=== PATIENT | female | born 1965 | race American Indian/Alaskan Native ===

== ENCOUNTER 2017-05-04 13:50 | Emergency (ER) | payer MEDICARE, MEDICAID ==
[2017-05-04] MEDS ORDERED: Acetaminophen/HYDROcodone 325-5 MG Tab PO ONE (14:42)
--- NOTE | 2017-05-04 15:55 | EDM.PDOC ---
ED HPI GENERAL MEDICAL PROBLEM - General Chief Complaint: Upper Extremity Injury/Pain Stated Complaint: LEFT SHOULDER Time Seen by Provider: 05/04/17 13:50 Source of Information: Reports: Patient, EMS - History of Present Illness INITIAL COMMENTS - FREE TEXT/NARRATIVE: 51 years old w f with multiple medical issues, came the ed by EMS after she fell over her walker. Pt complained of left shoulder and left sided neck pain. No LOC. No dizziness, no Lightheadedness no other acute medical issues at this time. Onset: Today Onset Date: 05/04/17 Onset Time: 10:00 Duration: Hour(s): Location: Reports: Neck, Back (left shoulder), Upper Extremity, Left Quality: Reports: Dull Severity: Mild Improves with: Reports: Rest Worsens with: Reports: Movement Context: Reports: Trauma Associated Symptoms: Reports: No Other Symptoms left shoulder and neck Pain Score (Numeric/FACES): 10 - Related Data Allergies Allergy/AdvReac Type Severity Reaction Status Date / Time aspirin Allergy Other Verified 05/04/17 14:05 mold Allergy Airway Uncoded 05/04/17 14:05 Tightness Home Meds: Home Meds Albuterol [Proventil Neb Soln] 2.5 mg NEB QID PRN 05/03/13 [History] Montelukast [Singulair] 10 mg PO DAILY 05/03/13 [History] Nitroglycerin [Nitrostat] 0.4 mg SL ASDIRECTED PRN 05/03/13 [History] Lisinopril [Zestril] 10 mg PO DAILY 11/06/13 [History] Simvastatin [Zocor] 10 mg PO BEDTIME 11/06/13 [History] Theophylline [Theophylline Anhydrous] 300 mg PO BID 11/06/13 [History] Albuterol [Proair HFA] 2 puff INH Q4H PRN 01/08/15 [History] Budesonide/Formoterol [Symbicort 160-4.5 MCG] 2 puff INH BID 05/15/15 [History] Furosemide [Lasix] 40 mg PO DAILY #90 tablet 05/16/15 [Rx] Potassium Chloride [Klor-Con 10] 10 meq PO BEDTIME 11/19/15 [History] Ondansetron [Zofran ODT] 4 mg PO Q6H PRN #7 tab.dis 06/20/16 [Rx] Acetaminophen/HYDROcodone [[place] 325-5 MG] 1 tab PO Q4H PRN #6 tab 05/04/17 [Rx] Hydrocodone/Acetaminophen [Vicodin 5-300 mg Tablet] 1 each PO Q4HR PRN #6 tablet 05/04/17 [Rx] metFORMIN [Glucophage] 500 mg PO BID 05/04/17 [History] Past Medical History HEENT 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: Cataract, Impaired Vision Cardiovascular 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: High Cholesterol, Hypertension, Other (See Below) Other Cardiovascular History: patient states has PRn nitro at home for occasional chest pains Respiratory 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: Asthma, COPD Genitourinary 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: Other (See Below) Other Genitourinary History: stress incontinence at times 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: Musculoskeletal 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: Other (See Below) Other Musculoskeletal History: BACK INJURY Neurological 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: Concussion Endocrine/Metabolic 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: Diabetes, Type II Oncologic (Cancer) 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: Ovarian Dermatologic 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: Other (See Below) Other Dermatologic History: open infected wound under right abd fold on oral antibiotics - Infectious Disease History Infectious Disease 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: Chicken Pox - Past Surgical History HEENT Surgical 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: Cataract Surgery Female Surgical 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: Hysterectomy, Salpingo-Oophorectomy Social & Family History - Family History Family Medical History: Noncontributory HEENT: Reports: Cataract Cardiac: Reports: CAD, [place] Respiratory: Reports: Asthma, Sleep Apnea : Reports: Diabetic Nephropathy OBGYN: Reports: Musculoskeletal: Reports: Arthritis Endocrine/Metabolic: Reports: Diabetes, Type I, Diabetes, type II, IDDM, Obesity /MBI 30+ Oncologic: Reports: Bone, Breast, Other (See Below) Other Oncologic Family History: heart - Tobacco Use Smoking Status *Q: Former Smoker Years of Tobacco use: 39 Packs/Tins Daily: 2 Used Tobacco, but Quit: Yes Month Tobacco Last Used: 24 Second Hand Smoke Exposure: No - Caffeine Use Caffeine Use: Reports: Coffee Other Caffeine Use: daily - Alcohol Use Days Per Week of Alcohol Use: 0 - Recreational Drug Use Recreational Drug Use: No - Living Situation & Occupation Living situation: Reports: Review of Systems - Review of Systems Review Of Systems: See Below Constitutional: Reports: No Symptoms Eyes: Reports: No Symptoms Ears: Reports: No Symptoms Nose: Reports: No Symptoms Mouth/Throat: Reports: No Symptoms Respiratory: Reports: No Symptoms Cardiovascular: Reports: No Symptoms GI/Abdominal: Reports: No Symptoms Genitourinary: Reports: No Symptoms Musculoskeletal: Reports: Neck Pain, Shoulder Pain Skin: Reports: No Symptoms Neurological: Reports: No Symptoms Psychiatric: Reports: No Symptoms ED EXAM, GENERAL - Physical Exam Exam: See Below Exam Limited By: No Limitations General Appearance: Alert, WD/WN, Mild Distress, Obese Eye Exam: Bilateral Eye: Normal Inspection Ears: Normal External Exam Ear Exam: Bilateral Ear: Auricle Normal Nose: Normal Inspection, Normal Mucosa Throat/Mouth: Normal Inspection, Normal Lips Head: Atraumatic, Normocephalic Neck: Tender Lateral Respiratory/Chest: No Respiratory Distress, Lungs Clear Cardiovascular: Normal Peripheral Pulses, Regular Rate, Rhythm GI/Abdominal: Normal Bowel Sounds, Soft (Female) Exam: Deferred Rectal (Female) Exam: Deferred Back Exam: Normal Inspection Extremities: Normal Inspection Neurological: Alert, Oriented, CN II-XII Intact, Normal Cognition, Abnormal Gait (walks with a walker) Psychiatric: Normal Affect, Normal Mood Skin Exam: Warm, Dry, Intact, Normal Color, No Rash Course - Vital Signs Text/Narrative:: 51 years old w f with multiple medical issues, came the ed by EMS after she fell over her walker. Pt complained of left shoulder and left sided neck pain. No LOC. No dizziness, no Lightheadedness no other acute medical issues at this time. BP 146/8- pulse 104 RR 17 PE: Morbid obese 51 y.o.w.f NAD witk tenderness left lat neck and left post shoulder. Imaging: C spine and L shoulder: NAD, official report is pending. Impression: Neck and shoulder sprain after mechanical fall. Tx: Motrin.Vicodin, soft collar to neck Reexam: improved Plan: D/C with instructions Last Recorded V/S: Last Vital Signs Temp 37.0 C 05/04/17 13:50 Pulse 91 05/04/17 16:01 Resp 16 05/04/17 16:01 BP 120/77 05/04/17 16:01 Pulse Ox 99 05/04/17 16:01 - Orders/Labs/Meds Orders: Active Orders 24 hr Category Date Time Status Cervical Spine 2V or 3V [CR] Stat Exams 05/04/17 14:20 Taken Shoulder Comp Lt [CR] Stat Exams 05/04/17 14:24 Taken Labs: Laboratory Tests 05/04/17 Range/Units 15:33 Urine Color Yellow (YELLOW) Urine Appearance Clear (CLEAR) Urine pH 5.0 (5.0-6.5) Ur Specific [place] 1.010 (1.010-1.025) Urine Protein Negative (NEGATIVE) mg/dL Urine Glucose (UA) 50 H (NEGATIVE) mg/dL Urine Ketones Negative (NEGATIVE) mg/dL Urine Occult Blood Negative (NEGATIVE) Urine Nitrite Negative (NEGATIVE) Urine Bilirubin Negative (NEGATIVE) Urine Urobilinogen Normal (NEGATIVE) mg/dL Ur Leukocyte Esterase Negative (NEGATIVE) Urine RBC 0-5 (0) Urine WBC 0-5 (0) Ur Squamous Epith Cells Moderate H (NS,R,O) Urine Bacteria Few H (NS) Meds: Medications Discontinued Medications Generic Name Dose Route Start Last Admin Trade Name Freq PRN Reason Stop Dose Admin Hydrocodone Bitart/Acetaminophen 1 tab 05/04/17 14:42 05/04/17 14:49 [place] 325-5 Mg PO 05/04/17 14:43 1 tab ONETIME ONE Administration Departure - Departure Time of Disposition: 15:50 Disposition: Home, Self-Care 01 Condition: Good Clinical Impression: Sprain of shoulder, left Qualifiers: Encounter type: initial encounter Shoulder sprain type: unspecified sprain Qualified Code(s): S43.402A - Unspecified sprain of left shoulder joint, initial encounter Neck sprain Qualifiers: Encounter type: initial encounter Qualified Code(s): S13.9XXA - Sprain of joints and ligaments of unspecified parts of neck, initial encounter - Discharge Information Prescriptions: Hydrocodone/Acetaminophen [Vicodin 5-300 mg Tablet] 1 each PO Q4HR PRN #6 tablet PRN Reason: severe pain only Acetaminophen/HYDROcodone [[place] 325-5 MG] 1 tab PO Q4H PRN #6 tab PRN Reason: severe pain only Referrals: Jacinto Jones MD [Primary Care Provider] - Forms: ED Department Discharge Additional Instructions: Please use the soft collar to neck for comfort, ice motrin for med pain, vicodin for sever pain, please f/u, please come back if your symptoms get worse acutely - My Orders Last 24 Hours: My Active Orders 05/04/17 14:20 Cervical Spine 2V or 3V [CR] Stat 05/04/17 14:24 Shoulder Comp Lt [CR] Stat - Assessment/Plan Last 24 Hours: My Active Orders 05/04/17 14:20 Cervical Spine 2V or 3V [CR] Stat 05/04/17 14:24 Shoulder Comp Lt [CR] Stat
[2017-05-04 16:06] VITALS: BP 120/77
--- NOTE | 2017-05-05 10:44 | CR ---
INDICATION: Left shoulder and neck pain, fell last night. LEFT SHOULDER: Three views of the left shoulder revealed very minimal degenerative changes at the AC and glenohumeral joints with the glenohumeral joint space well-maintained. A fracture, dislocation, or other acute bone or joint abnormality was not identified. There is slight sclerosis at the undersurface of the acromion, raising question of a mild degree of impingement - rotator cuff injury and/or degeneration. This should be correlated clinically. IMPRESSION: 1. No acute fracture or dislocation. 2. Minimal osteoarthritis. 3. Possible mild impingement. MTDD
--- NOTE | 2017-05-05 11:00 | CR ---
INDICATION: Left shoulder and neck pain, fell last night. CERVICAL SPINE: Six images of the cervical spine were obtained in frontal, odontoid, and lateral views. There may be slight decrease in disk space at C3-4, as well as at C5-6. The remainder of the disk spaces inferiorly were not ideally visualized, apparently due to patient body habitus. There may be some narrowing, however, at the C7- T1 and T1-2 levels. There also is noted a dextroconvex scoliosis of the cervical spine of mild degree. The odontoid was not well seen but appeared grossly intact. Prevertebral space and bone density appeared to be normal. Mild degenerative changes are noted at the atlantoodontoid joint. A definite acute fracture or dislocation was not identified. IMPRESSION: 1. No definite acute fracture or dislocation. 2. Mild scoliosis. 3. Possible disk disease at multiple levels, as noted above. MTDD
== END 2017-05-04 16:01 | disposition home or self-care (01) ==
LOC: FB.ED 13:50
DX: S13.9XXA Sprain of joints and ligaments of unspecified parts of neck, initial encounter (principal); S43.402A Unspecified sprain of left shoulder joint, initial encounter; Z88.8 Allergy status to other drugs, medicaments and biological substances; Z79.899 Other long term (current) drug therapy; E78.00 Pure hypercholesterolemia, unspecified; I10 Essential (primary) hypertension; Z87.891 Personal history of nicotine dependence; W19.XXXA Unspecified fall, initial encounter
CPT/HCPCS: 72040; 73030; 81001; 99284; A9270

== ENCOUNTER 2017-07-31 09:59 | Inpatient (IN) | payer MEDICARE, MEDICAID ==
[2017-07-31] MEDS ORDERED: Lactated Ringers 1,000 ML IV ONE (10:04)
[2017-07-31] MEDS ORDERED: Acetaminophen 500 MG Tab PO ONE (10:11)
--- NOTE | 2017-07-31 10:11 | EDM.PDOC ---
ED HPI GENERAL MEDICAL PROBLEM - General Chief Complaint: Respiratory Problem Stated Complaint: SOB Time Seen by Provider: 07/31/17 10:00 Source of Information: Reports: Patient, EMS, Old Records History Limitations: Reports: No Limitations - History of Present Illness INITIAL COMMENTS - FREE TEXT/NARRATIVE: 52 yo female who lives alone presents via EMS with wheezing and SOB. Had a Duoneb before leaving home with little benefit. EMS gave Solumedrol 125 mg IV en route. Has been having more SOB over the past few days. Quit smoking a couple yrs ago. Uses oxygen at 2 liters/min/NC at home. Had a friend over last night that was smoking in her home. Does have some mild chest pain. Is diabetic with BS running around 120. Has had increased redness in her L calf area of recent onset. Onset: Gradual Onset Date: 07/28/17 Duration: Day(s):, Getting Worse Location: Reports: Chest, Lower Extremity, Left Quality: Reports: Dull Severity: Mild Improves with: Reports: None Worsens with: Reports: Other (? 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: Breathing Treatments, Other Medication(s) (Solumedrol) Anterior chest & mid back Pain Score (Numeric/FACES): 7 - Related Data Allergies Allergy/AdvReac Type Severity Reaction Status Date / Time aspirin Allergy Other Verified 05/04/17 14:05 mold Allergy Airway Uncoded 05/04/17 14:05 Tightness Home Meds: Home Meds Montelukast [Singulair] 10 mg PO DAILY 05/03/13 [History] Lisinopril [Zestril] 10 mg PO DAILY 11/06/13 [History] Simvastatin [Zocor] 10 mg PO BEDTIME 11/06/13 [History] Theophylline [Theophylline Anhydrous] 300 mg PO BID 11/06/13 [History] Albuterol [Proair HFA] 2 puff INH Q4H PRN 01/08/15 [History] Budesonide/Formoterol [Symbicort 160-4.5 MCG] 2 puff INH BID 05/15/15 [History] Furosemide [Lasix] 40 mg PO DAILY #90 tablet 05/16/15 [Rx] Potassium Chloride [Klor-Con 10] 10 meq PO BEDTIME 11/19/15 [History] metFORMIN [Glucophage] 500 mg PO BID 05/04/17 [History] Albuterol/Ipratropium [DuoNeb 3.0-0.5 MG/3 ML] 3 ml INH Q4H PRN 07/31/17 [ History] Celecoxib [CeleBREX] 200 mg PO DAILY 07/31/17 [History] DULoxetine [Cymbalta] 60 mg PO BEDTIME 07/31/17 [History] Gabapentin [Neurontin] 600 mg PO TID 07/31/17 [History] HYDROcodone/Ibuprofen [Vicoprofen] 1 tab PO Q4H PRN 07/31/17 [History] Insulin Aspart [NovoLOG] 35 unit TIDMEALS 07/31/17 [History] Insulin Glargine,Hum.Rec.Anlog [[place]jeo Solostar] 120 unit SQ BEDTIME 07/31/17 [ History] Ipratropium [Atrovent HFA Inh] 1 puff INH BEDTIME 07/31/17 [History] Lactulose 10 gm PO DAILY PRN 07/31/17 [History] Nystatin/Triamcinolone Crm [Mycolog Crm] 1 applic TOP BID PRN 07/31/17 [History] Tolterodine Tartrate [Detrol LA] 4 mg PO BID 07/31/17 [History] Past Medical History HEENT 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: Cataract, Impaired Vision Cardiovascular 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: High Cholesterol, Hypertension, Other (See Below) Other Cardiovascular History: patient states has PRn nitro at home for occasional chest pains Respiratory 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: Asthma, COPD Genitourinary 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: Other (See Below) Other Genitourinary History: stress incontinence at times 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: Musculoskeletal 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: Other (See Below) Other Musculoskeletal History: BACK INJURY Neurological 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: Concussion Endocrine/Metabolic 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: Diabetes, Type II Oncologic (Cancer) 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: Ovarian Dermatologic 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: Other (See Below) Other Dermatologic History: open infected wound under right abd fold on oral antibiotics - Infectious Disease History Infectious Disease 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: Chicken Pox - Past Surgical History HEENT Surgical 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: Cataract Surgery Female Surgical 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: Hysterectomy, Salpingo-Oophorectomy Social & Family History - Family History Family Medical History: Noncontributory HEENT: Reports: Cataract Cardiac: Reports: CAD, [place] Respiratory: Reports: Asthma, Sleep Apnea : Reports: Diabetic Nephropathy OBGYN: Reports: Musculoskeletal: Reports: Arthritis Endocrine/Metabolic: Reports: Diabetes, Type I, Diabetes, type II, IDDM, Obesity /MBI 30+ Oncologic: Reports: Bone, Breast, Other (See Below) Other Oncologic Family History: heart - Tobacco Use Smoking Status *Q: Former Smoker Years of Tobacco use: 39 Packs/Tins Daily: 2 Used Tobacco, but Quit: Yes Month Tobacco Last Used: 24 Second Hand Smoke Exposure: No - Caffeine Use Caffeine Use: Reports: Coffee Other Caffeine Use: daily - Alcohol Use Days Per Week of Alcohol Use: 0 - Recreational Drug Use Recreational Drug Use: No - Living Situation & Occupation Living situation: Reports: ED ROS GENERAL - Review of Systems Review Of Systems: See Below Constitutional: Reports: Fever (Patient not aware), Weakness HEENT: Reports: No Symptoms Respiratory: Reports: Shortness of Breath, Wheezing, Cough. Denies: Sputum, Hemoptysis Cardiovascular: Reports: Chest Pain Endocrine: Reports: No Symptoms GI/Abdominal: Reports: No Symptoms : Reports: No Symptoms Musculoskeletal: Reports: No Symptoms Skin: Reports: No Symptoms Neurological: Reports: No Symptoms Psychiatric: Reports: No Symptoms Hematologic/Lymphatic: Reports: No Symptoms ED EXAM, GENERAL - Physical Exam Exam: See Below Exam Limited By: No Limitations General Appearance: Alert, Mild Distress, Obese Eye Exam: Bilateral Eye: Normal Inspection Ears: Normal External Exam, Normal Canal, Hearing Grossly Normal, Normal TMs Ear Exam: Bilateral Ear: Auricle Normal, Canal Normal, TM normal Nose: Normal Inspection, Normal Mucosa, No Blood Throat/Mouth: Normal Inspection, Normal Lips, Normal Oropharynx, Normal Voice, No Airway Compromise, Other (Dry oral mucosa, edentulous). No: Normal Teeth Head: Atraumatic, Normocephalic Neck: Normal Inspection, Supple, Non-Tender Respiratory/Chest: No Respiratory Distress, Lungs Clear, Normal Breath Sounds, No Accessory Muscle Use Cardiovascular: Regular Rate, Rhythm GI/Abdominal: Normal Bowel Sounds, Soft, Non-Tender, No Distention, Other (obese ) Back Exam: Normal Inspection. No: CVA Tenderness (R), CVA Tenderness (L) Extremities: Normal Range of Motion, Pedal Edema, Increased Warmth (L LE ), Redness (L LE, calf and medial thigh) Neurological: Alert, Oriented, CN II-XII Intact, Normal Cognition, No Motor/ Sensory Deficits Psychiatric: Normal Affect, Normal Mood Skin Exam: Warm, Dry, Intact, No Rash, Erythema (L leg) Lymphatic: No Adenopathy EKG INTERPRETATION EKG Interpretation Comments: Rate increase only. Course - Vital Signs Text/Narrative:: LR 1000 ml IV, acetaminophen 1000 mg po, clindamycin 900 mg IV Last Recorded V/S: Last Vital Signs Temp 38.5 C H 07/31/17 09:59 Pulse 118 H 07/31/17 09:59 Resp 26 H 07/31/17 09:59 BP 138/59 L 07/31/17 09:59 Pulse Ox 95 07/31/17 10:56 - Orders/Labs/Meds Orders: Active Orders 24 hr Category Date Time Status Cardiac Monitoring [RC] .As Directed Care 07/31/17 10:04 Active Oxygen Therapy Adult [Oxygen Therapy] [RC] ASDIRECTED Care 07/31/17 10:04 Active CULTURE BLOOD [BC] Urgent Lab 07/31/17 10:15 Received CULTURE BLOOD [BC] Urgent Lab 07/31/17 10:20 Received UA W/MICROSCOPIC [URIN] Stat Lab 07/31/17 10:05 Uncollected Clindamycin Phosphate [Cleocin] 900 mg Med 07/31/17 10:55 Active Sodium Chloride 0.9% [Normal Saline] 100 ml IV ONETIME Blood Culture x2 Reflex Set [OM.PC] Urgent Oth 07/31/17 10:11 Ordered EKG 12 Lead [EK] Routine Ther 07/31/17 10:05 Ordered Medication Orders Clindamycin Phosphate 900 mg/ (Sodium Chloride) 106 mls @ 100 mls/hr IV ONETIME ONE Stop: 07/31/17 11:58 Labs: Laboratory Tests 07/31/17 07/31/17 07/31/17 Range/Units 10:15 10:15 10:15 WBC 9.0 (4.5-12.0) X10-3/uL RBC 4.98 (3.23-5.20) x10(6)uL Hgb 13.0 (11.5-15.5) g/dL Hct 40.3 (30.0-51.3) % MCV 80.8 (80-96) fL MCH 26.0 L (27.7-33.6) pg MCHC 32.2 (32.2-35.4) g/dL RDW 16.0 H (11.5-15.5) % Plt Count 136 (125-369) X10(3)uL Sodium 134 L (135-145) mmol/L Potassium 4.7 (3.5-5.3) mmol/L Chloride 100 (100-110) mmol/L Carbon Dioxide 24 (21-32) mmol/L BUN 8 (7-18) mg/dL Creatinine 0.5 L (0.55-1.02) mg/dL Est Cr Clr Drug Dosing 120.41 mL/min Estimated GFR (MDRD) > 60 (>60) BUN/Creatinine Ratio 16.0 (9-20) Glucose 421 H* (80-116) mg/dL Lactic Acid (0.4-2.2) mmol/L Calcium 9.1 (8.6-10.2) mg/dL Troponin I < 0.017 L (<0.017-0.056) ng/mL C-Reactive Protein (0.5-0.9) mg/dL 07/31/17 07/31/17 Range/Units 10:15 10:15 WBC (4.5-12.0) X10-3/uL RBC (3.23-5.20) x10(6)uL Hgb (11.5-15.5) g/dL Hct (30.0-51.3) % MCV (80-96) fL MCH (27.7-33.6) pg MCHC (32.2-35.4) g/dL RDW (11.5-15.5) % Plt Count (125-369) X10(3)uL Sodium (135-145) mmol/L Potassium (3.5-5.3) mmol/L Chloride (100-110) mmol/L Carbon Dioxide (21-32) mmol/L BUN (7-18) mg/dL Creatinine (0.55-1.02) mg/dL Est Cr Clr Drug Dosing mL/min Estimated GFR (MDRD) (>60) BUN/Creatinine Ratio (9-20) Glucose (80-116) mg/dL Lactic Acid 1.0 (0.4-2.2) mmol/L Calcium (8.6-10.2) mg/dL Troponin I (<0.017-0.056) ng/mL C-Reactive Protein 11.5 H* (0.5-0.9) mg/dL Meds: Medications Generic Name Dose Route Start Last Admin Trade Name Freq PRN Reason Stop Dose Admin Clindamycin Phosphate 900 mg/ 106 mls @ 100 mls/hr 07/31/17 10:55 Sodium Chloride IV 07/31/17 11:58 ONETIME ONE Discontinued Medications Generic Name Dose Route Start Last Admin Trade Name Freq PRN Reason Stop Dose Admin Acetaminophen 1,000 mg 07/31/17 10:11 07/31/17 10:50 Tylenol Extra Strength PO 07/31/17 10:12 1,000 mg ONETIME ONE Administration Lactated Ringer's 1,000 mls @ 1,000 mls/hr 07/31/17 10:04 07/31/17 10:50 Ringers, Lactated IV 07/31/17 11:03 1,000 mls/hr BOLUS ONE Administration - Radiology Interpretation Free Text/Narrative:: CXR-negative Departure - Departure Time of Disposition: 11:40 Disposition: Admitted As Inpatient 64 Condition: Fair Clinical Impression: COPD exacerbation Cellulitis Qualifiers: Site of cellulitis: extremity Site of cellulitis of extremity: lower extremity Laterality: left Qualified Code(s): L03.116 - Cellulitis of left lower limb Hyperglycemia due to type 2 diabetes mellitus Qualifiers: Diabetes mellitus long term care phlebotomist insulin use: with long term care phlebotomist use Qualified Code(s): E11.65 - Type 2 diabetes mellitus with hyperglycemia; Z79.4 - extermination inspector (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 ) use of insulin; Z79.4 - extermination inspector (current) use of insulin; Z79.4 - extermination inspector (current) use of insulin; Z79.4 - extermination inspector (current) use of insulin - Discharge Information Referrals: Jacinto Jones MD [Primary Care Provider] - Forms: ED Department Discharge - My Orders Last 24 Hours: My Active Orders 07/31/17 10:04 Cardiac Monitoring [RC] .As Directed Oxygen Therapy Adult [Oxygen Therapy] [RC] ASDIRECTED 07/31/17 10:05 UA W/MICROSCOPIC [URIN] Stat EKG 12 Lead [EK] Routine 07/31/17 10:11 Blood Culture x2 Reflex Set [OM.PC] Urgent 07/31/17 10:15 CULTURE BLOOD [BC] Urgent 07/31/17 10:20 CULTURE BLOOD [BC] Urgent 07/31/17 10:55 Clindamycin Phosphate [Cleocin] 900 mg Sodium Chloride 0.9% [Normal Saline] 100 ml IV ONETIME - Assessment/Plan Last 24 Hours: My Active Orders 07/31/17 10:04 Cardiac Monitoring [RC] .As Directed Oxygen Therapy Adult [Oxygen Therapy] [RC] ASDIRECTED 07/31/17 10:05 UA W/MICROSCOPIC [URIN] Stat EKG 12 Lead [EK] Routine 07/31/17 10:11 Blood Culture x2 Reflex Set [OM.PC] Urgent 07/31/17 10:15 CULTURE BLOOD [BC] Urgent 07/31/17 10:20 CULTURE BLOOD [BC] Urgent 07/31/17 10:55 Clindamycin Phosphate [Cleocin] 900 mg Sodium Chloride 0.9% [Normal Saline] 100 ml IV ONETIME
[2017-07-31] MEDS ORDERED: Clindamycin Phosphate 900 MG in Sodium Chloride 0.9% 100 ML IV ONE (10:55)
--- NOTE | 2017-07-31 11:06 | CR ---
INDICATION: Short of breath. CHEST: AP upright view of the chest 07/31/2017 was compared with 11/28/2015 and 10/23/2015. Overlying EKG leads are noted. The aorta is tortuous with calcification in the arch. The heart likely is normal in size. A definite active infiltrate or effusion was not identified. IMPRESSION: Fairly stable appearance of the chest. No acute process. No definite evidence of CHF identified. MTDD
[2017-07-31] MEDS ORDERED: Acetaminophen 325 MG Tab PO PRN (12:06)
[2017-07-31] MEDS ORDERED: Docusate Sodium 100 MG Cap PO PRN (12:06)
[2017-07-31] MEDS ORDERED: Clindamycin Phosphate 600 MG in Dextrose 5% in Water 50 ML IV SCH ×4 (12:30)
[2017-07-31] MEDS ORDERED: cefTRIAXone 2 GM in Sodium Chloride 0.9% 100 ML IV SCH (12:30)
[2017-07-31] MEDS ORDERED: Lactulose Soln 10 GM/15 ML 15 ML UD Cup PO PRN (12:30)
--- NOTE | 2017-07-31 12:54 | PCM.HP ---
H&P History of Present Illness - General Date of Service: 07/31/17 Admit Problem/Dx: Admission Diagnosis/Problem Admission Diagnosis/Problem COPD with acute lower respiratory infection Source of Information: Patient, EMS, Family, Old Records, Provider - History of Present Illness Initial Comments - Free Text/Narative: Chief complaint: Shortness of breath History of present illness: 52-year-old female with a long-standing history of COPD, oxygen dependent on 2 L. Recent history of steroid use. Over the last 3 days she's had increasing shortness of breath at home. She had an upper respiratory infection treated with Bactrim in April 2017 and again May. On 07/03/2017 was treated with a prednisone burst for COPD exacerbation. She felt well until Monday when she started to develop a slight cough (07/28). She started to go increasingly short of breath yesterday and spiked a fever of 101 at home. She was trying her DuoNeb's but they didn't seem to help. This morning she was unable to breathe after a DuoNeb and so called the ambulance. Sats were 93% on her baseline 2 L but respiratory rate was 26. Patient had diffuse expiratory wheezing and a fever of 101.3 and was given a dose of IV Solu-Medrol en route. Her breathing feels a little better right now but she still feels quite a bit more short of breath than her baseline. Previously had a fall at her home on 07/22/2017. She has poor feeling in her feet from her diabetes and felt she tripped because of this. She had pain in the left foot and some duskiness over the toes and also had an episode of loss of consciousness she thinks for at least a few seconds. She declined emergency room visit and instead went into the clinic. Was seen and evaluated by her primary care provider. Blood sugar at that time was 500. X-ray negative for fracture of the back. Was given a prescription for Vicoprofen and a referral to vascular surgery for peripheral vascular disease. Continues to have ongoing chronic back pain but otherwise felt back to baseline. Patient has diabetes mellitus type 2, on insulin, A1c in April was 10.5%. She mentions her blood sugars have been in the 100 range at home but today when she presented her blood sugar was 410 which she was unaware of and in the clinic she also said her blood sugars were in the 100 range at home but at that time blood sugar was 515. Past medical history: #1 hypertension #2 COPD, oxygen dependent at 2 L, frequent prednisone use per chart review. Most recent course of prednisone 07/03/17. #3 obstructive sleep apnea. #4 obesity with a BMI of 40 #5 diabetes mellitus type 2 with peripheral neuropathy. Last A1c 05/02 10.5%. On long-acting and short-acting insulin, also metformin by mouth. #6 major depressive disorder #7 overactive bladder with urinary incontinence and incomplete bladder emptying. #8 chronic back pain. #9 patient reports acute myocardial infarction in 1999, but this is not recorded on her chart. She did have an echocardiogram done 05/29/15 which showed ejection fraction 60%. Mild diastolic dysfunction. Cardiac perfusion scan done on 10/03/13 showed normal results with no evidence of previous CT. #10 peripheral vascular disease with moderate left lower extremity arterial occlusive disease by vascular ultrasound on 12/06/16. Normal right lower extremity ankle-brachial index at rest at that time. Social history: Patient lives at [facility] by herself. She is . She has a daughter and her family which includes a grandson who is here with her today, living nearby. She quit smoking in 2014. No alcohol use. No illegal drug use. She has 4 children. Family history: The patient's mother and father are estranged from the patient. Father in the past. She thinks her mother is still alive. She has 2 brothers and 3 sisters. Diabetes, hypertension run in the family. She is estranged from all but one of her brothers. She has 4 children are one of whom has asthma. Anterior chest & mid back Pain Score (Numeric/FACES): 7 - Related Data Allergies/Adverse Reactions: Allergies Allergy/AdvReac Type Severity Reaction Status Date / Time aspirin Allergy Other Verified 05/04/17 14:05 mold Allergy Airway Uncoded 05/04/17 14:05 Tightness Home Medications: Home Meds Montelukast [Singulair] 10 mg PO DAILY 05/03/13 [History] Lisinopril [Zestril] 10 mg PO DAILY 11/06/13 [History] Simvastatin [Zocor] 10 mg PO BEDTIME 11/06/13 [History] Theophylline [Theophylline Anhydrous] 300 mg PO BID 11/06/13 [History] Albuterol [Proair HFA] 2 puff INH Q4H PRN 01/08/15 [History] Budesonide/Formoterol [Symbicort 160-4.5 MCG] 2 puff INH BID 05/15/15 [History] Potassium Chloride [Klor-Con 10] 10 meq PO BEDTIME 11/19/15 [History] metFORMIN [Glucophage] 500 mg PO BID 05/04/17 [History] Albuterol/Ipratropium [DuoNeb 3.0-0.5 MG/3 ML] 3 ml INH Q4H PRN 07/31/17 [ History] Celecoxib [CeleBREX] 200 mg PO DAILY 07/31/17 [History] DULoxetine [Cymbalta] 60 mg PO BEDTIME 07/31/17 [History] Furosemide [Lasix] 40 mg PO Q48H 07/31/17 [History] Gabapentin [Neurontin] 600 mg PO TID 07/31/17 [History] HYDROcodone/Ibuprofen [Vicoprofen] 1 tab PO Q4H PRN 07/31/17 [History] Insulin Aspart [NovoLOG] 35 unit TIDMEALS 07/31/17 [History] Insulin Glargine,Hum.Rec.Anlog [Toujeo Solostar] 120 unit SQ BEDTIME 07/31/17 [ History] Ipratropium [Atrovent HFA Inh] 1 puff INH BEDTIME 07/31/17 [History] Lactulose 10 gm PO DAILY PRN 07/31/17 [History] Nystatin/Triamcinolone Crm [Mycolog Crm] 1 applic TOP BID PRN 07/31/17 [History] Tolterodine Tartrate [Detrol LA] 4 mg PO BID 07/31/17 [History] Past Medical History HEENT 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: Cataract, Impaired Vision Cardiovascular 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: High Cholesterol, Hypertension, Other (See Below) Other Cardiovascular History: patient states has PRn nitro at home for occasional chest pains Respiratory 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: Asthma, COPD Other Respiratory History: has CPAP Gastrointestinal 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: GERD Genitourinary 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: Other (See Below) Other Genitourinary History: stress incontinence at times 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: Other OB/BYN History: , Musculoskeletal 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: Other (See Below) Other Musculoskeletal History: BACK INJURY Neurological 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: Concussion Psychiatric 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: Depression Endocrine/Metabolic 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: Diabetes, Type II Oncologic (Cancer) 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: Ovarian Dermatologic 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: Other (See Below) Other Dermatologic History: open infected wound under right abd fold on oral antibiotics - Infectious Disease History Infectious Disease 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: Chicken Pox - Past Surgical History HEENT Surgical 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: Cataract Surgery Female Surgical 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: Hysterectomy, Salpingo-Oophorectomy Social & Family History - Family History Family Medical History: Noncontributory HEENT: Reports: Cataract Cardiac: Reports: CAD, CT Respiratory: Reports: Asthma, Sleep Apnea : Reports: Diabetic Nephropathy OBGYN: Reports: Musculoskeletal: Reports: Arthritis Endocrine/Metabolic: Reports: Diabetes, Type I, Diabetes, type II, IDDM, Obesity /MBI 30+ Oncologic: Reports: Bone, Breast, Other (See Below) Other Oncologic Family History: heart - Tobacco Use Smoking Status *Q: Former Smoker Years of Tobacco use: 39 Packs/Tins Daily: 2 Used Tobacco, but Quit: Yes Month Tobacco Last Used: 24 Second Hand Smoke Exposure: No - Caffeine Use Caffeine Use: Reports: Coffee Other Caffeine Use: daily - Alcohol Use Days Per Week of Alcohol Use: 0 - Recreational Drug Use Recreational Drug Use: No - Living Situation & Occupation Living situation: Reports: H&P Review of Systems - Review of Systems: Review Of Systems: See Below General: Reports: Fever, Chills, Malaise, Weakness, Fatigue, Night Sweats, Diaphoresis, Decreased Appetite HEENT: Reports: Rhinitis, Post Nasal Drip, Sore Throat Pulmonary: Reports: Shortness of Breath, Wheezing, Cough, Other (No chest pain.) Cardiovascular: Reports: Dyspnea on Exertion Gastrointestinal: Reports: No Symptoms Genitourinary: Reports: No Symptoms (Has chronic difficulty voiding and incontinence.) Musculoskeletal: Reports: Muscle Pain Skin: Reports: Other (Lower extremities show chronic erythema bilaterally. Patient hasn't noticed that the erythema has worsened but on the left foot she' s got some duskiness and bruising at the base of the toes which is exquisitely tender and more swollen than usual.) Psychiatric: Reports: No Symptoms Neurological: Reports: No Symptoms Hematologic/Lymphatic: Reports: No Symptoms Immunologic: Reports: No Symptoms Exam - Exam Exam: See Below - Vital Signs Vital Signs: Last Vital Signs Temp 38.5 C H 07/31/17 09:59 Pulse 118 H 07/31/17 09:59 Resp 26 H 07/31/17 09:59 BP 138/59 L 07/31/17 09:59 Pulse Ox 95 07/31/17 10:56 Weight: 110.677 kg - Exam General: Alert, Oriented, Cooperative, Mild Distress (Seems uncomfortable. Minimal cough in the exam room.) HEENT: PERRLA, Conjunctiva Clear, Mucosa Moist & [place], Posterior Pharynx Clear Neck: Supple, Trachea Midline Lungs: Decreased Breath Sounds, Wheezing Cardiovascular: Regular Rate, Regular Rhythm GI/Abdominal Exam: Normal Bowel Sounds, Soft, Non-Tender, No Distention (Female) Exam: Deferred Rectal (Female) Exam: Deferred Back Exam: Normal Inspection, Full Range of Motion Extremities: Other (Bilateral +1 edema. Both ankles/shins show mild erythema and are tender to palpation. Patient has more swelling over the foot and third fourth and fifth digits on the left foot as well as duskiness or bruising at the base of the toes. No open sores or ulcerations.) - Patient Data Result Diagrams: 07/31/17 10:15 07/31/17 10:15 Imaging Impressions Last 24 hrs: Chest x-ray shows no acute infiltrate. EKG INTERPRETATION EKG Date: 07/31/17 (EKG shows sinus tachycardia, no ST elevation or depression, no T-wave inversion. Rate of 115.) *Q Meaningful Use (ADM) - VTE *Q VTE Criteria *Q: - Stroke *Q Stroke Criteria *Q: - AMI *Q AMI Criteria *Q: - Problem List (1) SIRS (systemic inflammatory response syndrome) SNOMED Code(s): 904428572 ICD Code: R65.10 - SIRS OF NON-INFECTIOUS ORIGIN W/O ACUTE ORGAN DYSFUNCTION Status: Acute Current Visit: Yes Problem Details: Not entirely clear to me why this patient is febrile. Certainly acute exacerbation of COPD as high in the differential given her symptoms, but it doesn't really explain the fever. The possibility of a left foot cellulitis after her recent trauma is concerning , particularly given her poor perfusion and sensation in the left foot. She has a significantly elevated CRP as well. For the time being I'm going to treat her with continued clindamycin as was started in the emergency department for possible foot cellulitis, and I'm going to add Rocephin as well. I will also get an x-ray of that left foot. (2) Acute exacerbation of chronic obstructive pulmonary disease (COPD) SNOMED Code(s): 996274866 ICD Code: J44.1 - CHRONIC OBSTRUCTIVE PULMONARY DISEASE W (ACUTE) EXACERBATION Status: Acute Current Visit: No Problem Details: Patient clearly is wheezing and has increasing oxygen needs and shortness of breath. A strong reactive airways component. I'm going to put her back on oral prednisone , continue 4 times a day nebs, and oxygen above her baseline as needed. Also will check an influenza swab. (3) Obstructive sleep apnea syndrome SNOMED Code(s): 45999849 ICD Code: G47.33 - OBSTRUCTIVE SLEEP APNEA (ADULT) (PEDIATRIC) Status: Acute Current Visit: No Problem Details: Home CPAP, patient to bring in home O2. (4) Left foot pain SNOMED Code(s): 30664578 ICD Code: M79.672 - PAIN IN LEFT FOOT Status: Acute Current Visit: Yes Problem Details: See above. We need to rule out infection. X-ray, monitoring for skin breakdown. Antibiotics as above. (5) DVT prophylaxis SNOMED Code(s): 905798161 ICD Code: [id number] - Status: Acute Current Visit: Yes Problem Details: Lovenox, SCDs. Problem List Initiated/Reviewed/Updated: Yes Orders Last 24hrs: Active Orders 24 hr Category Date Time Status Patient Status [ADT] Routine ADT 07/31/17 12:06 Active Blood Glucose Check, Bedside [RC] QIDACANDBED Care 07/31/17 12:06 Active Intake and Output [RC] QSHIFT Care 07/31/17 12:09 Active RT Aerosol Therapy [RC] ASDIRECTED Care 07/31/17 12:12 Active Up With Assistance [RC] ASDIRECTED Care 07/31/17 12:06 Active VTE/DVT Education [RC] Per Unit Routine Care 07/31/17 12:06 Active Vital Signs [RC] Q4H Care 07/31/17 12:06 Active Consistent Carbohydrate Diet [DIET] Diet 07/31/17 Breakfast Active Foot Comp Min 3V Lt [CR] Routine Exams 07/31/17 12:21 Ordered CBC WITH AUTO DIFF [HEME] AM Lab 08/01/17 05:11 Ordered COMPREHENSIVE METABOLIC PN,CMP [CHEM] AM Lab 08/01/17 05:11 Ordered CULTURE SPUTUM + SMEAR [RM] Stat Lab 07/31/17 12:06 Uncollected INFLUENZA A+B AG SCREEN [RM] Stat Lab 07/31/17 12:20 Received Acetaminophen [Tylenol] Med 07/31/17 12:06 Active 650 mg PO Q4H PRN Albuterol/Ipratropium [DuoNeb 3.0-0.5 MG/3 ML] Med 07/31/17 16:00 Active 3 ml NEB QIDRT Budesonide/Formoterol [Symbicort 160-4.5 MCG] Med 07/31/17 21:00 Ordered 2 puff INH BID Clindamycin in 0.9 % Sod Chlor [Cleocin in NS] Med 07/31/17 14:00 Active 600 mg in 50 ml IV Q8H DULoxetine [Cymbalta] Med 07/31/17 21:00 Ordered 60 mg PO BEDTIME Docusate Sodium [Colace] Med 07/31/17 12:06 Active 100 mg PO BID PRN Enoxaparin [Lovenox] Med 07/31/17 12:15 Active 40 mg SUBCUT Q24H Furosemide [Lasix] Med 07/31/17 12:30 Ordered 40 mg PO Q48H Gabapentin [Neurontin] Med 07/31/17 14:00 Ordered 600 mg PO TID Insulin Aspart [NovoLOG] Med 07/31/17 13:00 Ordered 30 unit SUBCUT TIDMEALS Insulin Glargine,Hum.Rec.Anlog [Toujeo Solostar] Med 07/31/17 21:00 Ordered 120 unit SQ BEDTIME Lactulose [Chronulac] Med 07/31/17 12:30 Ordered 10 gm PO DAILY PRN Lisinopril [Prinivil] Med 08/01/17 09:00 Ordered 10 mg PO DAILY Montelukast [Singulair] Med 08/01/17 09:00 Ordered 10 mg PO DAILY Nystatin/Triamcinolone Crm [Mycolog Crm] Med 07/31/17 12:30 Ordered 1 applic TOP BID PRN Potassium Chloride [Klor-Con 10] Med 07/31/17 21:00 Ordered 10 meq PO BEDTIME Saccharomyces Boulardii [Florastor] Med 07/31/17 21:00 Active 250 mg PO BID Simvastatin [Zocor] Med 07/31/17 21:00 Ordered 10 mg PO BEDTIME Sodium Chloride 0.9% [Saline Flush] Med 07/31/17 12:06 Active 10 ml FLUSH ASDIRECTED PRN Theophylline [Theophylline Anhydrous] Med 07/31/17 21:00 Ordered 300 mg PO BID Tolterodine [Detrol LA 24 Hr] Med 07/31/17 21:00 Ordered 4 mg PO BID cefTRIAXone [Rocephin] Med 07/31/17 13:00 Active 2 gm IVPUSH Q24H metFORMIN [Glucophage] Med 07/31/17 21:00 Ordered 500 mg PO BID predniSONE Med 07/31/17 13:00 Active 40 mg PO WITHBREAKFAST Antiembolic Hose [OM.PC] Per Unit Routine Oth 07/31/17 12:10 Ordered Peripheral IV Insertion Adult [OM.PC] Routine Oth 07/31/17 12:06 Ordered Sequential Compression Device [OM.PC] Per Unit Routine Oth 07/31/17 12:10 Ordered Resuscitation Status Routine Resus Stat 07/31/17 12:06 Ordered Medication Orders Acetaminophen (Tylenol) 650 mg PO Q4H PRN PRN Reason: Pain (Mild 1-3)/fever Albuterol/Ipratropium (Duoneb 3.0-0.5 Mg/3 Ml) 3 ml NEB QIDRT ABILIO Ceftriaxone Sodium (Rocephin) 2 gm IVPUSH Q24H ABILIO Docusate Sodium (Colace) 100 mg PO BID PRN PRN Reason: Constipation Duloxetine HCl (Cymbalta) 60 mg PO BEDTIME ABILIO Enoxaparin Sodium (Lovenox) 40 mg SUBCUT Q24H ABILIO Furosemide (Lasix) 40 mg PO Q48H ABILIO Gabapentin (Neurontin) 600 mg PO TID ABILIO Clindamycin in 0.9 % Sod Chlor (Cleocin In Ns) 600 mg in 50 mls @ 100 mls/hr IV Q8H ABILIO Insulin Aspart (Novolog) 30 unit SUBCUT TIDMEALS ABILIO Lactulose (Chronulac) 10 gm PO DAILY PRN PRN Reason: Constipation Lisinopril (Prinivil) 10 mg PO DAILY ABILIO Metformin HCl (Glucophage) 500 mg PO BID ABILIO Montelukast Sodium (Singulair) 10 mg PO DAILY ABILIO Non-Formulary Medication (Budesonide/Formoterol [Symbicort 160-4.5 Mcg]) 2 puff INH BID ABILIO Non-Formulary Medication (Insulin Glargine,Hum.Rec.Anlog [Toujeo Solostar]) 120 unit SQ BEDTIME ABILIO Non-Formulary Medication (Nystatin/Triamcinolone Crm [Mycolog Crm]) 1 applic TOP BID PRN PRN Reason: Rash Non-Formulary Medication (Theophylline [Theophylline Anhydrous]) 300 mg PO BID ABILIO Potassium Chloride (Klor-Con 10) 10 meq PO BEDTIME ABILIO Prednisone (Prednisone) 40 mg PO WITHBREAKFAST ABILIO Saccharomyces Boulardii (Florastor) 250 mg PO BID ABILIO Simvastatin (Zocor) 10 mg PO BEDTIME ABILIO Sodium Chloride (Saline Flush) 10 ml FLUSH ASDIRECTED PRN PRN Reason: Keep Vein Open Tolterodine Tartrate (Detrol La 24 Hr) 4 mg PO BID ABILIO Assessment/Plan Comment:: CODE STATUS: Patient is a full code. However she does note that if she were to have severe respiratory distress to the point where she would need to be intubated, she would only be related to tolerate short-term intubation such as 3 days or so. She has been intubated in the past and does not want to have ongoing intubation or be maintained on a ventilator. Even if removing the tube resulted in her , she would not want long-term intubation.
[2017-07-31] MEDS: Albuterol 0.083% 2.5 MG/3 ML Neb Soln NEB PRN (13:49)
[2017-07-31] MEDS: Enoxaparin 40 MG/0.4 ML Syringe SUBCUT SCH (14:16)
[2017-07-31] MEDS: predniSONE 20 MG Tab PO SCH (14:17)
[2017-07-31] MEDS: Sodium Chloride 0.9% 10 ML Syringe FLUSH PRN ×3 (14:18→20:43)
[2017-07-31] MEDS: cefTRIAXone 2 GM Vial IVPUSH SCH (14:19)
[2017-07-31] MEDS: Gabapentin 600 MG Tab PO SCH ×2 (14:20→20:23)
[2017-07-31] MEDS: Insulin Aspart 100 Units/ML 3 ML Pen SUBCUT SCH ×3 (14:25→18:50)
[2017-07-31] MEDS: oxyCODONE 5 MG Tab PO PRN ×2 (14:29→23:34)
[2017-07-31] MEDS: Clindamycin in 0.9 % Sod Chlor 600 MG/50 ML BAG IV SCH ×2 (14:30→20:59)
[2017-07-31] MEDS: Albuterol/Ipratropium 3.0-0.5 MG/3 ML Neb Soln NEB SCH ×2 (15:05→20:18)
[2017-07-31] MEDS: Albuterol/Ipratropium 3.0-0.5 MG/3 ML Neb Soln NEB PRN ×2 (17:58→23:35)
[2017-07-31] MEDS: metFORMIN 500 MG Tab PO SCH (17:58)
[2017-07-31] MEDS: DULoxetine 60 MG Cap PO SCH (20:20)
[2017-07-31] MEDS: Tolterodine 4 MG Cap.ER PO SCH (20:22)
[2017-07-31] MEDS: Saccharomyces Boulardii (Probiotic) 250 MG Cap PO SCH (20:22)
[2017-07-31] MEDS: Potassium Chloride 10 MEQ Tab.ER PO SCH (20:23)
[2017-07-31] MEDS: Simvastatin 10 MG Tab PO SCH (20:24)
[2017-07-31] MEDS: SYMBICORT 160/4.5MCG INH SCH (20:35)
[2017-07-31] MEDS ORDERED: INSULIN GLARGINE HUM REC ANLOG 120 UNIT SQ SCH (21:00)
[2017-07-31] MEDS ORDERED: [UNRECOGNIZED DRUG - OTHER] SQ SCH (21:00)
[2017-07-31] MEDS ORDERED: Insulin Aspart 100 Units/ML 3 ML Pen SUBCUT ONE (22:01)
[2017-08-01] MEDS: Albuterol/Ipratropium 3.0-0.5 MG/3 ML Neb Soln NEB PRN (03:49)
[2017-08-01] MEDS: Clindamycin in 0.9 % Sod Chlor 600 MG/50 ML BAG IV SCH ×3 (05:02→21:47)
[2017-08-01] MEDS: Sodium Chloride 0.9% 10 ML Syringe FLUSH PRN ×4 (05:41→22:18)
[2017-08-01] MEDS: Albuterol/Ipratropium 3.0-0.5 MG/3 ML Neb Soln NEB SCH ×4 (06:40→20:30)
--- NOTE | 2017-08-01 07:42 | CR ---
INDICATION: Foot infection, question necrosis/osteomyelitis, pain top of distal left lateral foot. LEFT FOOT: Four views of the left foot were obtained and revealed some soft tissue swelling distally overlying the level of the distal metatarsals dorsally. No old films were available for comparison on this 07/31/2017 study. No finding to strongly suggest osteomyelitis was identified. No definite bony erosion or necrosis was seen. No fracture or dislocation was identified. IMPRESSION: Essentially normal left foot. If occult process such as osteomyelitis is suspected clinically, 3-phase nuclear bone imaging may be helpful. MTDD
[2017-08-01] MEDS: Insulin Aspart 100 Units/ML 3 ML Pen SUBCUT SCH ×6 (07:50→17:55)
[2017-08-01] MEDS: metFORMIN 500 MG Tab PO SCH ×2 (07:50→17:57)
[2017-08-01] MEDS: Saccharomyces Boulardii (Probiotic) 250 MG Cap PO SCH ×2 (08:16→21:16)
[2017-08-01] MEDS: Lisinopril 10 MG Tab PO SCH (08:17)
[2017-08-01] MEDS: predniSONE 20 MG Tab PO SCH (08:17)
[2017-08-01] MEDS: Gabapentin 600 MG Tab PO SCH ×3 (08:17→21:17)
[2017-08-01] MEDS: Montelukast 10 MG Tab PO SCH (08:17)
[2017-08-01] MEDS: SYMBICORT 160/4.5MCG INH SCH (08:18)
[2017-08-01] MEDS: Tolterodine 4 MG Cap.ER PO SCH ×2 (08:27→21:16)
[2017-08-01] MEDS ORDERED: predniSONE 20 MG Tab PO ONE (09:20)
[2017-08-01] MEDS: Albuterol 0.083% 2.5 MG/3 ML Neb Soln NEB PRN ×2 (09:21→13:24)
--- NOTE | 2017-08-01 09:24 | PCM.PN ---
- General Info Date of Service: 08/01/17 Subjective Update: Patient is a 52-year-old female currently in hospital day #2 for severe COPD/ asthma exacerbation. She feels better overall but her wheezing is very significant this morning and she is quite short of breath with speaking. Even while sleeping she was having fairly significant prolonged expiratory phase. She 's having no chest pain. No nausea, vomiting, diarrhea. Note: Just after noon, the patient had a severe episode of coughing accompanied by chest pain and SOB. EKG repeated at that time showed a sinus tachycardia, rate 112, no change from admission. Patient continued in spite of increased prednisone to be quite dyspneic and although wheezing improved with nebulizer therapy, she was requiring nebs more frequently. I decided based on the risk of decompensation to transfer her to the ICU where she could be monitored more closely. Functional Status: Reports: Pain Controlled - Patient Data Vitals - Most Recent: Last Vital Signs Temp 36.3 C 08/01/17 04:10 Pulse 86 08/01/17 04:10 Resp 20 08/01/17 04:10 BP 118/75 08/01/17 08:17 Pulse Ox 97 08/01/17 04:10 Weight - Most Recent: 110.677 kg I&O - Last 24 Hours: Intake & Output 07/31/17 08/01/17 08/01/17 22:59 06:59 14:59 Intake Total 297 450 Output Total 2150 0 Balance -1853 450 Lab Results Last 24 Hours: Laboratory Results - last 24 hr 07/31/17 07/31/17 07/31/17 Range/Units 13:50 17:41 20:56 WBC (4.5-12.0) X10-3/uL RBC (3.23-5.20) x10(6)uL Hgb (11.5-15.5) g/dL Hct (30.0-51.3) % MCV (80-96) fL MCH (27.7-33.6) pg MCHC (32.2-35.4) g/dL RDW (11.5-15.5) % Plt Count (125-369) X10(3)uL MPV (7.4-10.4) fL Add Manual Diff Neutrophils % (Manual) (46-82) % Band Neutrophils % (0-6) % Lymphocytes % (Manual) (13-37) % Monocytes % (Manual) (4-12) % Anisocytosis Sodium (135-145) mmol/L Potassium (3.5-5.3) mmol/L Chloride (100-110) mmol/L Carbon Dioxide (21-32) mmol/L BUN (7-18) mg/dL Creatinine (0.55-1.02) mg/dL Est Cr Clr Drug Dosing mL/min Estimated GFR (MDRD) (>60) BUN/Creatinine Ratio (9-20) Glucose (80-116) mg/dL POC Glucose 341 H 422 H* D (80-116) mg/dL Calcium (8.6-10.2) mg/dL Total Bilirubin (0.1-1.3) mg/dL AST (5-25) IU/L ALT (12-36) U/L Alkaline Phosphatase (56-112) IU/L Total Protein (6.0-8.0) g/dL Albumin (3.5-5.2) g/dL Globulin g/dL Albumin/Globulin Ratio Urine Color Yellow (YELLOW) Urine Appearance Clear (CLEAR) Urine pH 5.0 (5.0-6.5) Ur Specific [place] 1.010 (1.010-1.025) Urine Protein Negative (NEGATIVE) mg/dL Urine Glucose (UA) >1000 H (NEGATIVE) mg/dL Urine Ketones 15 H (NEGATIVE) mg/dL Urine Occult Blood Negative (NEGATIVE) Urine Nitrite Negative (NEGATIVE) Urine Bilirubin Negative (NEGATIVE) Urine Urobilinogen Normal (NEGATIVE) mg/dL Ur Leukocyte Esterase Negative (NEGATIVE) Urine RBC 0-5 (0) Urine WBC 0-5 (0) Ur Squamous Epith Cells Few H (NS,R,O) Urine Bacteria Occasional H (NS) 07/31/17 08/01/17 08/01/17 Range/Units 21:10 06:15 06:35 WBC 5.0 (4.5-12.0) X10-3/uL RBC 4.88 (3.23-5.20) x10(6)uL Hgb 12.6 (11.5-15.5) g/dL Hct 39.8 (30.0-51.3) % MCV 81.5 (80-96) fL MCH 25.8 L (27.7-33.6) pg MCHC 31.6 L (32.2-35.4) g/dL RDW 16.1 H (11.5-15.5) % Plt Count 137 (125-369) X10(3)uL MPV 9.7 (7.4-10.4) fL Add Manual Diff Yes Neutrophils % (Manual) 74 (46-82) % Band Neutrophils % 1 (0-6) % Lymphocytes % (Manual) 15 (13-37) % Monocytes % (Manual) 10 (4-12) % Anisocytosis Few Sodium (135-145) mmol/L Potassium (3.5-5.3) mmol/L Chloride (100-110) mmol/L Carbon Dioxide (21-32) mmol/L BUN (7-18) mg/dL Creatinine (0.55-1.02) mg/dL Est Cr Clr Drug Dosing mL/min Estimated GFR (MDRD) (>60) BUN/Creatinine Ratio (9-20) Glucose 522 H* D (80-116) mg/dL POC Glucose 317 H D (80-116) mg/dL Calcium (8.6-10.2) mg/dL Total Bilirubin (0.1-1.3) mg/dL AST (5-25) IU/L ALT (12-36) U/L Alkaline Phosphatase (56-112) IU/L Total Protein (6.0-8.0) g/dL Albumin (3.5-5.2) g/dL Globulin g/dL Albumin/Globulin Ratio Urine Color (YELLOW) Urine Appearance (CLEAR) Urine pH (5.0-6.5) Ur Specific [place] (1.010-1.025) Urine Protein (NEGATIVE) mg/dL Urine Glucose (UA) (NEGATIVE) mg/dL Urine Ketones (NEGATIVE) mg/dL Urine Occult Blood (NEGATIVE) Urine Nitrite (NEGATIVE) Urine Bilirubin (NEGATIVE) Urine Urobilinogen (NEGATIVE) mg/dL Ur Leukocyte Esterase (NEGATIVE) Urine RBC (0) Urine WBC (0) Ur Squamous Epith Cells (NS,R,O) Urine Bacteria (NS) 08/01/17 Range/Units 06:35 WBC (4.5-12.0) X10-3/uL RBC (3.23-5.20) x10(6)uL Hgb (11.5-15.5) g/dL Hct (30.0-51.3) % MCV (80-96) fL MCH (27.7-33.6) pg MCHC (32.2-35.4) g/dL RDW (11.5-15.5) % Plt Count (125-369) X10(3)uL MPV (7.4-10.4) fL Add Manual Diff Neutrophils % (Manual) (46-82) % Band Neutrophils % (0-6) % Lymphocytes % (Manual) (13-37) % Monocytes % (Manual) (4-12) % Anisocytosis Sodium 135 (135-145) mmol/L Potassium 5.0 (3.5-5.3) mmol/L Chloride 100 (100-110) mmol/L Carbon Dioxide 27 (21-32) mmol/L BUN 16 (7-18) mg/dL Creatinine 0.6 (0.55-1.02) mg/dL Est Cr Clr Drug Dosing 98.40 mL/min Estimated GFR (MDRD) > 60 (>60) BUN/Creatinine Ratio 26.7 H (9-20) Glucose 412 H* D (80-116) mg/dL POC Glucose (80-116) mg/dL Calcium 9.4 (8.6-10.2) mg/dL Total Bilirubin 0.4 (0.1-1.3) mg/dL AST 25 (5-25) IU/L ALT 40 H (12-36) U/L Alkaline Phosphatase 145 H (56-112) IU/L Total Protein 6.4 (6.0-8.0) g/dL Albumin 2.5 L (3.5-5.2) g/dL Globulin 3.9 g/dL Albumin/Globulin Ratio 0.6 Urine Color (YELLOW) Urine Appearance (CLEAR) Urine pH (5.0-6.5) Ur Specific [place] (1.010-1.025) Urine Protein (NEGATIVE) mg/dL Urine Glucose (UA) (NEGATIVE) mg/dL Urine Ketones (NEGATIVE) mg/dL Urine Occult Blood (NEGATIVE) Urine Nitrite (NEGATIVE) Urine Bilirubin (NEGATIVE) Urine Urobilinogen (NEGATIVE) mg/dL Ur Leukocyte Esterase (NEGATIVE) Urine RBC (0) Urine WBC (0) Ur Squamous Epith Cells (NS,R,O) Urine Bacteria (NS) Eamon Results Last 24 Hours: Microbiology 07/31/17 15:45 Gram Stain - Final Sputum - Expectorated 07/31/17 12:20 Influenza Type A Antigen Screen - Final Nasal, Left NEGATIVE INFLUENZA A VIRUS AG Influenza Type B Antigen Screen - Final NEGATIVE INFLUENZA B VIRUS AG Med Orders - Current: Current Medications Acetaminophen (Tylenol) 650 mg PO Q4H PRN PRN Reason: Pain (Mild 1-3)/fever Last Admin: 07/31/17 20:33 Dose: 650 mg Albuterol (Proventil Neb Soln) 2.5 mg NEB Q2H PRN PRN Reason: Wheezing Last Admin: 07/31/17 13:49 Dose: 2.5 mg Albuterol/Ipratropium (Duoneb 3.0-0.5 Mg/3 Ml) 3 ml NEB QIDRT [facility] [place] Last Admin: 08/01/17 06:40 Dose: 3 ml Albuterol/Ipratropium (Duoneb 3.0-0.5 Mg/3 Ml) 3 ml NEB Q4H PRN PRN Reason: Wheezing Last Admin: 08/01/17 03:49 Dose: 3 ml Ceftriaxone Sodium (Rocephin) 2 gm IVPUSH Q24H [facility] [place] Last Admin: 07/31/17 14:19 Dose: 2 gm Docusate Sodium (Colace) 100 mg PO BID PRN PRN Reason: Constipation Duloxetine HCl (Cymbalta) 60 mg PO BEDTIME [facility] [place] Last Admin: 07/31/17 20:20 Dose: 60 mg Enoxaparin Sodium (Lovenox) 40 mg SUBCUT Q24H [facility] [place] Last Admin: 07/31/17 14:16 Dose: 40 mg Furosemide (Lasix) 40 mg PO Q48H [facility] [place] Gabapentin (Neurontin) 600 mg PO TID [facility] [place] Last Admin: 08/01/17 08:17 Dose: 600 mg Clindamycin in 0.9 % Sod Chlor (Cleocin In Ns) 600 mg in 50 mls @ 100 mls/hr IV Q8H [facility] [place] Last Admin: 08/01/17 05:02 Dose: 100 mls/hr Insulin Aspart (Novolog) 0 unit SUBCUT TIDMEALS ABILIO PRN Reason: Protocol Last Admin: 08/01/17 07:50 Dose: 8 units Insulin Aspart (Novolog) 40 unit SUBCUT TIDMEALS [facility] [place] Last Admin: 08/01/17 07:51 Dose: 40 units Lactulose (Chronulac) 10 gm PO DAILY PRN PRN Reason: Constipation Lisinopril (Prinivil) 10 mg PO DAILY [facility] [place] Last Admin: 08/01/17 08:17 Dose: 10 mg Metformin HCl (Glucophage) 500 mg PO BIDMEALS [facility] [place] Last Admin: 08/01/17 07:50 Dose: 500 mg Montelukast Sodium (Singulair) 10 mg PO DAILY [facility] [place] Last Admin: 08/01/17 08:17 Dose: 10 mg Symbicort 160/4.5mcg 2 each INH BID [facility] [place] Last Admin: 08/01/17 08:18 Dose: Not Given Non-Formulary Medication (Insulin Glargine,Hum.Rec.Anlog [Touzehra Solsaira]) 120 unit SQ BEDTIME [facility] [place] Non-Formulary Medication (Theophylline [Theophylline Anhydrous]) 300 mg PO BID [facility] [place] Nystatin/Triamcinolone Acetonide (Mycolog Crm) 1 gm TOP BID PRN PRN Reason: Rash Oxycodone HCl (Oxycodone) 5 mg PO Q4H PRN PRN Reason: Pain Last Admin: 07/31/17 23:34 Dose: 5 mg Potassium Chloride (Klor-Con 10) 10 meq PO BEDTIME [facility] [place] Last Admin: 07/31/17 20:23 Dose: 10 meq Prednisone (Prednisone) 40 mg PO WITHBREAKFAST [facility] [place] Last Admin: 08/01/17 08:17 Dose: 40 mg Saccharomyces Boulardii (Florastor) 250 mg PO BID [facility] [place] Last Admin: 08/01/17 08:16 Dose: 250 mg Simvastatin (Zocor) 10 mg PO BEDTIME [facility] [place] Last Admin: 07/31/17 20:24 Dose: 10 mg Sodium Chloride (Saline Flush) 10 ml FLUSH ASDIRECTED PRN PRN Reason: Keep Vein Open Last Admin: 08/01/17 08:27 Dose: 10 ml Tolterodine Tartrate (Detrol La 24 Hr) 4 mg PO BID [facility] [place] Last Admin: 08/01/17 08:27 Dose: 4 mg Discontinued Medications Acetaminophen (Tylenol Extra Strength) 1,000 mg PO ONETIME ONE Stop: 07/31/17 10:12 Last Admin: 07/31/17 10:50 Dose: 1,000 mg Lactated Ringer's (Ringers, Lactated) 1,000 mls @ 1,000 mls/hr IV BOLUS ONE Stop: 07/31/17 11:03 Last Admin: 07/31/17 10:50 Dose: 1,000 mls/hr Clindamycin Phosphate 900 mg/ (Sodium Chloride) 106 mls @ 100 mls/hr IV ONETIME ONE Stop: 07/31/17 11:58 Last Admin: 07/31/17 12:29 Dose: Not Given Clindamycin Phosphate 600 mg/ (Dextrose/Water) 54 mls @ 150 mls/hr IV Q6HR [facility] [place] Insulin Aspart (Novolog) 30 unit SUBCUT TIDMEALS ABILIO Last Admin: 07/31/17 18:49 Dose: 30 units Insulin Aspart (Novolog) 0 unit SUBCUT ONETIME ONE Stop: 07/31/17 22:02 Last Admin: 07/31/17 22:30 Dose: 20 unit - Exam General: Alert, Oriented, Cooperative, Mild Distress (respiratory) HEENT: Pupils Equal, Pupils Reactive Neck: Supple Lungs: Decreased Breath Sounds (diffuse expiratory wheezing, tight, diminished breath sounds. Only able to speak 2-3 words without having to stop and catch her breath.), Wheezing Cardiovascular: Regular Rate, Regular Rhythm, No Murmurs Back Exam: Normal Inspection Extremities: Normal Inspection, No Pedal Edema (radah hose on.) Skin: Warm, Dry EKG INTERPRETATION EKG Date: 08/01/17 (ST 112, no ST changes. ) - Problem List & Annotations (1) SIRS (systemic inflammatory response syndrome) SNOMED Code(s): 234253784 Code(s): R65.10 - SIRS OF NON-INFECTIOUS ORIGIN W/O ACUTE ORGAN DYSFUNCTION Status: Acute Current Visit: Yes Annotation/Comment:: Definitely today appears to be COPD exacerbation. Patient's foot xray was negative. Continue current antibiotic therapy and breathing treatments. Increase prednisone to 60 mg daily. We may need to change to IV steroids if wheezing doesn't improve. (2) Acute exacerbation of chronic obstructive pulmonary disease (COPD) SNOMED Code(s): 137738116 Code(s): J44.1 - CHRONIC OBSTRUCTIVE PULMONARY DISEASE W (ACUTE) EXACERBATION Status: Acute Current Visit: No Annotation/Comment:: Increase prednisone to 60 mg daily, continue IV antibiotics and Q2H albuterol nebulizer in addition to QID duonebs. Patient missed theophylline dose as well which was given this am. (3) Obstructive sleep apnea syndrome SNOMED Code(s): 68236869 Code(s): G47.33 - OBSTRUCTIVE SLEEP APNEA (ADULT) (PEDIATRIC) Status: Acute Current Visit: No Annotation/Comment:: Home CPAP, patient to bring in home machine. (4) Left foot pain SNOMED Code(s): 22106734 Code(s): M79.672 - PAIN IN LEFT FOOT Status: Acute Current Visit: Yes Annotation/Comment:: See above. (5) DVT prophylaxis SNOMED Code(s): 015818453 Code(s): LXS5771 - Status: Acute Current Visit: Yes Annotation/Comment :: Lovenox, SCDs. (6) CAD (coronary artery disease) SNOMED Code(s): 14289059 Code(s): I25.10 - ATHSCL HEART DISEASE OF [place] CORONARY ARTERY W/O ANG PCTRS Status: Acute Current Visit: Yes Annotation/Comment:: Patient had an episode of what appears to be 9 beats of ventricular tachycardia on monitor from last night. However, there is no notation and there was no report on this. In looking at the surrounding regions, there was quite a bit of artifact surrounding this time, but without documentation of patient's symptoms during this time and patient not recalling anything, we will continue close monitoring. - Problem List Review Problem List Initiated/Reviewed/Updated: Yes - My Orders Last 24 Hours: My Active Orders 07/31/17 12:06 Patient Status [ADT] Routine Blood Glucose Check, Bedside [RC] QIDACANDBED Up With Assistance [RC] ASDIRECTED Vital Signs [RC] 00,04,08,12,16,20 Acetaminophen [Tylenol] 650 mg PO Q4H PRN Docusate Sodium [Colace] 100 mg PO BID PRN Sodium Chloride 0.9% [Saline Flush] 10 ml FLUSH ASDIRECTED PRN Peripheral IV Insertion Adult [OM.PC] Routine Resuscitation Status Routine 07/31/17 12:09 Intake and Output [RC] 06,14,22 07/31/17 12:10 Antiembolic Hose [OM.PC] Per Unit Routine Sequential Compression Device [OM.PC] Per Unit Routine 07/31/17 12:12 RT Aerosol Therapy [RC] ASDIRECTED 07/31/17 12:15 Enoxaparin [Lovenox] 40 mg SUBCUT Q24H 07/31/17 12:30 Lactulose [Chronulac] 10 gm PO DAILY PRN Nystatin/Triamcinolone Crm [Mycolog Crm] 1 gm TOP BID PRN 07/31/17 13:00 cefTRIAXone [Rocephin] 2 gm IVPUSH Q24H predniSONE 40 mg PO WITHBREAKFAST 07/31/17 13:29 oxyCODONE 5 mg PO Q4H PRN 07/31/17 13:34 RT Aerosol Therapy [RC] ASDIRECTED Albuterol/Ipratropium [DuoNeb 3.0-0.5 MG/3 ML] 3 ml NEB Q4H PRN 07/31/17 13:35 Albuterol [Proventil Neb Soln] 2.5 mg NEB Q2H PRN 07/31/17 13:36 RT Aerosol Therapy [RC] ASDIRECTED 07/31/17 13:39 IS (RT) [RT Incentive Spirometry] [RC] ASDIRECTED 07/31/17 14:00 Clindamycin in 0.9 % Sod Chlor [Cleocin in NS] 600 mg in 50 ml IV Q8H Gabapentin [Neurontin] 600 mg PO TID 07/31/17 15:45 CULTURE SPUTUM + SMEAR [RM] Stat 07/31/17 16:00 Albuterol/Ipratropium [DuoNeb 3.0-0.5 MG/3 ML] 3 ml NEB QIDRT 07/31/17 18:00 Insulin Aspart [NovoLOG] See Protocol SUBCUT TIDMEALS metFORMIN [Glucophage] 500 mg PO BIDMEALS 07/31/17 21:00 DULoxetine [Cymbalta] 60 mg PO BEDTIME Insulin Glargine,Hum.Rec.Anlog [Toujeo Solostar] 120 unit SQ BEDTIME Non-Formulary Medication [NF Drug] 2 each INH BID Potassium Chloride [Klor-Con 10] 10 meq PO BEDTIME Saccharomyces Boulardii [Florastor] 250 mg PO BID Simvastatin [Zocor] 10 mg PO BEDTIME Theophylline [Theophylline Anhydrous] 300 mg PO BID Tolterodine [Detrol LA 24 Hr] 4 mg PO BID 08/01/17 08:00 Insulin Aspart [NovoLOG] 40 unit SUBCUT TIDMEALS 08/01/17 09:00 Lisinopril [Prinivil] 10 mg PO DAILY Montelukast [Singulair] 10 mg PO DAILY 08/01/17 09:20 predniSONE 20 mg PO ONETIME ONE 08/02/17 05:11 CBC WITH AUTO DIFF [HEME] AM COMPREHENSIVE METABOLIC PN,CMP [CHEM] AM CRP [C-REACTIVE PROTEIN] [CHEM] AM 08/02/17 09:00 Furosemide [Lasix] 40 mg PO Q48H 08/02/17 09:20 predniSONE 60 mg PO WITHBREAKFAST - Plan Plan:: CODE STATUS: Patient is a full code. However she does note that if she were to have severe respiratory distress to the point where she would need to be intubated, she would only be related to tolerate short-term intubation such as 3 days or so. She has been intubated in the past and does not want to have ongoing intubation or be maintained on a ventilator. Even if removing the tube resulted in her , she would not want long-term intubation.
[2017-08-01] MEDS: Insulin Detemir 100 Units/ML 3 ML Pen SUBCUT SCH ×2 (10:47→21:11)
[2017-08-01] MEDS: Theophylline 100 MG Cap.ER PO SCH (10:47)
[2017-08-01] MEDS: Enoxaparin 40 MG/0.4 ML Syringe SUBCUT SCH (11:51)
[2017-08-01] MEDS: Formoterol/Mometasone 200-5 MCG 8.8 GM Inhaler IH SCH ×2 (13:08→21:18)
[2017-08-01] MEDS: cefTRIAXone 2 GM Vial IVPUSH SCH (14:06)
[2017-08-01] MEDS: DULoxetine 60 MG Cap PO SCH (21:16)
[2017-08-01] MEDS: Potassium Chloride 10 MEQ Tab.ER PO SCH (21:17)
[2017-08-01] MEDS: Simvastatin 10 MG Tab PO SCH (21:18)
[2017-08-02] MEDS: Albuterol/Ipratropium 3.0-0.5 MG/3 ML Neb Soln NEB PRN (00:58)
[2017-08-02] MEDS: Albuterol 0.083% 2.5 MG/3 ML Neb Soln NEB PRN ×3 (03:13→07:15)
[2017-08-02] MEDS: Clindamycin in 0.9 % Sod Chlor 600 MG/50 ML BAG IV SCH (05:04)
[2017-08-02] MEDS: Sodium Chloride 0.9% 10 ML Syringe FLUSH PRN (05:38)
[2017-08-02] MEDS: Albuterol/Ipratropium 3.0-0.5 MG/3 ML Neb Soln NEB SCH (06:20)
[2017-08-02] MEDS ORDERED: methylPREDNISolone Sodium Succinate 125 MG/2 ML SDV ONE (07:09)
[2017-08-02] MEDS ORDERED: Magnesium Sulfate/Water 2 GM in Premix Bag 1 BAG IV ONE (07:12)
[2017-08-02] MEDS ORDERED: methylPREDNISolone Sodium Succinate 125 MG/2 ML SDV IVPUSH ONE (07:13)
[2017-08-02] MEDS ORDERED: Albuterol 0.083% 2.5 MG/3 ML Neb Soln NEB ONE ×3 (07:15→10:25)
[2017-08-02] MEDS ORDERED: Magnesium Sulfate/Water 50 ML ONE (07:22)
[2017-08-02] MEDS ORDERED: Propofol 200 MG/20 ML SDV IV ONE (07:30)
[2017-08-02] MEDS ORDERED: Succinylcholine 200 MG/10 ML MDV IV ONE (07:30)
[2017-08-02] MEDS ORDERED: Rocuronium 100 MG/10 ML MDV IV ONE (07:30)
[2017-08-02] MEDS ORDERED: Midazolam 1 MG/ML 2 ML SDV IVPUSH ONE ×3 (08:00→09:30)
[2017-08-02] MEDS ORDERED: predniSONE 20 MG Tab PO SCH (08:00)
[2017-08-02] MEDS ORDERED: Midazolam 1 MG/ML 2 ML SDV ONE ×2 (08:00→08:55)
[2017-08-02] MEDS ORDERED: Vancomycin 750 MG, Vancomycin 1,000 MG in Sodium Chloride 0.9% 500 ML IV ONE (08:00)
[2017-08-02] MEDS ORDERED: Furosemide 40 MG/4 ML VIAL IVPUSH ONE (08:02)
--- NOTE | 2017-08-02 08:16 | PCM.DCSUM1 ---
Discharge Summary - Hospital Course Free Text/Narrative:: Date of admission: 07/31/2017 Date of transfer: 08/02/2017 Admission diagnosis: COPD/asthma exacerbation with possible underlying bacterial infection. Discharge diagnosis: Decompensated COPD/asthma exacerbation with gram-positive cocci in sputum. Acute respiratory failure with intubation. Consults: None Procedures: RSI intubation. History of present illness: The patient is a 52-year-old female with a history of COPD oxygen dependent at home on 2 L who states she quit smoking in 2014. However after intubation, her daughter verified that she's actually been smoking daily and just denied on admission. 3 days prior to admission the patient had increasing shortness of breath, fevers, chills, sweats, nonproductive cough. She was increasing her DuoNeb's at home and had just completed a Medrol Dosepak a week prior. She came in due to severe shortness of breath. On presentation she was 93% on 2 L which is her baseline. She was febrile. She was mildly tachypneic. She was admitted for further treatment of COPD/asthma acute exacerbation. Hospital course: Patient was initially treated with oral prednisone, DuoNeb's every 4 hours scheduled and albuterol nebs when necessary, Clindamycin and Rocephin IV. Influenza was negative. Chest x-ray did not show any acute infiltrate. She initially showed some improvement but then started to show significant wheezing. Prednisone was increased and nebulizer treatments were increased. Repeat x-ray still showed no change. Due to her increasing tachypnea and respiratory distress, she was transferred to the ICU for closer monitoring. Blood gases were done and showed a pH is 7.35, mild CO2 retention, and a PO2 of 66. With increasing nebulizer treatments and increased steroid the patient seemed to improve. Oxygenation improved and sats maintained in the high 90s. Respiratory rate decreased into the 20 range to 24 and she was much more comfortable. Overnight the patient continued to experience quite a bit of shortness of breath and on the morning of transfer when I arrived the patient was in significant oscillatory distress. Vital oxygen saturations were in the high 90s heart rate was in the 120s and respiratory rate was in the 30s to 40s. The patient was very uncomfortable. I was concerned that we were dealing with imminent respiratory failure. ABGs were repeated and the patient was now more hypercapnic with a pH of 7.33. The decision was made to proceed with controlled intubation with RSI. Anesthesia was called and at 722 with began rapid sequence intubation. A half cc of rocuronium was given at 0736. Propofol 15 mL at 0737, 5 mL of succinylcholine at 0738. The patient was intubated at 0739 with an 8 mm tube 22 cm at the lip using the Glidescope. Propofol drip was started at 0747 for sedation at 75 mcg/kg/m. Patient is 118 kg. Another loading dose of propofol was also given 5 mL at 746. Placement x-ray done at 751. Patient was given a milligram of Versed at 758 and 40 mg IV Lasix at 0801. Vancomycin was started at 805 and the patient had a Strong catheter placed. I contacted [facility] and the patient was accepted by Dr. Rajan at 8:20 AM in transfer. Initially we had planned to transfer by ground but to the ambulance crew felt the patient would be better managed by [facility] so they were contacted to transfer the patient by air. Patient continued to be tachycardic and somewhat agitated so propofol drip was increased and 50 g IV fentanyl was given. Decision was made to change her to Versed drip for sedation prior to transfer. On exam prior to intubation, the patient was anxious, diaphoretic and extremely tachypneic. She continued to say "I can't breathe". She was sitting up in a chair and tripoding. Lungs showed diffuse expiratory wheezes with minimal breath sounds. No crackles. No rhonchi. Heart sounds were regular and tachycardic with rates in the 120s. No murmurs. Abdomen soft, nondistended, obese. Extremities showed trace pedal edema. Following intubation, the patient was resting comfortably. Lungs showed much better air movement with persistent crackles. Chest x-ray showed good tube placement. Abdomen obese, nondistended, bowel sounds present. About 1300 mL of clear urine in the catheter bag. - Discharge Data Discharge Date: 08/02/17 Discharge Disposition: DC/Tfer to Acute Hospital 02 Preliminary Cause of *Q: Respiratory Failure Condition: Serious - Discharge Diagnosis/Problem(s) (1) Acute hypercapnic respiratory failure SNOMED Code(s): 115042700 ICD Code: J96.02 - ACUTE RESPIRATORY FAILURE WITH HYPERCAPNIA Status: Acute Current Visit: Yes Problem Details: Likely multifactorial secondary to possible gram-positive MRSA pneumonia, exacerbation of COPD, acute bronchospasm. Patient now intubated. Sedated with Versed drip. Transfer to [facility] for intensive care management. Discussed with the patient's daughter the prognosis is poor given the patient's baseline need for 2 liters of oxygen and her history of previous intubation. The patient expressed on admission her desire to avoid intubation for more than 3 days and the daughter is aware of that and confirmed that on discussion today. I also passed along to the accepting physician. (2) Acute exacerbation of chronic obstructive pulmonary disease (COPD) SNOMED Code(s): 063572513 ICD Code: J44.1 - CHRONIC OBSTRUCTIVE PULMONARY DISEASE W (ACUTE) EXACERBATION Status: Acute Current Visit: No Problem Details: IV Solu- Medrol 125 mg given this morning. Currently on Rocephin, clindamycin, and vancomycin IV. (3) Obstructive sleep apnea syndrome SNOMED Code(s): 35714436 ICD Code: G47.33 - OBSTRUCTIVE SLEEP APNEA (ADULT) (PEDIATRIC) Status: Acute Current Visit: No Problem Details: Home CPAP, tolerated the night prior to transfer. (4) Left foot pain SNOMED Code(s): 54035309 ICD Code: M79.672 - PAIN IN LEFT FOOT Status: Acute Current Visit: Yes Problem Details: No current evidence of infection. (5) DVT prophylaxis SNOMED Code(s): 532579805 ICD Code: [id number] - Status: Acute Current Visit: Yes Problem Details: Lovenox, SCDs. (6) CAD (coronary artery disease) SNOMED Code(s): 88290163 ICD Code: I25.10 - ATHSCL HEART DISEASE OF [place] CORONARY ARTERY W/O ANG PCTRS Status: Acute Current Visit: Yes Problem Details: Question of episode of ventricular tachycardia 9 beats on admission evening with heart monitoring but staff verified this was artifact after the night nurse could be contacted. No other arrhythmias noted during her hospital stay other than sinus tachycardia. - Discharge Plan Home Medications: Home Meds Montelukast [Singulair] 10 mg PO DAILY 05/03/13 [History] Lisinopril [Zestril] 10 mg PO DAILY 11/06/13 [History] Simvastatin [Zocor] 10 mg PO BEDTIME 11/06/13 [History] Theophylline [Theophylline Anhydrous] 300 mg PO BID 11/06/13 [History] Albuterol [Proair HFA] 2 puff INH Q4H PRN 01/08/15 [History] Budesonide/Formoterol [Symbicort 160-4.5 MCG] 2 puff INH BID 05/15/15 [History] Potassium Chloride [Klor-Con 10] 10 meq PO BEDTIME 11/19/15 [History] metFORMIN [Glucophage] 500 mg PO BID 05/04/17 [History] Albuterol/Ipratropium [DuoNeb 3.0-0.5 MG/3 ML] 3 ml INH Q4H PRN 07/31/17 [ History] Celecoxib [CeleBREX] 200 mg PO DAILY 07/31/17 [History] DULoxetine [Cymbalta] 60 mg PO BEDTIME 07/31/17 [History] Furosemide [Lasix] 40 mg PO Q48H 07/31/17 [History] Gabapentin [Neurontin] 600 mg PO TID 07/31/17 [History] HYDROcodone/Ibuprofen [Vicoprofen] 1 tab PO Q4H PRN 07/31/17 [History] Insulin Aspart [NovoLOG] 35 unit TIDMEALS 07/31/17 [History] Insulin Glargine,Hum.Rec.Anlog [Toujeo Solostar] 120 unit SQ BEDTIME 07/31/17 [ History] Ipratropium [Atrovent HFA Inh] 1 puff INH BEDTIME 07/31/17 [History] Lactulose 10 gm PO DAILY PRN 07/31/17 [History] Nystatin/Triamcinolone Crm [Mycolog Crm] 1 applic TOP BID PRN 07/31/17 [History] Tolterodine Tartrate [Detrol LA] 4 mg PO BID 07/31/17 [History] Referrals: Jacinto Jones MD [Primary Care Provider] - - Discharge Summary/Plan Comment DC Time >30 min.: Yes (> 120 min spent on transfer, critical care management.) - Patient Data Vitals - Most Recent: Last Vital Signs Temp 37.1 C 08/02/17 05:00 Pulse 122 H 08/02/17 07:00 Resp 32 H 08/02/17 07:00 BP 151/76 H 08/02/17 06:20 Pulse Ox 96 08/02/17 07:00 Weight - Most Recent: 117.979 kg I&O - Last 24 hours: Intake & Output 08/01/17 08/02/17 08/02/17 22:59 06:59 14:59 Intake Total 823 95 Output Total 650 1100 Balance 173 -1005 Lab Results - Last 24 hrs: Laboratory Results - last 24 hr 08/01/17 08/01/17 08/01/17 Range/Units 11:30 16:10 17:12 WBC (4.5-12.0) X10-3/uL Corrected WBC (4.5-12.0) X10(3) RBC (3.23-5.20) x10(6)uL Hgb (11.5-15.5) g/dL Hct (30.0-51.3) % MCV (80-96) fL MCH (27.7-33.6) pg MCHC (32.2-35.4) g/dL RDW (11.5-15.5) % Plt Count (125-369) X10(3)uL MPV (7.4-10.4) fL Add Manual Diff Neutrophils % (Manual) (46-82) % Band Neutrophils % (0-6) % Lymphocytes % (Manual) (13-37) % Monocytes % (Manual) (4-12) % Nucleated RBCs (0-0) /100WBC Anisocytosis ABG pH 7.35 (7.35-7.45) ABG pCO2 48 H (35-45) mmHg ABG pO2 66 L (83-108) mmHg ABG HCO3 26 (22-26) mmol/L ABG O2 Saturation 91 L (96-97) % ABG Base Excess 0 (-2-2) Ben Test Passed O2 Delivery Device Nasal cannula Sodium (135-145) mmol/L Potassium (3.5-5.3) mmol/L Chloride (100-110) mmol/L Carbon Dioxide (21-32) mmol/L BUN (7-18) mg/dL Creatinine (0.55-1.02) mg/dL Est Cr Clr Drug Dosing mL/min Estimated GFR (MDRD) (>60) BUN/Creatinine Ratio (9-20) Glucose (80-116) mg/dL POC Glucose 286 H 305 H (80-116) mg/dL Calcium (8.6-10.2) mg/dL Total Bilirubin (0.1-1.3) mg/dL AST (5-25) IU/L ALT (12-36) U/L Alkaline Phosphatase (56-112) IU/L C-Reactive Protein (0.5-0.9) mg/dL Total Protein (6.0-8.0) g/dL Albumin (3.5-5.2) g/dL Globulin g/dL Albumin/Globulin Ratio 08/01/17 08/02/17 08/02/17 Range/Units 21:08 06:08 06:08 WBC 6.6 (4.5-12.0) X10-3/uL Corrected WBC 6.5 (4.5-12.0) X10(3) RBC 5.32 H (3.23-5.20) x10(6)uL Hgb 13.6 (11.5-15.5) g/dL Hct 43.5 (30.0-51.3) % MCV 81.7 (80-96) fL MCH 25.6 L (27.7-33.6) pg MCHC 31.3 L (32.2-35.4) g/dL RDW 16.1 H (11.5-15.5) % Plt Count 154 (125-369) X10(3)uL MPV 8.9 (7.4-10.4) fL Add Manual Diff Yes Neutrophils % (Manual) 75 (46-82) % Band Neutrophils % 2 (0-6) % Lymphocytes % (Manual) 13 (13-37) % Monocytes % (Manual) 10 (4-12) % Nucleated RBCs 2 H (0-0) /100WBC Anisocytosis Few ABG pH (7.35-7.45) ABG pCO2 (35-45) mmHg ABG pO2 (83-108) mmHg ABG HCO3 (22-26) mmol/L ABG O2 Saturation (96-97) % ABG Base Excess (-2-2) Ben Test O2 Delivery Device Sodium 140 (135-145) mmol/L Potassium 4.5 (3.5-5.3) mmol/L Chloride 102 (100-110) mmol/L Carbon Dioxide 30 (21-32) mmol/L BUN 11 (7-18) mg/dL Creatinine 0.5 L (0.55-1.02) mg/dL Est Cr Clr Drug Dosing 126.02 mL/min Estimated GFR (MDRD) > 60 (>60) BUN/Creatinine Ratio 22.0 H (9-20) Glucose 169 H D (80-116) mg/dL POC Glucose 281 H (80-116) mg/dL Calcium 9.5 (8.6-10.2) mg/dL Total Bilirubin 0.3 (0.1-1.3) mg/dL AST 66 H D (5-25) IU/L ALT 60 H D (12-36) U/L Alkaline Phosphatase 147 H (56-112) IU/L C-Reactive Protein (0.5-0.9) mg/dL Total Protein 6.7 (6.0-8.0) g/dL Albumin 2.7 L (3.5-5.2) g/dL Globulin 4.0 g/dL Albumin/Globulin Ratio 0.7 08/02/17 08/02/17 08/02/17 Range/Units 06:08 06:30 07:20 WBC (4.5-12.0) X10-3/uL Corrected WBC (4.5-12.0) X10(3) RBC (3.23-5.20) x10(6)uL Hgb (11.5-15.5) g/dL Hct (30.0-51.3) % MCV (80-96) fL MCH (27.7-33.6) pg MCHC (32.2-35.4) g/dL RDW (11.5-15.5) % Plt Count (125-369) X10(3)uL MPV (7.4-10.4) fL Add Manual Diff Neutrophils % (Manual) (46-82) % Band Neutrophils % (0-6) % Lymphocytes % (Manual) (13-37) % Monocytes % (Manual) (4-12) % Nucleated RBCs (0-0) /100WBC Anisocytosis ABG pH 7.33 L (7.35-7.45) ABG pCO2 54 H (35-45) mmHg ABG pO2 112 H (83-108) mmHg ABG HCO3 28 H (22-26) mmol/L ABG O2 Saturation 98 H (96-97) % ABG Base Excess 1.2 (-2-2) Ben Test passed O2 Delivery Device Nasal cannula Sodium (135-145) mmol/L Potassium (3.5-5.3) mmol/L Chloride (100-110) mmol/L Carbon Dioxide (21-32) mmol/L BUN (7-18) mg/dL Creatinine (0.55-1.02) mg/dL Est Cr Clr Drug Dosing mL/min Estimated GFR (MDRD) (>60) BUN/Creatinine Ratio (9-20) Glucose (80-116) mg/dL POC Glucose 156 H D (80-116) mg/dL Calcium (8.6-10.2) mg/dL Total Bilirubin (0.1-1.3) mg/dL AST (5-25) IU/L ALT (12-36) U/L Alkaline Phosphatase (56-112) IU/L C-Reactive Protein 6.0 H* (0.5-0.9) mg/dL Total Protein (6.0-8.0) g/dL Albumin (3.5-5.2) g/dL Globulin g/dL Albumin/Globulin Ratio DEANDRE Results - Last 24 hrs: Microbiology 07/31/17 15:45 Gram Stain - Final Sputum - Expectorated Sputum Culture - Preliminary Gram Positive Cocci Med Orders - Current: Current Medications Acetaminophen (Tylenol) 650 mg PO Q4H PRN PRN Reason: Pain (Mild 1-3)/fever Last Admin: 07/31/17 20:33 Dose: 650 mg Albuterol (Proventil Neb Soln) 2.5 mg NEB Q2H PRN PRN Reason: Wheezing Last Admin: 08/02/17 03:13 Dose: 2.5 mg Albuterol/Ipratropium (Duoneb 3.0-0.5 Mg/3 Ml) 3 ml NEB QIDRT [facility] Last Admin: 08/02/17 06:20 Dose: 3 ml Albuterol/Ipratropium (Duoneb 3.0-0.5 Mg/3 Ml) 3 ml NEB Q4H PRN PRN Reason: Wheezing Last Admin: 08/02/17 00:58 Dose: 3 ml Ceftriaxone Sodium (Rocephin) 2 gm IVPUSH Q24H [facility] Last Admin: 08/01/17 14:06 Dose: 2 gm Docusate Sodium (Colace) 100 mg PO BID PRN PRN Reason: Constipation Duloxetine HCl (Cymbalta) 60 mg PO BEDTIME [facility] Last Admin: 08/01/17 21:16 Dose: 60 mg Enoxaparin Sodium (Lovenox) 40 mg SUBCUT Q24H [facility] Last Admin: 08/01/17 11:51 Dose: 40 mg Furosemide (Lasix) 40 mg PO Q48H [facility] Gabapentin (Neurontin) 600 mg PO TID [facility] Last Admin: 08/01/17 21:17 Dose: 600 mg Clindamycin in 0.9 % Sod Chlor (Cleocin In Ns) 600 mg in 50 mls @ 100 mls/hr IV Q8H [facility] Last Admin: 08/02/17 05:04 Dose: 100 mls/hr Vancomycin HCl 750 mg/Vancomycin HCl 1,000 mg/Sodium Chloride 500 mls @ 250 mls /hr IV ONETIME ONE Stop: 08/02/17 09:59 Insulin Aspart (Novolog) 0 unit SUBCUT TIDMEALS [facility] PRN Reason: Protocol Last Admin: 08/01/17 17:55 Dose: 8 units Insulin Aspart (Novolog) 40 unit SUBCUT TIDMEALS [facility] Last Admin: 08/01/17 17:52 Dose: 40 units Insulin Detemir (Levemir) 60 unit SUBCUT BID [facility] Last Admin: 08/01/17 21:11 Dose: 60 units Lactulose (Chronulac) 10 gm PO DAILY PRN PRN Reason: Constipation Lisinopril (Prinivil) 10 mg PO DAILY [facility] Last Admin: 08/01/17 08:17 Dose: 10 mg Metformin HCl (Glucophage) 500 mg PO BIDMEALS [facility] Last Admin: 08/01/17 17:57 Dose: 500 mg Mometasone Furoate/Formoterol Fumar (Dulera 200-5 Mcg) 0 puff IH BID [facility] Last Admin: 08/01/17 21:18 Dose: 2 puff Montelukast Sodium (Singulair) 10 mg PO DAILY [facility] Last Admin: 08/01/17 08:17 Dose: 10 mg Nystatin/Triamcinolone Acetonide (Mycolog Crm) 1 gm TOP BID PRN PRN Reason: Rash Oxycodone HCl (Oxycodone) 5 mg PO Q4H PRN PRN Reason: Pain Last Admin: 07/31/17 23:34 Dose: 5 mg Potassium Chloride (Klor-Con 10) 10 meq PO BEDTIME [facility] Last Admin: 08/01/17 21:17 Dose: 10 meq Prednisone (Prednisone) 60 mg PO WITHBREAKFAST [facility] Saccharomyces Boulardii (Florastor) 250 mg PO BID [facility] Last Admin: 08/01/17 21:16 Dose: 250 mg Simvastatin (Zocor) 10 mg PO BEDTIME [facility] Last Admin: 08/01/17 21:18 Dose: 10 mg Sodium Chloride (Saline Flush) 10 ml FLUSH ASDIRECTED PRN PRN Reason: Keep Vein Open Last Admin: 08/02/17 05:38 Dose: 10 ml Theophylline (Estevan-24) 600 mg PO DAILY [facility] Last Admin: 08/01/17 10:47 Dose: 600 mg Tolterodine Tartrate (Detrol La 24 Hr) 4 mg PO BID [facility] Last Admin: 08/01/17 21:16 Dose: 4 mg Discontinued Medications Acetaminophen (Tylenol Extra Strength) 1,000 mg PO ONETIME ONE Stop: 07/31/17 10:12 Last Admin: 07/31/17 10:50 Dose: 1,000 mg Furosemide (Lasix) 40 mg IVPUSH NOW ONE Stop: 08/02/17 08:03 Lactated Ringer's (Ringers, Lactated) 1,000 mls @ 1,000 mls/hr IV BOLUS ONE Stop: 07/31/17 11:03 Last Admin: 07/31/17 10:50 Dose: 1,000 mls/hr Clindamycin Phosphate 900 mg/ (Sodium Chloride) 106 mls @ 100 mls/hr IV ONETIME ONE Stop: 07/31/17 11:58 Last Admin: 07/31/17 12:29 Dose: Not Given Clindamycin Phosphate 600 mg/ (Dextrose/Water) 54 mls @ 150 mls/hr IV Q6HR [facility] Magnesium Sulfate 2 gm/ Premix 50 mls @ 150 mls/hr IV ONETIME ONE Stop: 08/02/17 07:31 Magnesium Sulfate (Magnesium Sulfate 2 Gm In Water 50 Ml) Confirm Administered Dose 50 mls @ as directed .ROUTE .STK-MED ONE Stop: 08/02/17 07:23 Insulin Aspart (Novolog) 30 unit SUBCUT TIDMEALS [facility] Last Admin: 07/31/17 18:49 Dose: 30 units Insulin Aspart (Novolog) 0 unit SUBCUT ONETIME ONE Stop: 07/31/17 22:02 Last Admin: 07/31/17 22:30 Dose: 20 unit Methylprednisolone Sodium Succinate (Solu-Medrol) Confirm Administered Dose 125 mg .ROUTE .STK-MED ONE Stop: 08/02/17 07:10 Last Admin: 08/02/17 07:14 Dose: Not Given Methylprednisolone Sodium Succinate (Solu-Medrol) 125 mg IVPUSH STAT ONE Stop: 08/02/17 07:14 Last Admin: 08/02/17 07:15 Dose: 125 mg Midazolam HCl (Versed 1 Mg/Ml) Confirm Administered Dose 2 mg .ROUTE .STK-MED ONE Stop: 08/02/17 08:01 Symbicort 160/4.5mcg 2 each INH BID [facility] Last Admin: 08/01/17 08:18 Dose: Not Given Non-Formulary Medication (Insulin Glargine,Hum.Rec.Anlog [Inocencio Peck]) 120 unit SQ BEDTIME [facility] Last Admin: 08/02/17 00:42 Dose: Not Given Prednisone (Prednisone) 40 mg PO WITHBREAKFAST [facility] Last Admin: 08/01/17 08:17 Dose: 40 mg Prednisone (Prednisone) 20 mg PO ONETIME ONE Stop: 08/01/17 09:21 Last Admin: 08/01/17 10:05 Dose: 20 mg *Q Meaningful Use (DIS) - VTE *Q VTE Criteria *Q: - Stroke *Q Stroke Criteria *Q: - AMI *Q AMI Criteria *Q:
[2017-08-02] MEDS ORDERED: fentaNYL 100 MCG/2 ML SDV IVPUSH ONE (08:32)
[2017-08-02] MEDS ORDERED: fentaNYL 100 MCG/2 ML SDV ONE (08:32)
[2017-08-02] MEDS: Insulin Aspart 100 Units/ML 3 ML Pen SUBCUT SCH ×2 (08:51)
[2017-08-02] MEDS: metFORMIN 500 MG Tab PO SCH (08:51)
[2017-08-02] MEDS ORDERED: Furosemide 40 MG Tab PO SCH (09:00)
[2017-08-02] MEDS: Gabapentin 600 MG Tab PO SCH (09:01)
[2017-08-02] MEDS: Formoterol/Mometasone 200-5 MCG 8.8 GM Inhaler IH SCH (09:01)
[2017-08-02] MEDS: Insulin Detemir 100 Units/ML 3 ML Pen SUBCUT SCH (09:01)
[2017-08-02] MEDS: Tolterodine 4 MG Cap.ER PO SCH (09:01)
[2017-08-02] MEDS: Saccharomyces Boulardii (Probiotic) 250 MG Cap PO SCH (09:01)
[2017-08-02] MEDS: Montelukast 10 MG Tab PO SCH (09:02)
[2017-08-02] MEDS: Theophylline 100 MG Cap.ER PO SCH (09:02)
[2017-08-02] MEDS: Lisinopril 10 MG Tab PO SCH (09:02)
[2017-08-02] MEDS ORDERED: LORazepam 2 MG/ML SDV IVPUSH ONE (09:21)
[2017-08-02] MEDS ORDERED: LORazepam 2 MG/ML SDV ONE (09:22)
[2017-08-02] MEDS ORDERED: SODIUM CHLORIDE 0.9% IV SCH (09:35)
[2017-08-02] MEDS ORDERED: MIDAZOLAM IV SCH (09:35)
[2017-08-02 10:41] VITALS: BP 176/116
--- NOTE | 2017-08-02 11:46 | CR ---
INDICATION: Shortness of breath. CHEST: An AP upright view of the chest was obtained 08/02/2017 at 0721 hours and compared with 08/01/2017 and 07/31/2017 examinations, revealing the heart to appear enlarged, as previously, with tortuous aorta calcified in the arch area, as previously. Somewhat flattened diaphragm leaf and hyperaeration suggest the possibility of COPD. Upper lung field pulmonary vasculature appears slightly prominent, as on the previous examination, raising question of a mild or early CHF. This should be correlated clinically. No consolidating pneumonia or effusion was identified. Overlying EKG leads are noted. IMPRESSION: 1. No definite acute process but difficult to exclude a mild or early CHF. 2. Probable COPD, possibly exacerbated - correlate clinically. 3. ASHD with mid cardiomegaly or heart at the upper limits of normal in size. MTDD
--- NOTE | 2017-08-02 11:51 | CR ---
INDICATION: Tube placement. CHEST: A supine view of the chest was obtained for tube placement and revealed endotracheal tube to be in adequate position in the area of the trachea with its tip at a level a few millimeters above the arch of the aorta. No other change is noted in the appearance of the chest with findings remaining compatible with COPD. The upper lung pulmonary vasculature prominence may be on the basis of COPD or possibly mild or early CHF. Fluid overload could also be present. MTDD
--- NOTE | 2017-08-02 11:55 | CR ---
INDICATION: Shortness of breath. CHEST: An AP upright view of the chest was obtained 08/01/2017 at 1637 hours and compared with 07/31/2017. The heart appears to be at the upper limits of normal in size. The aorta is tortuous with minimal calcification in the arch. Overlying EKG leads are noted. Pulmonary vasculature appears somewhat congested. The possibility of mild or early CHF is difficult to exclude. No gross consolidating pneumonia or effusion was identified. IMPRESSION: Cannot exclude a mild degree of pulmonary vascular congestion, possibly on the basis of CHF - correlate clinically, as heart is only at the upper limits of normal in size and appearance. Full inspiration PA and lateral views of the chest may be helpful for further evaluation when clinically possible. MTDD
== END 2017-08-02 10:08 | DRG 208 ==
LOC: FB.ED 09:59 → FB.MS 12:05 → FB.ICU 08-01 15:45
PROVIDERS: ADMIT Family Medicine; ATTEND Family Medicine
PROC: 0BH17EZ Insertion of Endotracheal Airway into Trachea, Via Natural or Artificial Opening (ICD-10-PCS; principal; 2017-08-02)
PROC: 5A1935Z Respiratory Ventilation, Less than 24 Consecutive Hours (ICD-10-PCS; 2017-08-02)
DX: J44.1 Chronic obstructive pulmonary disease with (acute) exacerbation (principal); L03.116 Cellulitis of left lower limb; E11.65 Type 2 diabetes mellitus with hyperglycemia; J96.02 Acute respiratory failure with hypercapnia; R65.10 Systemic inflammatory response syndrome (SIRS) of non-infectious origin without acute organ dysfunction; Z68.41 Body mass index [BMI] 40.0-44.9, adult; G47.33 Obstructive sleep apnea (adult) (pediatric); M79.672 Pain in left foot; I25.10 Atherosclerotic heart disease of native coronary artery without angina pectoris; Z87.891 Personal history of nicotine dependence; I10 Essential (primary) hypertension; F17.210 Nicotine dependence, cigarettes, uncomplicated; R45.1 Restlessness and agitation; E78.00 Pure hypercholesterolemia, unspecified; N39.3 Stress incontinence (female) (male); E11.9 Type 2 diabetes mellitus without complications; Z79.4 Long term (current) use of insulin; Z79.84 Long term (current) use of oral hypoglycemic drugs; Z85.43 Personal history of malignant neoplasm of ovary; H54.7 Unspecified visual loss; Z88.8 Allergy status to other drugs, medicaments and biological substances; Z91.048 Other nonmedicinal substance allergy status; Z99.81 Dependence on supplemental oxygen; Z79.899 Other long term (current) drug therapy; E66.9 Obesity, unspecified; G89.29 Other chronic pain; M54.9 Dorsalgia, unspecified; N32.81 Overactive bladder; F32.9 Major depressive disorder, single episode, unspecified; I73.9 Peripheral vascular disease, unspecified
CPT/HCPCS: 36415; 71045; 80048; 83605; 84484; 85027; 86140; 87040 ×2; 93005; 96360; 99285; A9270; J7120; 36600; 73630-LT; 80053; 81001; 82803; 82947; 82962; 85025; 87070; 87077; 87205; 87804; 93010; 94002; 94150; 94640; 96372; 99284; J0330; J0696; J1650; J1940; J2060; J2250; J2704; J2930; J3010; J3370; J3475; J3490; J7040; J7050; J7620

== ENCOUNTER 2017-08-23 09:13 | Inpatient (IN) | payer MEDICARE, MEDICAID ==
[2017-08-23] MEDS ORDERED: Albuterol/Ipratropium 3.0-0.5 MG/3 ML Neb Soln INH PRN (13:27)
[2017-08-23] MEDS ORDERED: Lactulose Soln 10 GM/15 ML 15 ML UD Cup PO PRN (13:27)
[2017-08-23] MEDS ORDERED: Albuterol 8 GM Inhaler INH PRN (13:27)
[2017-08-23] MEDS ORDERED: Nitroglycerin 0.4 MG Tab.SL SL PRN (13:27)
[2017-08-23] MEDS: Gabapentin 600 MG Tab PO SCH ×2 (14:53→21:05)
[2017-08-23] MEDS: Insulin Aspart 100 Units/ML 3 ML Pen SUBCUT SCH ×2 (14:54→18:38)
[2017-08-23] MEDS: metFORMIN 500 MG Tab PO SCH (18:37)
--- NOTE | 2017-08-23 20:04 | PCM.HP ---
H&P History of Present Illness - General Date of Service: 08/23/17 Admit Problem/Dx: Admission Diagnosis/Problem Admission Diagnosis/Problem Respiratory arrest Source of Information: Patient, Family, Old Records History Limitations: Reports: No Limitations - History of Present Illness Initial Comments - Free Text/Narative: Gaby is 52 years old. She was at [facility] more than 3 weeks with acute respiratory failure due to advanced COPD. She spent at least 2 weeks in the ICU, with a trach. She was admitted here 2 days ago for rehabilitation because of weakness and physical debility. She has brittle diabetes mellitus type 2, obesity, depression, chronic back pain, and severe,)2 dependent COPD. While at [facility] him a she had a trach, and developed dysphagia afterwards. She's been working speech therapy and speech and swallowing. She feels very weak and unable to ambulate independently. Previously she was on a wheelchair mostly still able to leave at home independently and ambulate for short distances Back Pain Score (Numeric/FACES): 9 Lower Back Pain Score (Numeric/FACES): 6 - Related Data Allergies/Adverse Reactions: Allergies Allergy/AdvReac Type Severity Reaction Status Date / Time aspirin Allergy Other Verified 08/23/17 11:48 mold Allergy Airway Uncoded 08/23/17 11:48 Tightness Home Medications: Home Meds Montelukast [Singulair] 10 mg PO DAILY 05/03/13 [History] Lisinopril [Zestril] 10 mg PO DAILY 11/06/13 [History] Simvastatin [Zocor] 10 mg PO BEDTIME 11/06/13 [History] Albuterol [Proair HFA] 2 puff INH Q4H PRN 01/08/15 [History] Budesonide/Formoterol [Symbicort 160-4.5 MCG] 2 puff INH BID 05/15/15 [History] Potassium Chloride [Klor-Con 10] 10 meq PO BEDTIME 11/19/15 [History] metFORMIN [Glucophage] 500 mg PO BID 05/04/17 [History] Albuterol/Ipratropium [DuoNeb 3.0-0.5 MG/3 ML] 3 ml INH QID PRN 07/31/17 [ History] Celecoxib [CeleBREX] 200 mg PO WITHBREAKFAST 07/31/17 [History] DULoxetine [Cymbalta] 60 mg PO DAILY 07/31/17 [History] Furosemide [Lasix] 40 mg PO DAILY 07/31/17 [History] Gabapentin [Neurontin] 600 mg PO TID 07/31/17 [History] Insulin Aspart [NovoLOG] 30 unit SUBCUT TIDMEALS 07/31/17 [History] Insulin Glargine,Hum.Rec.Anlog [Toujeo Solostar] 110 unit SQ BEDTIME 07/31/17 [ History] Lactulose 10 gm PO DAILY PRN 07/31/17 [History] Tolterodine Tartrate [Detrol LA] 8 mg PO DAILY 07/31/17 [History] Acetaminophen 650 mg PO Q4H PRN 08/23/17 [History] Nitroglycerin 0.4 mg SL Q5M PRN 08/23/17 [History] Theophylline Anhydrous 300 mg PO BID 08/23/17 [History] Umeclidinium [place] [Incruse Ellipta] 62.5 mcg IH DAILY 08/23/17 [History] tiZANidine [Zanaflex] 2 mg PO BEDTIME 08/23/17 [History] Past Medical History HEENT 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: Cataract, Impaired Vision Cardiovascular 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: Angina, High Cholesterol, Hypertension, SOB on Exertion, Other (See Below) Other Cardiovascular History: patient states has PRn nitro at home for occasional chest pains Respiratory 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: Asthma, COPD, Intubation, Previous, Pneumonia, Recurrent, Sleep Apnea, SOB Other Respiratory History: has CPAP Gastrointestinal 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: Cholelithiasis, GERD Genitourinary 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: Urinary Incontinence, Other (See Below) Other Genitourinary History: stress incontinence at times ASL INTERPRETER 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: Other OB/BYN History: , Musculoskeletal 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: Back Pain, Chronic, Osteoarthritis, Osteoporosis, Other (See Below) Other Musculoskeletal History: BACK INJURY Neurological 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: Concussion, Neuropathy, Diabetic, Speech Problems Psychiatric 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: Depression Endocrine/Metabolic 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: Diabetes, Type II, Hypothyroidism Oncologic (Cancer) 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: Ovarian Dermatologic 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: Other (See Below) Other Dermatologic History: open infected wound under right abd fold on oral antibiotics - Infectious Disease History Infectious Disease 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: Chicken Pox - Past Surgical History HEENT Surgical 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: Cataract Surgery, Oral Surgery GI Surgical 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: Cholecystectomy, Colonoscopy Female Surgical 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: Hysterectomy, Salpingo-Oophorectomy Social & Family History - Family History Family Medical History: Noncontributory HEENT: Reports: Cataract Cardiac: Reports: CAD, MT Respiratory: Reports: Asthma, Sleep Apnea : Reports: Diabetic Nephropathy OBGYN: Reports: Musculoskeletal: Reports: Arthritis Endocrine/Metabolic: Reports: Diabetes, Type I, Diabetes, type II, IDDM, Obesity /MBI 30+ Dermatologic: Reports: None Oncologic: Reports: Bone, Breast, Other (See Below) Other Oncologic Family History: heart - Tobacco Use Smoking Status *Q: Former Smoker Years of Tobacco use: 39 Packs/Tins Daily: 2 Used Tobacco, but Quit: Yes Month Tobacco Last Used: MAY Second Hand Smoke Exposure: No - Caffeine Use Caffeine Use: Reports: Coffee, Soda Other Caffeine Use: daily - Alcohol Use Days Per Week of Alcohol Use: 0 - Recreational Drug Use Recreational Drug Use: No - Living Situation & Occupation Living situation: Reports: H&P Review of Systems - Review of Systems: Review Of Systems: ROS reveals no pertinent complaints other than HPI. Exam - Exam Exam: See Below - Vital Signs Vital Signs: Last Vital Signs Temp 98.9 F 08/23/17 10:42 Pulse 107 H 08/23/17 10:42 Resp 20 08/23/17 10:42 BP 95/68 08/23/17 10:42 Pulse Ox 94 L 08/23/17 15:10 Weight: 101.242 kg - Exam Quality Assessment: Supplemental Oxygen General: Alert, Oriented HEENT: PERRLA Neck: Supple Lungs: Clear to Auscultation Cardiovascular: Regular Rate GI/Abdominal Exam: Normal Bowel Sounds Back Exam: Normal Inspection Extremities: Normal Inspection Neurological: Cranial Nerves Intact, Reflexes Equal Bilateral Neuro Extensive - Mental Status: Alert, Oriented x3, Normal Mood/Affect, Normal Cognition Neuro Extensive - Motor, Sensory, Reflexes: CN II-XII Intact, Normal Gait, Normal Reflexes Psychiatric: Alert, Normal Affect, Normal Mood - Patient Data Lab Results Last 24 hrs: Laboratory Results - last 24 hr 08/23/17 08/23/17 Range/Units 13:05 18:37 POC Glucose 367 H D 224 H D (80-116) mg/dL *Q Meaningful Use (ADM) - VTE *Q VTE Criteria *Q: - Stroke *Q Stroke Criteria *Q: - AMI *Q AMI Criteria *Q: - Problem List (1) Physical deconditioning SNOMED Code(s): 13341109907225 ICD Code: R53.81 - OTHER MALAISE Status: Acute Current Visit: Yes (2) Obesities, morbid SNOMED Code(s): 512097339 ICD Code: E66.01 - MORBID (SEVERE) OBESITY DUE TO EXCESS CALORIES Status: Acute Current Visit: Yes (3) Diabetes type 2, uncontrolled SNOMED Code(s): 72746780 ICD Code: E11.65 - TYPE 2 DIABETES MELLITUS WITH HYPERGLYCEMIA Status: Chronic Current Visit: Yes Qualifiers: Diabetes mellitus parts counterman insulin use: with parts counterman use (4) COPD (chronic obstructive pulmonary disease) SNOMED Code(s): 65415382 ICD Code: J44.9 - CHRONIC OBSTRUCTIVE PULMONARY DISEASE, UNSPECIFIED Status : Acute Current Visit: Yes Qualifiers: COPD type: COPD with acute lower respiratory infection Qualified Code(s): J44.0 - Chronic obstructive pulmonary disease with acute lower respiratory infection (5) Dysphagia SNOMED Code(s): 58336499 ICD Code: R13.10 - DYSPHAGIA, UNSPECIFIED Status: Acute Current Visit: Yes Qualifiers: Dysphagia type: unspecified Qualified Code(s): R13.10 - Dysphagia, unspecified (6) Depression SNOMED Code(s): 75434757 ICD Code: F32.9 - MAJOR DEPRESSIVE DISORDER, SINGLE EPISODE, UNSPECIFIED Status: Acute Current Visit: Yes Qualifiers: Depression Type: major depressive disorder Active/Remission status: currently active (7) HTN (hypertension) SNOMED Code(s): 88697693 ICD Code: I10 - ESSENTIAL (PRIMARY) HYPERTENSION Status: Acute Current Visit: Yes Qualifiers: Hypertension type: essential hypertension Qualified Code(s): I10 - Essential (primary) hypertension (8) Lumbago SNOMED Code(s): 317320370 ICD Code: M54.5 - LOW BACK PAIN Status: Acute Current Visit: Yes Qualifiers: Chronicity: chronic Back pain laterality: midline Problem List Initiated/Reviewed/Updated: Yes Orders Last 24hrs: Active Orders 24 hr Category Date Time Status Patient Status [ADT] Routine ADT 08/23/17 10:15 Active Dietary Supplements [RC] BIDAC Care 08/23/17 14:30 Active Height and Weight [RC] .qfri Care 08/23/17 14:32 Active Consult to Speech Language Pathology [PLACEMENT MANAGER Evaluation Cons 08/23/17 19:26 Active and Treatment] [CONS] Routine OT Evaluation and Treatment [CONS] Routine Cons 08/23/17 11:15 Active PT Evaluation and Treatment [CONS] Routine Cons 08/23/17 11:15 Active Consistent Carbohydrate Diet [DIET] Diet 08/23/17 Dinner Active National Dysphagia Diet [DIET] Diet 08/23/17 Dinner Active Regular Diet [DIET] Diet 08/23/17 Dinner Active Acetaminophen [Tylenol] Med 08/23/17 13:27 Active 650 mg PO Q4H PRN Albuterol [Ventolin HFA] Med 08/23/17 13:27 Active 0 gm INH Q4H PRN Albuterol/Ipratropium [DuoNeb 3.0-0.5 MG/3 ML] Med 08/23/17 13:27 Active 3 ml INH QID PRN Celecoxib [CeleBREX] Med 08/24/17 08:00 Active 200 mg PO WITHBREAKFAST DULoxetine [Cymbalta] Med 08/24/17 09:00 Active 60 mg PO DAILY Furosemide [Lasix] Med 08/24/17 09:00 Active 40 mg PO DAILY Gabapentin [Neurontin] Med 08/23/17 14:00 Active 600 mg PO TID Insulin Aspart [NovoLOG] Med 08/23/17 14:00 Active 5 unit SUBCUT TIDMEALS Insulin Detemir [Levemir] Med 08/23/17 21:00 Active 110 unit SUBCUT BEDTIME Lactulose [Chronulac] Med 08/23/17 13:27 Active 10 gm PO DAILY PRN Lisinopril [Prinivil] Med 08/24/17 09:00 Active 10 mg PO DAILY Mometasone/Formoterol [Dulera 200-5 MCG] Med 08/23/17 21:00 Active 2 puff IH BID Montelukast [Singulair] Med 08/24/17 09:00 Active 10 mg PO DAILY Nitroglycerin [Nitrostat] Med 08/23/17 13:27 Active 0.4 mg SL Q5M PRN Potassium Chloride [Klor-Con 10] Med 08/23/17 21:00 Active 10 meq PO BEDTIME Simvastatin [Zocor] Med 08/23/17 21:00 Active 10 mg PO BEDTIME Theophylline [Estevan-24] Med 08/24/17 06:00 Active 600 mg PO DAILY@0600 Tiotropium [Spiriva HandiHaler] Med 08/24/17 09:00 Active 0 mcg INH DAILY Tolterodine [Detrol LA 24 Hr] Med 08/24/17 09:00 Active 8 mg PO DAILY metFORMIN [Glucophage] Med 08/23/17 18:00 Active 500 mg PO BIDMEALS predniSONE Med 08/24/17 09:00 Once 10 mg PO DAILY ONE predniSONE Med 08/25/17 09:00 Active 5 mg PO DAILY tiZANidine [Zanaflex] Med 08/23/17 21:00 Active 2 mg PO BEDTIME Oral Nutrition Supplement [COMM] 1400,1900 Ot 08/23/17 19:00 Ordered Oral Nutrition Supplement [COMM] 1400,1900 Ot 08/24/17 14:00 Ordered Oral Nutrition Supplement [COMM] 1400,1900 Ot 08/24/17 19:00 Ordered Oral Nutrition Supplement [COMM] 1400,1900 Ot 08/25/17 14:00 Ordered Oral Nutrition Supplement [COMM] 1400,1900 Oth 08/25/17 19:00 Ordered Oral Nutrition Supplement [COMM] 1400,1900 Ot 08/26/17 14:00 Ordered Oral Nutrition Supplement [COMM] 1400,1900 Oth 08/26/17 19:00 Ordered Oral Nutrition Supplement [COMM] 1400,1900 Oth 08/27/17 14:00 Ordered Oral Nutrition Supplement [COMM] 1400,1900 Ot 08/27/17 19:00 Ordered Oral Nutrition Supplement [COMM] 1400,1900 Ot 08/28/17 14:00 Ordered Oral Nutrition Supplement [COMM] 1400,1900 Oth 08/28/17 19:00 Ordered Oral Nutrition Supplement [COMM] 1400,1900 Ot 08/29/17 14:00 Ordered Oral Nutrition Supplement [COMM] 1400,1900 Ot 08/29/17 19:00 Ordered Medication Orders Acetaminophen (Tylenol) 650 mg PO Q4H PRN PRN Reason: Pain (mild 1-3) Albuterol (Ventolin Hfa) 0 gm INH Q4H PRN PRN Reason: Shortness of Breath Albuterol/Ipratropium (Duoneb 3.0-0.5 Mg/3 Ml) 3 ml INH QID PRN PRN Reason: BRONCHOSPASM Celecoxib (Celebrex) 200 mg PO WITHBREAKFAST [facility] Duloxetine HCl (Cymbalta) 60 mg PO DAILY [facility] Furosemide (Lasix) 40 mg PO DAILY [facility] Gabapentin (Neurontin) 600 mg PO TID [facility] Last Admin: 08/23/17 14:53 Dose: 600 mg Insulin Aspart (Novolog) 5 unit SUBCUT TIDMEALS [facility] Last Admin: 08/23/17 18:38 Dose: 5 units Admin: 08/23/17 14:54 Dose: 5 units Insulin Detemir (Levemir) 110 unit SUBCUT BEDTIME [facility] Lactulose (Chronulac) 10 gm PO DAILY PRN PRN Reason: Constipation Lisinopril (Prinivil) 10 mg PO DAILY [facility] Metformin HCl (Glucophage) 500 mg PO BIDMEALS [facility] Last Admin: 08/23/17 18:37 Dose: 500 mg Mometasone Furoate/Formoterol Fumar (Dulera 200-5 Mcg) 2 puff IH BID [facility] Montelukast Sodium (Singulair) 10 mg PO DAILY [facility] Nitroglycerin (Nitrostat) 0.4 mg SL Q5M PRN PRN Reason: Chest Pain Potassium Chloride (Klor-Con 10) 10 meq PO BEDTIME [facility] Prednisone (Prednisone) 10 mg PO DAILY ONE Stop: 08/24/17 09:01 Prednisone (Prednisone) 5 mg PO DAILY [facility] Stop: 08/26/17 09:01 Simvastatin (Zocor) 10 mg PO BEDTIME [facility] Theophylline (Estevan-24) 600 mg PO DAILY@0600 [facility] Tiotropium [place] (Spiriva Handihaler) 0 mcg INH DAILY [facility] Tizanidine HCl (Zanaflex) 2 mg PO BEDTIME [facility] Tolterodine Tartrate (Detrol La 24 Hr) 8 mg PO DAILY [facility] Assessment/Plan Comment:: We will continue regular medications for COPD, and type 2 diabetes. Physical and occupational therapy consulted for aggressive rehabilitation with the goal of getting her to her baseline(wheel chair),and sending to home independently.
[2017-08-23] MEDS: Formoterol/Mometasone 200-5 MCG 8.8 GM Inhaler IH SCH (21:03)
[2017-08-23] MEDS: Simvastatin 10 MG Tab PO SCH (21:05)
[2017-08-23] MEDS: tiZANidine 4 MG Tab PO SCH (21:05)
[2017-08-23] MEDS: Potassium Chloride 10 MEQ Tab.ER PO SCH (21:06)
[2017-08-23] MEDS: Insulin Detemir 100 Units/ML 3 ML Pen SUBCUT SCH (21:17)
[2017-08-24] MEDS: Acetaminophen 325 MG Tab PO PRN ×2 (00:25→20:13)
[2017-08-24] MEDS: Theophylline 100 MG Cap.ER PO SCH (06:58)
[2017-08-24] MEDS: metFORMIN 500 MG Tab PO SCH ×2 (08:34→18:37)
[2017-08-24] MEDS: Celecoxib 200 MG Cap PO SCH (08:34)
[2017-08-24] MEDS: Tolterodine 4 MG Cap.ER PO SCH (08:36)
[2017-08-24] MEDS: DULoxetine 60 MG Cap PO SCH (08:36)
[2017-08-24] MEDS: Formoterol/Mometasone 200-5 MCG 8.8 GM Inhaler IH SCH ×2 (08:36→20:10)
[2017-08-24] MEDS: Furosemide 40 MG Tab PO SCH (08:37)
[2017-08-24] MEDS: Lisinopril 10 MG Tab PO SCH (08:37)
[2017-08-24] MEDS: Gabapentin 600 MG Tab PO SCH ×3 (08:37→20:13)
[2017-08-24] MEDS: Montelukast 10 MG Tab PO SCH (08:38)
[2017-08-24] MEDS: Tiotropium Inhaler 18 MCG Inhalation Powder Cap Kit of 5 INH SCH (08:38)
[2017-08-24] MEDS: Insulin Aspart 100 Units/ML 3 ML Pen SUBCUT SCH ×3 (08:40→18:39)
[2017-08-24] MEDS ORDERED: predniSONE 10 MG Tab PO ONE (09:00)
[2017-08-24] MEDS: Potassium Chloride 10 MEQ Tab.ER PO SCH (20:12)
[2017-08-24] MEDS: tiZANidine 4 MG Tab PO SCH (20:13)
[2017-08-24] MEDS: Simvastatin 10 MG Tab PO SCH (20:13)
[2017-08-24] MEDS: Insulin Detemir 100 Units/ML 3 ML Pen SUBCUT SCH (21:36)
[2017-08-25] MEDS: Theophylline 100 MG Cap.ER PO SCH (06:24)
[2017-08-25] MEDS: Celecoxib 200 MG Cap PO SCH (11:31)
[2017-08-25] MEDS: metFORMIN 500 MG Tab PO SCH ×2 (11:31→18:50)
[2017-08-25] MEDS: Furosemide 40 MG Tab PO SCH (11:34)
[2017-08-25] MEDS: Tolterodine 4 MG Cap.ER PO SCH (11:34)
[2017-08-25] MEDS: DULoxetine 60 MG Cap PO SCH (11:34)
[2017-08-25] MEDS: Formoterol/Mometasone 200-5 MCG 8.8 GM Inhaler IH SCH ×2 (11:34→21:06)
[2017-08-25] MEDS: Lisinopril 10 MG Tab PO SCH (11:35)
[2017-08-25] MEDS: predniSONE 5 MG Tab PO SCH (11:35)
[2017-08-25] MEDS: Gabapentin 600 MG Tab PO SCH ×3 (11:35→21:09)
[2017-08-25] MEDS: Tiotropium Inhaler 18 MCG Inhalation Powder Cap Kit of 5 INH SCH (11:36)
[2017-08-25] MEDS: Montelukast 10 MG Tab PO SCH (11:36)
[2017-08-25] MEDS: Insulin Aspart 100 Units/ML 3 ML Pen SUBCUT SCH ×3 (11:42→18:51)
[2017-08-25] MEDS: Aluminum Hydroxide/Magnesium Hydroxide Susp 30 ML Cup PO PRN (18:46)
[2017-08-25] MEDS: Potassium Chloride 10 MEQ Tab.ER PO SCH (21:08)
[2017-08-25] MEDS: tiZANidine 4 MG Tab PO SCH (21:09)
[2017-08-25] MEDS: Simvastatin 10 MG Tab PO SCH (21:10)
[2017-08-25] MEDS: Insulin Detemir 100 Units/ML 3 ML Pen SUBCUT SCH (21:54)
[2017-08-26] MEDS: Acetaminophen 325 MG Tab PO PRN (04:47)
[2017-08-26] MEDS: Theophylline 100 MG Cap.ER PO SCH (06:23)
[2017-08-26] MEDS: Insulin Aspart 100 Units/ML 3 ML Pen SUBCUT SCH ×3 (07:59→17:37)
[2017-08-26] MEDS: Furosemide 40 MG Tab PO SCH (08:00)
[2017-08-26] MEDS: DULoxetine 60 MG Cap PO SCH (08:00)
[2017-08-26] MEDS: Celecoxib 200 MG Cap PO SCH (08:00)
[2017-08-26] MEDS: Montelukast 10 MG Tab PO SCH (08:00)
[2017-08-26] MEDS: metFORMIN 500 MG Tab PO SCH ×2 (08:00→17:38)
[2017-08-26] MEDS: Tolterodine 4 MG Cap.ER PO SCH (08:01)
[2017-08-26] MEDS: Lisinopril 10 MG Tab PO SCH (08:01)
[2017-08-26] MEDS: Gabapentin 600 MG Tab PO SCH ×3 (08:02→20:30)
[2017-08-26] MEDS: Formoterol/Mometasone 200-5 MCG 8.8 GM Inhaler IH SCH ×2 (08:02→20:24)
[2017-08-26] MEDS: predniSONE 5 MG Tab PO SCH (08:02)
[2017-08-26] MEDS: Tiotropium Inhaler 18 MCG Inhalation Powder Cap Kit of 5 INH SCH (08:02)
--- NOTE | 2017-08-26 18:23 | PCM.SN ---
- Free Text/Narrative Note: Subjective-patient was sitting in her wheelchair and lean forward and fell out of the wheelchair and hit her head and her right shoulder. She is having pain over the right clavicle and having little bit of bleeding but now that stop. Objective-nares are open. She has some mild pain on palpation of her nose. There is a little bleeding inside the nose but does not very active. She has pain over her right clavicle on palpation. No pain over her right shoulder. Range of motion of the shoulder. Assessment-nose contusion, right clavicle contusion, fall Plan-x-ray right clavicle and nares.
[2017-08-26] MEDS: traMADol 50 MG Tab PO PRN (20:20)
[2017-08-26] MEDS: Potassium Chloride 10 MEQ Tab.ER PO SCH (20:25)
[2017-08-26] MEDS: Insulin Detemir 100 Units/ML 3 ML Pen SUBCUT SCH (20:26)
[2017-08-26] MEDS: Simvastatin 10 MG Tab PO SCH (20:30)
[2017-08-26] MEDS: tiZANidine 4 MG Tab PO SCH (20:30)
[2017-08-27] MEDS: Acetaminophen 325 MG Tab PO PRN ×2 (00:43→06:13)
[2017-08-27] MEDS: traMADol 50 MG Tab PO PRN (02:32)
[2017-08-27] MEDS: Theophylline 100 MG Cap.ER PO SCH (06:12)
[2017-08-27] MEDS: Celecoxib 200 MG Cap PO SCH (08:31)
[2017-08-27] MEDS: Insulin Aspart 100 Units/ML 3 ML Pen SUBCUT SCH ×3 (08:32→17:29)
[2017-08-27] MEDS: metFORMIN 500 MG Tab PO SCH ×2 (08:32→17:29)
[2017-08-27] MEDS: DULoxetine 60 MG Cap PO SCH (08:33)
[2017-08-27] MEDS: Tolterodine 4 MG Cap.ER PO SCH (08:34)
[2017-08-27] MEDS: Formoterol/Mometasone 200-5 MCG 8.8 GM Inhaler IH SCH ×2 (08:35→20:29)
[2017-08-27] MEDS: Furosemide 40 MG Tab PO SCH (08:36)
[2017-08-27] MEDS: Lisinopril 10 MG Tab PO SCH (08:36)
[2017-08-27] MEDS: Gabapentin 600 MG Tab PO SCH ×3 (08:36→20:31)
[2017-08-27] MEDS: Montelukast 10 MG Tab PO SCH (08:37)
[2017-08-27] MEDS: Tiotropium Inhaler 18 MCG Inhalation Powder Cap Kit of 5 INH SCH (08:37)
[2017-08-27] MEDS: Insulin Detemir 100 Units/ML 3 ML Pen SUBCUT SCH (20:30)
[2017-08-27] MEDS: Potassium Chloride 10 MEQ Tab.ER PO SCH (20:31)
[2017-08-27] MEDS: tiZANidine 4 MG Tab PO SCH (20:31)
[2017-08-27] MEDS: Simvastatin 10 MG Tab PO SCH (20:32)
[2017-08-28] MEDS: Theophylline 100 MG Cap.ER PO SCH (06:27)
[2017-08-28] MEDS: Celecoxib 200 MG Cap PO SCH (08:52)
[2017-08-28] MEDS: Tolterodine 4 MG Cap.ER PO SCH (08:53)
[2017-08-28] MEDS: metFORMIN 500 MG Tab PO SCH ×2 (08:53→18:17)
[2017-08-28] MEDS: DULoxetine 60 MG Cap PO SCH (08:53)
[2017-08-28] MEDS: Gabapentin 600 MG Tab PO SCH ×3 (08:54→20:15)
[2017-08-28] MEDS: Formoterol/Mometasone 200-5 MCG 8.8 GM Inhaler IH SCH ×2 (08:54→20:15)
[2017-08-28] MEDS: Furosemide 40 MG Tab PO SCH (08:54)
[2017-08-28] MEDS: Lisinopril 10 MG Tab PO SCH (08:54)
[2017-08-28] MEDS: Tiotropium Inhaler 18 MCG Inhalation Powder Cap Kit of 5 INH SCH (08:55)
[2017-08-28] MEDS: Montelukast 10 MG Tab PO SCH (08:55)
[2017-08-28] MEDS: Insulin Aspart 100 Units/ML 3 ML Pen SUBCUT SCH ×3 (08:58→18:17)
--- NOTE | 2017-08-28 09:02 | PCM.PN ---
- General Info Date of Service: 08/28/17 Admission Dx/Problem (Free Text): Patient states her nose and right clavicle does not hurt anymore. She denies shortness of breath, wheezing or cough. Still says she is very weak - Patient Data Vitals - Most Recent: Last Vital Signs Temp 99.2 F 08/27/17 08:00 Pulse 107 H 08/27/17 08:00 Resp 18 08/27/17 08:00 BP 113/76 08/28/17 08:54 Pulse Ox 98 08/27/17 08:00 Weight - Most Recent: 223 lb 3.2 oz Lab Results Last 24 Hours: Laboratory Results - last 24 hr 08/27/17 08/27/17 08/27/17 Range/Units 10:34 17:05 20:28 POC Glucose 141 H 145 H 222 H (80-116) mg/dL 08/28/17 Range/Units 06:26 POC Glucose 137 H D (80-116) mg/dL Med Orders - Current: Current Medications Acetaminophen (Tylenol) 650 mg PO Q4H PRN PRN Reason: Pain (mild 1-3) Last Admin: 08/27/17 06:13 Dose: 650 mg Al Hydroxide/Mg Hydroxide (Mag-Al Susp) 30 ml PO Q2H PRN PRN Reason: Heartburn Last Admin: 08/25/17 18:46 Dose: 30 ml Albuterol (Ventolin Hfa) 0 gm INH Q4H PRN PRN Reason: Shortness of Breath Albuterol/Ipratropium (Duoneb 3.0-0.5 Mg/3 Ml) 3 ml INH QID PRN PRN Reason: BRONCHOSPASM Celecoxib (Celebrex) 200 mg PO WITHBREAKFAST [facility] Last Admin: 08/28/17 08:52 Dose: 200 mg Duloxetine HCl (Cymbalta) 60 mg PO DAILY [facility] Last Admin: 08/28/17 08:53 Dose: 60 mg Furosemide (Lasix) 40 mg PO DAILY [facility] Last Admin: 08/28/17 08:54 Dose: 40 mg Gabapentin (Neurontin) 600 mg PO TID [facility] Last Admin: 08/28/17 08:54 Dose: 600 mg Insulin Aspart (Novolog) 5 unit SUBCUT TIDMEALS [facility] Last Admin: 08/28/17 08:58 Dose: 5 units Insulin Detemir (Levemir) 110 unit SUBCUT BEDTIME [facility] Last Admin: 08/27/17 20:30 Dose: 110 units Lactulose (Chronulac) 10 gm PO DAILY PRN PRN Reason: Constipation Lisinopril (Prinivil) 10 mg PO DAILY [facility] Last Admin: 08/28/17 08:54 Dose: 10 mg Metformin HCl (Glucophage) 500 mg PO BIDMEALS [facility] Last Admin: 08/28/17 08:53 Dose: 500 mg Mometasone Furoate/Formoterol Fumar (Dulera 200-5 Mcg) 2 puff IH BID [facility] Last Admin: 08/28/17 08:54 Dose: 2 puff Montelukast Sodium (Singulair) 10 mg PO DAILY [facility] Last Admin: 08/28/17 08:55 Dose: 10 mg Nitroglycerin (Nitrostat) 0.4 mg SL Q5M PRN PRN Reason: Chest Pain Potassium Chloride (Klor-Con 10) 10 meq PO BEDTIME [facility] Last Admin: 08/27/17 20:31 Dose: 10 meq Simvastatin (Zocor) 10 mg PO BEDTIME [facility] Last Admin: 08/27/17 20:32 Dose: 10 mg Theophylline (Estevan-24) 600 mg PO DAILY@0600 [facility] Last Admin: 08/28/17 06:27 Dose: 600 mg Tiotropium [place] (Spiriva Handihaler) 0 mcg INH DAILY [facility] Last Admin: 08/28/17 08:55 Dose: 18 mcg Tizanidine HCl (Zanaflex) 2 mg PO BEDTIME [facility] Last Admin: 08/27/17 20:31 Dose: 2 mg Tolterodine Tartrate (Detrol La 24 Hr) 8 mg PO DAILY [facility] Last Admin: 08/28/17 08:53 Dose: 8 mg Tramadol HCl (Ultram) 50 mg PO Q6H PRN PRN Reason: Pain Last Admin: 08/27/17 02:32 Dose: 50 mg Discontinued Medications Prednisone (Prednisone) 10 mg PO DAILY ONE Stop: 08/24/17 09:01 Last Admin: 08/24/17 08:37 Dose: 10 mg Prednisone (Prednisone) 5 mg PO DAILY [facility] Stop: 08/26/17 09:01 Last Admin: 08/26/17 08:02 Dose: 5 mg - Exam General: Alert, Moderate Distress Lungs: Clear to Auscultation, Normal Respiratory Effort, Crackles Cardiovascular: Regular Rhythm, No Murmurs - Problem List & Annotations (1) COPD (chronic obstructive pulmonary disease) SNOMED Code(s): 13260424 Code(s): J44.9 - CHRONIC OBSTRUCTIVE PULMONARY DISEASE, UNSPECIFIED Status : Acute Current Visit: Yes Qualifiers: COPD type: COPD with acute lower respiratory infection Qualified Code(s): J44.0 - Chronic obstructive pulmonary disease with acute lower respiratory infection - Problem List Review Problem List Initiated/Reviewed/Updated: Yes - Plan Plan:: Told the patient I looked at her x-rays of the nose and right clavicle I do not see a fracture. The radiologist sees something that I didn't, I will bring the news to her. She's not concerned because she has no pain anymore. Continue current care.
[2017-08-28] MEDS: traMADol 50 MG Tab PO PRN (09:08)
[2017-08-28] MEDS: Acetaminophen 325 MG Tab PO PRN (12:19)
--- NOTE | 2017-08-28 13:14 | CR ---
INDICATION: Clavicle contusion. RIGHT CLAVICLE: A clavicle examination with four images revealed no definite fracture site. The AC joint appears to be intact. Incidentally, glenohumeral joint also appears to be intact. Adjacent ribs appear to be intact. IMPRESSION: No fractures identified - no dislocation seen. MTDD
--- NOTE | 2017-08-28 13:14 | CR ---
INDICATION: Nares contusion. NASAL BONES: Four images of the nasal bones were obtained. A definite fracture site was not identified of an acute nature. The anterior nasal spine was also intact. There is slight deformity at the left nasal bones, as noted on the Lazo view of the nasal bones. This may be on the basis of a previous fracture or could be developmental. The paranasal sinuses appear to be well aerated. IMPRESSION: No definite nasal bone fracture of an acute nature. MTDD
[2017-08-28] MEDS: Potassium Chloride 10 MEQ Tab.ER PO SCH (20:15)
[2017-08-28] MEDS: tiZANidine 4 MG Tab PO SCH (20:16)
[2017-08-28] MEDS: Simvastatin 10 MG Tab PO SCH (20:18)
[2017-08-28] MEDS: Insulin Detemir 100 Units/ML 3 ML Pen SUBCUT SCH (20:22)
[2017-08-29] MEDS: Theophylline 100 MG Cap.ER PO SCH (05:29)
[2017-08-29] MEDS: traMADol 50 MG Tab PO PRN (05:32)
[2017-08-29] MEDS: Celecoxib 200 MG Cap PO SCH (08:53)
[2017-08-29] MEDS: metFORMIN 500 MG Tab PO SCH ×2 (08:53→18:48)
[2017-08-29] MEDS: Formoterol/Mometasone 200-5 MCG 8.8 GM Inhaler IH SCH ×2 (08:55→21:16)
[2017-08-29] MEDS: Insulin Aspart 100 Units/ML 3 ML Pen SUBCUT SCH ×3 (08:55→18:48)
[2017-08-29] MEDS: Gabapentin 600 MG Tab PO SCH ×3 (08:55→21:23)
[2017-08-29] MEDS: DULoxetine 60 MG Cap PO SCH (08:55)
[2017-08-29] MEDS: Tolterodine 4 MG Cap.ER PO SCH (08:55)
[2017-08-29] MEDS: Furosemide 40 MG Tab PO SCH (08:56)
[2017-08-29] MEDS: Lisinopril 10 MG Tab PO SCH (08:56)
[2017-08-29] MEDS: Montelukast 10 MG Tab PO SCH (08:57)
[2017-08-29] MEDS: Tiotropium Inhaler 18 MCG Inhalation Powder Cap Kit of 5 INH SCH (08:58)
[2017-08-29] MEDS: Potassium Chloride 10 MEQ Tab.ER PO SCH (21:18)
[2017-08-29] MEDS: Insulin Detemir 100 Units/ML 3 ML Pen SUBCUT SCH (21:22)
[2017-08-29] MEDS: Simvastatin 10 MG Tab PO SCH (21:24)
[2017-08-29] MEDS: tiZANidine 4 MG Tab PO SCH (21:24)
[2017-08-30] MEDS: Aluminum Hydroxide/Magnesium Hydroxide Susp 30 ML Cup PO PRN (02:03)
[2017-08-30] MEDS: traMADol 50 MG Tab PO PRN (03:49)
[2017-08-30] MEDS: Theophylline 100 MG Cap.ER PO SCH (06:07)
[2017-08-30] MEDS: Celecoxib 200 MG Cap PO SCH (07:51)
[2017-08-30] MEDS: Insulin Aspart 100 Units/ML 3 ML Pen SUBCUT SCH ×3 (07:52→18:34)
[2017-08-30] MEDS: metFORMIN 500 MG Tab PO SCH ×2 (07:52→18:34)
[2017-08-30] MEDS: Tolterodine 4 MG Cap.ER PO SCH (08:02)
[2017-08-30] MEDS: DULoxetine 60 MG Cap PO SCH (08:02)
[2017-08-30] MEDS: Gabapentin 600 MG Tab PO SCH ×3 (08:04→20:47)
[2017-08-30] MEDS: Montelukast 10 MG Tab PO SCH (08:05)
[2017-08-30] MEDS: Formoterol/Mometasone 200-5 MCG 8.8 GM Inhaler IH SCH ×2 (08:05→20:45)
[2017-08-30] MEDS: Tiotropium Inhaler 18 MCG Inhalation Powder Cap Kit of 5 INH SCH (08:06)
[2017-08-30] MEDS: Lisinopril 10 MG Tab PO SCH (08:07)
[2017-08-30] MEDS: Furosemide 40 MG Tab PO SCH (08:07)
[2017-08-30] MEDS: Acetaminophen 325 MG Tab PO PRN (08:14)
[2017-08-30] MEDS: Potassium Chloride 10 MEQ Tab.ER PO SCH (20:46)
[2017-08-30] MEDS: Insulin Detemir 100 Units/ML 3 ML Pen SUBCUT SCH (20:46)
[2017-08-30] MEDS: tiZANidine 4 MG Tab PO SCH (20:48)
[2017-08-30] MEDS: Simvastatin 10 MG Tab PO SCH (20:48)
[2017-08-31] MEDS: Theophylline 100 MG Cap.ER PO SCH (05:59)
[2017-08-31] MEDS: metFORMIN 500 MG Tab PO SCH ×2 (08:09→17:33)
[2017-08-31] MEDS: Celecoxib 200 MG Cap PO SCH (08:09)
[2017-08-31] MEDS: Formoterol/Mometasone 200-5 MCG 8.8 GM Inhaler IH SCH ×2 (08:11→20:08)
[2017-08-31] MEDS: DULoxetine 60 MG Cap PO SCH (08:11)
[2017-08-31] MEDS: Gabapentin 600 MG Tab PO SCH ×3 (08:12→20:11)
[2017-08-31] MEDS: Furosemide 40 MG Tab PO SCH (08:12)
[2017-08-31] MEDS: Lisinopril 10 MG Tab PO SCH (08:12)
[2017-08-31] MEDS: Montelukast 10 MG Tab PO SCH (08:15)
[2017-08-31] MEDS: Tolterodine 4 MG Cap.ER PO SCH (08:16)
[2017-08-31] MEDS: Insulin Aspart 100 Units/ML 3 ML Pen SUBCUT SCH ×3 (08:17→17:33)
[2017-08-31] MEDS: Tiotropium Inhaler 18 MCG Inhalation Powder Cap Kit of 5 INH SCH (08:22)
[2017-08-31] MEDS: Acetaminophen 325 MG Tab PO PRN (17:13)
[2017-08-31] MEDS: tiZANidine 4 MG Tab PO SCH (20:11)
[2017-08-31] MEDS: Potassium Chloride 10 MEQ Tab.ER PO SCH (20:11)
[2017-08-31] MEDS: Simvastatin 10 MG Tab PO SCH (20:11)
[2017-08-31] MEDS: Insulin Detemir 100 Units/ML 3 ML Pen SUBCUT SCH (20:12)
[2017-08-31] MEDS: Balsam Peru/Castor Oil/Trypsin Spray 56.7 GM Canister TOP PRN (22:45)
[2017-09-01] MEDS: Theophylline 100 MG Cap.ER PO SCH (05:57)
[2017-09-01] MEDS: traMADol 50 MG Tab PO PRN ×3 (06:45→22:16)
[2017-09-01] MEDS: Balsam Peru/Castor Oil/Trypsin Spray 56.7 GM Canister TOP PRN ×2 (08:45→20:10)
[2017-09-01] MEDS: metFORMIN 500 MG Tab PO SCH ×2 (09:10→17:41)
[2017-09-01] MEDS: Tolterodine 4 MG Cap.ER PO SCH (09:10)
[2017-09-01] MEDS: Formoterol/Mometasone 200-5 MCG 8.8 GM Inhaler IH SCH ×2 (09:10→21:06)
[2017-09-01] MEDS: DULoxetine 60 MG Cap PO SCH (09:10)
[2017-09-01] MEDS: Celecoxib 200 MG Cap PO SCH (09:10)
[2017-09-01] MEDS: Montelukast 10 MG Tab PO SCH (09:11)
[2017-09-01] MEDS: Furosemide 40 MG Tab PO SCH (09:11)
[2017-09-01] MEDS: Insulin Aspart 100 Units/ML 3 ML Pen SUBCUT SCH ×3 (09:11→17:41)
[2017-09-01] MEDS: Gabapentin 600 MG Tab PO SCH ×3 (09:11→21:07)
[2017-09-01] MEDS: Tiotropium Inhaler 18 MCG Inhalation Powder Cap Kit of 5 INH SCH (09:16)
[2017-09-01] MEDS: Lisinopril 10 MG Tab PO SCH (09:16)
[2017-09-01] MEDS: tiZANidine 4 MG Tab PO SCH (21:07)
[2017-09-01] MEDS: Potassium Chloride 10 MEQ Tab.ER PO SCH (21:07)
[2017-09-01] MEDS: Simvastatin 10 MG Tab PO SCH (21:08)
[2017-09-01] MEDS: Insulin Detemir 100 Units/ML 3 ML Pen SUBCUT SCH (21:10)
[2017-09-02] MEDS: Theophylline 100 MG Cap.ER PO SCH (06:15)
[2017-09-02] MEDS: metFORMIN 500 MG Tab PO SCH ×2 (09:23→18:29)
[2017-09-02] MEDS: Celecoxib 200 MG Cap PO SCH (09:23)
[2017-09-02] MEDS: Insulin Aspart 100 Units/ML 3 ML Pen SUBCUT SCH ×3 (09:24→18:30)
[2017-09-02] MEDS: DULoxetine 60 MG Cap PO SCH (09:25)
[2017-09-02] MEDS: Tolterodine 4 MG Cap.ER PO SCH (09:25)
[2017-09-02] MEDS: Formoterol/Mometasone 200-5 MCG 8.8 GM Inhaler IH SCH ×2 (09:26→20:32)
[2017-09-02] MEDS: Gabapentin 600 MG Tab PO SCH ×3 (09:26→20:32)
[2017-09-02] MEDS: Furosemide 40 MG Tab PO SCH (09:26)
[2017-09-02] MEDS: Lisinopril 10 MG Tab PO SCH (09:26)
[2017-09-02] MEDS: Tiotropium Inhaler 18 MCG Inhalation Powder Cap Kit of 5 INH SCH (09:27)
[2017-09-02] MEDS: Montelukast 10 MG Tab PO SCH (09:30)
[2017-09-02] MEDS: traMADol 50 MG Tab PO PRN (18:39)
[2017-09-02] MEDS: Simvastatin 10 MG Tab PO SCH (20:32)
[2017-09-02] MEDS: tiZANidine 4 MG Tab PO SCH (20:32)
[2017-09-02] MEDS: Potassium Chloride 10 MEQ Tab.ER PO SCH (20:32)
[2017-09-02] MEDS: Insulin Detemir 100 Units/ML 3 ML Pen SUBCUT SCH (20:33)
[2017-09-03] MEDS: traMADol 50 MG Tab PO PRN ×2 (00:34→12:31)
[2017-09-03] MEDS: Theophylline 100 MG Cap.ER PO SCH (05:55)
[2017-09-03] MEDS: Balsam Peru/Castor Oil/Trypsin Spray 56.7 GM Canister TOP PRN (07:50)
[2017-09-03] MEDS: Celecoxib 200 MG Cap PO SCH (09:34)
[2017-09-03] MEDS: Formoterol/Mometasone 200-5 MCG 8.8 GM Inhaler IH SCH (09:35)
[2017-09-03] MEDS: DULoxetine 60 MG Cap PO SCH (09:35)
[2017-09-03] MEDS: metFORMIN 500 MG Tab PO SCH (09:35)
[2017-09-03] MEDS: Tolterodine 4 MG Cap.ER PO SCH (09:35)
[2017-09-03] MEDS: Furosemide 40 MG Tab PO SCH (09:36)
[2017-09-03] MEDS: Lisinopril 10 MG Tab PO SCH (09:36)
[2017-09-03] MEDS: Gabapentin 600 MG Tab PO SCH ×2 (09:36→14:07)
[2017-09-03] MEDS: Montelukast 10 MG Tab PO SCH (09:37)
[2017-09-03] MEDS: Tiotropium Inhaler 18 MCG Inhalation Powder Cap Kit of 5 INH SCH (09:37)
[2017-09-03] MEDS: Insulin Aspart 100 Units/ML 3 ML Pen SUBCUT SCH ×2 (09:39→12:22)
[2017-09-03] MEDS ORDERED: Insulin Detemir 100 Units/ML 3 ML Pen SUBCUT ONE (10:01)
--- NOTE | 2017-09-03 10:03 | PCM.PN ---
- General Info Date of Service: 09/03/17 Subjective Update: Gaby Storm is a 52-year-old female who has been here for hospital as a swing bed patient secondary to debility and malaise after having been at [facility] in [place] for roughly 3 weeks due to respiratory failure resulting from respiratory infection on a background of chronic severe COPD, ultimately leading to intubation. She was a difficult ventilator management with multiple attempts to wean off the ventilator however once extubated had to be reintubated due to inability to support airway and altered mental status. She ended up with a tracheostomy which has since been repaired. She's been doing well since her admission working with physical therapy and occupational therapy she is standby assist with use of lift and wheelchair. She also has insulin-dependent diabetes mellitus which is been somewhat difficult to control requiring insulin adjustments and dietary modifications in house. I was called to the patient's bedside by nursing as she suddenly began to have severe sharp stabbing right anterior chest wall pain worse with deep inspiration or movement. She did not describe this as pressure. No particular shortness of breath however was painful to take a deep breath. This was new for her and described as not ever having before. She denied having any neck jaw or back pain but did have pain on movement of the right breast anterior shoulder. Denies any radiation down the arm. She did not feel any epigastric pain, no coughing or hemoptysis, was not having any globus feeling in the throat or choking with swallowing. No abdominal pain, pelvic pain, leg thigh or calf pain. Denies any peripheral numbness or tingling or change in sensation. She's not had any falls or trauma other than a fall several days ago which did result in right anterior clavicle shoulder pain with x-rays negative for fractures or dislocation. Does have a coronary artery disease with a history of AR in the past. She was also mildly tachycardic 110-115 bpm. Blood pressures were physiologic. She is afebrile nondiaphoretic and her O2 sats remained 9394% on room air with a respiratory rate roughly 18-20. Anterior Chest Pain Score (Numeric/FACES): 8 - Related Data Allergies/Adverse Reactions: Allergies Allergy/AdvReac Type Severity Reaction Status Date / Time aspirin Allergy Other Verified 08/23/17 11:48 mold Allergy Airway Uncoded 08/23/17 11:48 Tightness Home Medications: Home Meds Montelukast [Singulair] 10 mg PO DAILY 05/03/13 [History] Lisinopril [Zestril] 10 mg PO DAILY 11/06/13 [History] Simvastatin [Zocor] 10 mg PO BEDTIME 11/06/13 [History] Albuterol [Proair HFA] 2 puff INH Q4H PRN 01/08/15 [History] Potassium Chloride [Klor-Con 10] 10 meq PO BEDTIME 11/19/15 [History] metFORMIN [Glucophage] 500 mg PO BID 05/04/17 [History] Albuterol/Ipratropium [DuoNeb 3.0-0.5 MG/3 ML] 3 ml INH QID PRN 07/31/17 [ History] Celecoxib [CeleBREX] 200 mg PO WITHBREAKFAST 07/31/17 [History] DULoxetine [Cymbalta] 60 mg PO DAILY 07/31/17 [History] Furosemide [Lasix] 40 mg PO DAILY 07/31/17 [History] Gabapentin [Neurontin] 600 mg PO TID 07/31/17 [History] Insulin Aspart [NovoLOG] 5 unit SUBCUT TIDMEALS 07/31/17 [History] Insulin Glargine,Hum.Rec.Anlog [Touzehra Solostar] 110 unit SQ BEDTIME 07/31/17 [ History] Lactulose 10 gm PO DAILY PRN 07/31/17 [History] Tolterodine Tartrate [Detrol LA] 8 mg PO DAILY 07/31/17 [History] Acetaminophen 650 mg PO Q4H PRN 08/23/17 [History] Nitroglycerin 0.4 mg SL Q5M PRN 08/23/17 [History] Theophylline Anhydrous 600 mg PO DAILY 08/23/17 [History] Umeclidinium Enders [Incruse Ellipta] 62.5 mcg IH DAILY 08/23/17 [History] tiZANidine [Zanaflex] 2 mg PO BEDTIME 08/23/17 [History] Balsam [place] Oil/Trypsin [Granulex Beaumont] 1 spray TOP BID 09/03/17 [ History] Enoxaparin [Lovenox] 100 mg SQ BID 09/03/17 [History] Lactulose [Chronulac] 10 gm PO DAILY 09/03/17 [History] Tiotropium [Spiriva] 18 mcg INH BID 09/03/17 [History] traMADol HCl [Ultram] 50 mg PO Q6H PRN 09/03/17 [History] Past Medical History HEENT 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: Cataract, Impaired Vision Cardiovascular 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: Angina, High Cholesterol, Hypertension, SOB on Exertion, Other (See Below) Other Cardiovascular History: patient states has PRn nitro at home for occasional chest pains Respiratory 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: Asthma, COPD, Intubation, Previous, Pneumonia, Recurrent, Sleep Apnea, SOB Other Respiratory History: has CPAP Gastrointestinal 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: Cholelithiasis, GERD Genitourinary 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: Urinary Incontinence, Other (See Below) Other Genitourinary History: stress incontinence at times [employer]MER 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: Other OB/BYN History: , Musculoskeletal 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: Back Pain, Chronic, Osteoarthritis, Osteoporosis, Other (See Below) Other Musculoskeletal History: BACK INJURY Neurological 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: Concussion, Neuropathy, Diabetic, Speech Problems Psychiatric 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: Depression Endocrine/Metabolic 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: Diabetes, Type II, Hypothyroidism Oncologic (Cancer) 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: Ovarian Dermatologic 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: Other (See Below) Other Dermatologic History: open infected wound under right abd fold on oral antibiotics - Infectious Disease History Infectious Disease 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: Chicken Pox - Past Surgical History HEENT Surgical 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: Cataract Surgery, Oral Surgery GI Surgical 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: Cholecystectomy, Colonoscopy Female Surgical 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: Hysterectomy, Salpingo-Oophorectomy Oncologic Surgical 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: None Social & Family History - Family History Family Medical History: Noncontributory HEENT: Reports: Cataract Cardiac: Reports: CAD, AR Respiratory: Reports: Asthma, Sleep Apnea : Reports: Diabetic Nephropathy OBGYN: Reports: Musculoskeletal: Reports: Arthritis Endocrine/Metabolic: Reports: Diabetes, Type I, Diabetes, type II, IDDM, Obesity /MBI 30+ Dermatologic: Reports: None Oncologic: Reports: Bone, Breast, Other (See Below) Other Oncologic Family History: heart - Tobacco Use Smoking Status *Q: Former Smoker Years of Tobacco use: 39 Packs/Tins Daily: 2 Used Tobacco, but Quit: Yes Month Tobacco Last Used: MAY Second Hand Smoke Exposure: No - Caffeine Use Caffeine Use: Reports: Coffee, Soda Other Caffeine Use: daily - Alcohol Use Days Per Week of Alcohol Use: 0 - Recreational Drug Use Recreational Drug Use: No - Living Situation & Occupation Living situation: Reports: - Review of Systems Systems Review Comment:: ROS reveals no pertinent complaints other than HPI. - Patient Data Vitals - Most Recent: Vital Signs Temp 98.6 F 09/03/17 12:20 Pulse 114 H 09/03/17 12:20 Resp 24 H 09/03/17 12:20 BP 114/72 09/03/17 12:20 Pulse Ox 94 L 09/03/17 12:20 Weight - Most Recent: 104.78 kg Lab Results Last 24 Hours: Laboratory Results - last 24 hr 09/03/17 09/03/17 09/03/17 Range/Units 11:32 13:10 13:10 WBC 7.2 (4.5-12.0) X10-3/uL RBC 4.31 (3.23-5.20) x10(6)uL Hgb 11.4 L (11.5-15.5) g/dL Hct 35.1 (30.0-51.3) % MCV 81.4 (80-96) fL MCH 26.5 L (27.7-33.6) pg MCHC 32.5 (32.2-35.4) g/dL RDW 17.1 H (11.5-15.5) % Plt Count 205 (125-369) X10(3)uL D-Dimer, Quantitative 2920 H (100-400) ng/mL Sodium (135-145) mmol/L Potassium (3.5-5.3) mmol/L Chloride (100-110) mmol/L Carbon Dioxide (21-32) mmol/L BUN (7-18) mg/dL Creatinine (0.55-1.02) mg/dL Est Cr Clr Drug Dosing mL/min Estimated GFR (MDRD) (>60) BUN/Creatinine Ratio (9-20) Glucose (80-116) mg/dL POC Glucose 126 H (80-116) mg/dL Calcium (8.6-10.2) mg/dL Total Bilirubin (0.1-1.3) mg/dL AST (5-25) IU/L ALT (12-36) U/L Alkaline Phosphatase (56-112) IU/L Troponin I (<0.017-0.056) ng/mL Total Protein (6.0-8.0) g/dL Albumin (3.5-5.2) g/dL Globulin g/dL Albumin/Globulin Ratio 09/03/17 09/03/17 Range/Units 13:10 13:10 WBC (4.5-12.0) X10-3/uL RBC (3.23-5.20) x10(6)uL Hgb (11.5-15.5) g/dL Hct (30.0-51.3) % MCV (80-96) fL MCH (27.7-33.6) pg MCHC (32.2-35.4) g/dL RDW (11.5-15.5) % Plt Count (125-369) X10(3)uL D-Dimer, Quantitative (100-400) ng/mL Sodium 141 (135-145) mmol/L Potassium 4.0 (3.5-5.3) mmol/L Chloride 103 (100-110) mmol/L Carbon Dioxide 29 (21-32) mmol/L BUN 15 (7-18) mg/dL Creatinine 0.5 L (0.55-1.02) mg/dL Est Cr Clr Drug Dosing 120.41 mL/min Estimated GFR (MDRD) > 60 (>60) BUN/Creatinine Ratio 30.0 H (9-20) Glucose 175 H (80-116) mg/dL POC Glucose (80-116) mg/dL Calcium 9.6 (8.6-10.2) mg/dL Total Bilirubin 0.3 (0.1-1.3) mg/dL AST 22 D (5-25) IU/L ALT 41 H D (12-36) U/L Alkaline Phosphatase 170 H (56-112) IU/L Troponin I < 0.017 L (<0.017-0.056) ng/mL Total Protein 6.4 (6.0-8.0) g/dL Albumin 2.4 L (3.5-5.2) g/dL Globulin 4.0 g/dL Albumin/Globulin Ratio 0.6 Eamon Results Last 24 Hours: Microbiology 09/02/17 11:20 Gram Stain - Final Abscess - Pubis Routine Culture - Preliminary No Growth Med Orders - Current: Current Medications Acetaminophen (Tylenol) 650 mg PO Q4H PRN PRN Reason: Pain (mild 1-3) Last Admin: 08/31/17 17:13 Dose: 650 mg Al Hydroxide/Mg Hydroxide (Mag-Al Susp) 30 ml PO Q2H PRN PRN Reason: Heartburn Last Admin: 08/30/17 02:03 Dose: 30 ml Albuterol (Ventolin Hfa) 0 gm INH Q4H PRN PRN Reason: Shortness of Breath Albuterol/Ipratropium (Duoneb 3.0-0.5 Mg/3 Ml) 3 ml INH QID PRN PRN Reason: BRONCHOSPASM Celecoxib (Celebrex) 200 mg PO WITHBREAKFAST [facility] Last Admin: 09/03/17 09:34 Dose: 200 mg Duloxetine HCl (Cymbalta) 60 mg PO DAILY [facility] Last Admin: 09/03/17 09:35 Dose: 60 mg Furosemide (Lasix) 40 mg PO DAILY [facility] Last Admin: 09/03/17 09:36 Dose: 40 mg Gabapentin (Neurontin) 600 mg PO TID [facility] Last Admin: 09/03/17 09:36 Dose: 600 mg Insulin Aspart (Novolog) 5 unit SUBCUT TIDMEALS [facility] Last Admin: 09/03/17 09:39 Dose: 5 units Insulin Detemir (Levemir) 57 unit SUBCUT BID [facility] Insulin Detemir (Levemir) 2 unit SUBCUT ONETIME ONE Stop: 09/03/17 10:02 Lactulose (Chronulac) 10 gm PO DAILY PRN PRN Reason: Constipation Lisinopril (Prinivil) 10 mg PO DAILY [facility] Last Admin: 09/03/17 09:36 Dose: 10 mg Metformin HCl (Glucophage) 500 mg PO BIDMEALS [facility] Last Admin: 09/03/17 09:35 Dose: 500 mg Mometasone Furoate/Formoterol Fumar (Dulera 200-5 Mcg) 2 puff IH BID [facility] Last Admin: 09/03/17 09:35 Dose: 2 puff Montelukast Sodium (Singulair) 10 mg PO DAILY [facility] Last Admin: 09/03/17 09:37 Dose: 10 mg Nitroglycerin (Nitrostat) 0.4 mg SL Q5M PRN PRN Reason: Chest Pain Potassium Chloride (Klor-Con 10) 10 meq PO BEDTIME [facility] Last Admin: 09/02/17 20:32 Dose: 10 meq Simvastatin (Zocor) 10 mg PO BEDTIME [facility] Last Admin: 09/02/17 20:32 Dose: 10 mg Theophylline (Estevan-24) 600 mg PO DAILY@0600 [facility] Last Admin: 09/03/17 05:55 Dose: 600 mg Tiotropium Enders (Spiriva Handihaler) 0 mcg INH DAILY [facility] Last Admin: 09/03/17 09:37 Dose: 18 mcg Tizanidine HCl (Zanaflex) 2 mg PO BEDTIME [facility] Last Admin: 09/02/17 20:32 Dose: 2 mg Tolterodine Tartrate (Detrol La 24 Hr) 8 mg PO DAILY [facility] Last Admin: 09/03/17 09:35 Dose: 8 mg Tramadol HCl (Ultram) 50 mg PO Q6H PRN PRN Reason: Pain Last Admin: 09/03/17 00:34 Dose: 50 mg Trypsin (Granulex Beaumont) 0 gm TOP BID PRN PRN Reason: Wound Care Last Admin: 09/01/17 20:10 Dose: 1 spray Discontinued Medications Insulin Detemir (Levemir) 110 unit SUBCUT BEDTIME [facility] Last Admin: 09/02/17 20:33 Dose: 110 units Prednisone (Prednisone) 10 mg PO DAILY ONE Stop: 08/24/17 09:01 Last Admin: 08/24/17 08:37 Dose: 10 mg Prednisone (Prednisone) 5 mg PO DAILY [facility] Stop: 08/26/17 09:01 Last Admin: 08/26/17 08:02 Dose: 5 mg - Exam Physical Findings Comments:: General: Alert, Oriented, Cooperative, Mild Distress Neck: Supple, Trachea Midline, Other (Tracheostomy scar healed). No: JVD Lungs: Normal Respiratory Effort, Decreased Breath Sounds (Throughout but no focal diminished aeration.), Other (Anterior chest wall shows tenderness to palpation over the ribs just under the right memory for fold reproducible with movement of the right breast. No axillary adenopathy. No breast mass nipple discharge bruising or other skin abnormalities. Left anterior chest nontender to palpation breast negative.). No: Rales, Rub, Wheezing Cardiovascular: Regular Rhythm, Normal S1, Normal S2, Tachycardia (110 to 115). No: Rubs, Gallop/S3 GI/Abdominal Exam: Normal Bowel Sounds, Soft, Non-Tender (Female) Exam: Other (She does have a right suprapubic small healing superficial cellulitis secondary to recent abscess with spontaneous drainage. Culture negative.) Rectal (Female) Exam: Deferred Back Exam: Normal Inspection Extremities: Non-Tender, Normal Capillary Refill, Other (Bilateral peripheral edema 1+ up to the knee with no asymmetry.). No: Renzo's Sign, Increased Warmth , Pallor, Redness Skin: Wound (Suprapubic healing nicely. Antibiotic ointment and 4 x 4 placed for any drainage.) Neurological: Normal Speech (Flexor and of the speech which is her baseline. She is normally wears dentures however she does not have ascending at the time of interview.. She did suffer dysphagia secondary to prolonged intubation is working with speech and dietary). No: Focal Deficit Neuro Extensive - Mental Status: Alert, Oriented x3, Normal Mood/Affect, Normal Cognition, Memory Intact, Other (A baseline minimal cognitive deficit with regards to gathering interpreting medical information for which she likes to have her daughter spoken to regarding medical decisions and advise. However patient herself is independent in medical decision making.) Psychiatric: Normal Affect, Anxious (Slightly anxious which is expected given her recent diagnosis and past hospitalization difficulties.) EKG INTERPRETATION EKG Interpretation Comments: Stat EKG showed slight ST diffuse elevations but no particular focal abnormality. There are no blocks. Normal sinus rhythm. Sinus tach. No ST depressions or Q waves. - Problem List & Annotations (1) Chest pain SNOMED Code(s): 59020036 Code(s): R07.9 - CHEST PAIN, UNSPECIFIED Status: Acute (2) Elevated d-dimer SNOMED Code(s): 115578940 Code(s): R79.89 - OTHER SPECIFIED ABNORMAL FINDINGS OF BLOOD CHEMISTRY Status: Acute (3) Pulmonary embolism during current hospitalization SNOMED Code(s): 61169989 Code(s): I26.99 - OTHER PULMONARY EMBOLISM WITHOUT ACUTE COR PULMONALE Status: Suspected Priority: High (4) Palliative care status SNOMED Code(s): 269305403 Code(s): Z51.5 - ENCOUNTER FOR PALLIATIVE CARE Status: Acute (5) CAD (coronary artery disease) SNOMED Code(s): 54152936 Code(s): I25.10 - ATHSCL HEART DISEASE OF [place] CORONARY ARTERY W/O ANG PCTRS Status: Chronic - Problem List Review Problem List Initiated/Reviewed/Updated: Yes - My Orders Last 24 Hours: My Active Orders 09/03/17 12:35 EKG 12 Lead [EK] Routine 09/03/17 12:42 EKG 12 Lead [EK] Routine 09/03/17 13:42 Ang Chest [CT] Routine All Medication Orders Generic Name Dose Route Start Trade Name Freq PRN Reason Stop Acetaminophen 650 mg 08/23/17 13:27 Tylenol PO Q4H PRN Pain (mild 1-3) Al Hydroxide/Mg Hydroxide 30 ml 08/25/17 17:59 Mag-Al Susp PO Q2H PRN Heartburn Albuterol 0 gm 08/23/17 13:27 Ventolin Hfa INH Q4H PRN Shortness of Breath Albuterol/Ipratropium 3 ml 08/23/17 13:27 Duoneb 3.0-0.5 Mg/3 Ml INH QID PRN BRONCHOSPASM Celecoxib 200 mg 08/24/17 08:00 Celebrex PO WITHBREAKFAST [facility] Duloxetine HCl 60 mg 08/24/17 09:00 Cymbalta PO DAILY [facility] Enoxaparin Sodium 100 mg 09/03/17 14:00 Lovenox SUBCUT Q12H [facility] Furosemide 40 mg 08/24/17 09:00 Lasix PO DAILY [facility] Gabapentin 600 mg 08/23/17 14:00 Neurontin PO TID [facility] Insulin Aspart 5 unit 08/23/17 14:00 Novolog SUBCUT TIDMEALS [facility] Insulin Detemir 110 unit 08/23/17 21:00 Levemir SUBCUT BEDTIME [facility] Insulin Detemir 57 unit 09/03/17 21:00 Levemir SUBCUT BID [facility] Insulin Detemir 2 unit 09/03/17 10:01 Levemir SUBCUT 09/03/17 10:02 ONETIME ONE Iopamidol 100 ml 09/03/17 14:18 Isovue-370 (76%) IV 09/03/17 14:19 . DIRECTED ONE Lactulose 10 gm 08/23/17 13:27 Chronulac PO DAILY PRN Constipation Lisinopril 10 mg 08/24/17 09:00 Prinivil PO DAILY [facility] Metformin HCl 500 mg 08/23/17 18:00 Glucophage PO BIDMEALS [facility] Mometasone Furoate/Formoterol Fumar 2 puff 08/23/17 21:00 Dulera 200-5 Mcg IH BID [facility] Montelukast Sodium 10 mg 08/24/17 09:00 Singulair PO DAILY [facility] Morphine Sulfate 5 mg 09/03/17 13:45 Morphine IVPUSH 09/03/17 13:46 ONETIME ONE Nitroglycerin 0.4 mg 08/23/17 13:27 Nitrostat SL Q5M PRN Chest Pain Potassium Chloride 10 meq 08/23/17 21:00 Klor-Con 10 PO BEDTIME [facility] Prednisone 10 mg 08/24/17 09:00 Prednisone PO 08/24/17 09:01 DAILY ONE Prednisone 5 mg 08/25/17 09:00 Prednisone PO 08/26/17 09:01 DAILY [facility] Simvastatin 10 mg 08/23/17 21:00 Zocor PO BEDTIME [facility] Sodium Chloride 10 ml 09/03/17 14:08 Saline Flush FLUSH ASDIRECTED PRN flush med Theophylline 600 mg 08/24/17 06:00 Estevan-24 PO DAILY@0600 [facility] Tiotropium Enders 0 mcg 08/24/17 09:00 Spiriva Handihaler INH DAILY [facility] Tizanidine HCl 2 mg 08/23/17 21:00 Zanaflex PO BEDTIME [facility] Tolterodine Tartrate 8 mg 08/24/17 09:00 Detrol La 24 Hr PO DAILY [facility] Tramadol HCl 50 mg 08/26/17 18:24 Ultram PO Q6H PRN Pain Trypsin 0 gm 08/31/17 22:16 Granulex [place] TOP BID PRN Wound Care - Assessment Assessment:: see above. - Plan Plan:: Assessment/Plan Comment:: STAT CT angiogram in light of s/s, elevated d-dimer and high risk for PE. Lovenox therapeutic injection at 105 mg subcutaneous given prior to CT scan. Morphine 5 mg IV one time now for pain and every 2 hours for chest pain. Nasal cannula 2 L/m.
[2017-09-03 12:34] VITALS: BP 114/72
[2017-09-03] MEDS ORDERED: Morphine 10 MG/ML Syringe IVPUSH ONE (13:45)
[2017-09-03] MEDS ORDERED: Enoxaparin 100 MG/1 ML Syringe SUBCUT SCH (14:00)
[2017-09-03] MEDS ORDERED: Sodium Chloride 0.9% 10 ML Syringe FLUSH PRN (14:08)
[2017-09-03] MEDS ORDERED: Iopamidol 755 Mg/ML 100 ML Bottle IV ONE (14:18)
[2017-09-03] MEDS ORDERED: Insulin Detemir 100 Units/ML 3 ML Pen SUBCUT SCH (21:00)
--- NOTE | 2017-09-04 07:28 | PCM.SN ---
- Free Text/Narrative Note: Discharge Summary Patient Name: JESUS STORM Date of : 61 Attending Provider: Sharon Guy Date: 09/03/17 18:46 Brief Hx: - General Date of admission: 08/23/2017 Date of discharge 09/03/2017 Date of Service: 09/03/17 Admission Diagnosis/Problem Admission Diagnosis/Problem SwingBed for Deconditioning/s/p respiratory failure and prolonged intubation - History of Present Illness Initial Comments - Free Text/Narative: Jesus Storm is a 52-year-old female who has been here for hospital as a swing bed patient secondary to debility and malaise after having been at [facility] in [place] for roughly 3 weeks due to respiratory failure resulting from respiratory infection on a background of chronic severe COPD, ultimately leading to intubation. She was a difficult ventilator management with multiple attempts to wean off the ventilator however once extubated had to be reintubated due to inability to support airway and altered mental status. She ended up with a tracheostomy which has since been repaired. She's been doing well since her admission working with physical therapy and occupational therapy she is standby assist with use of lift and wheelchair. She also has insulin-dependent diabetes mellitus which is been somewhat difficult to control requiring insulin adjustments and dietary modifications in house. I was called to the patient's bedside by nursing as she suddenly began to have severe sharp stabbing right anterior chest wall pain worse with deep inspiration or movement. She did not describe this as pressure. No particular shortness of breath however was painful to take a deep breath. This was new for her and described as not ever having before. She denied having any neck jaw or back pain but did have pain on movement of the right breast anterior shoulder. Denies any radiation down the arm. She did not feel any epigastric pain, no coughing or hemoptysis, was not having any globus feeling in the throat or choking with swallowing. No abdominal pain, pelvic pain, leg thigh or calf pain. Denies any peripheral numbness or tingling or change in sensation. She's not had any falls or trauma other than a fall several days ago which did result in right anterior clavicle shoulder pain with x-rays negative for fractures or dislocation. Does have a coronary artery disease with a history of NM in the past. She was also mildly tachycardic 110-115 bpm. Blood pressures were physiologic. She is afebrile nondiaphoretic and her O2 sats remained 9394% on room air with a respiratory rate roughly 18-20. Stat EKG showed slight ST diffuse elevations but no particular focal abnormality. There are no blocks. Normal sinus rhythm. Sinus tach. No ST depressions or Q waves. Labs: CBC: 7.2/11.4/35.1/205,000 PT/INR: 9.6/0.95 D-dimer: 2920 ng/mL (<400 ng/mL) Troponin I: <0.17 CMP: 141/4.0/103/29/15/0.5/175 (GFR >60); calcium: 9.6; LFTs: 22/41/170/0.3 (AST /ALT/alkaline phosphatase/total bilirubin) Anterior Chest Pain Score (Numeric/FACES): 8 - Related Data Allergies/Adverse Reactions: Allergies Allergy/AdvReac Type Severity Reaction Status Date / Time aspirin Allergy Other Verified 08/23/17 11:48 mold Allergy Airway Uncoded 08/23/17 11:48 Tightness Home Medications: Home Meds Montelukast [Singulair] 10 mg PO DAILY 05/03/13 [History] Lisinopril [Zestril] 10 mg PO DAILY 11/06/13 [History] Simvastatin [Zocor] 10 mg PO BEDTIME 11/06/13 [History] Albuterol [Proair HFA] 2 puff INH Q4H PRN 01/08/15 [History] Potassium Chloride [Klor-Con 10] 10 meq PO BEDTIME 11/19/15 [History] metFORMIN [Glucophage] 500 mg PO BID 05/04/17 [History] Albuterol/Ipratropium [DuoNeb 3.0-0.5 MG/3 ML] 3 ml INH QID PRN 07/31/17 [ History] Celecoxib [CeleBREX] 200 mg PO WITHBREAKFAST 07/31/17 [History] DULoxetine [Cymbalta] 60 mg PO DAILY 07/31/17 [History] Furosemide [Lasix] 40 mg PO DAILY 07/31/17 [History] Gabapentin [Neurontin] 600 mg PO TID 07/31/17 [History] Insulin Aspart [NovoLOG] 5 unit SUBCUT TIDMEALS 07/31/17 [History] Insulin Glargine,Hum.Rec.Anlog [Toujeo Solostar] 110 unit SQ BEDTIME 07/31/17 [ History] Lactulose 10 gm PO DAILY PRN 07/31/17 [History] Tolterodine Tartrate [Detrol LA] 8 mg PO DAILY 07/31/17 [History] Acetaminophen 650 mg PO Q4H PRN 08/23/17 [History] Nitroglycerin 0.4 mg SL Q5M PRN 08/23/17 [History] Theophylline Anhydrous 600 mg PO DAILY 08/23/17 [History] Umeclidinium [place] [Incruse Ellipta] 62.5 mcg IH DAILY 08/23/17 [History] tiZANidine [Zanaflex] 2 mg PO BEDTIME 08/23/17 [History] Balsam [place] Oil/Trypsin [Granulex [place]] 1 spray TOP BID 09/03/17 [ History] Enoxaparin [Lovenox] 105 mg SQ BID 09/03/17 [History] Lactulose [Chronulac] 10 gm PO DAILY 09/03/17 [History] Tiotropium [Spiriva] 18 mcg INH BID 09/03/17 [History] traMADol HCl [Ultram] 50 mg PO Q6H PRN 09/03/17 [History] Past Medical History HEENT 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: Cataract, Impaired Vision Cardiovascular 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: Angina, High Cholesterol, Hypertension, SOB on Exertion, Other (See Below) Other Cardiovascular History: patient states has PRn nitro at home for occasional chest pains Respiratory 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: Asthma, COPD, Intubation, Previous, Pneumonia, Recurrent, Sleep Apnea, SOB Other Respiratory History: has CPAP Gastrointestinal 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: Cholelithiasis, GERD Genitourinary 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: Urinary Incontinence, Other (See Below) Other Genitourinary History: stress incontinence at times [employer] 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: Other OB/BYN History: , Musculoskeletal 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: Back Pain, Chronic, Osteoarthritis, Osteoporosis, Other (See Below) Other Musculoskeletal History: BACK INJURY Neurological 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: Concussion, Neuropathy, Diabetic, Speech Problems Psychiatric 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: Depression Endocrine/Metabolic 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: Diabetes, Type II, Hypothyroidism Oncologic (Cancer) 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: Ovarian Dermatologic 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: Other (See Below) Other Dermatologic History: open infected wound under right abd fold on oral antibiotics - Infectious Disease History Infectious Disease 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: Chicken Pox - Past Surgical History HEENT Surgical 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: Cataract Surgery, Oral Surgery GI Surgical 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: Cholecystectomy, Colonoscopy Female Surgical 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: Hysterectomy, Salpingo-Oophorectomy Oncologic Surgical 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: None Social & Family History - Family History Family Medical History: Noncontributory HEENT: Reports: Cataract Cardiac: Reports: CAD, NM Respiratory: Reports: Asthma, Sleep Apnea : Reports: Diabetic Nephropathy OBGYN: Reports: Musculoskeletal: Reports: Arthritis Endocrine/Metabolic: Reports: Diabetes, Type I, Diabetes, type II, IDDM, Obesity /MBI 30+ Dermatologic: Reports: None Oncologic: Reports: Bone, Breast, Other (See Below) Other Oncologic Family History: heart - Tobacco Use Smoking Status *Q: Former Smoker Years of Tobacco use: 39 Packs/Tins Daily: 2 Used Tobacco, but Quit: Yes Month Tobacco Last Used: MAY Second Hand Smoke Exposure: No - Caffeine Use Caffeine Use: Reports: Coffee, Soda Other Caffeine Use: daily - Alcohol Use Days Per Week of Alcohol Use: 0 - Recreational Drug Use Recreational Drug Use: No - Living Situation & Occupation Living situation: Reports: H&P Review of Systems - Review of Systems: Review Of Systems: ROS reveals no pertinent complaints other than HPI. Exam - Exam Exam: See Below - Vital Signs Vital Signs: Last Vital Signs Temp Pulse 118 H 09/03/17 16:43 Resp 20 09/03/17 16:43 BP 110/71 09/03/17 16:43 Pulse Ox 96 09/03/17 16:56 Weight: 104.78 kg - Exam General: Alert, Oriented, Cooperative, Mild Distress Neck: Supple, Trachea Midline, Other (Tracheostomy scar healed). No: JVD Lungs: Normal Respiratory Effort, Decreased Breath Sounds (Throughout but no focal diminished aeration.), Other (Anterior chest wall shows tenderness to palpation over the ribs just under the right memory for fold reproducible with movement of the right breast. No axillary adenopathy. No breast mass nipple discharge bruising or other skin abnormalities. Left anterior chest nontender to palpation breast negative.). No: Rales, Rub, Wheezing Cardiovascular: Regular Rhythm, Normal S1, Normal S2, Tachycardia (110 to 115). No: Rubs, Gallop/S3 GI/Abdominal Exam: Normal Bowel Sounds, Soft, Non-Tender (Female) Exam: Other (She does have a right suprapubic small healing superficial cellulitis secondary to recent abscess with spontaneous drainage. Culture negative.) Rectal (Female) Exam: Deferred Back Exam: Normal Inspection Extremities: Non-Tender, Normal Capillary Refill, Other (Bilateral peripheral edema 1+ up to the knee with no asymmetry.). No: Renzo's Sign, Increased Warmth , Pallor, Redness Skin: Wound (Suprapubic healing nicely. Antibiotic ointment and 4 x 4 placed for any drainage.) Neurological: Normal Speech (Flexor and of the speech which is her baseline. She is normally wears dentures however she does not have ascending at the time of interview.. She did suffer dysphagia secondary to prolonged intubation is working with speech and dietary). No: Focal Deficit Neuro Extensive - Mental Status: Alert, Oriented x3, Normal Mood/Affect, Normal Cognition, Memory Intact, Other (A baseline minimal cognitive deficit with regards to gathering interpreting medical information for which she likes to have her daughter spoken to regarding medical decisions and advise. However patient herself is independent in medical decision making.) Psychiatric: Normal Affect, Anxious (Slightly anxious which is expected given her recent diagnosis and past hospitalization difficulties.) - Patient Data Lab Results Last 24 hrs: Laboratory Tests 09/03/17 09/03/17 09/03/17 Range/Units 17:35 17:35 17:45 PT 9.6 (8.7-11.1) INR 0.95 (0.89-1.13) APTT 30.6 (24.4-33.2) SECONDS ABG pH 7.44 (7.35-7.45) ABG pCO2 40 (35-45) mmHg ABG pO2 58 L (83-108) mmHg ABG HCO3 27 H (22-26) mmol/L ABG O2 Saturation 91 L (96-97) % ABG Base Excess 2.7 H (-2-2) Ben Test Passed O2 Delivery Device Nasal cannula POC Glucose (80-116) mg/dL C-Reactive Protein 5.9 H* (0.5-0.9) mg/dL 02/18/18 Range/Units 20:25 PT (8.7-11.1) INR (0.89-1.13) APTT (24.4-33.2) SECONDS ABG pH (7.35-7.45) ABG pCO2 (35-45) mmHg ABG pO2 (83-108) mmHg ABG HCO3 (22-26) mmol/L ABG O2 Saturation (96-97) % ABG Base Excess (-2-2) Ben Test O2 Delivery Device POC Glucose 213 H D (80-116) mg/dL C-Reactive Protein (0.5-0.9) mg/dL Imaging Impressions Last 24 hrs: Stat CT angiogram of the chest at 3:20 PM on 09/03/2017 demonstrated per radiology report: 1. Large lobar and segmental pulmonary emboli located centrally in the right pulmonary artery. Small segmental pulmonary emboli in the left lower lobe. No CT evidence of right heart strain. 2. Small airspace opacity in the lateral aspect of the right middle lobe may represent a pulmonary infarct. 3. 5 mm pulmonary nodule in the right middle lobe. Recommend follow-up chest CT scan in one year for documentation of stability. Read by: Dr. Marcus Craig at 09/03/2017 at 3:39 PM. EKG INTERPRETATION EKG Date: 09/03/17 (stat) Time: 12:35 Rhythm: NSR Rate (Beats/Min): 114 [place]: Normal P-Wave: Present QRS: Normal ST-T: Other (minimal diffuse anterior without focal segmental chg) QT: Normal Comparison: NA - No Prior EKG EKG Interpretation Comments: borderline abnormality, non diagnostic for acute ischemia event. - Problem List (1) Pulmonary embolism during current hospitalization SNOMED Code(s): 45619110 ICD Code: I26.99 - OTHER PULMONARY EMBOLISM WITHOUT ACUTE COR PULMONALE Status: Acute Current Visit: No (2) Chest pain SNOMED Code(s): 28538001 ICD Code: R07.9 - CHEST PAIN, UNSPECIFIED Status: Acute Current Visit: No (3) Palliative care status SNOMED Code(s): 300574279 ICD Code: Z51.5 - ENCOUNTER FOR PALLIATIVE CARE Status: Acute Current Visit: No (4) CAD (coronary artery disease) SNOMED Code(s): 81275140 ICD Code: I25.10 - ATHSCL HEART DISEASE OF [place] CORONARY ARTERY W/O ANG PCTRS Status: Chronic Current Visit: No (5) COPD, Moderate chronic obstructive pulmonary disease SNOMED Code(s): 001847795 ICD Code: J44.9 - CHRONIC OBSTRUCTIVE PULMONARY DISEASE, UNSPECIFIED Status : Chronic Current Visit: No Onset Date: 01/27/14 (6) Diabetes type 2, uncontrolled SNOMED Code(s): 41953953 ICD Code: E11.65 - TYPE 2 DIABETES MELLITUS WITH HYPERGLYCEMIA Status: Chronic Current Visit: No (7) Obstructive sleep apnea syndrome SNOMED Code(s): 59445433 ICD Code: G47.33 - OBSTRUCTIVE SLEEP APNEA (ADULT) (PEDIATRIC) Status: Chronic Current Visit: No Problem Details: Home CPAP Problem List Initiated/Reviewed/Updated: Yes Orders Last 24hrs: Active Orders 24 hr Category Date Time Status Patient Status [ADT] Routine ADT 09/03/17 16:54 Active Antiembolic Devices [RC] .Routine Care 09/03/17 16:55 Active Aspiration Precautions [RC] ASDIRECTED Care 09/03/17 17:22 Active EKG Documentation Completion [RC] ASDIRECTED Care 09/04/17 05:11 Active Height and Weight [RC] DAILY Care 09/04/17 08:00 Active Intake and Output [RC] Q4H Care 09/03/17 16:54 Active Notify Provider Vital Signs [RC] ASDIRECTED Care 09/03/17 17:10 Active Oxygen Therapy [RC] CONTINUOUS Care 09/03/17 16:54 Active Pulse Oximetry [RC] CONTINUOUS Care 09/03/17 16:56 Active Pulse Oximetry [RC] PRN Care 09/03/17 16:54 Active RT BiPAP/CPAP [RC] ASDIRECTED Care 09/03/17 17:22 Active Up With Assistance [RC] ASDIRECTED Care 09/03/17 16:54 Active VTE/DVT Education [RC] Click to Edit Care 09/03/17 16:54 Active VTE/DVT Education [RC] Click to Edit Care 09/03/17 16:55 Active Vital Signs [RC] Q2H Care 09/03/17 16:54 Active Consult to Pharmacy [CONS] Routine Cons 09/03/17 16:54 Active Nothing per Oral Now Diet [DIET] Diet 09/03/17 Breakfast Active Echo Comp wo Cont [US] Routine Exams 09/05/17 06:00 Ordered VL Duplex Lwr Ext Veins Comp [US] Routine Exams 09/04/17 08:00 Ordered CBC WITH AUTO DIFF [HEME] AM Lab 09/04/17 05:11 Ordered INR,PT,PROTHROMBIN TIME [COAG] DAILY Lab 09/04/17 17:00 Ordered INR,PT,PROTHROMBIN TIME [COAG] DAILY Lab 09/05/17 17:00 Ordered INR,PT,PROTHROMBIN TIME [COAG] DAILY Lab 09/06/17 17:00 Ordered INR,PT,PROTHROMBIN TIME [COAG] DAILY Lab 09/07/17 17:00 Ordered INR,PT,PROTHROMBIN TIME [COAG] DAILY Lab 09/08/17 17:00 Ordered INR,PT,PROTHROMBIN TIME [COAG] DAILY Lab 09/09/17 17:00 Ordered INR,PT,PROTHROMBIN TIME [COAG] DAILY Lab 09/10/17 17:00 Ordered INR,PT,PROTHROMBIN TIME [COAG] DAILY Lab 09/11/17 17:00 Ordered INR,PT,PROTHROMBIN TIME [COAG] DAILY Lab 09/12/17 17:00 Ordered Acetaminophen [Tylenol] Med 09/03/17 17:13 Active 650 mg PO Q4H PRN Albuterol [Ventolin HFA] Med 09/03/17 17:13 Active 0 gm INH Q4H PRN Albuterol/Ipratropium [DuoNeb 3.0-0.5 MG/3 ML] Med 09/03/17 17:13 Active 3 ml INH QID PRN DULoxetine [Cymbalta] Med 09/04/17 09:00 Active 60 mg PO DAILY Enoxaparin [Lovenox] Med 09/04/17 02:00 Active 100 mg SUBCUT Q12H Furosemide [Lasix] Med 09/04/17 09:00 Active 40 mg PO DAILY Gabapentin [Neurontin] Med 09/03/17 21:00 Active 600 mg PO TID Insulin Aspart [NovoLOG] Med 09/04/17 08:00 Active 5 unit SUBCUT TIDMEALS Insulin Detemir [Levemir] Med 09/03/17 21:00 Active 57 unit SUBCUT BID Lisinopril [Prinivil] Med 09/04/17 09:00 Active 10 mg PO DAILY Metoprolol Tartrate [Lopressor] Med 09/03/17 19:00 Active 25 mg PO Q6H Mometasone/Formoterol [Dulera 200-5 MCG] Med 09/03/17 21:00 Active 2 puff IH BIDRT Montelukast [Singulair] Med 09/04/17 09:00 Active 10 mg PO DAILY Morphine Med 09/03/17 17:22 Active 5 mg IVPUSH Q2H PRN Nitroglycerin [Nitrostat] Med 09/03/17 17:13 Active 0.4 mg SL Q5M PRN Pantoprazole [ProTONIX IV] Med 09/04/17 09:00 Active 40 mg IVPUSH DAILY Potassium Chloride [Klor-Con 10] Med 09/03/17 21:00 Active 10 meq PO BEDTIME Simvastatin [Zocor] Med 09/03/17 21:00 Active 10 mg PO BEDTIME Theophylline [Estevan-24] Med 09/03/17 21:00 Active 300 mg PO BID Tolterodine [Detrol LA 24 Hr] Med 09/04/17 09:00 Active 8 mg PO DAILY Umeclidinium [place] [Incruse Ellipta] Med 09/04/17 09:00 Pending 62.5 mcg IH DAILY Warfarin [Coumadin] Med 09/04/17 16:00 Active 5 mg PO DAILY@1600 DVT/VTE Prophylaxis Reflex [OM.PC] Per Unit Routine Oth 09/03/17 16:54 Ordered Resuscitation Status Routine Resus Stat 09/03/17 16:54 Ordered EKG 12 Lead [EK] AM Ther 09/04/17 05:11 Ordered Medication Orders Acetaminophen (Tylenol) 650 mg PO Q4H PRN PRN Reason: fever/pain Last Admin: 09/03/17 18:11 Dose: 650 mg Albuterol (Ventolin Hfa) 0 gm INH Q4H PRN PRN Reason: Shortness of Breath Albuterol/Ipratropium (Duoneb 3.0-0.5 Mg/3 Ml) 3 ml INH QID PRN PRN Reason: BRONCHOSPASM Last Admin: 09/03/17 17:53 Dose: 3 ml Duloxetine HCl (Cymbalta) 60 mg PO DAILY ABILIO Enoxaparin Sodium (Lovenox) 100 mg SUBCUT Q12H ABILIO Furosemide (Lasix) 40 mg PO DAILY ABILIO Gabapentin (Neurontin) 600 mg PO TID ABILIO Insulin Aspart (Novolog) 5 unit SUBCUT TIDMEALS REPLACED BY [facility] Insulin Detemir (Levemir) 57 unit SUBCUT BID REPLACED BY [facility] Lisinopril (Prinivil) 10 mg PO DAILY REPLACED BY [facility] Metoprolol Tartrate (Lopressor) 25 mg PO Q6H REPLACED BY [facility] Mometasone Furoate/Formoterol Fumar (Dulera 200-5 Mcg) 2 puff IH BIDRT REPLACED BY [facility] Montelukast Sodium (Singulair) 10 mg PO DAILY REPLACED BY [facility] Morphine Sulfate (Morphine) 5 mg IVPUSH Q2H PRN PRN Reason: chest pain >5/10 Last Admin: 09/03/17 17:53 Dose: 5 mg Nitroglycerin (Nitrostat) 0.4 mg SL Q5M PRN PRN Reason: Chest Pain Non-Formulary Medication (Umeclidinium [place] [Incruse Ellipta]) 62.5 mcg IH DAILY REPLACED BY [facility] Pantoprazole Sodium (Protonix Iv) 40 mg IVPUSH DAILY REPLACED BY [facility] Potassium Chloride (Klor-Con 10) 10 meq PO BEDTIME REPLACED BY [facility] Simvastatin (Zocor) 10 mg PO BEDTIME REPLACED BY [facility] Theophylline ([place]-24) 300 mg PO BID REPLACED BY [facility] Tolterodine Tartrate (Detrol La 24 Hr) 8 mg PO DAILY REPLACED BY [facility] Warfarin Sodium (Coumadin) 5 mg PO DAILY@1600 REPLACED BY [facility] Assessment/Plan Comment:: Patient will be transferred to ICU. Lovenox therapeutic injection for PE at 105 mg subcutaneous twice a day with first dose given prior to CT scan. Warfarin 5 mg by mouth with subsequent dosing per pharmacy. We will bridge her for 3-5 days. Morphine 5 mg IV every 2 hours for chest pain. Nasal cannula 2 L/m. She will be a CPAP at night. Continuous O2 and cardiac monitoring. ABGs. Also started short acting metoprolol to reduce strain on the heart with parameters provided regarding when to notify M.D. for change in status or other concerns. Will repeat labs in the morning, EKG, echocardiogram on Monday or sooner if needed, a.m. chest x-ray, follow INR, monitor for any signs or symptoms of bleeding. A low threshold for transfer due to her prior cardiopulmonary history with recent intubation and tracheostomy with dysphagia. She'll be nothing by mouth overnight, aspiration precautions. A thorough discussion regarding CODE STATUS was adequate the bedside along with her daughter and family members. I also discussed transfer to higher level of care as she is at an increased risk for respiratory failure/arrest or cardiac failure/arrest. She and her daughter adamant that they do not wish to be transferred and that they would like to stay here. She understands that should her condition decompensate I will recommend transfer which she will be agreeable to this. ER physician has been notified of the patient's admission to ICU from swing bed along with recent lab values and CT results, patient's prior history, patient's current CODE STATUS, as well as patient's willingness to be intubated and transferred should she decompensate. Total time 60 minutes: Greater than 50% spent in [id number] with the patient and her family discussing labs, CT findings, current assessment, plan of care, risk assessment, CODE STATUS, physical exam and prognosis.
== END 2017-09-03 16:14 | DRG 948 ==
LOC: FB.MS 10:10
PROVIDERS: ADMIT Family Medicine; ATTEND Family Medicine
DX: R53.1 Weakness (principal); J44.9 Chronic obstructive pulmonary disease, unspecified; Y92.239 Unspecified place in hospital as the place of occurrence of the external cause; W05.0XXA Fall from non-moving wheelchair, initial encounter; S40.011A Contusion of right shoulder, initial encounter; S00.33XA Contusion of nose, initial encounter; I10 Essential (primary) hypertension; E11.40 Type 2 diabetes mellitus with diabetic neuropathy, unspecified; Z79.4 Long term (current) use of insulin; R13.10 Dysphagia, unspecified; G47.33 Obstructive sleep apnea (adult) (pediatric); M54.9 Dorsalgia, unspecified; G89.29 Other chronic pain; Z99.81 Dependence on supplemental oxygen; E78.00 Pure hypercholesterolemia, unspecified; E66.01 Morbid (severe) obesity due to excess calories; Z68.36 Body mass index [BMI] 36.0-36.9, adult; I25.119 Atherosclerotic heart disease of native coronary artery with unspecified angina pectoris; Z87.891 Personal history of nicotine dependence; I25.2 Old myocardial infarction; R07.9 Chest pain, unspecified; R79.89 Other specified abnormal findings of blood chemistry; Z86.711 Personal history of pulmonary embolism; Z85.43 Personal history of malignant neoplasm of ovary; M19.90 Unspecified osteoarthritis, unspecified site; Z99.89 Dependence on other enabling machines and devices; Z87.01 Personal history of pneumonia (recurrent); H54.7 Unspecified visual loss; Z88.6 Allergy status to analgesic agent; Z91.048 Other nonmedicinal substance allergy status
CPT/HCPCS: 36415; 70160; 71275; 73000-RT; 80053; 82962; 84484; 85027; 85379; 87070; 87205; 92526-GN; 92610-GN; 93005; 94150; 97110-GO; 97110-GP; 97116-GP; 97161-GP; 97166-GO; 97530-GO; 97530-GO-KX; 97530-GP; 97535-GO; 97542-GO; A9270-GY; J1650; J2270; J7050; Q9967

== ENCOUNTER 2017-09-03 16:15 | Inpatient (IN) | payer MEDICARE, MEDICAID ==
[2017-09-03] MEDS ORDERED: Lactulose Soln 10 GM/15 ML 15 ML UD Cup PO PRN (17:13)
[2017-09-03] MEDS ORDERED: Nitroglycerin 0.4 MG Tab.SL SL PRN (17:13)
[2017-09-03] MEDS ORDERED: Acetaminophen 325 MG Tab PO PRN (17:13)
[2017-09-03] MEDS ORDERED: Albuterol 8 GM Inhaler INH PRN (17:13)
[2017-09-03] MEDS ORDERED: Albuterol/Ipratropium 3.0-0.5 MG/3 ML Neb Soln INH PRN (17:13)
[2017-09-03] MEDS: Morphine 10 MG/ML Syringe IVPUSH PRN ×3 (17:53→23:47)
[2017-09-03] MEDS ORDERED: Warfarin 5 MG Tab PO ONE (18:30)
--- NOTE | 2017-09-03 18:48 | PCM.HP ---
H&P History of Present Illness - General Date of Service: 09/03/17 Admit Problem/Dx: Admission Diagnosis/Problem Admission Diagnosis/Problem Pulmonary embolism - History of Present Illness Initial Comments - Free Text/Narative: Gaby Storm is a 52-year-old female who has been here for hospital as a swing bed patient secondary to debility and malaise after having been at [facility] in [place] for roughly 3 weeks due to respiratory failure resulting from respiratory infection on a background of chronic severe COPD, ultimately leading to intubation. She was a difficult ventilator management with multiple attempts to wean off the ventilator however once extubated had to be reintubated due to inability to support airway and altered mental status. She ended up with a tracheostomy which has since been repaired. She's been doing well since her admission working with physical therapy and occupational therapy she is standby assist with use of lift and wheelchair. She also has insulin-dependent diabetes mellitus which is been somewhat difficult to control requiring insulin adjustments and dietary modifications in house. I was called to the patient's bedside by nursing as she suddenly began to have severe sharp stabbing right anterior chest wall pain worse with deep inspiration or movement. She did not describe this as pressure. No particular shortness of breath however was painful to take a deep breath. This was new for her and described as not ever having before. She denied having any neck jaw or back pain but did have pain on movement of the right breast anterior shoulder. Denies any radiation down the arm. She did not feel any epigastric pain, no coughing or hemoptysis, was not having any globus feeling in the throat or choking with swallowing. No abdominal pain, pelvic pain, leg thigh or calf pain. Denies any peripheral numbness or tingling or change in sensation. She's not had any falls or trauma other than a fall several days ago which did result in right anterior clavicle shoulder pain with x-rays negative for fractures or dislocation. Does have a coronary artery disease with a history of RI in the past. She was also mildly tachycardic 110-115 bpm. Blood pressures were physiologic. She is afebrile nondiaphoretic and her O2 sats remained 9394% on room air with a respiratory rate roughly 18-20. Stat EKG showed slight ST diffuse elevations but no particular focal abnormality. There are no blocks. Normal sinus rhythm. Sinus tach. No ST depressions or Q waves. Labs: CBC: 7.2/11.4/35.1/205,000 PT/INR: 9.6/0.95 D-dimer: 2920 ng/mL (<400 ng/mL) Troponin I: <0.17 CMP: 141/4.0/103/29/15/0.5/175 (GFR >60); calcium: 9.6; LFTs: 22/41/170/0.3 (AST /ALT/alkaline phosphatase/total bilirubin) Anterior Chest Pain Score (Numeric/FACES): 8 - Related Data Allergies/Adverse Reactions: Allergies Allergy/AdvReac Type Severity Reaction Status Date / Time aspirin Allergy Other Verified 08/23/17 11:48 mold Allergy Airway Uncoded 08/23/17 11:48 Tightness Home Medications: Home Meds Montelukast [Singulair] 10 mg PO DAILY 05/03/13 [History] Lisinopril [Zestril] 10 mg PO DAILY 11/06/13 [History] Simvastatin [Zocor] 10 mg PO BEDTIME 11/06/13 [History] Albuterol [Proair HFA] 2 puff INH Q4H PRN 01/08/15 [History] Potassium Chloride [Klor-Con 10] 10 meq PO BEDTIME 11/19/15 [History] metFORMIN [Glucophage] 500 mg PO BID 05/04/17 [History] Albuterol/Ipratropium [DuoNeb 3.0-0.5 MG/3 ML] 3 ml INH QID PRN 07/31/17 [ History] Celecoxib [CeleBREX] 200 mg PO WITHBREAKFAST 07/31/17 [History] DULoxetine [Cymbalta] 60 mg PO DAILY 07/31/17 [History] Furosemide [Lasix] 40 mg PO DAILY 07/31/17 [History] Gabapentin [Neurontin] 600 mg PO TID 07/31/17 [History] Insulin Aspart [NovoLOG] 5 unit SUBCUT TIDMEALS 07/31/17 [History] Insulin Glargine,Hum.Rec.Anlog [Toujeo Solostar] 110 unit SQ BEDTIME 07/31/17 [ History] Lactulose 10 gm PO DAILY PRN 07/31/17 [History] Tolterodine Tartrate [Detrol LA] 8 mg PO DAILY 07/31/17 [History] Acetaminophen 650 mg PO Q4H PRN 08/23/17 [History] Nitroglycerin 0.4 mg SL Q5M PRN 08/23/17 [History] Theophylline Anhydrous 600 mg PO DAILY 08/23/17 [History] Umeclidinium [place] [Incruse Ellipta] 62.5 mcg IH DAILY 08/23/17 [History] tiZANidine [Zanaflex] 2 mg PO BEDTIME 08/23/17 [History] Balsam [place] Oil/Trypsin [Granulex [place]] 1 spray TOP BID 09/03/17 [ History] Enoxaparin [Lovenox] 100 mg SQ BID 09/03/17 [History] Lactulose [Chronulac] 10 gm PO DAILY 09/03/17 [History] Tiotropium [Spiriva] 18 mcg INH BID 09/03/17 [History] traMADol HCl [Ultram] 50 mg PO Q6H PRN 09/03/17 [History] Past Medical History HEENT 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: Cataract, Impaired Vision Cardiovascular 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: Angina, High Cholesterol, Hypertension, SOB on Exertion, Other (See Below) Other Cardiovascular History: patient states has PRn nitro at home for occasional chest pains Respiratory 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: Asthma, COPD, Intubation, Previous, Pneumonia, Recurrent, Sleep Apnea, SOB Other Respiratory History: has CPAP Gastrointestinal 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: Cholelithiasis, GERD Genitourinary 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: Urinary Incontinence, Other (See Below) Other Genitourinary History: stress incontinence at times [employer] 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: Other OB/BYN History: , Musculoskeletal 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: Back Pain, Chronic, Osteoarthritis, Osteoporosis, Other (See Below) Other Musculoskeletal History: BACK INJURY Neurological 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: Concussion, Neuropathy, Diabetic, Speech Problems Psychiatric 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: Depression Endocrine/Metabolic 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: Diabetes, Type II, Hypothyroidism Oncologic (Cancer) 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: Ovarian Dermatologic 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: Other (See Below) Other Dermatologic History: open infected wound under right abd fold on oral antibiotics - Infectious Disease History Infectious Disease 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: Chicken Pox - Past Surgical History HEENT Surgical 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: Cataract Surgery, Oral Surgery GI Surgical 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: Cholecystectomy, Colonoscopy Female Surgical 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: Hysterectomy, Salpingo-Oophorectomy Oncologic Surgical 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: None Social & Family History - Family History Family Medical History: Noncontributory HEENT: Reports: Cataract Cardiac: Reports: CAD, RI Respiratory: Reports: Asthma, Sleep Apnea : Reports: Diabetic Nephropathy OBGYN: Reports: Musculoskeletal: Reports: Arthritis Endocrine/Metabolic: Reports: Diabetes, Type I, Diabetes, type II, IDDM, Obesity /MBI 30+ Dermatologic: Reports: None Oncologic: Reports: Bone, Breast, Other (See Below) Other Oncologic Family History: heart - Tobacco Use Smoking Status *Q: Former Smoker Years of Tobacco use: 39 Packs/Tins Daily: 2 Used Tobacco, but Quit: Yes Month Tobacco Last Used: MAY Second Hand Smoke Exposure: No - Caffeine Use Caffeine Use: Reports: Coffee, Soda Other Caffeine Use: daily - Alcohol Use Days Per Week of Alcohol Use: 0 - Recreational Drug Use Recreational Drug Use: No - Living Situation & Occupation Living situation: Reports: H&P Review of Systems - Review of Systems: Review Of Systems: ROS reveals no pertinent complaints other than HPI. Exam - Exam Exam: See Below - Vital Signs Vital Signs: Last Vital Signs Temp Pulse 118 H 09/03/17 16:43 Resp 20 09/03/17 16:43 BP 110/71 09/03/17 16:43 Pulse Ox 96 09/03/17 16:56 Weight: 104.78 kg - Exam General: Alert, Oriented, Cooperative, Mild Distress Neck: Supple, Trachea Midline, Other (Tracheostomy scar healed). No: JVD Lungs: Normal Respiratory Effort, Decreased Breath Sounds (Throughout but no focal diminished aeration.), Other (Anterior chest wall shows tenderness to palpation over the ribs just under the right memory for fold reproducible with movement of the right breast. No axillary adenopathy. No breast mass nipple discharge bruising or other skin abnormalities. Left anterior chest nontender to palpation breast negative.). No: Rales, Rub, Wheezing Cardiovascular: Regular Rhythm, Normal S1, Normal S2, Tachycardia (110 to 115). No: Rubs, Gallop/S3 GI/Abdominal Exam: Normal Bowel Sounds, Soft, Non-Tender (Female) Exam: Other (She does have a right suprapubic small healing superficial cellulitis secondary to recent abscess with spontaneous drainage. Culture negative.) Rectal (Female) Exam: Deferred Back Exam: Normal Inspection Extremities: Non-Tender, Normal Capillary Refill, Other (Bilateral peripheral edema 1+ up to the knee with no asymmetry.). No: Renzo's Sign, Increased Warmth , Pallor, Redness Skin: Wound (Suprapubic healing nicely. Antibiotic ointment and 4 x 4 placed for any drainage.) Neurological: Normal Speech (Flexor and of the speech which is her baseline. She is normally wears dentures however she does not have ascending at the time of interview.. She did suffer dysphagia secondary to prolonged intubation is working with speech and dietary). No: Focal Deficit Neuro Extensive - Mental Status: Alert, Oriented x3, Normal Mood/Affect, Normal Cognition, Memory Intact, Other (A baseline minimal cognitive deficit with regards to gathering interpreting medical information for which she likes to have her daughter spoken to regarding medical decisions and advise. However patient herself is independent in medical decision making.) Psychiatric: Normal Affect, Anxious (Slightly anxious which is expected given her recent diagnosis and past hospitalization difficulties.) - Patient Data Lab Results Last 24 hrs: Laboratory Tests 09/03/17 09/03/17 09/03/17 Range/Units 17:35 17:35 17:45 PT 9.6 (8.7-11.1) INR 0.95 (0.89-1.13) APTT 30.6 (24.4-33.2) SECONDS ABG pH 7.44 (7.35-7.45) ABG pCO2 40 (35-45) mmHg ABG pO2 58 L (83-108) mmHg ABG HCO3 27 H (22-26) mmol/L ABG O2 Saturation 91 L (96-97) % ABG Base Excess 2.7 H (-2-2) Ben Test Passed O2 Delivery Device Nasal cannula POC Glucose (80-116) mg/dL C-Reactive Protein 5.9 H* (0.5-0.9) mg/dL 09/03/17 Range/Units 20:25 PT (8.7-11.1) INR (0.89-1.13) APTT (24.4-33.2) SECONDS ABG pH (7.35-7.45) ABG pCO2 (35-45) mmHg ABG pO2 (83-108) mmHg ABG HCO3 (22-26) mmol/L ABG O2 Saturation (96-97) % ABG Base Excess (-2-2) Ben Test O2 Delivery Device POC Glucose 213 H D (80-116) mg/dL C-Reactive Protein (0.5-0.9) mg/dL Imaging Impressions Last 24 hrs: Stat CT angiogram of the chest at 3:20 PM on 09/03/2017 demonstrated per radiology report: 1. Large lobar and segmental pulmonary emboli located centrally in the right pulmonary artery. Small segmental pulmonary emboli in the left lower lobe. No CT evidence of right heart strain. 2. Small airspace opacity in the lateral aspect of the right middle lobe may represent a pulmonary infarct. 3. 5 mm pulmonary nodule in the right middle lobe. Recommend follow-up chest CT scan in one year for documentation of stability. Read by: Dr. Marcus Craig at 09/03/2017 at 3:39 PM. EKG INTERPRETATION EKG Date: 09/03/17 (stat) Time: 12:35 Rhythm: NSR Rate (Beats/Min): 114 [place]: Normal P-Wave: Present QRS: Normal ST-T: Other (minimal diffuse anterior without focal segmental chg) QT: Normal Comparison: NA - No Prior EKG EKG Interpretation Comments: borderline abnormality, non diagnostic for acute ischemia event. *Q Meaningful Use (ADM) - VTE *Q VTE Criteria *Q: - Stroke *Q Stroke Criteria *Q: - AMI *Q AMI Criteria *Q: - Problem List (1) Pulmonary embolism during current hospitalization SNOMED Code(s): 94152752 ICD Code: I26.99 - OTHER PULMONARY EMBOLISM WITHOUT ACUTE COR PULMONALE Status: Acute Current Visit: No (2) Chest pain SNOMED Code(s): 00009566 ICD Code: R07.9 - CHEST PAIN, UNSPECIFIED Status: Acute Current Visit: No (3) Palliative care status SNOMED Code(s): 141237574 ICD Code: Z51.5 - ENCOUNTER FOR PALLIATIVE CARE Status: Acute Current Visit: No (4) CAD (coronary artery disease) SNOMED Code(s): 84143594 ICD Code: I25.10 - ATHSCL HEART DISEASE OF [place] CORONARY ARTERY W/O ANG PCTRS Status: Chronic Current Visit: No (5) COPD, Moderate chronic obstructive pulmonary disease SNOMED Code(s): 740347774 ICD Code: J44.9 - CHRONIC OBSTRUCTIVE PULMONARY DISEASE, UNSPECIFIED Status : Chronic Current Visit: No Onset Date: 01/27/14 (6) Diabetes type 2, uncontrolled SNOMED Code(s): 56657553 ICD Code: E11.65 - TYPE 2 DIABETES MELLITUS WITH HYPERGLYCEMIA Status: Chronic Current Visit: No (7) Obstructive sleep apnea syndrome SNOMED Code(s): 07227961 ICD Code: G47.33 - OBSTRUCTIVE SLEEP APNEA (ADULT) (PEDIATRIC) Status: Chronic Current Visit: No Problem Details: Home CPAP Problem List Initiated/Reviewed/Updated: Yes Orders Last 24hrs: Active Orders 24 hr Category Date Time Status Patient Status [ADT] Routine ADT 09/03/17 16:54 Active Antiembolic Devices [RC] .Routine Care 09/03/17 16:55 Active Aspiration Precautions [RC] ASDIRECTED Care 09/03/17 17:22 Active EKG Documentation Completion [RC] ASDIRECTED Care 09/04/17 05:11 Active Height and Weight [RC] DAILY Care 09/04/17 08:00 Active Intake and Output [RC] Q4H Care 09/03/17 16:54 Active Notify Provider Vital Signs [RC] ASDIRECTED Care 09/03/17 17:10 Active Oxygen Therapy [RC] CONTINUOUS Care 09/03/17 16:54 Active Pulse Oximetry [RC] CONTINUOUS Care 09/03/17 16:56 Active Pulse Oximetry [RC] PRN Care 09/03/17 16:54 Active RT BiPAP/CPAP [RC] ASDIRECTED Care 09/03/17 17:22 Active Up With Assistance [RC] ASDIRECTED Care 09/03/17 16:54 Active VTE/DVT Education [RC] Click to Edit Care 09/03/17 16:54 Active VTE/DVT Education [RC] Click to Edit Care 09/03/17 16:55 Active Vital Signs [RC] Q2H Care 09/03/17 16:54 Active Consult to Pharmacy [CONS] Routine Cons 09/03/17 16:54 Active Nothing per Oral Now Diet [DIET] Diet 09/03/17 Breakfast Active Echo Comp wo Cont [US] Routine Exams 09/05/17 06:00 Ordered VL Duplex Lwr Ext Veins Comp [US] Routine Exams 09/04/17 08:00 Ordered CBC WITH AUTO DIFF [HEME] AM Lab 09/04/17 05:11 Ordered INR,PT,PROTHROMBIN TIME [COAG] DAILY Lab 09/04/17 17:00 Ordered INR,PT,PROTHROMBIN TIME [COAG] DAILY Lab 09/05/17 17:00 Ordered INR,PT,PROTHROMBIN TIME [COAG] DAILY Lab 09/06/17 17:00 Ordered INR,PT,PROTHROMBIN TIME [COAG] DAILY Lab 09/07/17 17:00 Ordered INR,PT,PROTHROMBIN TIME [COAG] DAILY Lab 09/08/17 17:00 Ordered INR,PT,PROTHROMBIN TIME [COAG] DAILY Lab 09/09/17 17:00 Ordered INR,PT,PROTHROMBIN TIME [COAG] DAILY Lab 09/10/17 17:00 Ordered INR,PT,PROTHROMBIN TIME [COAG] DAILY Lab 09/11/17 17:00 Ordered INR,PT,PROTHROMBIN TIME [COAG] DAILY Lab 09/12/17 17:00 Ordered Acetaminophen [Tylenol] Med 09/03/17 17:13 Active 650 mg PO Q4H PRN Albuterol [Ventolin HFA] Med 09/03/17 17:13 Active 0 gm INH Q4H PRN Albuterol/Ipratropium [DuoNeb 3.0-0.5 MG/3 ML] Med 09/03/17 17:13 Active 3 ml INH QID PRN DULoxetine [Cymbalta] Med 09/04/17 09:00 Active 60 mg PO DAILY Enoxaparin [Lovenox] Med 09/04/17 02:00 Active 100 mg SUBCUT Q12H Furosemide [Lasix] Med 09/04/17 09:00 Active 40 mg PO DAILY Gabapentin [Neurontin] Med 09/03/17 21:00 Active 600 mg PO TID Insulin Aspart [NovoLOG] Med 09/04/17 08:00 Active 5 unit SUBCUT TIDMEALS Insulin Detemir [Levemir] Med 09/03/17 21:00 Active 57 unit SUBCUT BID Lisinopril [Prinivil] Med 09/04/17 09:00 Active 10 mg PO DAILY Metoprolol Tartrate [Lopressor] Med 09/03/17 19:00 Active 25 mg PO Q6H Mometasone/Formoterol [Dulera 200-5 MCG] Med 09/03/17 21:00 Active 2 puff IH BIDRT Montelukast [Singulair] Med 09/04/17 09:00 Active 10 mg PO DAILY Morphine Med 09/03/17 17:22 Active 5 mg IVPUSH Q2H PRN Nitroglycerin [Nitrostat] Med 09/03/17 17:13 Active 0.4 mg SL Q5M PRN Pantoprazole [ProTONIX IV] Med 09/04/17 09:00 Active 40 mg IVPUSH DAILY Potassium Chloride [Klor-Con 10] Med 09/03/17 21:00 Active 10 meq PO BEDTIME Simvastatin [Zocor] Med 09/03/17 21:00 Active 10 mg PO BEDTIME Theophylline [[place]-24] Med 09/03/17 21:00 Active 300 mg PO BID Tolterodine [Detrol LA 24 Hr] Med 09/04/17 09:00 Active 8 mg PO DAILY Umeclidinium [place] [Incruse Ellipta] Med 09/04/17 09:00 Pending 62.5 mcg IH DAILY Warfarin [Coumadin] Med 09/04/17 16:00 Active 5 mg PO DAILY@1600 DVT/VTE Prophylaxis Reflex [OM.PC] Per Unit Routine Oth 09/03/17 16:54 Ordered Resuscitation Status Routine Resus Stat 09/03/17 16:54 Ordered EKG 12 Lead [EK] AM Ther 09/04/17 05:11 Ordered Medication Orders Acetaminophen (Tylenol) 650 mg PO Q4H PRN PRN Reason: fever/pain Last Admin: 09/03/17 18:11 Dose: 650 mg Albuterol (Ventolin Hfa) 0 gm INH Q4H PRN PRN Reason: Shortness of Breath Albuterol/Ipratropium (Duoneb 3.0-0.5 Mg/3 Ml) 3 ml INH QID PRN PRN Reason: BRONCHOSPASM Last Admin: 09/03/17 17:53 Dose: 3 ml Duloxetine HCl (Cymbalta) 60 mg PO DAILY AB[facility]IO Enoxaparin Sodium (Lovenox) 100 mg SUBCUT Q12H ABILIO Furosemide (Lasix) 40 mg PO DAILY [facility] Gabapentin (Neurontin) 600 mg PO TID [facility] Insulin Aspart (Novolog) 5 unit SUBCUT TIDMEALS [facility] Insulin Detemir (Levemir) 57 unit SUBCUT BID [facility] Lisinopril (Prinivil) 10 mg PO DAILY [facility] Metoprolol Tartrate (Lopressor) 25 mg PO Q6H [facility] Mometasone Furoate/Formoterol Fumar (Dulera 200-5 Mcg) 2 puff IH BIDRT [facility] Montelukast Sodium (Singulair) 10 mg PO DAILY [facility] Morphine Sulfate (Morphine) 5 mg IVPUSH Q2H PRN PRN Reason: chest pain >5/10 Last Admin: 09/03/17 17:53 Dose: 5 mg Nitroglycerin (Nitrostat) 0.4 mg SL Q5M PRN PRN Reason: Chest Pain Non-Formulary Medication (Umeclidinium [place] [Incruse Ellipta]) 62.5 mcg IH DAILY [facility] Pantoprazole Sodium (Protonix Iv) 40 mg IVPUSH DAILY [facility] Potassium Chloride (Klor-Con 10) 10 meq PO BEDTIME [facility] Simvastatin (Zocor) 10 mg PO BEDTIME [facility] Theophylline ([place]-24) 300 mg PO BID [facility] Tolterodine Tartrate (Detrol La 24 Hr) 8 mg PO DAILY [facility] Warfarin Sodium (Coumadin) 5 mg PO DAILY@1600 [facility] Assessment/Plan Comment:: Patient transferred to ICU. Lovenox therapeutic injection for PE at 105 mg subcutaneous twice a day with first dose given prior to CT scan. Warfarin 5 mg by mouth with subsequent dosing per pharmacy. We will bridge her for 3-5 days. Morphine 5 mg IV every 2 hours for chest pain. Nasal cannula 2 L/m. She will be a CPAP at night. Continuous O2 and cardiac monitoring. ABGs. Also started short acting metoprolol to reduce strain on the heart with parameters provided regarding when to notify M.D. for change in status or other concerns. Will repeat labs in the morning, EKG, echocardiogram on Monday or sooner if needed, a.m. chest x-ray, follow INR, monitor for any signs or symptoms of bleeding. A low threshold for transfer due to her prior cardiopulmonary history with recent intubation and tracheostomy with dysphagia. She'll be nothing by mouth overnight , aspiration precautions. A thorough discussion regarding CODE STATUS was adequate the bedside along with her daughter and family members. I also discussed transfer to higher level of care as she is at an increased risk for respiratory failure/arrest or cardiac failure/arrest. She and her daughter adamant that they do not wish to be transferred and that they would like to stay here. She understands that should her condition decompensate I will recommend transfer which she will be agreeable to this. ER physician has been notified of the patient's admission to ICU from swing bed along with recent lab values and CT results, patient's prior history, patient's current CODE STATUS, as well as patient's willingness to be intubated and transferred should she decompensate. Total ICU time 90 minutes: Greater than 50% spent in [id number] with the patient and her family discussing labs, CT findings, current assessment, plan of care, risk assessment, CODE STATUS, physical exam and prognosis.
[2017-09-03] MEDS: Metoprolol Tartrate 25 MG Tab PO SCH (19:20)
[2017-09-03] MEDS: Theophylline 100 MG Cap.ER PO SCH (20:29)
[2017-09-03] MEDS: Gabapentin 600 MG Tab PO SCH (20:29)
[2017-09-03] MEDS: Insulin Detemir 100 Units/ML 3 ML Pen SUBCUT SCH (20:31)
[2017-09-03] MEDS ORDERED: Insulin Detemir 100 Units/ML 3 ML Pen ONE (20:33)
[2017-09-03] MEDS: Formoterol/Mometasone 200-5 MCG 8.8 GM Inhaler IH SCH (20:36)
[2017-09-03] MEDS ORDERED: Potassium Chloride 10 MEQ Tab.ER PO SCH (21:00)
[2017-09-03] MEDS ORDERED: Simvastatin 10 MG Tab PO SCH (21:00)
[2017-09-04] MEDS: Metoprolol Tartrate 25 MG Tab PO SCH ×2 (01:35→09:41)
[2017-09-04] MEDS: Enoxaparin 100 MG/1 ML Syringe SUBCUT SCH ×2 (01:35→14:05)
[2017-09-04] MEDS: Morphine 10 MG/ML Syringe IVPUSH PRN (06:49)
[2017-09-04] MEDS: Formoterol/Mometasone 200-5 MCG 8.8 GM Inhaler IH SCH (07:03)
[2017-09-04] MEDS ORDERED: Formoterol/Mometasone 200-5 MCG 8.8 GM Inhaler IH SCH (07:21)
--- NOTE | 2017-09-04 07:35 | PCM.PN ---
- General Info Date of Service: 09/04/17 Subjective Update: Patient states she is feeling better today. Respirations are easier. She still has right pleuritic chest pain on deep inspiration however morphine is keeping this under control. The dose seems to be a bit high for her as it does make her quite groggy. Tells me she slept well overnight. She is hungry as I did have her nothing by mouth overnight. She would like to set up and move around. She denies any headache fevers or chills. She denies any nausea and there's been no vomiting. She denies any neck shoulder back or epigastric pain. Denies abdominal pain or distention. She has been passing flatus. She states her suprapubic abscess is not draining and feels much better. She's continued to wear her oxygen overnight via nasal cannula at 2 L. Her saturations have remained mid to upper 90s with a respiratory rate 18-20. Nursing did note that on telemetry she had no events. Her blood pressure was running upper 90s over 60s systolic and her heart rate came back down nicely to 60s to 70s overnight. I did start her on low-dose metoprolol and now holding the dose. Likely discontinue. She rested well overnight. Functional Status: Reports: Incentive Spirometry - Review of Systems Systems Review Comment:: For pertinent positives and negatives please see subjective above - Patient Data Vitals - Most Recent: Last Vital Signs Temp 97.7 F 09/04/17 06:00 Pulse 71 09/04/17 06:00 Resp 18 09/04/17 06:00 BP 101/60 09/04/17 06:00 Pulse Ox 96 09/04/17 06:00 Vital Signs Temp Pulse Pulse Resp BP BP Pulse Ox 09/04/17 10:26 106/68 09/04/17 09:41 70 94/60 09/04/17 06:00 97.7 F 71 18 101/60 96 09/04/17 04:00 97.6 F 78 16 96/56 L 98 09/04/17 02:00 97.9 F 88 16 101/62 98 09/04/17 01:35 101 H 109/68 09/04/17 00:00 98.0 F 103 H 17 90/55 L 99 Weight - Most Recent: 105.778 kg I&O - Last 24 Hours: Intake & Output Intake & Output 09/02/17 09/03/17 09/04/17 06:59 06:59 06:59 Intake Total 175 Output Total 875 Balance -700 Imaging Impressions - Last 24 Hours: Ultrasound lower extremities is pending. Lab Results Last 24 Hours: Laboratory Results - last 24 hr 09/03/17 09/03/17 09/03/17 Range/Units 17:35 17:35 17:45 PT 9.6 (8.7-11.1) INR 0.95 (0.89-1.13) APTT 30.6 (24.4-33.2) SECONDS ABG pH 7.44 (7.35-7.45) ABG pCO2 40 (35-45) mmHg ABG pO2 58 L (83-108) mmHg ABG HCO3 27 H (22-26) mmol/L ABG O2 Saturation 91 L (96-97) % ABG Base Excess 2.7 H (-2-2) Ben Test Passed O2 Delivery Device Nasal cannula POC Glucose (80-116) mg/dL C-Reactive Protein 5.9 H* (0.5-0.9) mg/dL 09/03/17 09/04/17 Range/Units 20:25 06:15 PT 9.8 (8.7-11.1) INR 0.97 (0.89-1.13) APTT (24.4-33.2) SECONDS ABG pH (7.35-7.45) ABG pCO2 (35-45) mmHg ABG pO2 (83-108) mmHg ABG HCO3 (22-26) mmol/L ABG O2 Saturation (96-97) % ABG Base Excess (-2-2) Ben Test O2 Delivery Device POC Glucose 213 H D (80-116) mg/dL C-Reactive Protein (0.5-0.9) mg/dL Med Orders - Current: Current Medications Acetaminophen (Tylenol) 650 mg PO Q4H PRN PRN Reason: fever/pain Last Admin: 09/03/17 18:11 Dose: 650 mg Albuterol (Ventolin Hfa) 0 gm INH Q4H PRN PRN Reason: Shortness of Breath Albuterol/Ipratropium (Duoneb 3.0-0.5 Mg/3 Ml) 3 ml INH QID PRN PRN Reason: BRONCHOSPASM Last Admin: 09/03/17 17:53 Dose: 3 ml Duloxetine HCl (Cymbalta) 60 mg PO DAILY [facility] Enoxaparin Sodium (Lovenox) 100 mg SUBCUT Q12H [facility] Last Admin: 09/04/17 01:35 Dose: 100 mg Furosemide (Lasix) 40 mg PO DAILY [facility] Gabapentin (Neurontin) 600 mg PO TID [facility] Last Admin: 09/03/17 20:29 Dose: 600 mg Insulin Aspart (Novolog) 5 unit SUBCUT TIDMEALS [facility] Insulin Detemir (Levemir) 57 unit SUBCUT BID [facility] Last Admin: 09/03/17 20:31 Dose: 57 units Lisinopril (Prinivil) 10 mg PO DAILY [facility] Metoprolol Tartrate (Lopressor) 25 mg PO Q6H [facility] Last Admin: 09/04/17 01:35 Dose: 25 mg Mometasone Furoate/Formoterol Fumar (Dulera 200-5 Mcg) 0 puff IH BIDRT [facility] Montelukast Sodium (Singulair) 10 mg PO DAILY [facility] Morphine Sulfate (Morphine) 5 mg IVPUSH Q2H PRN PRN Reason: chest pain >5/10 Last Admin: 09/04/17 06:49 Dose: 5 mg Nitroglycerin (Nitrostat) 0.4 mg SL Q5M PRN PRN Reason: Chest Pain Pantoprazole Sodium (Protonix Iv) 40 mg IVPUSH DAILY [facility] Potassium Chloride (Klor-Con 10) 10 meq PO BEDTIME [facility] Last Admin: 09/03/17 20:28 Dose: 10 meq Simvastatin (Zocor) 10 mg PO BEDTIME [facility] Last Admin: 09/03/17 20:29 Dose: 10 mg Theophylline (Estevan-24) 300 mg PO BID [facility] Last Admin: 09/03/17 20:29 Dose: 300 mg Tiotropium [place] (Spiriva Handihaler) 0 mcg INH DAILY [facility] Tolterodine Tartrate (Detrol La 24 Hr) 8 mg PO DAILY [facility] Warfarin Sodium (Coumadin) 5 mg PO DAILY@1600 [facility] Discontinued Medications Insulin Detemir (Levemir) Confirm Administered Dose 300 unit .ROUTE .STK-MED ONE Stop: 09/03/17 20:34 Last Admin: 09/03/17 22:12 Dose: Not Given Lactulose (Chronulac) 10 gm PO DAILY PRN PRN Reason: Constipation Last Admin: 09/03/17 17:53 Dose: 10 gm Mometasone Furoate/Formoterol Fumar (Dulera 200-5 Mcg) 2 puff IH BIDRT [facility] Last Admin: 09/04/17 07:03 Dose: 2 puff Warfarin Sodium (Coumadin) 5 mg PO ONETIME ONE Stop: 09/03/17 18:31 Last Admin: 09/03/17 19:00 Dose: 5 mg - Exam Physical Findings Comments:: General: awake in bed, but lethargic (just received dose of morphine 30 min prior), Oriented, Cooperative, No Distress, no evidence of central or acrocyanosis Neck: Supple, Trachea Midline, Other (Tracheostomy scar healed). No: JVD Lungs: Normal Respiratory Effort, Decreased Breath Sounds (Throughout but no focal diminished aeration.), Other (Anterior chest wall still demonstrates tenderness to palpation over the ribs just under the right mammary fold. Also reproducible with movement of the right breast. No axillary adenopathy. No bruising or other skin abnormalities. Left anterior chest nontender to palpation ). No: Rales, Rub, Wheezing Cardiovascular: Regular Rhythm, reg rate, Normal S1, Normal S2. No: Rubs, Gallop/S3 GI/Abdominal Exam: Normal Bowel Sounds, Soft, Non-Tender (Female) Exam: Other (She does have a right suprapubic small healing superficial cellulitis secondary to recent abscess with spontaneous drainage. looks good. Culture negative.) Back Exam: Normal Inspection Extremities: Non-Tender, Normal Capillary Refill, Other (Bilateral peripheral edema 1+ up to the knee with no asymmetry.). No: Renzo's Sign, Increased Warmth , Pallor, Redness Neurological: Slight slurring of speech which is her baseline. She normally wears dentures however she does not have these in at the time of interview.. She did suffer dysphagia secondary to prolonged intubation is working with speech and dietary). No: Focal Deficit Neuro Extensive - Mental Status: Alert, Oriented x3, Normal Mood/Affect, Normal Cognition, Memory Intact, Other (A baseline minimal cognitive deficit with regards to gathering interpreting medical information for which she likes to have her daughter spoken to regarding medical decisions and advise. However patient herself is independent in medical decision making.) Psychiatric: Normal Affect, and mood. Very pleasant and appreciative of care she is receiving:-) EKG INTERPRETATION EKG Interpretation Comments: pending - Problem List & Annotations (1) Pulmonary embolism during current hospitalization SNOMED Code(s): 78326834 Code(s): I26.99 - OTHER PULMONARY EMBOLISM WITHOUT ACUTE COR PULMONALE Status: Suspected Priority: High Current Visit: No (2) Chest pain SNOMED Code(s): 32512241 Code(s): R07.9 - CHEST PAIN, UNSPECIFIED Status: Acute Current Visit: No (3) Palliative care status SNOMED Code(s): 848072889 Code(s): Z51.5 - ENCOUNTER FOR PALLIATIVE CARE Status: Acute Current Visit: No (4) CAD (coronary artery disease) SNOMED Code(s): 92367103 Code(s): I25.10 - ATHSCL HEART DISEASE OF [place] CORONARY ARTERY W/O ANG PCTRS Status: Chronic Current Visit: No (5) COPD, Moderate chronic obstructive pulmonary disease SNOMED Code(s): 200477133 Code(s): J44.9 - CHRONIC OBSTRUCTIVE PULMONARY DISEASE, UNSPECIFIED Status : Chronic Current Visit: No Onset Date: 01/27/14 (6) Diabetes type 2, uncontrolled SNOMED Code(s): 06660476 Code(s): E11.65 - TYPE 2 DIABETES MELLITUS WITH HYPERGLYCEMIA Status: Chronic Current Visit: No (7) Obstructive sleep apnea syndrome SNOMED Code(s): 86185208 Code(s): G47.33 - OBSTRUCTIVE SLEEP APNEA (ADULT) (PEDIATRIC) Status: Chronic Current Visit: No Annotation/Comment:: Home CPAP - Problem List Review Problem List Initiated/Reviewed/Updated: Yes - My Orders Last 24 Hours: My Active Orders 09/03/17 16:54 Patient Status [ADT] Routine Intake and Output [RC] Q4H Oxygen Therapy [RC] CONTINUOUS Up With Assistance [RC] ASDIRECTED VTE/DVT Education [RC] Click to Edit Vital Signs [RC] Q2H Consult to Pharmacy [CONS] Routine DVT/VTE Prophylaxis Reflex [OM.PC] Per Unit Routine Resuscitation Status Routine 09/03/17 16:56 Pulse Oximetry [RC] CONTINUOUS 09/03/17 17:10 Notify Provider Vital Signs [RC] ASDIRECTED 09/03/17 17:13 Acetaminophen [Tylenol] 650 mg PO Q4H PRN Albuterol [Ventolin HFA] 0 gm INH Q4H PRN Albuterol/Ipratropium [DuoNeb 3.0-0.5 MG/3 ML] 3 ml INH QID PRN Nitroglycerin [Nitrostat] 0.4 mg SL Q5M PRN 09/03/17 17:22 Aspiration Precautions [RC] ASDIRECTED RT BiPAP/CPAP [RC] ASDIRECTED Morphine 5 mg IVPUSH Q2H PRN 09/03/17 19:00 Metoprolol Tartrate [Lopressor] 25 mg PO Q6H 09/03/17 21:00 Gabapentin [Neurontin] 600 mg PO TID Insulin Detemir [Levemir] 57 unit SUBCUT BID Potassium Chloride [Klor-Con 10] 10 meq PO BEDTIME Simvastatin [Zocor] 10 mg PO BEDTIME Theophylline [Estevan-24] 300 mg PO BID 09/04/17 02:00 Enoxaparin [Lovenox] 100 mg SUBCUT Q12H 09/04/17 05:11 EKG 12 Lead [EK] AM 09/04/17 06:15 CBC WITH AUTO DIFF [HEME] AM 09/04/17 07:21 Mometasone/Formoterol [Dulera 200-5 MCG] 0 puff IH BIDRT 09/04/17 08:00 Height and Weight [RC] DAILY VL Duplex Lwr Ext Veins Comp [US] Routine Insulin Aspart [NovoLOG] 5 unit SUBCUT TIDMEALS 09/04/17 09:00 DULoxetine [Cymbalta] 60 mg PO DAILY Furosemide [Lasix] 40 mg PO DAILY Lisinopril [Prinivil] 10 mg PO DAILY Montelukast [Singulair] 10 mg PO DAILY Pantoprazole [ProTONIX IV] 40 mg IVPUSH DAILY Tiotropium [Spiriva HandiHaler] 0 mcg INH DAILY Tolterodine [Detrol LA 24 Hr] 8 mg PO DAILY 09/04/17 16:00 Warfarin [Coumadin] 5 mg PO DAILY@1600 09/05/17 06:00 Echo Comp wo Cont [US] Routine 09/05/17 17:00 INR,PT,PROTHROMBIN TIME [COAG] DAILY 09/06/17 17:00 INR,PT,PROTHROMBIN TIME [COAG] DAILY 09/07/17 17:00 INR,PT,PROTHROMBIN TIME [COAG] DAILY 09/08/17 17:00 INR,PT,PROTHROMBIN TIME [COAG] DAILY 09/09/17 17:00 INR,PT,PROTHROMBIN TIME [COAG] DAILY 09/10/17 17:00 INR,PT,PROTHROMBIN TIME [COAG] DAILY 09/11/17 17:00 INR,PT,PROTHROMBIN TIME [COAG] DAILY 09/12/17 17:00 INR,PT,PROTHROMBIN TIME [COAG] DAILY - Assessment Assessment:: please see above. - Plan Plan:: Continue Lovenox therapeutic injection for PE at 100 mg subcutaneous twice a day. Warfarin 5 mg by mouth with subsequent dosing per pharmacy. Repeat INR due at 1600. We will bridge her for 3-5 days. Morphine decreased down to 2.5 mg IV every 2 hours for chest pain. Nasal cannula 2 L/m. She is unable to get her CPAP from home, but has not had desats overnight. so will continue as is for now. Continuous O2 and cardiac monitoring. ABGs reviewed yesterday. Will repeat today. D/C metoprolol due to improved pulse and adequate cardiac output. Parameters provided regarding when to notify M.D. for change in status or other concerns. Will repeat labs and get echocardiogram in the morning or sooner if needed, chest x-ray pending. monitor for any signs or symptoms of bleeding. A low threshold for transfer due to her prior cardiopulmonary history with recent intubation and tracheostomy with dysphagia. I will restart her diet carb consistent and have her moving around add raghavendra with assist. Again discussed and she understands that should her condition decompensate I will recommend transfer which she will be agreeable to this. Total ICU time 40 minutes: Greater than 50% spent in [id number] with the patient discussing labs performed, current assessment, plan of care, risk assessment, physical exam and prognosis. Anticipate ICU addition 24-48h then transfer to med-surg.
[2017-09-04] MEDS ORDERED: Montelukast 10 MG Tab PO SCH (09:00)
[2017-09-04] MEDS ORDERED: Tiotropium Inhaler 18 MCG Inhalation Powder Cap Kit of 5 INH SCH (09:00)
[2017-09-04] MEDS ORDERED: Tolterodine 4 MG Cap.ER PO SCH (09:00)
[2017-09-04] MEDS ORDERED: DULoxetine 60 MG Cap PO SCH (09:00)
[2017-09-04] MEDS ORDERED: Furosemide 40 MG Tab PO SCH (09:00)
[2017-09-04] MEDS ORDERED: Pantoprazole 40 MG Vial IVPUSH SCH (09:00)
[2017-09-04] MEDS ORDERED: Lisinopril 10 MG Tab PO SCH (09:00)
[2017-09-04] MEDS: Theophylline 100 MG Cap.ER PO SCH (09:52)
[2017-09-04] MEDS: Gabapentin 600 MG Tab PO SCH ×2 (09:53→14:05)
[2017-09-04] MEDS: Insulin Aspart 100 Units/ML 3 ML Pen SUBCUT SCH ×2 (10:15→13:21)
[2017-09-04] MEDS: Insulin Detemir 100 Units/ML 3 ML Pen SUBCUT SCH (10:18)
[2017-09-04] MEDS: Sodium Chloride 0.9% 10 ML Syringe FLUSH PRN ×4 (10:28→16:57)
[2017-09-04] MEDS: Morphine 4 MG/ML Syringe IVPUSH PRN ×3 (11:31→16:54)
--- NOTE | 2017-09-04 13:15 | US ---
INDICATION: Bilateral pulmonary emboli. DUPLEX ULTRASOUND, RIGHT LOWER EXTREMITY VEINS: Utilizing 2-D real time, duplex Doppler spectral analysis, and color flow imaging, examination of the right lower extremity veins revealed no evidence of deep venous thrombosis. The greater saphenous also is unremarkable to the knee. Arterial blood flow is minimal. The patient was unable to cooperate with evaluating valvular competence. IMPRESSION: No evidence of deep venous thrombosis. DUPLEX ULTRASOUND, LEFT LOWER EXTREMITY VEINS: Utilizing 2-D real time, duplex Doppler spectral analysis, and color flow imaging, examination of the left lower extremity veins revealed no evidence of deep venous thrombosis. The greater saphenous also is unremarkable to the knee. Arterial blood flow is minimal. The patient was unable to cooperate with evaluating valvular competence. IMPRESSION: No evidence of deep venous thrombosis. [facility]
[2017-09-04 14:20] VITALS: BP 122/75
--- NOTE | 2017-09-04 14:22 | PCM.DCSUM1 ---
Discharge Summary - Hospital Course HPI Initial Comments: Patient is a pleasant 52 old female initially admitted to swing bed for physical therapy and rehabilitation secondary to debility malaise after having been hospitalized at [facility] in [place] for respiratory failure, intubation ventilation and infectious management for 3 weeks. During that time she had developed dysphagia and was working with speech therapy. She progressed well here with physical therapy and occupational therapy gaining strength, improved appetite swallowing cognition and was very actively involved in her rehabilitation. Comorbidities continue to be managed and adjustments in medications as deemed necessary were made. Otherwise no events. Yesterday, she began having sudden onset anterior right pleuritic type chest pain which is made worse with deep inspiration, was not accompanied by cough wheezing or hemoptysis lightheadedness dizziness, neck or jaw or mid back pain. It was reproducible with palpation to the breast and anterior chest wall as well as rotation and movement of the right upper extremity. EKG demonstrated minimal diffuse ST elevations throughout all leads nondiagnostic for any cardiac ischemic event. She was tachycardic roughly 115 sinus rhythm. Due to hx and concern for possible PE she was given IV morphine 5 mg and therapeutic dose Lovenox 105 mg. We obtained a CT angiogram of the chest which did show a large right pulmonary artery embolism along with pulmonary artery embolisms including the left system as well. Pressure was high but the patient regarding her diagnosis and she was transferred to the ICU. She was given a dose of metoprolol to slow the heart rate down and relieve any cardiac strain, otherwise vitals were stable/physiologic. Oxygen saturations remained in the mid 90s respiratory rate 20-22, afebrile, chest pain resolved with morphine, and labs negative troponin or electrolyte imbalance. She did have an elevated d- dimer. She is quite adamant that she did not want to be discharged and transferred to [place] as this was recommended secondary to her acute presentation in light of her past cardiopulmonary complications and active comorbidities. On day of discharge there were no concerns in the morning she had no overnight events. Continue to get morphine for anterior chest pain however this was causing her to be quite lethargic. Heart rate remained less than 100, there were no blocks, PVCs, ST changes or other rhythm abnormalities on telemetry. She slept well overnight. She was kept nothing by mouth and started on her first dose of warfarin 5 mg last night. Ultrasound of the lower extremities was performed showing no DVTs however there was concern for possible lower extremity ischemic changes with black significant arterial flow noted on ultrasound as well as physical exam showing new lower extremity mottling/minimal cyanosis improving and difficult to palpate pulses however were audible on Doppler. Poor capillary refill roughly 5 seconds. She had denied any paresthesias pain numbness or tingling in the extremities. Body habitus and chronic peripheral edema did make doppling pulses slightly difficult. [place] [id number] call was consulted for transfer due to concern regarding not only the bilateral PEs but also peripheral circulation in light of her comorbidities at increased risk for limb ischemia. Dr. wiggins accepted patient under his care to the [facility] where cardiovascular interventionalists would be readily available should any intervention is required. Thorough discussion was had with the patient and her daughter regarding transfer and my recommendation for further evaluation as warranted. They both agreed this was best course of action and I informed him that I would call daily to check on her progress. She would really like to return back to [facility] for further rehabilitation as required and this is noted in the entire. She will travel by ambulance. Total time: 90 minutes ICU with greater than 50% spent in physical examination [id number] with the patient interview discussion regarding recent evaluations concerns and answering questions. Remainder reviewing labs, studies, interpretations, consultations coordination of care and management as noted above. - Discharge Data Discharge Date: 09/04/17 Discharge Disposition: DC/Tfer to Acute Hospital 02 Condition: Fair - Discharge Diagnosis/Problem(s) (1) Pulmonary embolism during current hospitalization SNOMED Code(s): 88800693 ICD Code: I26.99 - OTHER PULMONARY EMBOLISM WITHOUT ACUTE COR PULMONALE Status: Suspected Priority: High (2) At risk for impaired perfusion of peripheral tissue SNOMED Code(s): 117739985 ICD Code: Z91.89 - [facility] PERSONAL RISK FACTORS, NOT ELSEWHERE CLASSIFIED Status: Acute Priority: High (3) Chest pain SNOMED Code(s): 79750007 ICD Code: R07.9 - CHEST PAIN, UNSPECIFIED Status: Acute (4) Palliative care status SNOMED Code(s): 000883445 ICD Code: Z51.5 - ENCOUNTER FOR PALLIATIVE CARE Status: Acute (5) CAD (coronary artery disease) SNOMED Code(s): 64693394 ICD Code: I25.10 - ATHSCL HEART DISEASE OF [place] CORONARY ARTERY W/O ANG PCTRS Status: Chronic (6) COPD, Moderate chronic obstructive pulmonary disease SNOMED Code(s): 858196032 ICD Code: J44.9 - CHRONIC OBSTRUCTIVE PULMONARY DISEASE, UNSPECIFIED Status : Chronic Onset Date: 01/27/14 (7) Diabetes type 2, uncontrolled SNOMED Code(s): 37759616 ICD Code: E11.65 - TYPE 2 DIABETES MELLITUS WITH HYPERGLYCEMIA Status: Chronic (8) Obstructive sleep apnea syndrome SNOMED Code(s): 70473136 ICD Code: G47.33 - OBSTRUCTIVE SLEEP APNEA (ADULT) (PEDIATRIC) Status: Chronic Problem Details: Home CPAP (9) Dysphagia SNOMED Code(s): 35127722 ICD Code: R13.10 - DYSPHAGIA, UNSPECIFIED Status: Acute Qualifiers: Dysphagia type: unspecified Qualified Code(s): R13.10 - Dysphagia, unspecified (10) Elevated d-dimer SNOMED Code(s): 515776490 ICD Code: R79.89 - OTHER SPECIFIED ABNORMAL FINDINGS OF BLOOD CHEMISTRY Status: Acute (11) Physical deconditioning SNOMED Code(s): 29119894048300 ICD Code: R53.81 - OTHER MALAISE Status: Acute (12) Asthma SNOMED Code(s): 251877126 ICD Code: J45.909 - UNSPECIFIED ASTHMA, UNCOMPLICATED Status: Chronic Priority: High Problem Details: Cont. nebs. Add steroid. cont. PO meds. (13) Chronic back pain SNOMED Code(s): 603041955 ICD Code: M54.9 - DORSALGIA, UNSPECIFIED; G89.29 - OTHER CHRONIC PAIN Status: Chronic (14) Depression SNOMED Code(s): 39622402 ICD Code: F32.9 - MAJOR DEPRESSIVE DISORDER, SINGLE EPISODE, UNSPECIFIED Status: Chronic Qualifiers: Depression Type: major depressive disorder Active/Remission status: currently active (15) HTN (hypertension) SNOMED Code(s): 64096285 ICD Code: I10 - ESSENTIAL (PRIMARY) HYPERTENSION Status: Chronic Qualifiers: Hypertension type: essential hypertension Qualified Code(s): I10 - Essential (primary) hypertension (16) Hyperglycemia SNOMED Code(s): 46522475 ICD Code: R73.9 - HYPERGLYCEMIA, UNSPECIFIED Status: Chronic (17) Obesities, morbid SNOMED Code(s): 790513971 ICD Code: E66.01 - MORBID (SEVERE) OBESITY DUE TO EXCESS CALORIES Status: Chronic - Patient Summary/Data Consults: Consultations 09/03/17 16:54 Consult to Pharmacy [CONS] Routine Comment: Physician Instructions: Quantity: Reason for Consult: warfarin dosing Special Instructions: acute bilateral PE. [facility] for Transfer- Dr. Lacy MD (Hospitalist) 09/04/2017 Planned Operative Procedure(s) after DC: perfusion studies. echocardiogram. possible intravascular proceedure. - Discharge Plan Home Medications: Home Meds Simvastatin [Zocor] 10 mg PO BEDTIME 11/06/13 [History] metFORMIN [Glucophage] 500 mg PO BID 05/04/17 [History] Celecoxib [CeleBREX] 200 mg PO WITHBREAKFAST 07/31/17 [History] Gabapentin [Neurontin] 600 mg PO TID 07/31/17 [History] Insulin Aspart [NovoLOG] 5 unit SUBCUT TIDMEALS 07/31/17 [History] Insulin Glargine,Hum.Rec.Anlog [Toujeo Solostar] 110 unit SQ BEDTIME 07/31/17 [ History] tiZANidine [Zanaflex] 2 mg PO BEDTIME 08/23/17 [History] Balsam [place] Oil/Trypsin [Granulex [place]] 1 spray TOP BID 09/03/17 [ History] Enoxaparin [Lovenox] 100 mg SQ BID 09/03/17 [History] Tiotropium [Spiriva HandiHaler] 18 mcg INH BID 09/03/17 [History] traMADol HCl [Ultram] 50 mg PO Q6H PRN 09/03/17 [History] Acetaminophen [Tylenol] 650 mg PO Q4H PRN tablet 09/04/17 [Rx] Albuterol/Ipratropium [DuoNeb 3.0-0.5 MG/3 ML] 3 ml INH QID PRN neb 09/04/17 [ Rx] DULoxetine [Cymbalta] 60 mg PO DAILY cap 09/04/17 [Rx] Enoxaparin [Lovenox] 100 mg SUBCUT Q12H syringe 09/04/17 [Rx] Furosemide [Lasix] 40 mg PO DAILY tablet 09/04/17 [Rx] Insulin Aspart [NovoLOG] 5 unit SUBCUT TIDMEALS pen 09/04/17 [Rx] Insulin Detemir [Levemir] 57 unit SUBCUT BID pen 09/04/17 [Rx] Lisinopril [Prinivil] 10 mg PO DAILY tablet 09/04/17 [Rx] Montelukast [Singulair] 10 mg PO DAILY tablet 09/04/17 [Rx] Morphine 2.5 mg IVPUSH Q2H PRN syringe 09/04/17 [Rx] Potassium Chloride [Klor-Con 10] 10 meq PO BEDTIME tab.er 09/04/17 [Rx] Sodium Chloride 0.9% [Saline Flush] 10 ml FLUSH ASDIRECTED PRN syringe [Rx] Theophylline [Estevan-24] 300 mg PO BID cap.er 09/04/17 [Rx] Tiotropium [Spiriva HandiHaler] 0 mcg INH DAILY cap 09/04/17 [Rx] Tolterodine [Detrol LA 24 Hr] 8 mg PO DAILY cap.er 09/04/17 [Rx] Warfarin Sliding Scale [Coumadin Sliding Scale] 1 each PO ASDIRECTED tablet [Rx] Warfarin [Coumadin] 5 mg PO DAILY@1600 tablet 09/04/17 [Rx] - Discharge Summary/Plan Comment DC Time >30 min.: Yes Discharge Summary/Plan Comment: Peripheral ischemia is now a possibility which needs to be ruled out vs intervention. evidence of this include with decreased capillary refill, venous ultrasound suggesting minimal arterial flow and deminished pulses. I have spoken with Dr. Lacy MD Hospitalist at [facility] and he kindly agrees to assume care of this pleasant patient for the above assessments and further evaluation/treatments he deems necessary in order to provide the best possible outcomes. I appreciate Dr. Lacy MD and his team. Pt will be transfer via ground ambulance. A thorough discussion with the patient at the bedside regarding the above findings, possible diagnosis and prognosis should we not pursue further evaluation which could include limb ischemia further worsening of her pulmonary function in cardiac function. She agrees to transfer and I did discuss this with her daughter over the phone. All questions are answered and again CODE STATUS was discussed including the possibility for reintubation, possible surgical procedure, potential cardiac resuscitation or other lifesaving measures should she decompensate and she indicates that she would wish to have these performed in the event of such decompensation. Total ICU time: 90 minutes with greater than 50% spent [id number] with the patient discussing the above imaging studies, current disease status, potential decompensation secondary to poor peripheral perfusion, CODE STATUS, physical exam, communication with family members, and coordination of care between facilities. - General Info Date of Service: 09/06/17 Subjective Update: Sitting up and then alert oriented no acute respiratory distress O2 nasal cannula at 2 L oxygen saturation 9790%. She is hungry and would like some chocolate ice cream. Still has right anterior chest wall pleuritic pain. Morphine does make this better however does make her quite groggy. She denies any concerns overnight. Denied any fevers or chills. Denies any neck pain sore throat nausea vomiting headache lightheadedness or dizziness focal weakness back pain abdominal pain dysuria flank pain joint swelling or tenderness leg or foot pain. - Patient Data Vitals - Most Recent: Last Vital Signs Temp 97.8 F 09/04/17 12:00 Pulse 100 09/04/17 12:00 Resp 18 09/04/17 12:00 BP 102/65 09/04/17 12:00 Pulse Ox 96 09/04/17 12:00 Weight - Most Recent: 105.778 kg I&O - Last 24 hours: Intake & Output 09/03/17 09/04/17 09/04/17 22:59 06:59 14:59 Intake Total 100 75 Output Total 250 625 500 Balance -150 -550 -500 Lab Results - Last 24 hrs: Laboratory Results - last 24 hr 09/03/17 09/03/17 09/03/17 Range/Units 17:35 17:35 17:45 WBC (4.5-12.0) X10-3/uL RBC (3.23-5.20) x10(6)uL Hgb (11.5-15.5) g/dL Hct (30.0-51.3) % MCV (80-96) fL MCH (27.7-33.6) pg MCHC (32.2-35.4) g/dL RDW (11.5-15.5) % Plt Count (125-369) X10(3)uL MPV (7.4-10.4) fL Neut % (Auto) (46-82) % Lymph % (Auto) (13-37) % [place] % (Auto) (4-12) % Eos % (Auto) (1.0-5.0) % Baso % (Auto) (0-2) % Neut # (Auto) (1.6-8.3) # Lymph # (Auto) (0.6-5.0) # [place] # (Auto) (0.0-1.3) # Eos # (Auto) (0.0-0.8) # Baso # (Auto) (0.0-0.2) # PT 9.6 (8.7-11.1) INR 0.95 (0.89-1.13) APTT 30.6 (24.4-33.2) SECONDS ABG pH 7.44 (7.35-7.45) ABG pCO2 40 (35-45) mmHg ABG pO2 58 L (83-108) mmHg ABG HCO3 27 H (22-26) mmol/L ABG O2 Saturation 91 L (96-97) % ABG Base Excess 2.7 H (-2-2) Ben Test Passed O2 Delivery Device Nasal cannula POC Glucose (80-116) mg/dL C-Reactive Protein 5.9 H* (0.5-0.9) mg/dL 09/03/17 09/04/17 09/04/17 Range/Units 20:25 06:15 06:15 WBC 5.6 (4.5-12.0) X10-3/uL RBC 4.65 (3.23-5.20) x10(6)uL Hgb 11.8 (11.5-15.5) g/dL Hct 38.1 (30.0-51.3) % MCV 82.0 (80-96) fL MCH 25.4 L (27.7-33.6) pg MCHC 31.0 L (32.2-35.4) g/dL RDW 17.2 H (11.5-15.5) % Plt Count 190 (125-369) X10(3)uL MPV 9.6 (7.4-10.4) fL Neut % (Auto) 63.0 (46-82) % Lymph % (Auto) 24.0 (13-37) % [place] % (Auto) 9.1 (4-12) % Eos % (Auto) 1 (1.0-5.0) % Baso % (Auto) 3 H (0-2) % Neut # (Auto) 3.5 (1.6-8.3) # Lymph # (Auto) 1.4 (0.6-5.0) # [place] # (Auto) 0.5 (0.0-1.3) # Eos # (Auto) 0.0 (0.0-0.8) # Baso # (Auto) 0.2 (0.0-0.2) # PT 9.8 (8.7-11.1) INR 0.97 (0.89-1.13) APTT (24.4-33.2) SECONDS ABG pH (7.35-7.45) ABG pCO2 (35-45) mmHg ABG pO2 (83-108) mmHg ABG HCO3 (22-26) mmol/L ABG O2 Saturation (96-97) % ABG Base Excess (-2-2) Ben Test O2 Delivery Device POC Glucose 213 H D (80-116) mg/dL C-Reactive Protein (0.5-0.9) mg/dL 09/04/17 Range/Units 13:00 WBC (4.5-12.0) X10-3/uL RBC (3.23-5.20) x10(6)uL Hgb (11.5-15.5) g/dL Hct (30.0-51.3) % MCV (80-96) fL MCH (27.7-33.6) pg MCHC (32.2-35.4) g/dL RDW (11.5-15.5) % Plt Count (125-369) X10(3)uL MPV (7.4-10.4) fL Neut % (Auto) (46-82) % Lymph % (Auto) (13-37) % [place] % (Auto) (4-12) % Eos % (Auto) (1.0-5.0) % Baso % (Auto) (0-2) % Neut # (Auto) (1.6-8.3) # Lymph # (Auto) (0.6-5.0) # [place] # (Auto) (0.0-1.3) # Eos # (Auto) (0.0-0.8) # Baso # (Auto) (0.0-0.2) # PT (8.7-11.1) INR (0.89-1.13) APTT (24.4-33.2) SECONDS ABG pH (7.35-7.45) ABG pCO2 (35-45) mmHg ABG pO2 (83-108) mmHg ABG HCO3 (22-26) mmol/L ABG O2 Saturation (96-97) % ABG Base Excess (-2-2) Ben Test O2 Delivery Device POC Glucose 120 H (80-116) mg/dL C-Reactive Protein (0.5-0.9) mg/dL Med Orders - Current: Current Medications Acetaminophen (Tylenol) 650 mg PO Q4H PRN PRN Reason: fever/pain Last Admin: 09/03/17 18:11 Dose: 650 mg Albuterol (Ventolin Hfa) 0 gm INH Q4H PRN PRN Reason: Shortness of Breath Albuterol/Ipratropium (Duoneb 3.0-0.5 Mg/3 Ml) 3 ml INH QID PRN PRN Reason: BRONCHOSPASM Last Admin: 09/03/17 17:53 Dose: 3 ml Duloxetine HCl (Cymbalta) 60 mg PO DAILY [facility] Last Admin: 09/04/17 09:52 Dose: 60 mg Enoxaparin Sodium (Lovenox) 100 mg SUBCUT Q12H [facility] Last Admin: 09/04/17 14:05 Dose: 100 mg Furosemide (Lasix) 40 mg PO DAILY [facility] Last Admin: 09/04/17 09:52 Dose: 40 mg Gabapentin (Neurontin) 600 mg PO TID [facility] Last Admin: 09/04/17 14:05 Dose: 600 mg Insulin Aspart (Novolog) 5 unit SUBCUT TIDMEALS [facility] Last Admin: 09/04/17 13:21 Dose: 5 units Insulin Detemir (Levemir) 57 unit SUBCUT BID [facility] Last Admin: 09/04/17 10:18 Dose: 57 units Lisinopril (Prinivil) 10 mg PO DAILY [facility] Last Admin: 09/04/17 10:26 Dose: 10 mg Mometasone Furoate/Formoterol Fumar (Dulera 200-5 Mcg) 0 puff IH BIDRT [facility] Montelukast Sodium (Singulair) 10 mg PO DAILY [facility] Last Admin: 09/04/17 09:53 Dose: 10 mg Morphine Sulfate (Morphine) 2.5 mg IVPUSH Q2H PRN PRN Reason: chest pain >5/10 Last Admin: 09/04/17 11:31 Dose: 2.5 mg Nitroglycerin (Nitrostat) 0.4 mg SL Q5M PRN PRN Reason: Chest Pain Pantoprazole Sodium (Protonix Iv) 40 mg IVPUSH DAILY [facility] Last Admin: 09/04/17 10:00 Dose: 40 mg Potassium Chloride (Klor-Con 10) 10 meq PO BEDTIME [facility] Last Admin: 09/03/17 20:28 Dose: 10 meq Simvastatin (Zocor) 10 mg PO BEDTIME [facility] Last Admin: 09/03/17 20:29 Dose: 10 mg Sodium Chloride (Saline Flush) 10 ml FLUSH ASDIRECTED PRN PRN Reason: flush for IV meds Last Admin: 09/04/17 11:34 Dose: 10 ml Theophylline (Estevan-24) 300 mg PO BID [facility] Last Admin: 09/04/17 09:52 Dose: 300 mg Tiotropium [place] (Spiriva Handihaler) 0 mcg INH DAILY [facility] Last Admin: 09/04/17 09:50 Dose: 1 inhalation Tolterodine Tartrate (Detrol La 24 Hr) 8 mg PO DAILY [facility] Last Admin: 09/04/17 09:52 Dose: 8 mg Warfarin Sodium (Coumadin) 5 mg PO DAILY@1600 [facility] Warfarin Sodium (Coumadin Sliding Scale) 1 each PO ASDIRECTED [facility] Discontinued Medications Insulin Detemir (Levemir) Confirm Administered Dose 300 unit .ROUTE .STK-MED ONE Stop: 09/03/17 20:34 Last Admin: 09/03/17 22:12 Dose: Not Given Lactulose (Chronulac) 10 gm PO DAILY PRN PRN Reason: Constipation Last Admin: 09/03/17 17:53 Dose: 10 gm Metoprolol Tartrate (Lopressor) 25 mg PO Q6H [facility] Last Admin: 09/04/17 09:41 Dose: Not Given Mometasone Furoate/Formoterol Fumar (Dulera 200-5 Mcg) 2 puff IH BIDRT [facility] Last Admin: 09/04/17 07:03 Dose: 2 puff Morphine Sulfate (Morphine) 5 mg IVPUSH Q2H PRN PRN Reason: chest pain >5/10 Last Admin: 09/04/17 06:49 Dose: 5 mg Warfarin Sodium (Coumadin) 5 mg PO ONETIME ONE Stop: 09/03/17 18:31 Last Admin: 09/03/17 19:00 Dose: 5 mg - Exam Quality Assessment: Reports: Supplemental Oxygen General: Reports: Alert, Oriented, Cooperative, No Acute Distress HEENT: Reports: Mucous Membr. Moist/[place] Neck: Reports: Supple Lungs: Reports: Normal Respiratory Effort. Denies: Rhonchi, Rub, Stridor Cardiovascular: Reports: Regular Rate, Regular Rhythm, No Murmurs GI/Abdominal Exam: Normal Bowel Sounds, Soft, Non-Tender Extremities: Non-Tender, Pedal Edema, Slow Capillary Refill (>5s), Mottled, Other (Cool to the touch bilaterally. No asymmetry. Mild cyanosis.). No: Renzo' s Sign, Leg Pain Skin: Reports: Cool Neurological: Reports: No New Focal Deficit Psy/Mental Status: Denies: Anxious *Q Meaningful Use (DIS) - VTE *Q VTE Criteria *Q: - Stroke *Q Stroke Criteria *Q: - AMI *Q AMI Criteria *Q:
[2017-09-04] MEDS ORDERED: Warfarin 5 MG Tab PO SCH (16:00)
[2017-09-04] MEDS ORDERED: Warfarin Sliding Scale PO SCH (16:00)
== END 2017-09-04 17:16 | DRG 176 ==
LOC: FB.ICU 16:15
PROVIDERS: ADMIT Family Medicine; ATTEND Family Medicine
DX: I26.99 Other pulmonary embolism without acute cor pulmonale (principal); R07.9 Chest pain, unspecified; I99.8 Other disorder of circulatory system; I10 Essential (primary) hypertension; J44.9 Chronic obstructive pulmonary disease, unspecified; E11.65 Type 2 diabetes mellitus with hyperglycemia; E11.40 Type 2 diabetes mellitus with diabetic neuropathy, unspecified; Z79.4 Long term (current) use of insulin; I25.10 Atherosclerotic heart disease of native coronary artery without angina pectoris; I25.2 Old myocardial infarction; R79.1 Abnormal coagulation profile; E66.01 Morbid (severe) obesity due to excess calories; Z68.36 Body mass index [BMI] 36.0-36.9, adult; R13.10 Dysphagia, unspecified; Z91.89 Other specified personal risk factors, not elsewhere classified; Z85.43 Personal history of malignant neoplasm of ovary; F32.9 Major depressive disorder, single episode, unspecified; M19.90 Unspecified osteoarthritis, unspecified site; M54.9 Dorsalgia, unspecified; G89.29 Other chronic pain; G47.33 Obstructive sleep apnea (adult) (pediatric); E78.00 Pure hypercholesterolemia, unspecified; H54.7 Unspecified visual loss; Z87.01 Personal history of pneumonia (recurrent); Z99.89 Dependence on other enabling machines and devices; Z87.891 Personal history of nicotine dependence; Z88.6 Allergy status to analgesic agent; Z91.048 Other nonmedicinal substance allergy status
CPT/HCPCS: 36415; 36600; 82803; 82962; 85025; 85610; 85730; 86140; 93005; 93970; A9270-GY; C9113; J1650; J2270; J7050; J7620

== ENCOUNTER 2017-09-16 19:49 | Emergency (ER) | payer MEDICARE, MEDICAID ==
[2017-09-16] MEDS ORDERED: Albuterol/Ipratropium 3.0-0.5 MG/3 ML Neb Soln NEB ONE (19:55)
[2017-09-16] MEDS ORDERED: methylPREDNISolone Sodium Succinate 125 MG/2 ML SDV IVPUSH ONE (19:56)
[2017-09-16] MEDS ORDERED: Sodium Chloride 0.9% 10 ML Syringe FLUSH PRN (20:14)
--- NOTE | 2017-09-16 20:51 | EDM.PDOC ---
ED HPI GENERAL MEDICAL PROBLEM - General Chief Complaint: Respiratory Problem Stated Complaint: CHEST PAIN Time Seen by Provider: 09/16/17 19:50 Source of Information: Reports: Patient, RN History Limitations: Reports: Altered Mental Status - History of Present Illness INITIAL COMMENTS - FREE TEXT/NARRATIVE: 52 y.o.w.f with a H/O PE, diagnosed 2 weeks ago, was tx as inpatient and released to the senior care at [facility] a few days ago. Her d dimer was > 2900 2 weeks ago. A nurse called me this pm stating, the pt has cp. RN gave her NG, Pain subsided, but her BP dropped. Pt has SOB as well and it felt like she had a PE again. As the patein t arrived here in the ed, her SBP was 112 and she C/O SOB. No C/P Pt is a poor historian and no family member was present. BP 128/ 70 O2 on 2 liters O2 was 92, Temp 36.6 RR was 19. pulse was 111. 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: Nitroglycerin chest Pain Score (Numeric/FACES): 6 - Related Data Allergies Allergy/AdvReac Type Severity Reaction Status Date / Time aspirin Allergy Other Verified 09/16/17 20:25 mold Allergy Airway Uncoded 09/16/17 20:25 Tightness Home Meds: Home Meds Simvastatin [Zocor] 10 mg PO BEDTIME 11/06/13 [History] metFORMIN [Glucophage] 500 mg PO BID 05/04/17 [History] Gabapentin [Neurontin] 600 mg PO TID 07/31/17 [History] Insulin Glargine,Hum.Rec.Anlog [[place]ins Solostar] 110 unit SQ BEDTIME 07/31/17 [ History] Acetaminophen [Tylenol] 650 mg PO Q4H PRN tablet 09/04/17 [Rx] Albuterol/Ipratropium [DuoNeb 3.0-0.5 MG/3 ML] 3 ml INH QID PRN neb 09/04/17 [ Rx] DULoxetine [Cymbalta] 60 mg PO DAILY cap 09/04/17 [Rx] Furosemide [Lasix] 40 mg PO DAILY tablet 09/04/17 [Rx] Lisinopril [Prinivil] 10 mg PO DAILY tablet 09/04/17 [Rx] Theophylline [Estevan-24] 300 mg PO BID cap.er 09/04/17 [Rx] Tolterodine [Detrol LA 24 Hr] 8 mg PO DAILY cap.er 09/04/17 [Rx] Budesonide/Formoterol [Symbicort 160-4.5 MCG] 2 puff INH BID 09/16/17 [History] Insulin Aspart [NovoLOG] 30 units SQ TID 09/16/17 [History] Menthol/Zinc Oxide [Calmoseptine] 1 applic TOP BID 09/16/17 [History] Metoprolol Tartrate 25 mg PO BID 09/16/17 [History] Montelukast [Singulair] 10 mg PO BEDTIME 09/16/17 [History] Polymyxin B Sulf/Trimethoprim [Polytrim Eye Drops] 1 drop EYEBOTH QID 09/16/17 [ History] Potassium Chloride [Klor-Con 10] 10 meq PO DAILY 09/16/17 [History] Sulfamethoxazole/Trimethoprim [Bactrim Ds Tablet] 1 tab PO BID 09/16/17 [History ] Umeclidinium [place] [Incruse Ellipta*] 1 puff INH DAILY 09/16/17 [History] Warfarin [Coumadin] 5 mg PO DAILY 09/16/17 [History] methylPREDNISolone [Medrol] 4 mg PO ASDIRECTED #1 dosepk 09/16/17 [Rx] Past Medical History HEENT 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: Cataract, Impaired Vision Cardiovascular 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: Angina, High Cholesterol, Hypertension, SOB on Exertion, Other (See Below) Other Cardiovascular History: patient states has PRn nitro at home for occasional chest pains Respiratory 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: Asthma, COPD, Intubation, Previous, Pneumonia, Recurrent, Sleep Apnea, SOB Other Respiratory History: has CPAP Gastrointestinal 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: Cholelithiasis, GERD Genitourinary 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: Urinary Incontinence, Other (See Below) Other Genitourinary History: stress incontinence at times DIRECT MARKETING ANALYST 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: Other OB/BYN History: , Musculoskeletal 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: Back Pain, Chronic, Osteoarthritis, Osteoporosis, Other (See Below) Other Musculoskeletal History: BACK INJURY Neurological 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: Concussion, Neuropathy, Diabetic, Speech Problems Psychiatric 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: Depression Endocrine/Metabolic 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: Diabetes, Type II, Hypothyroidism Oncologic (Cancer) 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: Ovarian Dermatologic 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: Other (See Below) Other Dermatologic History: open infected wound under right abd fold on oral antibiotics - Infectious Disease History Infectious Disease 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: Chicken Pox - Past Surgical History HEENT Surgical 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: Cataract Surgery, Oral Surgery GI Surgical 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: Cholecystectomy, Colonoscopy Female Surgical 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: Hysterectomy, Salpingo-Oophorectomy Oncologic Surgical 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: None Social & Family History - Family History Family Medical History: Noncontributory HEENT: Reports: Cataract Cardiac: Reports: CAD, [place] Respiratory: Reports: Asthma, Sleep Apnea : Reports: Diabetic Nephropathy OBGYN: Reports: Musculoskeletal: Reports: Arthritis Endocrine/Metabolic: Reports: Diabetes, Type I, Diabetes, type II, IDDM, Obesity /MBI 30+ Dermatologic: Reports: None Oncologic: Reports: Bone, Breast, Other (See Below) Other Oncologic Family History: heart - Tobacco Use Smoking Status *Q: Former Smoker Years of Tobacco use: 39 Packs/Tins Daily: 2 Used Tobacco, but Quit: Yes Month Tobacco Last Used: MAY Second Hand Smoke Exposure: No - Caffeine Use Caffeine Use: Reports: Coffee, Soda Other Caffeine Use: daily - Alcohol Use Days Per Week of Alcohol Use: 0 - Recreational Drug Use Recreational Drug Use: No - Living Situation & Occupation Living situation: Reports: ED ROS GENERAL - Review of Systems Review Of Systems: Unable To Obtain (poor hisorian) ED EXAM, GENERAL - Physical Exam Exam: See Below Exam Limited By: Respiratory Distress General Appearance: Alert, WD/WN, Mild Distress, Obese Eye Exam: Bilateral Eye: Normal Inspection Ears: Normal External Exam Ear Exam: Bilateral Ear: Auricle Normal Nose: Normal Inspection, Normal Mucosa Throat/Mouth: Normal Inspection, Normal Lips Head: Atraumatic, Normocephalic Neck: Normal Inspection, Supple, Non-Tender, Full Range of Motion Respiratory/Chest: Respiratory Distress, Decreased Breath Sounds, Wheezing, Prolonged Expiration Cardiovascular: Normal Peripheral Pulses, Regular Rate, Rhythm Peripheral Pulses: 1+: Radial (R) GI/Abdominal: Normal Bowel Sounds, Soft, Non-Tender (Female) Exam: Deferred Rectal (Female) Exam: Deferred Back Exam: Normal Inspection, Full Range of Motion Extremities: Normal Inspection Neurological: Alert, Oriented, CN II-XII Intact, Normal Cognition, Other (gait not tested) Psychiatric: Normal Affect, Normal Mood Skin Exam: Warm, Dry, Intact, Normal Color, No Rash Lymphatic: No Adenopathy Course - Vital Signs Text/Narrative:: 52 y.o.w.f with a H/O PE, diagnosed 2 weeks ago, was tx as inpatient and released to the senior care at [facility] a few days ago. Her d dimer was > 2900 2 weeks ago. A nurse called me this pm stating, the pt has cp. RN gave her NG, Pain subsided, but her BP dropped. Pt has SOB as well and it felt like she had a PE again. As the patein t arrived here in the ed, her SBP was 112 and she C/O SOB. No C/P Pt is a poor historian and no family member was present. BP 128/ 70 O2 on 2 liters O2 was 92, Temp 36.6 RR was 19. pulse was 111.2 weeks ago, pt had a CTA pos for PE D Dimer was 2900 at that time, pt was tx for PE. PE: obese 52 y.o.w.f with sob, exp wheezes. Imaging: CXR NAD Labs: CBC, BMP WNL D Dimer 594 (down from 2900) Troponin was nl. INR 3.66 (pt is on Coumadin) Impression: COPD exacerbation. Hypertherapeutic INR level. H/O PE Tx: Duoneb, Solumendrol Reexam: Improved, O2 was 98 on 2 liters O2 on D/C. pt requested to be discharged to the IN Plan: D/C with instructions Last Recorded V/S: Last Vital Signs Temp 36.6 C 09/16/17 19:50 Pulse 78 09/16/17 19:50 Resp 16 09/16/17 21:30 BP 120/63 09/16/17 21:30 Pulse Ox 99 09/16/17 21:30 - Orders/Labs/Meds Orders: Active Orders 24 hr Category Date Time Status Oxygen Therapy Adult [Oxygen Therapy, ED] [RC] Care 09/16/17 21:23 Active ASDIRECTED RT Aerosol Therapy [RC] ASDIRECTED Care 09/16/17 19:55 Active Chest 1V Frontal [CR] Stat Exams 09/16/17 19:55 Taken Peripheral IV Insertion Adult [OM.PC] Routine Oth 09/16/17 20:14 Ordered Labs: Laboratory Tests 09/16/17 09/16/17 09/16/17 Range/Units 20:05 20:05 20:05 WBC 9.9 (4.5-12.0) X10-3/uL RBC 4.33 (3.23-5.20) x10(6)uL Hgb 11.5 (11.5-15.5) g/dL Hct 35.5 (30.0-51.3) % MCV 82.1 (80-96) fL MCH 26.6 L (27.7-33.6) pg MCHC 32.4 (32.2-35.4) g/dL RDW 18.4 H (11.5-15.5) % Plt Count 217 (125-369) X10(3)uL MPV 8.8 (7.4-10.4) fL Neut % (Auto) 72.9 (46-82) % Lymph % (Auto) 19.3 (13-37) % Pierce % (Auto) 5.9 (4-12) % Eos % (Auto) 0 L (1.0-5.0) % Baso % (Auto) 2 (0-2) % Neut # (Auto) 7.2 (1.6-8.3) # Lymph # (Auto) 1.9 (0.6-5.0) # Pierce # (Auto) 0.6 (0.0-1.3) # Eos # (Auto) 0.0 (0.0-0.8) # Baso # (Auto) 0.2 (0.0-0.2) # PT 38.3 H* (8.7-11.1) INR 3.69 H (0.89-1.13) D-Dimer, Quantitative 594 H (100-400) ng/mL Sodium (135-145) mmol/L Potassium (3.5-5.3) mmol/L Chloride (100-110) mmol/L Carbon Dioxide (21-32) mmol/L BUN (7-18) mg/dL Creatinine (0.55-1.02) mg/dL Est Cr Clr Drug Dosing Estimated GFR (MDRD) (>60) BUN/Creatinine Ratio (9-20) Glucose (80-116) mg/dL Calcium (8.6-10.2) mg/dL Troponin I (<0.017-0.056) ng/mL 09/16/17 09/16/17 Range/Units 20:05 20:05 WBC (4.5-12.0) X10-3/uL RBC (3.23-5.20) x10(6)uL Hgb (11.5-15.5) g/dL Hct (30.0-51.3) % MCV (80-96) fL MCH (27.7-33.6) pg MCHC (32.2-35.4) g/dL RDW (11.5-15.5) % Plt Count (125-369) X10(3)uL MPV (7.4-10.4) fL Neut % (Auto) (46-82) % Lymph % (Auto) (13-37) % Pierce % (Auto) (4-12) % Eos % (Auto) (1.0-5.0) % Baso % (Auto) (0-2) % Neut # (Auto) (1.6-8.3) # Lymph # (Auto) (0.6-5.0) # Pierce # (Auto) (0.0-1.3) # Eos # (Auto) (0.0-0.8) # Baso # (Auto) (0.0-0.2) # PT (8.7-11.1) INR (0.89-1.13) D-Dimer, Quantitative (100-400) ng/mL Sodium 142 (135-145) mmol/L Potassium 4.0 (3.5-5.3) mmol/L Chloride 103 (100-110) mmol/L Carbon Dioxide 30 (21-32) mmol/L BUN 15 (7-18) mg/dL Creatinine 1.0 (0.55-1.02) mg/dL Est Cr Clr Drug Dosing TNP Estimated GFR (MDRD) 58 L (>60) BUN/Creatinine Ratio 15.0 (9-20) Glucose 262 H D (80-116) mg/dL Calcium 9.8 (8.6-10.2) mg/dL Troponin I < 0.017 L (<0.017-0.056) ng/mL Meds: Medications Discontinued Medications Generic Name Dose Route Start Last Admin Trade Name Freq PRN Reason Stop Dose Admin Albuterol/Ipratropium 3 ml 09/16/17 19:55 09/16/17 20:14 Duoneb 3.0-0.5 Mg/3 Ml NEB 09/16/17 19:56 3 ml ONETIME ONE Administration Methylprednisolone Sodium Succinate 125 mg 09/16/17 19:56 09/16/17 20:14 Solu-Medrol IVPUSH 09/16/17 19:57 125 mg ONETIME ONE Administration Sodium Chloride 10 ml 09/16/17 20:14 09/16/17 20:15 Saline Flush FLUSH 10 ml ASDIRECTED PRN Administration Keep Vein Open Departure - Departure Time of Disposition: 21:14 Disposition: Home, Self-Care 01 Condition: Good Clinical Impression: COPD exacerbation, Elevated d-dimer, Hx of pulmonary emphysema, Elevated INR ( international normalized ratio) due to prior anticoagulant medication ingestion Pulmonary emboli Qualifiers: Pulmonary embolism type: saddle Chronicity: chronic Acute cor pulmonale presence: without acute cor pulmonale Qualified Code(s): I26.92 - Saddle embolus of pulmonary artery without acute cor pulmonale - Discharge Information Prescriptions: methylPREDNISolone [Medrol] 4 mg PO ASDIRECTED #1 dosepk Referrals: Jacinto Jones MD [Primary Care Provider] - Forms: ED Department Discharge Additional Instructions: Hold coumadine for one day Give medrol dose pac and albuterol nebs as scheduled. Please f/u in 2-3 days, please come back if your symptoms get worse acutely - My Orders Last 24 Hours: My Active Orders 09/16/17 19:55 RT Aerosol Therapy [RC] ASDIRECTED Chest 1V Frontal [CR] Stat 09/16/17 20:14 Peripheral IV Insertion Adult [OM.PC] Routine 09/16/17 21:23 Oxygen Therapy Adult [Oxygen Therapy, ED] [RC] ASDIRECTED - Assessment/Plan Last 24 Hours: My Active Orders 09/16/17 19:55 RT Aerosol Therapy [RC] ASDIRECTED Chest 1V Frontal [CR] Stat 09/16/17 20:14 Peripheral IV Insertion Adult [OM.PC] Routine 09/16/17 21:23 Oxygen Therapy Adult [Oxygen Therapy, ED] [RC] ASDIRECTED
[2017-09-16 22:23] VITALS: BP 120/63
--- NOTE | 2017-09-18 11:56 | CR ---
INDICATION: Short of breath. CHEST: A single AP upright portable view of the chest 09/16/2017 was compared with 08/02/2017 and 11/28/2015, revealing somewhat prominent heart, likely at the upper limits of normal in size or slightly enlarged. The aorta is mildly tortuous with minimal calcification in the arch. Overlying EKG leads are noted. A definite active infiltrate or effusion was not identified. No definite evidence of CHF is seen on the current study. Lungs appear to be slightly hyperaerated. IMPRESSION: 1. No definite acute process. 2. Probable ASHD, heart at the upper limits of normal in size or slightly enlarged. 3. Exogenous obesity. MTDD
== END 2017-09-16 21:50 | disposition home or self-care (01) ==
LOC: FB.ED 19:49
DX: I26.92 Saddle embolus of pulmonary artery without acute cor pulmonale (principal); J44.1 Chronic obstructive pulmonary disease with (acute) exacerbation; R79.1 Abnormal coagulation profile; I10 Essential (primary) hypertension; E78.00 Pure hypercholesterolemia, unspecified; G47.30 Sleep apnea, unspecified; K21.9 Gastro-esophageal reflux disease without esophagitis; E11.40 Type 2 diabetes mellitus with diabetic neuropathy, unspecified; E03.9 Hypothyroidism, unspecified; F32.9 Major depressive disorder, single episode, unspecified; Z87.891 Personal history of nicotine dependence; Z79.4 Long term (current) use of insulin; Z79.01 Long term (current) use of anticoagulants; Z79.899 Other long term (current) drug therapy; Z88.6 Allergy status to analgesic agent; Z91.048 Other nonmedicinal substance allergy status; E11.9 Type 2 diabetes mellitus without complications
CPT/HCPCS: 36415; 71045; 80048; 84484; 85025; 85379; 85610; 94640; 99284; 99285; J2930; J7050; J7620; 96374

== ENCOUNTER 2017-09-26 05:34 | Emergency (ER) | payer MEDICARE, MEDICAID ==
[2017-09-26] MEDS ORDERED: traMADol 50 MG Tab PO ONE (06:16)
--- NOTE | 2017-09-26 06:20 | EDM.PDOC ---
ED HPI GENERAL MEDICAL PROBLEM - General Chief Complaint: Back Pain or Injury Stated Complaint: FALL HURT LT ARM AND HEAD INJURY Time Seen by Provider: 09/26/17 06:00 Source of Information: Reports: Patient, Longterm Records History Limitations: Reports: No Limitations - History of Present Illness INITIAL COMMENTS - FREE TEXT/NARRATIVE: Gaby is a resident of [facility] for a month in rehab following a serious illness in [place], [place] where she was on a ventilator for respiratory failure. She has been improving, and was up to the bathroom with her walker this am. She apparently lost balance and fell, striking her R posterior scalp, L elbow, and lower back on the way down to the floor. She doesn't think she was unconscious, but is vague about details of help that arrived. Her neck is chronically sore, and she has been wearing a soft collar for comfort. She is a Type II DM on insulin, FRANCA, CAD and COPD. left arm and the back of the head Pain Score (Numeric/FACES): 10 - Related Data Allergies Allergy/AdvReac Type Severity Reaction Status Date / Time aspirin Allergy Other Verified 09/26/17 05:43 mold Allergy Airway Uncoded 09/26/17 05:43 Tightness Home Meds: Home Meds Simvastatin [Zocor] 10 mg PO BEDTIME 11/06/13 [History] metFORMIN [Glucophage] 500 mg PO BID 05/04/17 [History] Gabapentin [Neurontin] 600 mg PO QID 07/31/17 [History] Insulin Glargine,Hum.Rec.Anlog [Inocencio Solsaira] 110 unit SQ BEDTIME 07/31/17 [ History] Acetaminophen [Tylenol] 650 mg PO Q4H PRN tablet 09/04/17 [Rx] Albuterol/Ipratropium [DuoNeb 3.0-0.5 MG/3 ML] 3 ml INH QID PRN neb 09/04/17 [ Rx] DULoxetine [Cymbalta] 60 mg PO DAILY cap 09/04/17 [Rx] Furosemide [Lasix] 40 mg PO DAILY tablet 09/04/17 [Rx] Lisinopril [Prinivil] 10 mg PO DAILY tablet 09/04/17 [Rx] Theophylline [Estevan-24] 300 mg PO BID cap.er 09/04/17 [Rx] Tolterodine [Detrol LA 24 Hr] 8 mg PO DAILY cap.er 09/04/17 [Rx] Budesonide/Formoterol [Symbicort 160-4.5 MCG] 2 puff INH BID 09/16/17 [History] Insulin Aspart [NovoLOG] 34 units SQ TID 09/16/17 [History] Menthol/Zinc Oxide [Calmoseptine] 1 applic TOP BID 09/16/17 [History] Metoprolol Tartrate 25 mg PO BID 09/16/17 [History] Montelukast [Singulair] 10 mg PO BEDTIME 09/16/17 [History] Potassium Chloride [Klor-Con 10] 10 meq PO DAILY 09/16/17 [History] Umeclidinium Peever [Incruse Ellipta*] 1 puff INH BEDTIME 09/16/17 [History] Warfarin [Coumadin] 5 mg PO MOWE 09/16/17 [History] methylPREDNISolone [Medrol] 4 mg PO ASDIRECTED #1 dosepk 09/16/17 [Rx] Bisacodyl [Dulcolax] 10 mg RECTAL ASDIRECTED PRN 09/26/17 [History] Lactulose 15 ml PO DAILY PRN 09/26/17 [History] Loperamide [Imodium] 2 mg PO ASDIRECTED PRN 09/26/17 [History] Magnesium Hydroxide [Milk of Magnesia] 30 ml PO DAILY PRN 09/26/17 [History] Nitroglycerin [Nitrostat] 0.4 mg PO ASDIRECTED PRN 09/26/17 [History] Warfarin [Coumadin] 7.5 mg PO TUTH 09/26/17 [History] guaiFENesin [Robitussin] 10 ml PO ASDIRECTED PRN 09/26/17 [History] traMADol [Ultram] 50 mg PO TID PRN 09/26/17 [History] Past Medical History HEENT 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: Cataract, Impaired Vision Cardiovascular 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: Angina, High Cholesterol, Hypertension, SOB on Exertion, Other (See Below) Other Cardiovascular History: patient states has PRn nitro at home for occasional chest pains Respiratory 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: Asthma, COPD, Intubation, Previous, Pneumonia, Recurrent, Sleep Apnea, SOB Other Respiratory History: has CPAP Gastrointestinal 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: Cholelithiasis, GERD Genitourinary 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: Urinary Incontinence, Other (See Below) Other Genitourinary History: stress incontinence at times [employer] 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: Other OB/BYN History: , Musculoskeletal 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: Back Pain, Chronic, Osteoarthritis, Osteoporosis, Other (See Below) Other Musculoskeletal History: BACK INJURY Neurological 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: Concussion, Neuropathy, Diabetic, Speech Problems Psychiatric 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: Depression Endocrine/Metabolic 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: Diabetes, Type II, Hypothyroidism Oncologic (Cancer) 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: Ovarian Dermatologic 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: Other (See Below) Other Dermatologic History: open infected wound under right abd fold on oral antibiotics - Infectious Disease History Infectious Disease 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: Chicken Pox - Past Surgical History HEENT Surgical 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: Cataract Surgery, Oral Surgery GI Surgical 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: Cholecystectomy, Colonoscopy Female Surgical 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: Hysterectomy, Salpingo-Oophorectomy Oncologic Surgical 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: None Social & Family History - Family History Family Medical History: Noncontributory HEENT: Reports: Cataract Cardiac: Reports: CAD, MS Respiratory: Reports: Asthma, Sleep Apnea : Reports: Diabetic Nephropathy OBGYN: Reports: Musculoskeletal: Reports: Arthritis Endocrine/Metabolic: Reports: Diabetes, Type I, Diabetes, type II, IDDM, Obesity /MBI 30+ Dermatologic: Reports: None Oncologic: Reports: Bone, Breast, Other (See Below) Other Oncologic Family History: heart - Tobacco Use Smoking Status *Q: Former Smoker Years of Tobacco use: 39 Packs/Tins Daily: 2 Used Tobacco, but Quit: Yes Month/Year Tobacco Last Used: MAY Second Hand Smoke Exposure: No - Caffeine Use Caffeine Use: Reports: Coffee, Soda Other Caffeine Use: daily - Alcohol Use Days Per Week of Alcohol Use: 0 - Recreational Drug Use Recreational Drug Use: No - Living Situation & Occupation Living situation: Reports: ED ROS GENERAL - Review of Systems Review Of Systems: See Below Constitutional: Reports: No Symptoms HEENT: Reports: No Symptoms Respiratory: Reports: No Symptoms Cardiovascular: Reports: No Symptoms Endocrine: Reports: Fatigue GI/Abdominal: Reports: No Symptoms : Reports: No Symptoms Musculoskeletal: Reports: Neck Pain, Back Pain, Other (pain L elbow) Skin: Reports: No Symptoms Neurological: Reports: Numbness, Pre-Existing Deficit, Tingling, Difficulty Walking Psychiatric: Reports: Depression Hematologic/Lymphatic: Reports: No Symptoms Immunologic: Reports: No Symptoms ED EXAM, GENERAL - Physical Exam Exam: See Below Exam Limited By: No Limitations General Appearance: Alert, WD/WN, Mild Distress Eye Exam: Bilateral Eye: EOMI, Normal Inspection, PERRL Ears: Normal External Exam, Normal TMs Nose: Normal Inspection Throat/Mouth: Normal Inspection, Normal Oropharynx Head: Normocephalic, Other (R posteror scalp tenderness, mild swelling, no step off) Neck: Normal Inspection, Limited Range of Motion (tenderness to lateral and rotary bending) Respiratory/Chest: Chest Non-Tender, Decreased Breath Sounds, Prolonged Expiration Cardiovascular: Regular Rate, Rhythm, No Edema, No Murmur GI/Abdominal: Normal Bowel Sounds, Soft, Non-Tender, No Organomegaly, No Distention, No Mass (Female) Exam: Deferred Rectal (Female) Exam: Deferred Back Exam: Decreased Range of Motion, Other (tenderness L5S1, neg SI, neg SN; RSLR is full) Extremities: Normal Inspection, Limited Range of Motion (L elbow, no visible swelling or deformity) Neurological: Alert, Oriented, CN II-XII Intact, Normal Cognition, Sensory/ Motor Deficit (chronic) Psychiatric: Normal Affect, Normal Mood Skin Exam: Warm, Dry, Intact, Normal Color Lymphatic: No Adenopathy Course - Vital Signs Text/Narrative:: Following assessment in the ED, Gaby was administered a Tramadol 50 mg tab pending results of x rays: CT head wo contrast: no fx or internal defect identified; CT C-spine: degenerative changes noted, no fx; CT L-spine: degenerative changes noted, no fx: L elbow: no fx identified: CBC noted Hgb 11, WBC 10,800, plts normal; BMP noted non FBS 284 mg%. Contusions to scalp and L elbow are apparent, with chronic pain affecting C spine and L spine. Last Recorded V/S: Last Vital Signs Temp 36.8 C 09/26/17 05:35 Pulse 103 H 09/26/17 05:35 Resp 17 09/26/17 05:35 BP 125/81 09/26/17 05:35 Pulse Ox 97 09/26/17 05:35 - Orders/Labs/Meds Orders: Active Orders 24 hr Category Date Time Status Cervical Spine wo Cont [CT] Stat Exams 09/26/17 07:06 Taken Elbow Min 3V Lt [CR] Stat Exams 09/26/17 06:13 Ordered Head wo Cont [CT] Stat Exams 09/26/17 06:15 Taken Lumbar Spine Comp w Obl Bend [CR] Stat Exams 09/26/17 06:13 Stop Req Lumbar Spine wo Cont [CT] Stat Exams 09/26/17 07:01 Taken Labs: Laboratory Tests 09/26/17 09/26/17 09/26/17 Range/Units 06:30 06:30 06:30 WBC 10.8 (4.5-12.0) X10-3/uL RBC 4.09 (3.23-5.20) x10(6)uL Hgb 11.0 L (11.5-15.5) g/dL Hct 33.5 (30.0-51.3) % MCV 81.8 (80-96) fL MCH 26.8 L (27.7-33.6) pg MCHC 32.8 (32.2-35.4) g/dL RDW 17.2 H (11.5-15.5) % Plt Count 278 (125-369) X10(3)uL MPV 8.6 (7.4-10.4) fL Neut % (Auto) 72.4 (46-82) % Lymph % (Auto) 14.4 (13-37) % [place] % (Auto) 9.4 (4-12) % Eos % (Auto) 0 L (1.0-5.0) % Baso % (Auto) 4 H (0-2) % Neut # (Auto) 7.8 (1.6-8.3) # Lymph # (Auto) 1.6 (0.6-5.0) # [place] # (Auto) 1.0 (0.0-1.3) # Eos # (Auto) 0.0 (0.0-0.8) # Baso # (Auto) 0.4 H (0.0-0.2) # PT 30.7 H (8.7-11.1) INR 2.97 H (0.89-1.13) Sodium 138 (135-145) mmol/L Potassium 4.3 (3.5-5.3) mmol/L Chloride 101 (100-110) mmol/L Carbon Dioxide 28 (21-32) mmol/L BUN 16 (7-18) mg/dL Creatinine 0.6 (0.55-1.02) mg/dL Est Cr Clr Drug Dosing 100.34 mL/min Estimated GFR (MDRD) > 60 (>60) BUN/Creatinine Ratio 26.7 H (9-20) Glucose 284 H (80-116) mg/dL Calcium 9.3 (8.6-10.2) mg/dL Meds: Medications Discontinued Medications Generic Name Dose Route Start Last Admin Trade Name Camilla PRN Reason Stop Dose Admin Tramadol HCl 50 mg 09/26/17 06:16 09/26/17 06:30 Ultram PO 09/26/17 06:17 50 mg ONETIME ONE Administration Departure - Departure Time of Disposition: 09:16 Disposition: DC/Tfer to SNF 03 Condition: Fair Clinical Impression: Chronic back pain, Arthralgia, cervical spine Contusion of scalp Qualifiers: Encounter type: initial encounter Qualified Code(s): S00.03XA - Contusion of scalp, initial encounter Contusion of left elbow and forearm Qualifiers: Encounter type: initial encounter Qualified Code(s): S50.12XA - Contusion of left forearm, initial encounter - Discharge Information Referrals: Jacinto Jones MD [Primary Care Provider] - Forms: ED Department Discharge - Problem List & Annotations (1) Chronic back pain SNOMED Code(s): 646145998 Code(s): M54.9 - DORSALGIA, UNSPECIFIED; G89.29 - OTHER CHRONIC PAIN Status : Chronic Current Visit: Yes Annotation/Comment:: Analgesic per SNF, PT, activity as tolerated (2) Arthralgia, cervical spine SNOMED Code(s): 52724858 Code(s): M54.2 - CERVICALGIA Status: Acute Current Visit: Yes Annotation/Comment:: Analgesic per SNF, PT (3) Contusion of left elbow and forearm SNOMED Code(s): 247249495 Code(s): S50.12XA - CONTUSION OF LEFT FOREARM, INITIAL ENCOUNTER Status: Acute Current Visit: Yes Annotation/Comment:: Analgesic per SNF: PT Qualifiers: Encounter type: initial encounter Qualified Code(s): S50.12XA - Contusion of left forearm, initial encounter (4) Contusion of scalp SNOMED Code(s): 29047925 Code(s): S00.03XA - CONTUSION OF SCALP, INITIAL ENCOUNTER Status: Acute Current Visit: Yes Annotation/Comment:: Cool packs for comfort, analgesic per SNF Qualifiers: Encounter type: initial encounter Qualified Code(s): S00.03XA - Contusion of scalp, initial encounter - Problem List Review Problem List Initiated/Reviewed/Updated: Yes - My Orders Last 24 Hours: My Active Orders 09/26/17 06:13 Elbow Min 3V Lt [CR] Stat Lumbar Spine Comp w Obl Bend [CR] Stat 09/26/17 06:15 Head wo Cont [CT] Stat 09/26/17 07:01 Lumbar Spine wo Cont [CT] Stat 09/26/17 07:06 Cervical Spine wo Cont [CT] Stat - Assessment/Plan Last 24 Hours: My Active Orders 09/26/17 06:13 Elbow Min 3V Lt [CR] Stat Lumbar Spine Comp w Obl Bend [CR] Stat 09/26/17 06:15 Head wo Cont [CT] Stat 09/26/17 07:01 Lumbar Spine wo Cont [CT] Stat 09/26/17 07:06 Cervical Spine wo Cont [CT] Stat Plan: Follow up with PCP.
[2017-09-26 09:19] VITALS: BP 101/68
--- NOTE | 2017-09-26 10:37 | CR ---
INDICATION: Fall. LEFT ELBOW: Three images of the left elbow in frontal and lateral projections revealed hypertrophic degenerative changes of mild degree at the medial joint compartment. The joint space appears to be fairly well maintained. The lateral elbow joint compartment was unremarkable. No evidence of a fracture, dislocation, joint effusion, or other significant bone or joint abnormality of an acute nature could be identified. IMPRESSION: 1. No acute fracture or dislocation. 2. Osteoarthritis medial elbow joint compartment. [facility]
== END 2017-09-26 09:23 ==
LOC: FB.ED 05:34
DX: S00.03XA Contusion of scalp, initial encounter (principal); S50.12XA Contusion of left forearm, initial encounter; M54.5 Low back pain; G89.29 Other chronic pain; M54.2 Cervicalgia; E11.40 Type 2 diabetes mellitus with diabetic neuropathy, unspecified; E03.9 Hypothyroidism, unspecified; Z87.891 Personal history of nicotine dependence; Z88.8 Allergy status to other drugs, medicaments and biological substances; Z91.048 Other nonmedicinal substance allergy status; Z79.899 Other long term (current) drug therapy; Z79.4 Long term (current) use of insulin; E78.00 Pure hypercholesterolemia, unspecified; W18.00XA Striking against unspecified object with subsequent fall, initial encounter
CPT/HCPCS: 36415; 70450; 72125; 72131; 73080; 80048; 85025; 85610; 99284; A9270

== ENCOUNTER 2018-01-22 17:22 | Inpatient (IN) | payer MEDICARE, MEDICAID ==
[2018-01-22] MEDS ORDERED: Albuterol/Ipratropium 3.0-0.5 MG/3 ML Neb Soln NEB ONE (17:30)
--- NOTE | 2018-01-22 17:41 | EDM.PDOC ---
ED HPI GENERAL MEDICAL PROBLEM - General Chief Complaint: Respiratory Problem Stated Complaint: SHORTNESS OF BREATH Time Seen by Provider: 01/22/18 17:22 Source of Information: Reports: Patient, EMS, Family History Limitations: Reports: Physical Impairment - History of Present Illness INITIAL COMMENTS - FREE TEXT/NARRATIVE: 52 y.o.w.f morbid obese, with multiple medical issues, came by EMS to the ed because of SOB and chest pain. Pt was not able to give a HOP due to her underlying symptoms. No N/V/D or dizziness BP 111/56 RR 28 Pulse ox 96% on 2 liters O2 by NC. Temp 37.7 Pulse 120. Onset Date: 01/19/18 Onset Time: 09:00 Duration: Day(s):, Getting Worse Location: Reports: Chest Quality: Reports: Dull, Pressure, Same as Previous Episode Severity: Moderate Improves with: Reports: Rest Worsens with: Reports: Movement Context: Reports: Other (body habitus) Associated Symptoms: Reports: Chest Pain, Cough, Weakness Middle Chest Pain Score (Numeric/FACES): 5 - Related Data Allergies Allergy/AdvReac Type Severity Reaction Status Date / Time aspirin Allergy Rash Verified 01/22/18 17:36 mold Allergy Airway Uncoded 01/22/18 17:36 Tightness Home Meds: Home Meds Simvastatin [Zocor] 10 mg PO BEDTIME 11/06/13 [History] metFORMIN [Glucophage] 500 mg PO BID 05/04/17 [History] Gabapentin [Neurontin] 600 mg PO TID 07/31/17 [History] Acetaminophen [Tylenol] 650 mg PO Q4H PRN tablet 09/04/17 [Rx] Albuterol/Ipratropium [DuoNeb 3.0-0.5 MG/3 ML] 3 ml INH QID PRN neb 09/04/17 [ Rx] DULoxetine [Cymbalta] 60 mg PO DAILY cap 09/04/17 [Rx] Furosemide [Lasix] 40 mg PO DAILY tablet 09/04/17 [Rx] Lisinopril [Prinivil] 10 mg PO DAILY tablet 09/04/17 [Rx] Budesonide/Formoterol [Symbicort 160-4.5 MCG] 2 puff INH BID 09/16/17 [History] Insulin Aspart [NovoLOG] 40 units SQ TIDMEALS 09/16/17 [History] Metoprolol Tartrate 25 mg PO BID 09/16/17 [History] Montelukast [Singulair] 10 mg PO BEDTIME 09/16/17 [History] Potassium Chloride [Klor-Con 10] 10 meq PO DAILY 09/16/17 [History] Umeclidinium Lesage [Incruse Ellipta*] 1 puff INH BEDTIME 09/16/17 [History] Warfarin [Coumadin] 5 mg PO SUTUTHSA 09/16/17 [History] Nitroglycerin [Nitrostat] 0.4 mg PO Q5M PRN 09/26/17 [History] Warfarin [Coumadin] 7.5 mg PO MOWEFR 09/26/17 [History] traMADol [Ultram] 50 mg PO TID PRN 09/26/17 [History] Albuterol [Ventolin HFA] 2 puff INH Q4H PRN 01/23/18 [History] Cyclobenzaprine [Flexeril] 10 mg PO TID 01/23/18 [History] Insulin Degludec [Tresiba Flextouch U-200] 110 units SUBCUT BEDTIME 01/23/18 [ History] Theophylline [Theophylline Anhydrous] 300 mg PO BID 01/23/18 [History] Past Medical History HEENT 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: Cataract, Impaired Vision Cardiovascular 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: Angina, High Cholesterol, Hypertension, SOB on Exertion, Other (See Below) Other Cardiovascular History: patient states has PRn nitro at home for occasional chest pains Respiratory 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: Asthma, COPD, Intubation, Previous, Pneumonia, Recurrent, Sleep Apnea, SOB Other Respiratory History: has CPAP Gastrointestinal 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: Cholelithiasis, GERD Genitourinary 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: Urinary Incontinence, Other (See Below) Other Genitourinary History: stress incontinence at times FAMILY ENGAGEMENT SPECIALIST 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: Other FAMILY ENGAGEMENT SPECIALIST History: , Musculoskeletal 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: Back Pain, Chronic, Osteoarthritis, Osteoporosis, Other (See Below) Other Musculoskeletal History: BACK INJURY Neurological 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: Concussion, Neuropathy, Diabetic, Speech Problems Psychiatric 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: Depression Endocrine/Metabolic 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: Diabetes, Type II, Hypothyroidism Oncologic (Cancer) 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: Ovarian Dermatologic 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: Other (See Below) Other Dermatologic History: open infected wound under right abd fold on oral antibiotics - Infectious Disease History Infectious Disease 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: Chicken Pox - Past Surgical History HEENT Surgical 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: Cataract Surgery, Oral Surgery GI Surgical 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: Cholecystectomy, Colonoscopy Female Surgical 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: Hysterectomy, Salpingo-Oophorectomy Oncologic Surgical 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: None Social & Family History - Family History Family Medical History: Noncontributory HEENT: Reports: Cataract Cardiac: Reports: CAD, [place] Respiratory: Reports: Asthma, Sleep Apnea : Reports: Diabetic Nephropathy OBGYN: Reports: Musculoskeletal: Reports: Arthritis Endocrine/Metabolic: Reports: Diabetes, Type I, Diabetes, type II, IDDM, Obesity /MBI 30+ Dermatologic: Reports: None Oncologic: Reports: Bone, Breast, Other (See Below) Other Oncologic Family History: heart - Caffeine Use Caffeine Use: Reports: Coffee, Soda Other Caffeine Use: daily - Living Situation & Occupation Living situation: Reports: ED ROS GENERAL - Review of Systems Review Of Systems: Unable To Obtain (poor historian) ED EXAM, GENERAL - Physical Exam Exam: See Below Exam Limited By: Physical Impairment General Appearance: Alert, WD/WN, Obese (morbid obese) Eye Exam: Bilateral Eye: Normal Inspection Ears: Normal External Exam Ear Exam: Bilateral Ear: Auricle Normal Nose: Normal Inspection, Normal Mucosa Throat/Mouth: Normal Lips, Normal Voice, No Airway Compromise Head: Atraumatic, Normocephalic Neck: Normal Inspection, Supple, Non-Tender, Full Range of Motion Respiratory/Chest: No Accessory Muscle Use (on O2 by NC), Respiratory Distress, Decreased Breath Sounds (left lung), Rhonchi, Wheezing Cardiovascular: Normal Peripheral Pulses, Regular Rate, Rhythm, Other (chronic leg edema) Peripheral Pulses: 2+: Brachial (R) GI/Abdominal: Normal Bowel Sounds, Soft, Non-Tender (Female) Exam: Deferred Rectal (Female) Exam: Deferred Back Exam: Normal Inspection, Full Range of Motion Extremities: Normal Range of Motion, Pedal Edema (chronic) Neurological: Alert, CN II-XII Intact, Abnormal Gait (unable to ambulate due to body habitus) Psychiatric: Normal Affect, Depressed Mood Skin Exam: Warm, Dry, Intact, Normal Color, No Rash Lymphatic: No Adenopathy EKG INTERPRETATION EKG Date: 01/22/18 Time: 17:35 Rhythm: NSR Rate (Beats/Min): 118 [place]: Normal P-Wave: Present QRS: Normal ST-T: Normal QT: Normal Comparison: NA - No Prior EKG EKG Interpretation Comments: Low Voltage KENA Course - Vital Signs Text/Narrative:: 52 y.o.w.f morbid obese, with multiple medical issues, came by EMS to the ed because of SOB and chest pain. Pt was not able to give a HOP due to her underlying symptoms. No N/V/D or dizziness BP 111/56 RR 28 Pulse ox 96% on 2 liters O2 by NC. Temp 37.7 Pulse 120. PE: Morbid obes 52 y.o.w.f came to the ed with SOB and chest pain. Imaging: CXR: LLL infiltrate, possible pneumonia as per RAD Labs: CBC was NL MCV was 75.6 BMP was nl Troponin 0.017 Glc 201 Lactic acid 1.9 (nl) BCx results are panding, UA neg for UTI Impression: LLL of lung infiltrate Tx: Duo neb, Levoquine, Ultram, Toradol, 6.45 pm Consultation: Robert Hospitalist: Accepted the pt for inpatient admission. Reexam: Pts' symptoms improved Plan: Admit to [facility] Last Recorded V/S: Last Vital Signs Temp 36.4 C 01/23/18 07:10 Pulse 70 01/23/18 08:39 Resp 24 H 01/23/18 07:10 BP 110/72 01/23/18 07:10 Pulse Ox 96 01/23/18 08:39 - Orders/Labs/Meds Orders: Active Orders 24 hr Category Date Time Status RT Aerosol Therapy [RC] ASDIRECTED Care 01/22/18 17:30 Active CXR [Chest 1V Frontal] [CR] Stat Exams 01/22/18 17:27 Taken CULTURE BLOOD [BC] Urgent Lab 01/22/18 19:55 Received CULTURE BLOOD [BC] Urgent Lab 01/22/18 20:00 Received UA W/MICROSCOPIC [URIN] Stat Lab 01/22/18 22:05 Ordered Blood Culture x2 Reflex Set [OM.PC] Urgent Oth 01/22/18 19:14 Ordered EKG 12 Lead [EK] Routine Ther 01/22/18 17:27 Ordered Medication Orders Acetaminophen (Tylenol) 650 mg PO Q4H PRN PRN Reason: Pain (Mild 1-3)/fever Acetaminophen (Tylenol) 650 mg PO Q4H PRN PRN Reason: fever/pain Albuterol/Ipratropium (Duoneb 3.0-0.5 Mg/3 Ml) 3 ml NEB Q4H PRN PRN Reason: sob Last Admin: 01/23/18 08:38 Dose: 3 ml Admin: 01/23/18 02:22 Dose: 3 ml Cyclobenzaprine HCl (Flexeril) [address] [facility] Duloxetine HCl (Cymbalta) [address] [facility] Furosemide (Lasix) [address] [facility] Gabapentin (Neurontin) [address] [facility] Levofloxacin/Dextrose 750 mg/ (Premix) 150 mls @ 100 mls/hr IV Q24H [facility] Insulin Human Lispro (Humalog) [address] [facility] Lisinopril (Prinivil) [address] [facility] Metformin HCl (Glucophage) [address] [facility] Methylprednisolone Sodium Succinate (Solu-Medrol) [address] [facility] Metoprolol Tartrate (Lopressor) [address] [facility] Mometasone Furoate/Formoterol Fumar (Dulera 200-5 Mcg) [address] [facility] Montelukast Sodium (Singulair) [address] [facility] Nitroglycerin (Nitrostat) 0.4 mg SL Q5M PRN PRN Reason: Chest Pain Non-Formulary Medication (Insulin Degludec) [address] [facility] Non-Formulary Medication (Theophylline [Theophylline Anhydrous]) [address] [facility] Non-Formulary Medication (Warfarin [Coumadin]) 7.[address] [facility] Ondansetron HCl (Zofran) 4 mg IV Q4H PRN PRN Reason: Nausea/Vomiting Potassium Chloride (Klor-Con 10) [address] [facility] Simvastatin (Zocor) [address] [facility] Sodium Chloride (Saline Flush) 10 ml FLUSH ASDIRECTED PRN PRN Reason: Keep Vein Open Last Admin: 01/22/18 20:20 Dose: 10 ml Tiotropium Lesage (Spiriva Handihaler) [address] [facility] Warfarin Sodium (Coumadin) [address] [facility] Warfarin Sodium (Coumadin Sliding Scale) [address] [facility] Labs: Laboratory Tests 01/22/18 01/22/18 01/22/18 Range/Units 17:40 17:40 17:40 WBC (4.5-12.0) X10-3/uL RBC (3.23-5.20) x10(6)uL Hgb (11.5-15.5) g/dL Hct (30.0-51.3) % MCV (80-96) fL MCH (27.7-33.6) pg MCHC (32.2-35.4) g/dL RDW (11.5-15.5) % Plt Count (125-369) X10(3)uL MPV (7.4-10.4) fL Add Manual Diff Neutrophils % (Manual) (46-82) % Band Neutrophils % (0-6) % Lymphocytes % (Manual) (13-37) % Monocytes % (Manual) (4-12) % Anisocytosis Microcytosis Sodium (135-145) mmol/L Potassium (3.5-5.3) mmol/L Chloride (100-110) mmol/L Carbon Dioxide (21-32) mmol/L BUN (7-18) mg/dL Creatinine (0.55-1.02) mg/dL Est Cr Clr Drug Dosing mL/min Estimated GFR (MDRD) (>60) BUN/Creatinine Ratio (9-20) Glucose (80-116) mg/dL Lactic Acid 1.9 (0.4-2.2) mmol/L Calcium (8.6-10.2) mg/dL Total Bilirubin (0.1-1.3) mg/dL Direct Bilirubin (0.10-0.20) mg/dL AST (5-25) IU/L ALT (12-36) U/L Alkaline Phosphatase (56-112) IU/L Creatine Kinase 128 (60-160) IU/L Troponin I < 0.017 L (<0.017-0.056) ng/mL Total Protein (6.0-8.0) g/dL Albumin (3.5-5.2) g/dL Amylase (25-115) U/L 01/22/18 01/22/18 Range/Units 17:40 17:40 WBC 11.6 (4.5-12.0) X10-3/uL RBC 4.84 (3.23-5.20) x10(6)uL Hgb 11.9 (11.5-15.5) g/dL Hct 37.0 (30.0-51.3) % MCV 76.5 L (80-96) fL MCH 24.5 L (27.7-33.6) pg MCHC 32.0 L (32.2-35.4) g/dL RDW 17.9 H (11.5-15.5) % Plt Count 198 (125-369) X10(3)uL MPV 9.1 (7.4-10.4) fL Add Manual Diff Yes Neutrophils % (Manual) 68 (46-82) % Band Neutrophils % 1 (0-6) % Lymphocytes % (Manual) 20 (13-37) % Monocytes % (Manual) 11 (4-12) % Anisocytosis Few Microcytosis Few Sodium 139 (135-145) mmol/L Potassium 4.1 (3.5-5.3) mmol/L Chloride 102 (100-110) mmol/L Carbon Dioxide 27 (21-32) mmol/L BUN 8 (7-18) mg/dL Creatinine 0.6 (0.55-1.02) mg/dL Est Cr Clr Drug Dosing 96.45 mL/min Estimated GFR (MDRD) > 60 (>60) BUN/Creatinine Ratio 13.3 (9-20) Glucose 201 H D (80-116) mg/dL Lactic Acid (0.4-2.2) mmol/L Calcium 9.1 (8.6-10.2) mg/dL Total Bilirubin 0.4 (0.1-1.3) mg/dL Direct Bilirubin 0.10 (0.10-0.20) mg/dL AST 14 D (5-25) IU/L ALT 40 H (12-36) U/L Alkaline Phosphatase 178 H (56-112) IU/L Creatine Kinase (60-160) IU/L Troponin I (<0.017-0.056) ng/mL Total Protein 7.0 (6.0-8.0) g/dL Albumin 2.6 L (3.5-5.2) g/dL Amylase 23 L (25-115) U/L Meds: Medications Generic Name Dose Route Start Last Admin Trade Name Freq PRN Reason Stop Dose Admin Acetaminophen 650 mg 01/22/18 19:47 Tylenol PO Q4H PRN Pain (Mild 1-3)/fever Acetaminophen 650 mg 01/23/18 08:24 Tylenol PO Q4H PRN fever/pain Albuterol/Ipratropium 3 ml 01/23/18 02:17 01/23/18 08:38 Duoneb 3.0-0.5 Mg/3 Ml NEB 3 ml Q4H PRN Administration sob Cyclobenzaprine HCl 10 mg 01/23/18 09:[address] [facility] Duloxetine HCl 60 mg 01/23/18 09:[address] [facility] Furosemide 40 mg 01/23/18 09:[address] [facility] Gabapentin 600 mg 01/23/18 09:[address] [facility] Levofloxacin/Dextrose 750 mg/ 150 mls @ 100 mls/hr 01/23/18 20:[address] [facility] Insulin Human Lispro 40 unit 01/23/18 08:[address] [facility] Lisinopril 10 mg 01/23/18 09:[address] [facility] Metformin HCl 500 mg 01/23/18 09:[address] [facility] Methylprednisolone Sodium Succinate 125 mg 01/23/18 09:00 Solu-Medrol IVPUSH Q8H [facility] Metoprolol Tartrate 25 mg 01/23/18 09:[address] [facility] Mometasone Furoate/Formoterol Fumar 2 puff 01/23/18 09:00 Dulera 200-[address] [facility] Montelukast Sodium 10 mg 01/23/18 21:[address] [facility] Nitroglycerin 0.4 mg 01/23/18 08:24 Nitrostat SL Q5M PRN Chest Pain Non-Formulary Medication 110 units 01/23/18 21:00 Insulin Degludec SUBCUT BEDTIME [facility] Non-Formulary Medication 300 mg 01/23/18 09:00 Theophylline [Theophylline Anhydrous] PO BID [facility] Non-Formulary Medication 7.5 mg 01/23/18 08:30 Warfarin [Coumadin] PO TUTH [facility] Ondansetron HCl 4 mg 01/22/18 19:47 Zofran IV Q4H PRN Nausea/Vomiting Potassium Chloride 10 meq 01/23/18 09:00 Klor-Con 10 PO DAILY [facility] Simvastatin 10 mg 01/23/18 21:00 Zocor PO BEDTIME [facility] Sodium Chloride 10 ml 01/22/18 19:47 01/22/18 20:20 Saline Flush FLUSH 10 ml ASDIRECTED PRN Administration Keep Vein Open Tiotropium Lesage 18 mcg 01/23/18 21:00 Spiriva Handihaler INH BEDTIME [facility] Warfarin Sodium 5 mg 01/24/18 08:24 Coumadin PO MOWE [facility] Warfarin Sodium 0 each 01/23/18 09:00 Coumadin Sliding Scale PO ASDIRECTED [facility] Discontinued Medications Generic Name Dose Route Start Last Admin Trade Name Freq PRN Reason Stop Dose Admin Albuterol/Ipratropium 3 ml 01/22/18 17:30 01/22/18 17:46 Duoneb 3.0-0.5 Mg/3 Ml NEB 01/22/18 17:31 3 ml ONETIME ONE Administration Levofloxacin/Dextrose 750 mg/ 150 mls @ 100 mls/hr 01/22/18 20:29 01/22/18 20 :52 Premix IV 01/22/18 21:58 100 mls/hr ONETIME ONE Administration Ibuprofen 600 mg 01/22/18 20:31 01/22/18 20:56 Motrin PO 01/22/18 20:32 600 mg ONETIME ONE Administration Ketorolac Tromethamine 30 mg 01/22/18 22:13 01/22/18 22:28 Toradol IVPUSH 01/22/18 22:14 30 mg ONETIME ONE Administration Tramadol HCl 100 mg 01/22/18 20:31 01/22/18 20:55 Ultram PO 01/22/18 20:32 100 mg ONETIME ONE Administration Departure - Departure Time of Disposition: 07:00 Disposition: Admitted As Inpatient 64 Condition: Fair Clinical Impression: Pneumonia - Discharge Information - My Orders Last 24 Hours: My Active Orders 01/22/18 17:27 CXR [Chest 1V Frontal] [CR] Stat EKG 12 Lead [EK] Routine 01/22/18 17:30 RT Aerosol Therapy [RC] ASDIRECTED 01/22/18 19:14 Blood Culture x2 Reflex Set [OM.PC] Urgent 01/22/18 19:55 CULTURE BLOOD [BC] Urgent 01/22/18 20:00 CULTURE BLOOD [BC] Urgent 01/22/18 22:05 UA W/MICROSCOPIC [URIN] Stat - Assessment/Plan Last 24 Hours: My Active Orders 01/22/18 17:27 CXR [Chest 1V Frontal] [CR] Stat EKG 12 Lead [EK] Routine 01/22/18 17:30 RT Aerosol Therapy [RC] ASDIRECTED 01/22/18 19:14 Blood Culture x2 Reflex Set [OM.PC] Urgent 01/22/18 19:55 CULTURE BLOOD [BC] Urgent 01/22/18 20:00 CULTURE BLOOD [BC] Urgent 01/22/18 22:05 UA W/MICROSCOPIC [URIN] Stat
[2018-01-22] MEDS ORDERED: Ondansetron 4 MG/2 ML SDV IV PRN (19:47)
[2018-01-22] MEDS ORDERED: Acetaminophen 325 MG Tab PO PRN (19:47)
[2018-01-22] MEDS: Sodium Chloride 0.9% 10 ML Syringe FLUSH PRN (20:20)
[2018-01-22] MEDS ORDERED: Levofloxacin/Dextrose 5%-Water 750 MG in Premix Bag 1 BAG IV ONE (20:29)
[2018-01-22] MEDS ORDERED: traMADol 50 MG Tab PO ONE (20:31)
[2018-01-22] MEDS ORDERED: Ibuprofen 600 MG Tab PO ONE (20:31)
[2018-01-22] MEDS ORDERED: Ketorolac 30 MG/ML SDV IVPUSH ONE (22:13)
[2018-01-23] MEDS: Albuterol/Ipratropium 3.0-0.5 MG/3 ML Neb Soln NEB PRN ×4 (02:22→16:01)
--- NOTE | 2018-01-23 08:21 | PCM.HP ---
H&P History of Present Illness - General Date of Service: 01/23/18 Admit Problem/Dx: Admission Diagnosis/Problem Admission Diagnosis/Problem Pneumonia Source of Information: Patient History Limitations: Reports: No Limitations - History of Present Illness Initial Comments - Free Text/Narative: Gaby is a 52-year-old female admitted yesterday because of shortness of breath. She has multiple medical problems, but was relatively stable until 2 days ago when she started having shortness of breath and cough, which is her typical presentation for COPD or pneumonia. She was brought by ambulance severely short of breath and weak. She tried home therapy with nebulized albuterol with no improvement. She has stable type 2 diabetes, chronic hypoventilation, obstructive sleep apnea, and chronic back pain all not under adequate control. She quit smoking several months ago. In October she was admitted at [facility] because of alteration of mental status confusion ,due to encephalopathy of unknown reason, and prior to that, months earlier,she had had an acute respiratory failure needing mechanical ventilation for several weeks and spending several months at [facility] facility. In the course of illness above, she developed pulmonary embolism. She's now on chronic anticoagulation. Middle Chest Pain Score (Numeric/FACES): 5 - Related Data Allergies/Adverse Reactions: Allergies Allergy/AdvReac Type Severity Reaction Status Date / Time aspirin Allergy Rash Verified 01/22/18 17:36 mold Allergy Airway Uncoded 01/22/18 17:36 Tightness Home Medications: Home Meds Simvastatin [Zocor] 10 mg PO BEDTIME 11/06/13 [History] metFORMIN [Glucophage] 500 mg PO BID 05/04/17 [History] Gabapentin [Neurontin] 600 mg PO TID 07/31/17 [History] Acetaminophen [Tylenol] 650 mg PO Q4H PRN tablet 09/04/17 [Rx] Albuterol/Ipratropium [DuoNeb 3.0-0.5 MG/3 ML] 3 ml INH QID PRN neb 09/04/17 [ Rx] DULoxetine [Cymbalta] 60 mg PO DAILY cap 09/04/17 [Rx] Furosemide [Lasix] 40 mg PO DAILY tablet 09/04/17 [Rx] Lisinopril [Prinivil] 10 mg PO DAILY tablet 09/04/17 [Rx] Budesonide/Formoterol [Symbicort 160-4.5 MCG] 2 puff INH BID 09/16/17 [History] Insulin Aspart [NovoLOG] 40 units SQ TIDMEALS 09/16/17 [History] Metoprolol Tartrate 25 mg PO BID 09/16/17 [History] Montelukast [Singulair] 10 mg PO BEDTIME 09/16/17 [History] Potassium Chloride [Klor-Con 10] 10 meq PO DAILY 09/16/17 [History] Umeclidinium [place] [Incruse Ellipta*] 1 puff INH BEDTIME 09/16/17 [History] Warfarin [Coumadin] 5 mg PO SUTUTHSA 09/16/17 [History] Nitroglycerin [Nitrostat] 0.4 mg PO Q5M PRN 09/26/17 [History] Warfarin [Coumadin] 7.5 mg PO MOWEFR 09/26/17 [History] traMADol [Ultram] 50 mg PO TID PRN 09/26/17 [History] Albuterol [Ventolin HFA] 2 puff INH Q4H PRN 01/23/18 [History] Cyclobenzaprine [Flexeril] 10 mg PO TID 01/23/18 [History] Insulin Degludec [Tresiba Flextouch U-200] 110 units SUBCUT BEDTIME 01/23/18 [ History] Theophylline [Theophylline Anhydrous] 300 mg PO BID 01/23/18 [History] Past Medical History HEENT 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: Cataract, Impaired Vision Cardiovascular 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: Angina, High Cholesterol, Hypertension, SOB on Exertion, Other (See Below) Other Cardiovascular History: patient states has PRn nitro at home for occasional chest pains Respiratory 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: Asthma, COPD, Intubation, Previous, Pneumonia, Recurrent, Sleep Apnea, SOB Other Respiratory History: has CPAP Gastrointestinal 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: Cholelithiasis, GERD Genitourinary 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: Urinary Incontinence, Other (See Below) Other Genitourinary History: stress incontinence at times WORK[employer] LE[employer]ER 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: Other OB/BYN History: , Musculoskeletal 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: Back Pain, Chronic, Osteoarthritis, Osteoporosis, Other (See Below) Other Musculoskeletal History: BACK INJURY Neurological 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: Concussion, Neuropathy, Diabetic, Speech Problems Psychiatric 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: Depression Endocrine/Metabolic 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: Diabetes, Type II, Hypothyroidism Oncologic (Cancer) 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: Ovarian Dermatologic 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: Other (See Below) Other Dermatologic History: open infected wound under right abd fold on oral antibiotics - Infectious Disease History Infectious Disease 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: Chicken Pox - Past Surgical History HEENT Surgical 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: Cataract Surgery, Oral Surgery GI Surgical 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: Cholecystectomy, Colonoscopy Female Surgical 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: Hysterectomy, Salpingo-Oophorectomy Oncologic Surgical 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: None Social & Family History - Family History Family Medical History: Noncontributory HEENT: Reports: Cataract Cardiac: Reports: CAD, [place] Respiratory: Reports: Asthma, Sleep Apnea : Reports: Diabetic Nephropathy OBGYN: Reports: Musculoskeletal: Reports: Arthritis Endocrine/Metabolic: Reports: Diabetes, Type I, Diabetes, type II, IDDM, Obesity /MBI 30+ Dermatologic: Reports: None Oncologic: Reports: Bone, Breast, Other (See Below) Other Oncologic Family History: heart - Tobacco Use Smoking Status *Q: Former Smoker Used Tobacco, but Quit: Yes Month/Year Tobacco Last Used: unknown - Caffeine Use Caffeine Use: Reports: Coffee, Soda Other Caffeine Use: daily - Recreational Drug Use Recreational Drug Use: No - Living Situation & Occupation Living situation: Reports: H&P Review of Systems - Review of Systems: Review Of Systems: ROS reveals no pertinent complaints other than HPI. Exam - Exam Exam: See Below - Vital Signs Vital Signs: Last Vital Signs Temp 97.5 F 01/23/18 07:10 Pulse 80 01/23/18 07:10 Resp 24 H 01/23/18 07:10 BP 110/72 01/23/18 07:10 Pulse Ox 96 01/23/18 07:10 Weight: 123.876 kg - Exam Quality Assessment: Supplemental Oxygen General: Alert, Oriented, Cooperative, Moderate Distress HEENT: PERRLA Lungs: Decreased Breath Sounds, Rales, Rhonchi, Wheezing Cardiovascular: Regular Rate, Tachycardia GI/Abdominal Exam: Normal Bowel Sounds (Female) Exam: Deferred Rectal (Female) Exam: Deferred Back Exam: Normal Inspection Extremities: Normal Inspection, Pedal Edema. No: Normal Range of Motion Skin: Warm Neurological: Cranial Nerves Intact Neuro Extensive - Mental Status: Alert Psychiatric: Alert, Normal Affect - Patient Data Lab Results Last 24 hrs: Laboratory Results - last 24 hr 01/22/18 01/22/1818 Range/Units 17:40 17:40 17:40 WBC (4.5-12.0) X10-3/uL RBC (3.23-5.20) x10(6)uL Hgb (11.5-15.5) g/dL Hct (30.0-51.3) % MCV (80-96) fL MCH (27.7-33.6) pg MCHC (32.2-35.4) g/dL RDW (11.5-15.5) % Plt Count (125-369) X10(3)uL MPV (7.4-10.4) fL Add Manual Diff Neutrophils % (Manual) (46-82) % Band Neutrophils % (0-6) % Lymphocytes % (Manual) (13-37) % Monocytes % (Manual) (4-12) % Anisocytosis Microcytosis Sodium (135-145) mmol/L Potassium (3.5-5.3) mmol/L Chloride (100-110) mmol/L Carbon Dioxide (21-32) mmol/L BUN (7-18) mg/dL Creatinine (0.55-1.02) mg/dL Est Cr Clr Drug Dosing mL/min Estimated GFR (MDRD) (>60) BUN/Creatinine Ratio (9-20) Glucose (80-116) mg/dL Lactic Acid 1.9 (0.4-2.2) mmol/L Calcium (8.6-10.2) mg/dL Total Bilirubin (0.1-1.3) mg/dL Direct Bilirubin (0.10-0.20) mg/dL AST (5-25) IU/L ALT (12-36) U/L Alkaline Phosphatase (56-112) IU/L Creatine Kinase 128 (60-160) IU/L Troponin I < 0.017 L (<0.017-0.056) ng/mL Total Protein (6.0-8.0) g/dL Albumin (3.5-5.2) g/dL Amylase (25-115) U/L Urine Color (YELLOW) Urine Appearance (CLEAR) Urine pH (5.0-6.5) Ur Specific [place] (1.010-1.025) Urine Protein (NEGATIVE) mg/dL Urine Glucose (UA) (NEGATIVE) mg/dL Urine Ketones (NEGATIVE) mg/dL Urine Occult Blood (NEGATIVE) Urine Nitrite (NEGATIVE) Urine Bilirubin (NEGATIVE) Urine Urobilinogen (NEGATIVE) mg/dL Ur Leukocyte Esterase (NEGATIVE) Urine RBC (0) Urine WBC (0) Ur Squamous Epith Cells (NS,R,O) Urine Bacteria (NS) Urine Mucus (NS) 01/22/18 01/22/18 01/22/18 Range/Units 17:40 17:40 22:05 WBC 11.6 (4.5-12.0) X10-3/uL RBC 4.84 (3.23-5.20) x10(6)uL Hgb 11.9 (11.5-15.5) g/dL Hct 37.0 (30.0-51.3) % MCV 76.5 L (80-96) fL MCH 24.5 L (27.7-33.6) pg MCHC 32.0 L (32.2-35.4) g/dL RDW 17.9 H (11.5-15.5) % Plt Count 198 (125-369) X10(3)uL MPV 9.1 (7.4-10.4) fL Add Manual Diff Yes Neutrophils % (Manual) 68 (46-82) % Band Neutrophils % 1 (0-6) % Lymphocytes % (Manual) 20 (13-37) % Monocytes % (Manual) 11 (4-12) % Anisocytosis Few Microcytosis Few Sodium 139 (135-145) mmol/L Potassium 4.1 (3.5-5.3) mmol/L Chloride 102 (100-110) mmol/L Carbon Dioxide 27 (21-32) mmol/L BUN 8 (7-18) mg/dL Creatinine 0.6 (0.55-1.02) mg/dL Est Cr Clr Drug Dosing 96.45 mL/min Estimated GFR (MDRD) > 60 (>60) BUN/Creatinine Ratio 13.3 (9-20) Glucose 201 H D (80-116) mg/dL Lactic Acid (0.4-2.2) mmol/L Calcium 9.1 (8.6-10.2) mg/dL Total Bilirubin 0.4 (0.1-1.3) mg/dL Direct Bilirubin 0.10 (0.10-0.20) mg/dL AST 14 D (5-25) IU/L ALT 40 H (12-36) U/L Alkaline Phosphatase 178 H (56-112) IU/L Creatine Kinase (60-160) IU/L Troponin I (<0.017-0.056) ng/mL Total Protein 7.0 (6.0-8.0) g/dL Albumin 2.6 L (3.5-5.2) g/dL Amylase 23 L (25-115) U/L Urine Color Yellow (YELLOW) Urine Appearance Clear (CLEAR) Urine pH 7.0 H (5.0-6.5) Ur Specific [place] 1.015 (1.010-1.025) Urine Protein Negative (NEGATIVE) mg/dL Urine Glucose (UA) Normal (NEGATIVE) mg/dL Urine Ketones Negative (NEGATIVE) mg/dL Urine Occult Blood Negative (NEGATIVE) Urine Nitrite Negative (NEGATIVE) Urine Bilirubin Negative (NEGATIVE) Urine Urobilinogen 1 H (NEGATIVE) mg/dL Ur Leukocyte Esterase Negative (NEGATIVE) Urine RBC 0-5 (0) Urine WBC 0-5 (0) Ur Squamous Epith Cells Few H (NS,R,O) Urine Bacteria Few H (NS) Urine Mucus Few H (NS) Result Diagrams: 01/22/18 17:40 01/22/18 17:40 EKG INTERPRETATION EKG Date: 01/22/18 Rhythm: NSR - Problem List (1) CAP (community acquired pneumonia) SNOMED Code(s): 857048839 ICD Code: J18.9 - PNEUMONIA, UNSPECIFIED ORGANISM Status: Acute Current Visit: Yes Qualifiers: Laterality: left (2) COPD exacerbation SNOMED Code(s): 562587190 ICD Code: J44.1 - CHRONIC OBSTRUCTIVE PULMONARY DISEASE W (ACUTE) EXACERBATION Status: Acute Current Visit: No (3) History of pulmonary embolus (PE) SNOMED Code(s): 488867575 ICD Code: Z86.711 - PERSONAL HISTORY OF PULMONARY EMBOLISM Status: Chronic Current Visit: Yes (4) Diabetes type 2, controlled SNOMED Code(s): 18145473 ICD Code: E11.9 - TYPE 2 DIABETES MELLITUS WITHOUT COMPLICATIONS Status: Chronic Current Visit: Yes Qualifiers: Diabetes mellitus [facility] insulin use: with [facility] use Diabetes mellitus complication detail: with polyneuropathy (5) Obesity hypoventilation syndrome SNOMED Code(s): 191698682 ICD Code: E66.2 - MORBID (SEVERE) OBESITY WITH ALVEOLAR HYPOVENTILATION Status: Chronic Current Visit: Yes (6) Physical deconditioning SNOMED Code(s): 42075356771107 ICD Code: R53.81 - OTHER MALAISE Status: Acute Current Visit: Yes (7) Mood disorder SNOMED Code(s): 51173215 ICD Code: F39 - UNSPECIFIED MOOD [AFFECTIVE] DISORDER Status: Chronic Current Visit: Yes (8) Chronic shoulder pain SNOMED Code(s): 91130206 ICD Code: M25.519 - PAIN IN UNSPECIFIED SHOULDER; G89.29 - OTHER CHRONIC PAIN Status: Chronic Current Visit: Yes Qualifiers: Laterality: left Qualified Code(s): M25.512 - Pain in left shoulder; G89.29 - Other chronic pain (9) FRANCA (obstructive sleep apnea) SNOMED Code(s): 26062716 ICD Code: G47.33 - OBSTRUCTIVE SLEEP APNEA (ADULT) (PEDIATRIC) Status: Chronic Current Visit: Yes (10) Diastolic dysfunction SNOMED Code(s): 0111273 ICD Code: I51.9 - HEART DISEASE, UNSPECIFIED Status: Chronic Current Visit: Yes (11) Obesities, morbid SNOMED Code(s): 335522609 ICD Code: E66.01 - MORBID (SEVERE) OBESITY DUE TO EXCESS CALORIES Status: Chronic Current Visit: No Problem List Initiated/Reviewed/Updated: Yes Orders Last 24hrs: Active Orders 24 hr Category Date Time Status Patient Status [ADT] Routine ADT 01/22/18 21:14 Active Oxygen Therapy [RC] PRN Care 01/22/18 21:14 Active RT Aerosol Therapy [RC] ASDIRECTED Care 01/22/18 17:30 Active Up With Assistance [RC] 09,13,17,21 Care 01/22/18 19:47 Active Up With Assistance [RC] ASDIRECTED Care 01/22/18 21:09 Active Vital Signs [RC] 04,08,12,16,20,00 Care 01/22/18 19:47 Active CXR [Chest 1V Frontal] [CR] Stat Exams 01/22/18 17:27 Taken CULTURE BLOOD [BC] Urgent Lab 01/22/18 19:55 Received CULTURE BLOOD [BC] Urgent Lab 01/22/18 20:00 Received UA W/MICROSCOPIC [URIN] Stat Lab 01/22/18 22:05 Ordered Acetaminophen [Tylenol] Med 01/22/18 19:47 Active 650 mg PO Q4H PRN Albuterol/Ipratropium [DuoNeb 3.0-0.5 MG/3 ML] Med 01/23/18 02:17 Active 3 ml NEB Q4H PRN Ondansetron [Zofran] Med 01/22/18 19:47 Active 4 mg IV Q4H PRN Sodium Chloride 0.9% [Saline Flush] Med 01/22/18 19:47 Active 10 ml FLUSH ASDIRECTED PRN Blood Culture x2 Reflex Set [OM.PC] Urgent Oth 01/22/18 19:14 Ordered Peripheral IV Insertion Adult [OM.PC] Routine Oth 01/22/18 19:47 Ordered Resuscitation Status Routine Resus Stat 01/22/18 21:09 Ordered EKG 12 Lead [EK] Routine Ther 01/22/18 17:27 Ordered Medication Orders Acetaminophen (Tylenol) 650 mg PO Q4H PRN PRN Reason: Pain (Mild 1-3)/fever Albuterol/Ipratropium (Duoneb 3.0-0.5 Mg/3 Ml) 3 ml NEB Q4H PRN PRN Reason: sob Last Admin: 01/23/18 02:22 Dose: 3 ml Ondansetron HCl (Zofran) 4 mg IV Q4H PRN PRN Reason: Nausea/Vomiting Sodium Chloride (Saline Flush) 10 ml FLUSH ASDIRECTED PRN PRN Reason: Keep Vein Open Last Admin: 01/22/18 20:20 Dose: 10 ml Assessment/Plan Comment:: Blood cultures have been obtained, we'll continue with SVNs, Solu-Medrol and scheduled nebulized therapy as well as when necessary. I've chosen triple therapy for antibiotics due to a recent hospitalizations. We'll continue supplemental oxygen as necessary. Repeat labs in the morning.
[2018-01-23] MEDS ORDERED: Nitroglycerin 0.4 MG Tab.SL SL PRN (08:24)
[2018-01-23] MEDS ORDERED: Acetaminophen 325 MG Tab PO PRN (08:24)
[2018-01-23] MEDS ORDERED: Non-Formulary Medication 1 Each (Warfarin [Coumadin] 7.5 MG) PO SCH (08:30)
[2018-01-23] MEDS ORDERED: Warfarin Sliding Scale PO SCH (09:00)
[2018-01-23] MEDS ORDERED: THEOPHYLLINE 300 MG PO SCH (09:00)
[2018-01-23] MEDS: Formoterol/Mometasone 200-5 MCG 8.8 GM Inhaler IH SCH ×2 (10:23→20:44)
[2018-01-23] MEDS: DULoxetine 60 MG Cap PO SCH (10:23)
[2018-01-23] MEDS: Cyclobenzaprine 10 MG Tab PO SCH ×3 (10:24→20:41)
[2018-01-23] MEDS: Metoprolol Tartrate 25 MG Tab PO SCH ×2 (10:25→20:41)
[2018-01-23] MEDS: metFORMIN 500 MG Tab PO SCH ×2 (10:25→18:19)
[2018-01-23] MEDS: Furosemide 40 MG Tab PO SCH (10:25)
[2018-01-23] MEDS: Potassium Chloride 10 MEQ Tab.ER PO SCH (10:25)
[2018-01-23] MEDS: Lisinopril 10 MG Tab PO SCH (10:26)
[2018-01-23] MEDS: Gabapentin 600 MG Tab PO SCH ×3 (10:26→20:43)
[2018-01-23] MEDS: methylPREDNISolone Sodium Succinate 125 MG/2 ML SDV IVPUSH SCH ×2 (10:27→17:08)
[2018-01-23] MEDS: Sodium Chloride 0.9% 10 ML Syringe FLUSH PRN ×6 (10:27→22:48)
[2018-01-23] MEDS: Insulin Lispro 100 Unit/ML 3 ML KwikPen SUBCUT SCH ×3 (10:38→18:19)
[2018-01-23] MEDS: Insulin Glargine,Human Rec. Analog 100 Units/ML 3 ML Pen SUBCUT SCH ×2 (10:39→20:50)
[2018-01-23] MEDS: Betamethasone Dipropionate/Clotrimazole 0.05-1% Crm 15 GM Tube TOP SCH ×2 (14:55→20:44)
[2018-01-23] MEDS ORDERED: Theophylline 100 MG Cap.ER PO SCH (16:00)
[2018-01-23] MEDS: Warfarin 5 MG Tab PO SCH (16:03)
[2018-01-23] MEDS: Albuterol/Ipratropium 3.0-0.5 MG/3 ML Neb Soln NEB SCH ×2 (16:15→20:34)
[2018-01-23] MEDS: Piperacillin/Tazobactam 3.375 GM in Sodium Chloride 0.9% 50 ML IV SCH ×2 (16:29→21:59)
[2018-01-23] MEDS: Vancomycin 1,000 MG, Vancomycin 750 MG in Sodium Chloride 0.9% 500 ML IV SCH (17:11)
[2018-01-23] MEDS: Levofloxacin/Dextrose 5%-Water 750 MG in Premix Bag 1 BAG IV SCH (20:30)
[2018-01-23] MEDS: Montelukast 10 MG Tab PO SCH (20:43)
[2018-01-23] MEDS: Tiotropium Inhaler 18 MCG Inhalation Powder Cap Kit of 5 INH SCH (20:44)
[2018-01-23] MEDS: Simvastatin 10 MG Tab PO SCH (20:44)
[2018-01-24] MEDS: methylPREDNISolone Sodium Succinate 125 MG/2 ML SDV IVPUSH SCH ×3 (00:38→16:33)
[2018-01-24] MEDS: Albuterol/Ipratropium 3.0-0.5 MG/3 ML Neb Soln NEB SCH ×6 (00:38→20:18)
[2018-01-24] MEDS: Piperacillin/Tazobactam 3.375 GM in Sodium Chloride 0.9% 50 ML IV SCH ×4 (04:30→22:44)
[2018-01-24] MEDS: Vancomycin 1,000 MG, Vancomycin 750 MG in Sodium Chloride 0.9% 500 ML IV SCH ×2 (05:02→16:35)
[2018-01-24] MEDS: Sodium Chloride 0.9% 10 ML Syringe FLUSH PRN ×7 (07:38→23:25)
[2018-01-24] MEDS: metFORMIN 500 MG Tab PO SCH ×2 (07:40→18:09)
[2018-01-24] MEDS: Insulin Lispro 100 Unit/ML 3 ML KwikPen SUBCUT SCH ×3 (08:31→18:09)
--- NOTE | 2018-01-24 08:31 | PCM.PN ---
- General Info Date of Service: 01/24/18 Subjective Update: Gaby feels much better today. She is breathing better, getting more than 1750 mL on IS. Functional Status: Reports: Pain Controlled, Tolerating Diet, Ambulating, Incentive Spirometry - Review of Systems Pulmonary: Reports: Cough, Sputum Cardiovascular: Reports: No Symptoms Gastrointestinal: Reports: No Symptoms Genitourinary: Reports: No Symptoms Musculoskeletal: Reports: No Symptoms - Patient Data Vitals - Most Recent: Last Vital Signs Temp 97.8 F 01/24/18 04:00 Pulse 74 01/24/18 07:57 Resp 20 01/24/18 04:00 BP 128/75 01/24/18 04:00 Pulse Ox 94 L 01/24/18 07:57 Weight - Most Recent: 123.876 kg I&O - Last 24 Hours: Intake & Output 01/23/18 01/24/18 01/24/18 22:59 06:59 14:59 Intake Total 750 565 Balance 750 565 Lab Results Last 24 Hours: Laboratory Results - last 24 hr 01/23/18 01/23/18 01/23/18 Range/Units 09:25 11:27 16:05 WBC (4.5-12.0) X10-3/uL RBC (3.23-5.20) x10(6)uL Hgb (11.5-15.5) g/dL Hct (30.0-51.3) % MCV (80-96) fL MCH (27.7-33.6) pg MCHC (32.2-35.4) g/dL RDW (11.5-15.5) % Plt Count (125-369) X10(3)uL MPV (7.4-10.4) fL Add Manual Diff Neutrophils % (Manual) (46-82) % Band Neutrophils % (0-6) % Lymphocytes % (Manual) (13-37) % Monocytes % (Manual) (4-12) % Anisocytosis Microcytosis PT 23.0 H (8.7-11.1) INR 2.39 H (0.89-1.13) POC VBG pH (7.31-7.41) POC VBG pCO2 (41-51) mmHG POC VBG HCO3 (23-28) mmol/L POC VBG Total CO2 (24-29) mmol/L POC VBG Base Excess (-2-3) mmol/L Sodium (135-145) mmol/L Potassium (3.5-5.3) mmol/L Chloride (100-110) mmol/L Carbon Dioxide (21-32) mmol/L BUN (7-18) mg/dL Creatinine (0.55-1.02) mg/dL Est Cr Clr Drug Dosing mL/min Estimated GFR (MDRD) (>60) BUN/Creatinine Ratio (9-20) Glucose (80-116) mg/dL POC Glucose 262 H D (80-116) mg/dL Calcium (8.6-10.2) mg/dL Lactate Dehydrogenase 166 (81-234) U/L Troponin I (<0.017-0.056) ng/mL C-Reactive Protein (0.5-0.9) mg/dL NT-Pro-B Natriuret Pep (<=125) pg/mL 01/23/18 01/23/18 01/23/18 Range/Units 16:05 16:05 16:05 WBC 9.1 (4.5-12.0) X10-3/uL RBC 4.85 (3.23-5.20) x10(6)uL Hgb 11.7 (11.5-15.5) g/dL Hct 37.4 (30.0-51.3) % MCV 77.0 L (80-96) fL MCH 24.2 L (27.7-33.6) pg MCHC 31.4 L (32.2-35.4) g/dL RDW 18.3 H (11.5-15.5) % Plt Count 187 (125-369) X10(3)uL MPV 8.7 (7.4-10.4) fL Add Manual Diff Yes Neutrophils % (Manual) 87 H (46-82) % Band Neutrophils % 2 (0-6) % Lymphocytes % (Manual) 8 L (13-37) % Monocytes % (Manual) 3 L (4-12) % Anisocytosis Moderate H Microcytosis Few PT (8.7-11.1) INR (0.89-1.13) POC VBG pH (7.31-7.41) POC VBG pCO2 (41-51) mmHG POC VBG HCO3 (23-28) mmol/L POC VBG Total CO2 (24-29) mmol/L POC VBG Base Excess (-2-3) mmol/L Sodium (135-145) mmol/L Potassium (3.5-5.3) mmol/L Chloride (100-110) mmol/L Carbon Dioxide (21-32) mmol/L BUN (7-18) mg/dL Creatinine (0.55-1.02) mg/dL Est Cr Clr Drug Dosing mL/min Estimated GFR (MDRD) (>60) BUN/Creatinine Ratio (9-20) Glucose (80-116) mg/dL POC Glucose (80-116) mg/dL Calcium (8.6-10.2) mg/dL Lactate Dehydrogenase (81-234) U/L Troponin I < 0.017 L (<0.017-0.056) ng/mL C-Reactive Protein 21.1 H* (0.5-0.9) mg/dL NT-Pro-B Natriuret Pep 223 H (<=125) pg/mL 01/23/18 01/23/18 01/23/18 Range/Units 16:05 16:05 17:32 WBC (4.5-12.0) X10-3/uL RBC (3.23-5.20) x10(6)uL Hgb (11.5-15.5) g/dL Hct (30.0-51.3) % MCV (80-96) fL MCH (27.7-33.6) pg MCHC (32.2-35.4) g/dL RDW (11.5-15.5) % Plt Count (125-369) X10(3)uL MPV (7.4-10.4) fL Add Manual Diff Neutrophils % (Manual) (46-82) % Band Neutrophils % (0-6) % Lymphocytes % (Manual) (13-37) % Monocytes % (Manual) (4-12) % Anisocytosis Microcytosis PT (8.7-11.1) INR (0.89-1.13) POC VBG pH 7.42 H (7.31-7.41) POC VBG pCO2 42.7 (41-51) mmHG POC VBG HCO3 28.0 (23-28) mmol/L POC VBG Total CO2 29 (24-29) mmol/L POC VBG Base Excess 4 H (-2-3) mmol/L Sodium 143 (135-145) mmol/L Potassium 4.5 (3.5-5.3) mmol/L Chloride 105 (100-110) mmol/L Carbon Dioxide 28 (21-32) mmol/L BUN 14 (7-18) mg/dL Creatinine 0.6 (0.55-1.02) mg/dL Est Cr Clr Drug Dosing 96.45 mL/min Estimated GFR (MDRD) > 60 (>60) BUN/Creatinine Ratio 23.3 H (9-20) Glucose 122 H (80-116) mg/dL POC Glucose 181 H D (80-116) mg/dL Calcium 9.0 (8.6-10.2) mg/dL Lactate Dehydrogenase (81-234) U/L Troponin I (<0.017-0.056) ng/mL C-Reactive Protein (0.5-0.9) mg/dL NT-Pro-B Natriuret Pep (<=125) pg/mL 01/24/18 01/24/18 01/24/18 Range/Units 06:04 06:04 06:04 WBC 7.6 (4.5-12.0) X10-3/uL RBC 4.69 (3.23-5.20) x10(6)uL Hgb 11.3 L (11.5-15.5) g/dL Hct 36.0 (30.0-51.3) % MCV 76.8 L (80-96) fL MCH 24.2 L (27.7-33.6) pg MCHC 31.5 L (32.2-35.4) g/dL RDW 17.6 H (11.5-15.5) % Plt Count 189 (125-369) X10(3)uL MPV 9.5 (7.4-10.4) fL Add Manual Diff Yes Neutrophils % (Manual) 92 H (46-82) % Band Neutrophils % (0-6) % Lymphocytes % (Manual) 6 L (13-37) % Monocytes % (Manual) 2 L (4-12) % Anisocytosis Few Microcytosis Few PT (8.7-11.1) INR (0.89-1.13) POC VBG pH (7.31-7.41) POC VBG pCO2 (41-51) mmHG POC VBG HCO3 (23-28) mmol/L POC VBG Total CO2 (24-29) mmol/L POC VBG Base Excess (-2-3) mmol/L Sodium 139 (135-145) mmol/L Potassium 4.1 (3.5-5.3) mmol/L Chloride 103 (100-110) mmol/L Carbon Dioxide 26 (21-32) mmol/L BUN 14 (7-18) mg/dL Creatinine 0.8 (0.55-1.02) mg/dL Est Cr Clr Drug Dosing 72.34 mL/min Estimated GFR (MDRD) > 60 (>60) BUN/Creatinine Ratio 17.5 (9-20) Glucose 339 H D (80-116) mg/dL POC Glucose (80-116) mg/dL Calcium 8.6 (8.6-10.2) mg/dL Lactate Dehydrogenase (81-234) U/L Troponin I (<0.017-0.056) ng/mL C-Reactive Protein (0.5-0.9) mg/dL NT-Pro-B Natriuret Pep 388 H (<=125) pg/mL 01/24/18 Range/Units 06:04 WBC (4.5-12.0) X10-3/uL RBC (3.23-5.20) x10(6)uL Hgb (11.5-15.5) g/dL Hct (30.0-51.3) % MCV (80-96) fL MCH (27.7-33.6) pg MCHC (32.2-35.4) g/dL RDW (11.5-15.5) % Plt Count (125-369) X10(3)uL MPV (7.4-10.4) fL Add Manual Diff Neutrophils % (Manual) (46-82) % Band Neutrophils % (0-6) % Lymphocytes % (Manual) (13-37) % Monocytes % (Manual) (4-12) % Anisocytosis Microcytosis PT 23.8 H (8.7-11.1) INR 2.47 H (0.89-1.13) POC VBG pH (7.31-7.41) POC VBG pCO2 (41-51) mmHG POC VBG HCO3 (23-28) mmol/L POC VBG Total CO2 (24-29) mmol/L POC VBG Base Excess (-2-3) mmol/L Sodium (135-145) mmol/L Potassium (3.5-5.3) mmol/L Chloride (100-110) mmol/L Carbon Dioxide (21-32) mmol/L BUN (7-18) mg/dL Creatinine (0.55-1.02) mg/dL Est Cr Clr Drug Dosing mL/min Estimated GFR (MDRD) (>60) BUN/Creatinine Ratio (9-20) Glucose (80-116) mg/dL POC Glucose (80-116) mg/dL Calcium (8.6-10.2) mg/dL Lactate Dehydrogenase (81-234) U/L Troponin I (<0.017-0.056) ng/mL C-Reactive Protein (0.5-0.9) mg/dL NT-Pro-B Natriuret Pep (<=125) pg/mL [place] Results Last 24 Hours: Microbiology 01/22/18 20:00 Aerobic Blood Culture - Preliminary Blood - Venous - Lab Draw NO GROWTH AFTER 1 DAY Anaerobic Blood Culture - Preliminary NO GROWTH AFTER 1 DAY 01/22/18 19:55 Aerobic Blood Culture - Preliminary Blood - Venous NO GROWTH AFTER 1 DAY Anaerobic Blood Culture - Preliminary NO GROWTH AFTER 1 DAY Med Orders - Current: Current Medications Acetaminophen (Tylenol) 650 mg PO Q4H PRN PRN Reason: Pain (Mild 1-3)/fever Last Admin: 01/23/18 10:46 Dose: 650 mg Acetaminophen (Tylenol) 650 mg PO Q4H PRN PRN Reason: fever/pain Albuterol/Ipratropium (Duoneb 3.0-0.5 Mg/3 Ml) 3 ml NEB Q4H PRN PRN Reason: sob Last Admin: 01/23/18 16:01 Dose: 3 ml Albuterol/Ipratropium (Duoneb 3.0-0.5 Mg/3 Ml) 3 ml NEB Q4H [facility] Last Admin: 01/24/18 07:30 Dose: 3 ml Betamethasone/Clotrimazole (Lotrisone) 0 gm TOP BID [facility] Last Admin: 01/23/18 20:44 Dose: 1 applic Cyclobenzaprine HCl (Flexeril) 10 mg PO TID [facility] Last Admin: 01/23/18 20:41 Dose: 10 mg Duloxetine HCl (Cymbalta) 60 mg PO DAILY [facility] Last Admin: 01/23/18 10:23 Dose: 60 mg Furosemide (Lasix) 40 mg PO DAILY [facility] Last Admin: 01/23/18 10:25 Dose: 40 mg Gabapentin (Neurontin) 600 mg PO TID [facility] Last Admin: 01/23/18 20:43 Dose: 600 mg Levofloxacin/Dextrose 750 mg/ (Premix) 150 mls @ 100 mls/hr IV Q24H [facility] Last Admin: 01/23/18 20:30 Dose: 100 mls/hr Piperacillin Sod/Tazobactam (Sod 3.375 gm/ Sodium Chloride) 50 mls @ 100 mls/ hr IV Q6H [facility] Last Admin: 01/24/18 04:30 Dose: 100 mls/hr Vancomycin HCl 1,000 mg/Vancomycin HCl 750 mg/ Sodium Chloride 500 mls @ 275 mls/hr IV Q12H [facility] Last Admin: 01/24/18 05:02 Dose: 275 mls/hr Insulin Glargine (Lantus Solostar) 55 units SUBCUT BID [facility] Last Admin: 01/23/18 20:50 Dose: 55 units Insulin Human Lispro (Humalog) 40 unit SUBCUT TIDMEALS [facility] Last Admin: 01/23/18 18:19 Dose: 40 units Lisinopril (Prinivil) 10 mg PO DAILY [facility] Last Admin: 01/23/18 10:26 Dose: 10 mg Metformin HCl (Glucophage) 500 mg PO BIDMEALS [facility] Last Admin: 01/24/18 07:40 Dose: 500 mg Methylprednisolone Sodium Succinate (Solu-Medrol) 125 mg IVPUSH Q8H [facility] Last Admin: 01/24/18 00:38 Dose: 125 mg Metoprolol Tartrate (Lopressor) 25 mg PO BID [facility] Last Admin: 01/23/18 20:41 Dose: 25 mg Mometasone Furoate/Formoterol Fumar (Dulera 200-5 Mcg) 2 puff IH BID [facility] Last Admin: 01/23/18 20:44 Dose: 2 puff Montelukast Sodium (Singulair) 10 mg PO BEDTIME [facility] Last Admin: 01/23/18 20:43 Dose: 10 mg Nitroglycerin (Nitrostat) 0.4 mg SL Q5M PRN PRN Reason: Chest Pain Ondansetron HCl (Zofran) 4 mg IV Q4H PRN PRN Reason: Nausea/Vomiting Potassium Chloride (Klor-Con 10) 10 meq PO DAILY [facility] Last Admin: 01/23/18 10:25 Dose: 10 meq Simvastatin (Zocor) 10 mg PO BEDTIME [facility] Last Admin: 01/23/18 20:44 Dose: 10 mg Sodium Chloride (Saline Flush) 10 ml FLUSH ASDIRECTED PRN PRN Reason: Keep Vein Open Last Admin: 01/24/18 07:38 Dose: 10 ml Theophylline (Estevan-24) 600 mg PO DAILY [facility] Tiotropium [place] (Spiriva Handihaler) 18 mcg INH BEDTIME [facility] Last Admin: 01/23/18 20:44 Dose: 1 puff Vancomycin HCl (Pharmacy To Dose - Vancomycin) 0 dose .XX ASDIRECTED [facility] Warfarin Sodium (Coumadin) 5 mg PO SuTuThSa@1600 [facility] Last Admin: 01/23/18 16:03 Dose: 5 mg Warfarin Sodium (Coumadin Sliding Scale) 0 each PO ASDIRECTED [facility] Warfarin Sodium 5 mg/ Warfarin (Sodium 2.5 mg) 7.5 mg PO MoWeFr@1600 [facility] Discontinued Medications Albuterol/Ipratropium (Duoneb 3.0-0.5 Mg/3 Ml) 3 ml NEB ONETIME ONE Stop: 01/22/18 17:31 Last Admin: 01/22/18 17:46 Dose: 3 ml Levofloxacin/Dextrose 750 mg/ (Premix) 150 mls @ 100 mls/hr IV ONETIME ONE Stop: 01/22/18 21:58 Last Admin: 01/22/18 20:52 Dose: 100 mls/hr Ibuprofen (Motrin) 600 mg PO ONETIME ONE Stop: 01/22/18 20:32 Last Admin: 01/22/18 20:56 Dose: 600 mg Ketorolac Tromethamine (Toradol) 30 mg IVPUSH ONETIME ONE Stop: 01/22/18 22:14 Last Admin: 01/22/18 22:28 Dose: 30 mg Theophylline (Estevan-24) 600 mg PO DAILY [facility] Last Admin: 01/23/18 16:26 Dose: 600 mg Tramadol HCl (Ultram) 100 mg PO ONETIME ONE Stop: 01/22/18 20:32 Last Admin: 01/22/18 20:55 Dose: 100 mg - Exam Quality Assessment: Supplemental Oxygen General: Alert, Oriented HEENT: Pupils Equal Neck: Supple Lungs: Normal Respiratory Effort, Rales Cardiovascular: Regular Rate - Problem List & Annotations (1) CAP (community acquired pneumonia) SNOMED Code(s): 071330960 Code(s): J18.9 - PNEUMONIA, UNSPECIFIED ORGANISM Status: Acute Current Visit: Yes Qualifiers: Laterality: left (2) COPD exacerbation SNOMED Code(s): 266532876 Code(s): J44.1 - CHRONIC OBSTRUCTIVE PULMONARY DISEASE W (ACUTE) EXACERBATION Status: Acute Current Visit: No (3) History of pulmonary embolus (PE) SNOMED Code(s): 355636565 Code(s): Z86.711 - PERSONAL HISTORY OF PULMONARY EMBOLISM Status: Chronic Current Visit: Yes (4) Diabetes type 2, controlled SNOMED Code(s): 35243773 Code(s): E11.9 - TYPE 2 DIABETES MELLITUS WITHOUT COMPLICATIONS Status: Chronic Current Visit: Yes Qualifiers: Diabetes mellitus emt intermediate insulin use: with emt intermediate use Diabetes mellitus complication detail: with polyneuropathy (5) Obesity hypoventilation syndrome SNOMED Code(s): 558830645 Code(s): E66.2 - MORBID (SEVERE) OBESITY WITH ALVEOLAR HYPOVENTILATION Status: Chronic Current Visit: Yes (6) Physical deconditioning SNOMED Code(s): 39873923504401 Code(s): R53.81 - OTHER MALAISE Status: Acute Current Visit: Yes (7) Mood disorder SNOMED Code(s): 34075349 Code(s): F39 - UNSPECIFIED MOOD [AFFECTIVE] DISORDER Status: Chronic Current Visit: Yes (8) Chronic shoulder pain SNOMED Code(s): 27827458 Code(s): M25.519 - PAIN IN UNSPECIFIED SHOULDER; G89.29 - OTHER CHRONIC PAIN Status: Chronic Current Visit: Yes Qualifiers: Laterality: left Qualified Code(s): M25.512 - Pain in left shoulder; G89.29 - Other chronic pain (9) FRANCA (obstructive sleep apnea) SNOMED Code(s): 74852593 Code(s): G47.33 - OBSTRUCTIVE SLEEP APNEA (ADULT) (PEDIATRIC) Status: Chronic Current Visit: Yes (10) Diastolic dysfunction SNOMED Code(s): 6058888 Code(s): I51.9 - HEART DISEASE, UNSPECIFIED Status: Chronic Current Visit : Yes (11) Obesities, morbid SNOMED Code(s): 903572887 Code(s): E66.01 - MORBID (SEVERE) OBESITY DUE TO EXCESS CALORIES Status: Chronic Current Visit: No - Problem List Review Problem List Initiated/Reviewed/Updated: Yes - My Orders Last 24 Hours: My Active Orders 01/23/18 08:24 Acetaminophen [Tylenol] 650 mg PO Q4H PRN Nitroglycerin [Nitrostat] 0.4 mg SL Q5M PRN 01/23/18 08:27 Accu Check [Blood Glucose Check, Bedside] [RC] TIDMEALS 01/23/18 08:45 Insulin Lispro [HumaLOG] 40 unit SUBCUT TIDMEALS 01/23/18 09:00 Cyclobenzaprine [Flexeril] 10 mg PO TID DULoxetine [Cymbalta] 60 mg PO DAILY Furosemide [Lasix] 40 mg PO DAILY Gabapentin [Neurontin] 600 mg PO TID Lisinopril [Prinivil] 10 mg PO DAILY Metoprolol Tartrate [Lopressor] 25 mg PO BID Mometasone/Formoterol [Dulera 200-5 MCG] 2 puff IH BID Potassium Chloride [Klor-Con 10] 10 meq PO DAILY Warfarin Sliding Scale [Coumadin Sliding Scale] See Dose Instructions PO ASDIRECTED metFORMIN [Glucophage] 500 mg PO BIDMEALS methylPREDNISolone Sod Succ [Solu-MEDROL] 125 mg IVPUSH Q8H 01/23/18 10:00 Insulin Glarg,Human.Rec.Analog [LantUS Solostar] 55 units SUBCUT BID 01/23/18 14:45 Betamethasone/Clotrimazole [Lotrisone] See Dose Instructions TOP BID 01/23/18 15:55 Vancomycin Pharmacy to Dose [Pharmacy to Dose - Vancomycin] See Dose Instructions .XX ASDIRECTED 01/23/18 16:00 Piperacillin/Tazobactam [Zosyn] 3.375 gm Sodium Chloride 0.9% [Normal Saline] 50 ml IV Q6H Warfarin [Coumadin] 5 mg PO SuTuThSa@1600 01/23/18 16:03 RT Aerosol Therapy [RC] ASDIRECTED 01/23/18 16:15 Albuterol/Ipratropium [DuoNeb 3.0-0.5 MG/3 ML] 3 ml NEB Q4H 01/23/18 17:00 Vancomycin 1,000 mg Vancomycin 750 mg Sodium Chloride 0.9% [Normal Saline] 500 ml IV Q12H 01/23/18 20:00 Levofloxacin/Dextrose 5%-Water [Levaquin in D5W 750 MG/150 ML] 750 mg Premix Bag 1 bag IV Q24H 01/23/18 21:00 Montelukast [Singulair] 10 mg PO BEDTIME Simvastatin [Zocor] 10 mg PO BEDTIME Tiotropium [Spiriva HandiHaler] 18 mcg INH BEDTIME 01/24/18 12:00 Theophylline [Estevan-24] 600 mg PO DAILY 01/24/18 16:00 Warfarin [Coumadin] 7.5 mg PO MoWeFr@1600 01/25/18 04:30 VANCOMYCIN TROUGH [CHEM] Timed 01/25/18 05:11 PRO B-TYPE NATRIUR PEPT,BNPPRO [CHEM] DAILY 01/25/18 08:52 INR,PT,PROTHROMBIN TIME [COAG] DAILY 01/26/18 08:52 INR,PT,PROTHROMBIN TIME [COAG] DAILY 01/27/18 08:52 INR,PT,PROTHROMBIN TIME [COAG] DAILY 01/28/18 08:52 INR,PT,PROTHROMBIN TIME [COAG] DAILY 01/29/18 08:52 INR,PT,PROTHROMBIN TIME [COAG] DAILY - Plan Plan:: Continue with current antibiotic therapy and Solu-Medrol. Consider discharge tomorrow.
[2018-01-24] MEDS: Formoterol/Mometasone 200-5 MCG 8.8 GM Inhaler IH SCH ×2 (10:05→21:13)
[2018-01-24] MEDS: DULoxetine 60 MG Cap PO SCH (10:05)
[2018-01-24] MEDS: Furosemide 40 MG Tab PO SCH (10:06)
[2018-01-24] MEDS: Cyclobenzaprine 10 MG Tab PO SCH ×3 (10:06→21:14)
[2018-01-24] MEDS: Potassium Chloride 10 MEQ Tab.ER PO SCH (10:06)
[2018-01-24] MEDS: Metoprolol Tartrate 25 MG Tab PO SCH ×2 (10:06→21:14)
[2018-01-24] MEDS: Betamethasone Dipropionate/Clotrimazole 0.05-1% Crm 15 GM Tube TOP SCH ×2 (10:07→21:27)
[2018-01-24] MEDS: Lisinopril 10 MG Tab PO SCH (10:08)
[2018-01-24] MEDS: Gabapentin 600 MG Tab PO SCH ×3 (10:08→21:15)
[2018-01-24] MEDS: Insulin Glargine,Human Rec. Analog 100 Units/ML 3 ML Pen SUBCUT SCH ×2 (10:10→21:17)
[2018-01-24] MEDS: Theophylline 100 MG Cap.ER PO SCH (12:20)
[2018-01-24] MEDS ORDERED: Magnesium Hydroxide 400 MG/5 ML Susp 30 ML Cup PO PRN (15:23)
[2018-01-24] MEDS ORDERED: Warfarin 5 MG, Warfarin 2.5 MG PO SCH ×2 (16:00)
[2018-01-24] MEDS: Levofloxacin/Dextrose 5%-Water 750 MG in Premix Bag 1 BAG IV SCH (19:50)
[2018-01-24] MEDS: Simvastatin 10 MG Tab PO SCH (21:15)
[2018-01-24] MEDS: Montelukast 10 MG Tab PO SCH (21:15)
[2018-01-24] MEDS: Tiotropium Inhaler 18 MCG Inhalation Powder Cap Kit of 5 INH SCH (21:27)
[2018-01-25] MEDS: Albuterol/Ipratropium 3.0-0.5 MG/3 ML Neb Soln NEB SCH ×5 (00:13→15:18)
[2018-01-25] MEDS: methylPREDNISolone Sodium Succinate 125 MG/2 ML SDV IVPUSH SCH ×3 (00:26→18:30)
[2018-01-25] MEDS: Sodium Chloride 0.9% 10 ML Syringe FLUSH PRN ×7 (00:27→18:41)
[2018-01-25] MEDS: Piperacillin/Tazobactam 3.375 GM in Sodium Chloride 0.9% 50 ML IV SCH ×3 (04:06→18:30)
[2018-01-25] MEDS: Vancomycin 1,000 MG, Vancomycin 750 MG in Sodium Chloride 0.9% 500 ML IV SCH ×2 (04:39→18:30)
[2018-01-25 08:19] VITALS: BP 149/90
--- NOTE | 2018-01-25 08:25 | PCM.PN ---
- General Info Date of Service: 01/25/18 Subjective Update: Gaby feels much better today.Mild cough. She is breathing better, getting more than 1750 mL on IS. - Review of Systems Cardiovascular: Reports: No Symptoms Gastrointestinal: Reports: No Symptoms Genitourinary: Reports: No Symptoms - Patient Data Vitals - Most Recent: Last Vital Signs Temp 97.6 F 01/25/18 07:30 Pulse 88 01/25/18 07:54 Resp 20 01/25/18 07:30 BP 149/90 H 01/25/18 07:30 Pulse Ox 96 01/25/18 07:54 Weight - Most Recent: 123.876 kg I&O - Last 24 Hours: Intake & Output 01/24/18 01/25/18 01/25/18 22:59 06:59 14:59 Intake Total 1250 200 Balance 1250 200 Lab Results Last 24 Hours: Laboratory Results - last 24 hr 01/24/18 01/24/18 01/24/18 Range/Units 12:16 17:48 21:09 PT (8.7-11.1) INR (0.89-1.13) POC Glucose 360 H D 399 H 356 H (80-116) mg/dL NT-Pro-B Natriuret Pep (<=125) pg/mL 01/25/18 01/25/18 01/25/18 Range/Units 06:15 06:15 07:01 PT 27.6 H (8.7-11.1) INR 2.88 H (0.89-1.13) POC Glucose 281 H (80-116) mg/dL NT-Pro-B Natriuret Pep 747 H (<=125) pg/mL Eamon Results Last 24 Hours: Microbiology 01/22/18 20:00 Aerobic Blood Culture - Preliminary Blood - Venous - Lab Draw NO GROWTH AFTER 2 DAYS Anaerobic Blood Culture - Preliminary NO GROWTH AFTER 2 DAYS 01/22/18 19:55 Aerobic Blood Culture - Preliminary Blood - Venous NO GROWTH AFTER 2 DAYS Anaerobic Blood Culture - Preliminary NO GROWTH AFTER 2 DAYS Med Orders - Current: Current Medications Acetaminophen (Tylenol) 650 mg PO Q4H PRN PRN Reason: Pain (Mild 1-3)/fever Last Admin: 01/23/18 10:46 Dose: 650 mg Acetaminophen (Tylenol) 650 mg PO Q4H PRN PRN Reason: fever/pain Albuterol/Ipratropium (Duoneb 3.0-0.5 Mg/3 Ml) 3 ml NEB Q4H PRN PRN Reason: sob Last Admin: 01/23/18 16:01 Dose: 3 ml Albuterol/Ipratropium (Duoneb 3.0-0.5 Mg/3 Ml) 3 ml NEB Q4H [facility] Last Admin: 01/25/18 07:31 Dose: 3 ml Betamethasone/Clotrimazole (Lotrisone) 0 gm TOP BID [facility] Last Admin: 01/24/18 21:27 Dose: 1 applic Cyclobenzaprine HCl (Flexeril) 10 mg PO TID [facility] Last Admin: 01/24/18 21:14 Dose: 10 mg Duloxetine HCl (Cymbalta) 60 mg PO DAILY [facility] Last Admin: 01/24/18 10:05 Dose: 60 mg Furosemide (Lasix) 40 mg PO DAILY [facility] Last Admin: 01/24/18 10:06 Dose: 40 mg Gabapentin (Neurontin) 600 mg PO TID [facility] Last Admin: 01/24/18 21:15 Dose: 600 mg Levofloxacin/Dextrose 750 mg/ (Premix) 150 mls @ 100 mls/hr IV Q24H [facility] Last Admin: 01/24/18 19:50 Dose: 100 mls/hr Piperacillin Sod/Tazobactam (Sod 3.375 gm/ Sodium Chloride) 50 mls @ 100 mls/ hr IV Q6H [facility] Last Admin: 01/25/18 04:06 Dose: 100 mls/hr Vancomycin HCl 1,000 mg/Vancomycin HCl 750 mg/ Sodium Chloride 500 mls @ 275 mls/hr IV Q12H [facility] Last Admin: 01/25/18 04:39 Dose: 275 mls/hr Insulin Glargine (Lantus Solostar) 55 units SUBCUT BID [facility] Last Admin: 01/24/18 21:17 Dose: 55 units Insulin Human Lispro (Humalog) 40 unit SUBCUT TIDMEALS [facility] Last Admin: 01/24/18 18:09 Dose: 40 units Lisinopril (Prinivil) 10 mg PO DAILY [facility] Last Admin: 01/24/18 10:08 Dose: 10 mg Magnesium Hydroxide (Milk Of Magnesia) 30 ml PO DAILY PRN PRN Reason: Constipation Last Admin: 01/25/18 00:13 Dose: 30 ml Metformin HCl (Glucophage) 500 mg PO BIDMEALS [facility] Last Admin: 01/24/18 18:09 Dose: 500 mg Methylprednisolone Sodium Succinate (Solu-Medrol) 125 mg IVPUSH Q8H [facility] Last Admin: 01/25/18 00:26 Dose: 125 mg Metoprolol Tartrate (Lopressor) 25 mg PO BID [facility] Last Admin: 01/24/18 21:14 Dose: 25 mg Mometasone Furoate/Formoterol Fumar (Dulera 200-5 Mcg) 2 puff IH BID [facility] Last Admin: 01/24/18 21:13 Dose: 2 puff Montelukast Sodium (Singulair) 10 mg PO BEDTIME [facility] Last Admin: 01/24/18 21:15 Dose: 10 mg Nitroglycerin (Nitrostat) 0.4 mg SL Q5M PRN PRN Reason: Chest Pain Ondansetron HCl (Zofran) 4 mg IV Q4H PRN PRN Reason: Nausea/Vomiting Potassium Chloride (Klor-Con 10) 10 meq PO DAILY [facility] Last Admin: 01/24/18 10:06 Dose: 10 meq Simvastatin (Zocor) 10 mg PO BEDTIME [facility] Last Admin: 01/24/18 21:15 Dose: 10 mg Sodium Chloride (Saline Flush) 10 ml FLUSH ASDIRECTED PRN PRN Reason: Keep Vein Open Last Admin: 01/25/18 06:45 Dose: 10 ml Theophylline (Estevan-24) 600 mg PO DAILY [facility] Last Admin: 01/24/18 12:20 Dose: 600 mg Tiotropium [place] (Spiriva Handihaler) 18 mcg INH BEDTIME [facility] Last Admin: 01/24/18 21:27 Dose: 1 puff Vancomycin HCl (Pharmacy To Dose - Vancomycin) 0 dose .XX ASDIRECTED [facility] Warfarin Sodium (Coumadin) 5 mg PO SuTuThSa@1600 [facility] Last Admin: 01/23/18 16:03 Dose: 5 mg Warfarin Sodium (Coumadin Sliding Scale) 0 each PO ASDIRECTED [facility] Warfarin Sodium 5 mg/ Warfarin (Sodium 2.5 mg) 7.5 mg PO MoWeFr@1600 [facility] Last Admin: 01/24/18 16:01 Dose: 7.5 mg Discontinued Medications Albuterol/Ipratropium (Duoneb 3.0-0.5 Mg/3 Ml) 3 ml NEB ONETIME ONE Stop: 01/22/18 17:31 Last Admin: 01/22/18 17:46 Dose: 3 ml Levofloxacin/Dextrose 750 mg/ (Premix) 150 mls @ 100 mls/hr IV ONETIME ONE Stop: 01/22/18 21:58 Last Admin: 01/22/18 20:52 Dose: 100 mls/hr Ibuprofen (Motrin) 600 mg PO ONETIME ONE Stop: 01/22/18 20:32 Last Admin: 01/22/18 20:56 Dose: 600 mg Ketorolac Tromethamine (Toradol) 30 mg IVPUSH ONETIME ONE Stop: 01/22/18 22:14 Last Admin: 01/22/18 22:28 Dose: 30 mg Theophylline (Estevan-24) 600 mg PO DAILY [facility] Last Admin: 01/23/18 16:26 Dose: 600 mg Tramadol HCl (Ultram) 100 mg PO ONETIME ONE Stop: 01/22/18 20:32 Last Admin: 01/22/18 20:55 Dose: 100 mg - Exam Quality Assessment: Supplemental Oxygen General: Alert, Oriented HEENT: Pupils Equal Neck: Supple Lungs: Clear to Auscultation Cardiovascular: Regular Rate - Problem List & Annotations (1) CAP (community acquired pneumonia) SNOMED Code(s): 785270261 Code(s): J18.9 - PNEUMONIA, UNSPECIFIED ORGANISM Status: Acute Current Visit: Yes Qualifiers: Laterality: left (2) COPD exacerbation SNOMED Code(s): 902124865 Code(s): J44.1 - CHRONIC OBSTRUCTIVE PULMONARY DISEASE W (ACUTE) EXACERBATION Status: Acute Current Visit: No (3) History of pulmonary embolus (PE) SNOMED Code(s): 059669192 Code(s): Z86.711 - PERSONAL HISTORY OF PULMONARY EMBOLISM Status: Chronic Current Visit: Yes (4) Diabetes type 2, controlled SNOMED Code(s): 26276690 Code(s): E11.9 - TYPE 2 DIABETES MELLITUS WITHOUT COMPLICATIONS Status: Chronic Current Visit: Yes Qualifiers: Diabetes mellitus fpc insulin use: with fpc use Diabetes mellitus complication detail: with polyneuropathy (5) Obesity hypoventilation syndrome SNOMED Code(s): 445569857 Code(s): E66.2 - MORBID (SEVERE) OBESITY WITH ALVEOLAR HYPOVENTILATION Status: Chronic Current Visit: Yes (6) Physical deconditioning SNOMED Code(s): 71326589022031 Code(s): R53.81 - OTHER MALAISE Status: Acute Current Visit: Yes (7) Mood disorder SNOMED Code(s): 74437180 Code(s): F39 - UNSPECIFIED MOOD [AFFECTIVE] DISORDER Status: Chronic Current Visit: Yes (8) Chronic shoulder pain SNOMED Code(s): 50163923 Code(s): M25.519 - PAIN IN UNSPECIFIED SHOULDER; G89.29 - OTHER CHRONIC PAIN Status: Chronic Current Visit: Yes Qualifiers: Laterality: left Qualified Code(s): M25.512 - Pain in left shoulder; G89.29 - Other chronic pain (9) FRANCA (obstructive sleep apnea) SNOMED Code(s): 81157427 Code(s): G47.33 - OBSTRUCTIVE SLEEP APNEA (ADULT) (PEDIATRIC) Status: Chronic Current Visit: Yes (10) Diastolic dysfunction SNOMED Code(s): 8798846 Code(s): I51.9 - HEART DISEASE, UNSPECIFIED Status: Chronic Current Visit : Yes (11) Obesities, morbid SNOMED Code(s): 899188395 Code(s): E66.01 - MORBID (SEVERE) OBESITY DUE TO EXCESS CALORIES Status: Chronic Current Visit: No - Problem List Review Problem List Initiated/Reviewed/Updated: Yes - My Orders Last 24 Hours: My Active Orders 01/24/18 12:00 Theophylline [Estevan-24] 600 mg PO DAILY 01/24/18 15:23 Magnesium Hydroxide [Milk of Magnesia] 30 ml PO DAILY PRN 01/24/18 16:00 Warfarin [Coumadin] 7.5 mg PO MoWeFr@1600 01/26/18 08:52 INR,PT,PROTHROMBIN TIME [COAG] DAILY 01/27/18 08:52 INR,PT,PROTHROMBIN TIME [COAG] DAILY 01/28/18 08:52 INR,PT,PROTHROMBIN TIME [COAG] DAILY 01/29/18 08:52 INR,PT,PROTHROMBIN TIME [COAG] DAILY - Plan Plan:: [facility] home today,on Home Health,as she is needing help with Meds,and possibly PT
[2018-01-25] MEDS: metFORMIN 500 MG Tab PO SCH ×2 (08:52→18:33)
[2018-01-25] MEDS: Insulin Lispro 100 Unit/ML 3 ML KwikPen SUBCUT SCH ×3 (08:53→18:34)
[2018-01-25] MEDS: DULoxetine 60 MG Cap PO SCH (08:56)
[2018-01-25] MEDS: Cyclobenzaprine 10 MG Tab PO SCH ×2 (08:56→13:56)
[2018-01-25] MEDS: Formoterol/Mometasone 200-5 MCG 8.8 GM Inhaler IH SCH (08:56)
[2018-01-25] MEDS: Potassium Chloride 10 MEQ Tab.ER PO SCH (08:57)
[2018-01-25] MEDS: Insulin Glargine,Human Rec. Analog 100 Units/ML 3 ML Pen SUBCUT SCH (08:57)
[2018-01-25] MEDS: Furosemide 40 MG Tab PO SCH (08:58)
[2018-01-25] MEDS: Betamethasone Dipropionate/Clotrimazole 0.05-1% Crm 15 GM Tube TOP SCH (08:59)
[2018-01-25] MEDS: Metoprolol Tartrate 25 MG Tab PO SCH (08:59)
[2018-01-25] MEDS: Gabapentin 600 MG Tab PO SCH ×2 (09:00→13:56)
[2018-01-25] MEDS: Lisinopril 10 MG Tab PO SCH (09:00)
[2018-01-25] MEDS: Theophylline 100 MG Cap.ER PO SCH (09:01)
--- NOTE | 2018-01-25 11:28 | DISCH ---
DISCHARGE DATE: 01/25/2018 REASON FOR ADMISSION: 1. Community-acquired pneumonia. 2. Chronic obstructive pulmonary disease exacerbation. 3. Mild respiratory distress. 4. Obesity. 5. Type 2 diabetes. OTHER CHRONIC MEDICAL PROBLEMS: History of pulmonary embolism, on long-term anticoagulation; depression; chronic back pain; and obstructive sleep apnea. DISCHARGE DIAGNOSES: 1. Community-acquired pneumonia. 2. Chronic obstructive pulmonary disease exacerbation. 3. Mild respiratory distress. 4. Obesity. 5. Type 2 diabetes. CONSULTATIONS: None. BRIEF HISTORY AND HOSPITAL COURSE: A 52-year-old female was brought in with respiratory distress, found to have pneumonia, and she also has COPD. She was treated initially with Levaquin, but added triple therapy on the second day because of lack of progress. After 48 hours of IV antibiotics, she was deemed ready to go back home, had improved and back to her baseline in terms of clinical status, breathing, and oxygen level. She was discharged with home health to help with medications, movement, and physical therapy. Blood cultures were negative after 72 hours. DISCHARGE MEDICATIONS: 1. Levaquin 750 mg daily for one week. 2. Prednisone 20 mg b.i.d. for 5 days. The rest of her home medications were continued. Please note that I spent more than 35 minutes in the discharge of this patient. /[id number] AURELIA/MIR
[2018-01-25] MEDS ORDERED: Warfarin 5 MG Tab ONE (18:21)
[2018-01-25] MEDS: Warfarin 5 MG Tab PO SCH (18:29)
== END 2018-01-25 19:20 | disposition home health service (06) | DRG 190 ==
LOC: FB.ED 17:22 → FB.MS 19:39 → UNDOADMIN 19:39 → FB.MS 19:47
PROVIDERS: ADMIT Family Medicine; ATTEND Family Medicine
DX: J44.0 Chronic obstructive pulmonary disease with (acute) lower respiratory infection (principal); J18.9 Pneumonia, unspecified organism; E66.2 Morbid (severe) obesity with alveolar hypoventilation; Z68.41 Body mass index [BMI] 40.0-44.9, adult; J44.1 Chronic obstructive pulmonary disease with (acute) exacerbation; I10 Essential (primary) hypertension; E11.42 Type 2 diabetes mellitus with diabetic polyneuropathy; Z79.4 Long term (current) use of insulin; Z86.711 Personal history of pulmonary embolism; I11.9 Hypertensive heart disease without heart failure; R53.81 Other malaise; Z87.891 Personal history of nicotine dependence; R06.02 Shortness of breath; E78.00 Pure hypercholesterolemia, unspecified; I20.9 Angina pectoris, unspecified; M54.9 Dorsalgia, unspecified; M25.512 Pain in left shoulder; G89.29 Other chronic pain; M19.90 Unspecified osteoarthritis, unspecified site; F32.9 Major depressive disorder, single episode, unspecified; F39 Unspecified mood [affective] disorder; Z85.43 Personal history of malignant neoplasm of ovary; Z87.01 Personal history of pneumonia (recurrent); H54.7 Unspecified visual loss; Z99.89 Dependence on other enabling machines and devices; Z79.01 Long term (current) use of anticoagulants; Z88.6 Allergy status to analgesic agent; Z91.048 Other nonmedicinal substance allergy status; R06.09 Other forms of dyspnea
CPT/HCPCS: 36415; 71045; 80048; 80076; 82150; 82550; 83605; 84484; 85025; 93005; 93010; 94640; 99284; 99285; J7620; 81001; 82803; 82962; 83615; 83880; 85610; 86140; 87040; 94150; A9270-GY; J1815-GY; J1885; J1956; J2543; J2930; J3370; J7040; J7050

== ENCOUNTER 2018-01-29 14:47 | Emergency (ER) | payer MEDICARE, MEDICAID ==
--- NOTE | 2018-01-29 15:38 | EDM.PDOC ---
ED HPI GENERAL MEDICAL PROBLEM - General Chief Complaint: ENT Problem Stated Complaint: hearing loss Time Seen by Provider: 01/29/18 15:30 Source of Information: Reports: Patient History Limitations: Reports: No Limitations - History of Present Illness INITIAL COMMENTS - FREE TEXT/NARRATIVE: Has had progressive left sided hearing loss x 3 days. Was sent from walk in clinic because they did not have the proper equipment available to examine her ( per patient's family member). Patient was discharged from [facility] on , treated for pneumonia with Levaquin. Patient has right sided deafness chronically. Onset: Gradual Onset Date: 01/26/18 Duration: Day(s): (3) Quality: Reports: Other (mild left ear pain) Improves with: Reports: None Worsens with: Reports: None - Related Data Allergies Allergy/AdvReac Type Severity Reaction Status Date / Time aspirin Allergy Rash Verified 01/29/18 16:09 mold Allergy Airway Uncoded 01/29/18 16:09 Tightness Home Meds: Home Meds Simvastatin [Zocor] 10 mg PO BEDTIME 11/06/13 [History] metFORMIN [Glucophage] 500 mg PO BID 05/04/17 [History] Gabapentin [Neurontin] 600 mg PO TID 07/31/17 [History] Acetaminophen [Tylenol] 650 mg PO Q4H PRN tablet 09/04/17 [Rx] Albuterol/Ipratropium [DuoNeb 3.0-0.5 MG/3 ML] 3 ml INH QID PRN neb 09/04/17 [ Rx] DULoxetine [Cymbalta] 60 mg PO DAILY cap 09/04/17 [Rx] Furosemide [Lasix] 40 mg PO DAILY tablet 09/04/17 [Rx] Lisinopril [Prinivil] 10 mg PO DAILY tablet 09/04/17 [Rx] Budesonide/Formoterol [Symbicort 160-4.5 MCG] 2 puff INH BID 09/16/17 [History] Insulin Aspart [NovoLOG] 40 units SQ TIDMEALS 09/16/17 [History] Metoprolol Tartrate 25 mg PO BID 09/16/17 [History] Montelukast [Singulair] 10 mg PO BEDTIME 09/16/17 [History] Potassium Chloride [Klor-Con 10] 10 meq PO DAILY 09/16/17 [History] Umeclidinium [place] [Incruse Ellipta*] 1 puff INH BEDTIME 09/16/17 [History] Warfarin [Coumadin] 5 mg PO SUTUTHSA 09/16/17 [History] Nitroglycerin [Nitrostat] 0.4 mg PO Q5M PRN 09/26/17 [History] Warfarin [Coumadin] 7.5 mg PO MOWEFR 09/26/17 [History] traMADol [Ultram] 50 mg PO TID PRN 09/26/17 [History] Albuterol [Ventolin HFA] 2 puff INH Q4H PRN 01/23/18 [History] Cyclobenzaprine [Flexeril] 10 mg PO TID 01/23/18 [History] Insulin Degludec [Tresiba Flextouch U-200] 110 units SUBCUT BEDTIME 01/23/18 [ History] Theophylline [Theophylline Anhydrous] 300 mg PO BID 01/23/18 [History] Levofloxacin [Levaquin] 750 mg PO DAILY #7 tab 01/25/18 [Rx] predniSONE 20 mg PO BID #10 tab 01/25/18 [Rx] Past Medical History HEENT 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: Cataract, Impaired Vision Cardiovascular 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: Angina, High Cholesterol, Hypertension, SOB on Exertion, Other (See Below) Other Cardiovascular History: patient states has PRn nitro at home for occasional chest pains Respiratory 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: Asthma, COPD, Intubation, Previous, Pneumonia, Recurrent, Sleep Apnea, SOB Other Respiratory History: has CPAP Gastrointestinal 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: Cholelithiasis, GERD Genitourinary 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: Urinary Incontinence, Other (See Below) Other Genitourinary History: stress incontinence at times 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: Other VENDOR MANAGEMENT CONSULTANT History: , Musculoskeletal 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: Back Pain, Chronic, Osteoarthritis, Osteoporosis, Other (See Below) Other Musculoskeletal History: BACK INJURY Neurological 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: Concussion, Neuropathy, Diabetic, Speech Problems Psychiatric 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: Depression Endocrine/Metabolic 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: Diabetes, Type II, Hypothyroidism Oncologic (Cancer) 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: Ovarian Dermatologic 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: Other (See Below) Other Dermatologic History: open infected wound under right abd fold on oral antibiotics - Infectious Disease History Infectious Disease 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: Chicken Pox - Past Surgical History HEENT Surgical 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: Cataract Surgery, Oral Surgery GI Surgical 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: Cholecystectomy, Colonoscopy Female Surgical 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: Hysterectomy, Salpingo-Oophorectomy Oncologic Surgical 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: None Social & Family History - Family History Family Medical History: Noncontributory HEENT: Reports: Cataract Cardiac: Reports: CAD, [place] Respiratory: Reports: Asthma, Sleep Apnea : Reports: Diabetic Nephropathy OBGYN: Reports: Musculoskeletal: Reports: Arthritis Endocrine/Metabolic: Reports: Diabetes, Type I, Diabetes, type II, IDDM, Obesity /MBI 30+ Dermatologic: Reports: None Oncologic: Reports: Bone, Breast, Other (See Below) Other Oncologic Family History: heart - Caffeine Use Caffeine Use: Reports: Coffee, Soda Other Caffeine Use: daily - Living Situation & Occupation Living situation: Reports: ED ROS ENT - Review of Systems Review Of Systems: ROS reveals no pertinent complaints other than HPI. ED EXAM, ENT - Physical Exam Exam: See Below Exam Limited By: No Limitations General Appearance: Alert, WD/WN, No Apparent Distress Ears: Normal External Exam, Normal Canal, Normal TMs, Hearing Loss (bilaterally) Nose: Normal Inspection Head: Atraumatic, Normocephalic Neck: Full Range of Motion Respiratory/Chest: No Respiratory Distress, Lungs Clear, Normal Breath Sounds Cardiovascular: Regular Rate, Rhythm, No Murmur Neurological: Alert, Oriented, CN II-XII Intact, Normal Cognition, No Motor/ Sensory Deficits Psychiatric: Normal Affect, Normal Mood Skin: Warm, Dry, Intact Course - Vital Signs Last Recorded V/S: Last Vital Signs Temp 36.6 C 01/29/18 14:50 Pulse 76 01/29/18 14:50 Resp 22 H 01/29/18 14:50 BP 122/56 L 01/29/18 14:50 Pulse Ox 98 01/29/18 14:50 - Orders/Labs/Meds Orders: Active Orders 24 hr Category Date Time Status Orbit Sella PF IAC wo Cont [CT] Stat Exams 01/29/18 15:22 Taken - Radiology Interpretation Free Text/Narrative:: CT IACs w/o contrast unremarkable Departure - Departure Time of Disposition: 16:38 Disposition: Home, Self-Care 01 Condition: Good Clinical Impression: Hearing loss Qualifiers: Hearing loss type: other Laterality: left Contralateral hearing status: restricted hearing on contralateral side Qualified Code(s): H91.8X2 - Other specified hearing loss, left ear - Discharge Information *PRESCRIPTION DRUG MONITORING PROGRAM REVIEWED*: Not Applicable *COPY OF PRESCRIPTION DRUG MONITORING REPORT IN PATIENT ZACH: Not Applicable Instructions: Hearing Loss Referrals: Jacinto Jones MD [Primary Care Provider] - Forms: ED Department Discharge Additional Instructions: Keep appointment with your primary physician on 02/01/18. - My Orders Last 24 Hours: My Active Orders 01/29/18 15:22 Orbit Sella PF IAC wo Cont [CT] Stat - Assessment/Plan Last 24 Hours: My Active Orders 01/29/18 15:22 Orbit Sella PF IAC wo Cont [CT] Stat
[2018-01-29 17:46] VITALS: BP 123/65
--- NOTE | 2018-01-30 09:21 | CT ---
INDICATION: Left-sided hearing loss. CT INTERNAL AUDITORY CANALS: Serial contiguous 1.25 mm axial sections were obtained through the IACs with sagittal and coronal reconstructions and revealed , in the axial projection, maximum diameter for the right IAC of 4.1 mm. The left has a maximum diameter of approximately 5.2 mm. No significant asymmetry is suggested. Total exam DLP = 658.92 mGy-cm. If symptoms persist - if a high clinical suspicion is present for intracanicular tumor, MRI may be helpful for further evaluation. Report was called to Dr. Damon at 1631 hours on 01/29/2018. [facility]
== END 2018-01-29 17:00 | disposition home or self-care (01) ==
LOC: FB.ED 14:47
DX: H91.8X2 Other specified hearing loss, left ear (principal); I10 Essential (primary) hypertension; E78.00 Pure hypercholesterolemia, unspecified; J44.9 Chronic obstructive pulmonary disease, unspecified; E03.9 Hypothyroidism, unspecified; E11.40 Type 2 diabetes mellitus with diabetic neuropathy, unspecified; Z79.4 Long term (current) use of insulin; Z79.899 Other long term (current) drug therapy; Z88.6 Allergy status to analgesic agent; Z91.018 Allergy to other foods
CPT/HCPCS: 70480; 99283

== ENCOUNTER 2018-03-04 16:24 | Emergency (ER) | payer MEDICARE, MEDICAID ==
--- NOTE | 2018-03-04 17:28 | EDM.PDOC ---
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 Pt had it I&D'd in the past she c/o a rash at her breasts as well. No other acute medical issues. BP 153/93 HR 107 pulse ox O2 98% on RA Temp 98.4 Onset Date: 03/01/18 Onset Time: 09:00 Duration: Day(s):, Getting Worse, Intermittent Location: Reports: Pelvis Quality: Reports: Ache, Burning, Dull Severity: Mild Improves with: Reports: Rest Worsens with: Reports: Movement Context: Reports: Other Right Vaginal Pain Score (Numeric/FACES): 10 - Related Data Allergies Allergy/AdvReac Type Severity Reaction Status Date / Time aspirin Allergy Rash Verified 01/29/18 16:09 mold Allergy Airway Uncoded 01/29/18 16:09 Tightness Home Meds: Home Meds Simvastatin [Zocor] 10 mg PO BEDTIME 11/06/13 [History] metFORMIN [Glucophage] 500 mg PO BID 05/04/17 [History] Gabapentin [Neurontin] 600 mg PO TID 07/31/17 [History] Acetaminophen [Tylenol] 650 mg PO Q4H PRN tablet 09/04/17 [Rx] Albuterol/Ipratropium [DuoNeb 3.0-0.5 MG/3 ML] 3 ml INH QID PRN neb 09/04/17 [ Rx] DULoxetine [Cymbalta] 60 mg PO DAILY cap 09/04/17 [Rx] Furosemide [Lasix] 40 mg PO DAILY tablet 09/04/17 [Rx] Lisinopril [Prinivil] 10 mg PO DAILY tablet 09/04/17 [Rx] Budesonide/Formoterol [Symbicort 160-4.5 MCG] 2 puff INH BID 09/16/17 [History] Insulin Aspart [NovoLOG] 40 units SQ TIDMEALS 09/16/17 [History] Metoprolol Tartrate 25 mg PO BID 09/16/17 [History] Montelukast [Singulair] 10 mg PO BEDTIME 09/16/17 [History] Potassium Chloride [Klor-Con 10] 10 meq PO DAILY 09/16/17 [History] Umeclidinium [place] [Incruse Ellipta*] 1 puff INH BEDTIME 09/16/17 [History] Warfarin [Coumadin] 5 mg PO SUTUTHSA 09/16/17 [History] Nitroglycerin [Nitrostat] 0.4 mg PO Q5M PRN 09/26/17 [History] Warfarin [Coumadin] 7.5 mg PO MOWEFR 09/26/17 [History] traMADol [Ultram] 50 mg PO TID PRN 09/26/17 [History] Albuterol [Ventolin HFA] 2 puff INH Q4H PRN 01/23/18 [History] Cyclobenzaprine [Flexeril] 10 mg PO TID 01/23/18 [History] Insulin Degludec [Tresiba Flextouch U-200] 110 units SUBCUT BEDTIME 01/23/18 [ History] Theophylline [Theophylline Anhydrous] 300 mg PO BID 01/23/18 [History] levoFLOXacin [Levaquin] 750 mg PO DAILY #7 tab 01/25/18 [Rx] predniSONE 20 mg PO BID #10 tab 01/25/18 [Rx] Clotrimazole [Lotrimin AF 1% Crm] 30 gm TOP BID 10 Days tube 03/04/18 [Rx] Sulfamethoxazole/Trimethoprim [Bactrim Ds Tablet] 1 each PO BID #20 tablet 03/06 [Rx] Past Medical History HEENT 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: Cataract, Impaired Vision Cardiovascular 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: Angina, High Cholesterol, Hypertension, SOB on Exertion, Other (See Below) Other Cardiovascular History: patient states has PRn nitro at home for occasional chest pains Respiratory 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: Asthma, COPD, Intubation, Previous, Pneumonia, Recurrent, Sleep Apnea, SOB Other Respiratory History: has CPAP Gastrointestinal 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: Cholelithiasis, GERD Genitourinary 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: Urinary Incontinence, Other (See Below) Other Genitourinary History: stress incontinence at times 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 History: , Musculoskeletal 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: Back Pain, Chronic, Osteoarthritis, Osteoporosis, Other (See Below) Other Musculoskeletal History: BACK INJURY Neurological History: Reports: Concussion, Neuropathy, Diabetic, Speech Problems Psychiatric History: Reports: Depression Endocrine/Metabolic History: Reports: Diabetes, Type II, Hypothyroidism Oncologic (Cancer) History: Reports: Ovarian Dermatologic History: Reports: Other (See Below) Other Dermatologic History: open infected wound under right abd fold on oral antibiotics - Infectious Disease History Infectious Disease History: Reports: Chicken Pox - Past Surgical History HEENT Surgical History: Reports: Cataract Surgery, Oral Surgery GI Surgical History: Reports: Cholecystectomy, Colonoscopy Female Surgical History: Reports: Hysterectomy, Salpingo-Oophorectomy Oncologic Surgical History: Reports: None Social & Family History - Family History Family Medical History: Noncontributory HEENT: Reports: Cataract Cardiac: Reports: CAD, [place] Respiratory: Reports: Asthma, Sleep Apnea : Reports: Diabetic Nephropathy OBGYN: Reports: Musculoskeletal: Reports: Arthritis Endocrine/Metabolic: Reports: Diabetes, Type I, Diabetes, type II, IDDM, Obesity /MBI 30+ Dermatologic: Reports: None Oncologic: Reports: Bone, Breast, Other (See Below) Other Oncologic Family History: heart - Caffeine Use Caffeine Use: Reports: Coffee, Soda Other Caffeine Use: daily - Living Situation & Occupation Living situation: Reports: ED ROS GENERAL - Review of Systems Review Of Systems: See Below Constitutional: Reports: No Symptoms HEENT: Reports: No Symptoms Respiratory: Reports: Other (h/o asthma) Cardiovascular: Reports: No Symptoms Endocrine: Reports: No Symptoms GI/Abdominal: Reports: No Symptoms : Reports: No Symptoms Musculoskeletal: Reports: No Symptoms Skin: Reports: Lumps (right lmajor labia) Neurological: Reports: No Symptoms Psychiatric: Reports: No Symptoms Hematologic/Lymphatic: Reports: No Symptoms Immunologic: Reports: No Symptoms ED EXAM, RENAL/ - Physical Exam Exam: See Below Exam Limited By: Physical Impairment General Appearance: Alert, WD/WN, Obese Eye Exam: Bilateral Eye: Normal Inspection Ears: Normal External Exam Nose: Normal Inspection Throat/Mouth: Normal Lips, Normal Oropharynx, Normal Voice, No Airway Compromise Head: Atraumatic, Normocephalic Neck: Normal Inspection, Supple, Non-Tender Respiratory/Chest: No Accessory Muscle Use, Chest Non-Tender, Wheezing (baseline ) Cardiovascular: Normal Peripheral Pulses, Regular Rate, Rhythm, No Edema, No Gallop GI/Abdominal: Normal Bowel Sounds, Soft, Non-Tender, No Organomegaly, No Distention, No Abnormal Bruit, No Mass, Pelvis Stable (Female) Exam: Other (minor mass right major labia) Rectal (Female) Exam: Deferred Back Exam: Normal Inspection Extremities: Normal Inspection, Normal Range of Motion, Non-Tender, No Pedal Edema Neurological: Alert, Oriented, CN II-XII Intact, Normal Cognition Psychiatric: Normal Affect, Normal Mood Skin Exam: Warm, Dry, Intact, Normal Color, No Rash Lymphatic: No Adenopathy Course - Vital Signs Text/Narrative:: 52 y.o.w.f with a h/o asthma came to the ed because of pain at her right Labia Majora. Pt had it I&D'd in the past she c/o a rash at her breasts as well. No other acute medical issues. BP 153/93 HR 107 pulse ox O2 98% on RA Temp 98.4 PE: 52 y.o.w.f with pain at her labia majora, S/P hysterectomy Procedure not: Labia Major was locally anesthetized with 2% lidocain under sterile condition. a 0.5 cm incision was made with a #11 pointed plate, blood and litte pus extruede, pt got pain free. An iodine gaze was applied to keep the incision open. There was no complication Impression: Abscess right labia major, I&D'd in the ed. yeat infection beneath both breasts. Tx: wound care right major labia Reexam: Improved Plan: D/C with instructions Last Recorded V/S: Last Vital Signs Temp 36.9 C 03/04/18 16:30 Pulse 107 H 03/04/18 16:30 Resp 20 03/04/18 16:30 BP 153/93 H 03/04/18 16:30 Pulse Ox 98 03/04/18 16:30 Departure - Departure Time of Disposition: 17:33 Disposition: Home, Self-Care 01 Condition: Good Clinical Impression: Abscess of labia majora, Yeast infection of the skin - Discharge Information *PRESCRIPTION DRUG MONITORING PROGRAM REVIEWED*: Yes *COPY OF PRESCRIPTION DRUG MONITORING REPORT IN PATIENT ZACH: Yes Prescriptions: Clotrimazole [Lotrimin AF 1% Crm] 30 gm TOP BID 10 Days tube Sulfamethoxazole/Trimethoprim [Bactrim Ds Tablet] 1 each PO BID #20 tablet Instructions: Bartholin Cyst or Abscess, [id number] Referrals: Jacinto Jones MD [Primary Care Provider] - Forms: ED Department Discharge Additional Instructions: Please f/u with your PMD next week for rechedk Labia Majora I&D. Please apply Lotrimin cream onto the affected areas, please f/u, come back if your symptoms get worse acutely
[2018-03-04 18:15] VITALS: BP 153/93
== END 2018-03-04 17:55 | disposition home or self-care (01) ==
LOC: FB.ED 16:24
DX: N76.4 Abscess of vulva (principal); B37.89 Other sites of candidiasis; E78.00 Pure hypercholesterolemia, unspecified; I10 Essential (primary) hypertension; J44.9 Chronic obstructive pulmonary disease, unspecified; Z79.84 Long term (current) use of oral hypoglycemic drugs
CPT/HCPCS: 10060; 56405; 87070; 87077; 87186; 87205; 99282; 99283

== ENCOUNTER 2018-08-27 15:01 | Emergency (ER) | payer MEDICARE, MEDICAID ==
[2018-08-27] MEDS ORDERED: methylPREDNISolone Sodium Succinate 125 MG/2 ML SDV IVPUSH ONE (15:15)
[2018-08-27] MEDS ORDERED: Albuterol/Ipratropium 3.0-0.5 MG/3 ML Neb Soln NEB ONE ×2 (15:15→17:42)
--- NOTE | 2018-08-27 15:19 | EDM.PDOC ---
ED HPI GENERAL MEDICAL PROBLEM - General Chief Complaint: Respiratory Problem Stated Complaint: DIFFICULTY BREATHING Time Seen by Provider: 08/27/18 15:12 Source of Information: Reports: Patient History Limitations: Reports: Respiratory Distress - History of Present Illness INITIAL COMMENTS - FREE TEXT/NARRATIVE: 53 y.o.w f was sent from the clinic to the ed because of COPD exacerbation. No C/P no N/V/D or any other acute med issues. BP 136/92 RR 22 Pulse ox 92% on 2 liters Home O2, temp 36.6 Pulse 118 Onset Date: 08/25/18 Onset Time: 07:00 Duration: Getting Worse, Intermittent Location: Reports: Chest Quality: Reports: Dull Severity: Moderate Improves with: Reports: Rest Worsens with: Reports: Breathing Context: Reports: Other (H/O COPD) Middle Chest Pain Score (Numeric/FACES): 2 - Related Data Allergies Allergy/AdvReac Type Severity Reaction Status Date / Time aspirin Allergy Rash Verified 08/27/18 15:43 mold Allergy Airway Uncoded 01/29/18 16:09 Tightness Home Meds: Home Meds Simvastatin [Zocor] 10 mg PO BEDTIME 11/06/13 [History] metFORMIN [Glucophage] 500 mg PO BID 05/04/17 [History] Gabapentin [Neurontin] 600 mg PO TID 07/31/17 [History] Acetaminophen [Tylenol] 650 mg PO Q4H PRN tablet 09/04/17 [Rx] Albuterol/Ipratropium [DuoNeb 3.0-0.5 MG/3 ML] 3 ml INH QID PRN neb 09/04/17 [ Rx] DULoxetine [Cymbalta] 60 mg PO DAILY cap 09/04/17 [Rx] Furosemide [Lasix] 40 mg PO DAILY tablet 09/04/17 [Rx] Lisinopril [Prinivil] 10 mg PO DAILY tablet 09/04/17 [Rx] Budesonide/Formoterol [Symbicort 160-4.5 MCG] 2 puff INH BID 09/16/17 [History] Insulin Aspart [NovoLOG] 40 units SQ TIDMEALS 09/16/17 [History] Metoprolol Tartrate 25 mg PO BID 09/16/17 [History] Montelukast [Singulair] 10 mg PO BEDTIME 09/16/17 [History] Potassium Chloride [Klor-Con 10] 10 meq PO DAILY 09/16/17 [History] Umeclidinium [place] [Incruse Ellipta*] 1 puff INH BEDTIME 09/16/17 [History] Warfarin [Coumadin] 5 mg PO SUTUTHSA 09/16/17 [History] Nitroglycerin [Nitrostat] 0.4 mg PO Q5M PRN 09/26/17 [History] Warfarin [Coumadin] 7.5 mg PO MOWEFR 09/26/17 [History] traMADol [Ultram] 50 mg PO TID PRN 09/26/17 [History] Albuterol [Ventolin HFA] 2 puff INH Q4H PRN 01/23/18 [History] Cyclobenzaprine [Flexeril] 10 mg PO TID 01/23/18 [History] Insulin Degludec [Tresiba Flextouch U-200] 110 units SUBCUT BEDTIME 01/23/18 [ History] Theophylline [Theophylline Anhydrous] 300 mg PO BID 01/23/18 [History] levoFLOXacin [Levaquin] 750 mg PO DAILY #7 tab 01/25/18 [Rx] predniSONE 20 mg PO BID #10 tab 01/25/18 [Rx] Clotrimazole [Lotrimin AF 1% Crm] 30 gm TOP BID 10 Days tube 03/04/18 [Rx] Sulfamethoxazole/Trimethoprim [Bactrim Ds Tablet] 1 each PO BID #20 tablet 03/06 [Rx] Past Medical History HEENT History: Reports: Cataract, Impaired Vision Cardiovascular History: Reports: Angina, High Cholesterol, Hypertension, SOB on Exertion, Other (See Below) Other Cardiovascular History: patient states has PRn nitro at home for occasional chest pains Respiratory History: Reports: Asthma, COPD, Intubation, Previous, Pneumonia, Recurrent, Sleep Apnea, SOB Other Respiratory History: has CPAP Gastrointestinal History: Reports: Cholelithiasis, GERD Genitourinary History: Reports: Urinary Incontinence, Other (See Below) Other Genitourinary History: stress incontinence at times RN PERINATAL History: Reports: Other RN PERINATAL History: , Musculoskeletal History: Reports: Back Pain, Chronic, Osteoarthritis, Osteoporosis, Other (See Below) Other Musculoskeletal History: BACK INJURY Neurological History: Reports: Concussion, Neuropathy, Diabetic, Speech Problems Psychiatric History: Reports: Depression Endocrine/Metabolic History: Reports: Diabetes, Type II, Hypothyroidism Oncologic (Cancer) History: Reports: Ovarian Dermatologic History: Reports: Other (See Below) Other Dermatologic History: open infected wound under right abd fold on oral antibiotics - Infectious Disease History Infectious Disease History: Reports: Chicken Pox - Past Surgical History HEENT Surgical History: Reports: Cataract Surgery, Oral Surgery GI Surgical History: Reports: Cholecystectomy, Colonoscopy Female Surgical History: Reports: Hysterectomy, Salpingo-Oophorectomy Oncologic Surgical History: Reports: None Social & Family History - Family History Family Medical History: Noncontributory HEENT: Reports: Cataract Cardiac: Reports: CAD, [place] Respiratory: Reports: Asthma, Sleep Apnea : Reports: Diabetic Nephropathy OBGYN: Reports: Musculoskeletal: Reports: Arthritis Endocrine/Metabolic: Reports: Diabetes, Type I, Diabetes, type II, IDDM, Obesity /MBI 30+ Dermatologic: Reports: None Oncologic: Reports: Bone, Breast, Other (See Below) Other Oncologic Family History: heart - Caffeine Use Caffeine Use: Reports: Coffee, Soda Other Caffeine Use: daily - Living Situation & Occupation Living situation: Reports: ED ROS GENERAL - Review of Systems Review Of Systems: See Below Constitutional: Reports: No Symptoms HEENT: Reports: No Symptoms Respiratory: Reports: Shortness of Breath Cardiovascular: Reports: No Symptoms Endocrine: Reports: No Symptoms GI/Abdominal: Reports: No Symptoms : Reports: No Symptoms Musculoskeletal: Reports: No Symptoms Skin: Reports: No Symptoms Neurological: Reports: No Symptoms Psychiatric: Reports: No Symptoms Hematologic/Lymphatic: Reports: No Symptoms Immunologic: Reports: No Symptoms ED EXAM, GENERAL - Physical Exam Exam: See Below Exam Limited By: Respiratory Distress General Appearance: Alert, WD/WN, Mild Distress Eye Exam: Bilateral Eye: Normal Inspection Ears: Normal External Exam Ear Exam: Bilateral Ear: Auricle Normal Nose: Normal Inspection, Normal Mucosa, No Blood Throat/Mouth: Normal Lips, Normal Voice, No Airway Compromise Head: Atraumatic, Normocephalic Neck: Normal Inspection, Supple, Non-Tender, Full Range of Motion Respiratory/Chest: Wheezing Cardiovascular: Normal Peripheral Pulses, Regular Rate, Rhythm, No Edema Peripheral Pulses: 2+: Brachial (R) GI/Abdominal: Normal Bowel Sounds, Soft, Non-Tender, No Organomegaly, No Abnormal Bruit, No Mass, Pelvis Stable (Female) Exam: Deferred Rectal (Female) Exam: Deferred Back Exam: Normal Inspection, Full Range of Motion Extremities: Normal Inspection, Normal Range of Motion, Non-Tender, No Pedal Edema, Normal Capillary Refill Neurological: Alert, Oriented, CN II-XII Intact, Normal Cognition Psychiatric: Normal Affect, Normal Mood Skin Exam: Warm, Dry, Intact, Normal Color, No Rash Lymphatic: No Adenopathy Course - Vital Signs Text/Narrative:: 53 y.o.w f was sent from the clinic to the ed because of COPD exacerbation. No C/P no N/V/D or any other acute med issues. BP 136/92 RR 22 Pulse ox 92% on 2 liters Home O2, temp 36.6 Pulse 118 PE: Obese 53 y.o.w.f with sob labs: Nl WBC Na 133 Impression: COPD exacerbation Tx: Duoneb, Solumedrol, Albut nehb Reexam: Improved Plan: D/C with instructions Last Recorded V/S: Last Vital Signs Temp 36.7 C 08/27/18 16:20 Pulse 104 H 08/27/18 16:20 Resp 16 08/27/18 16:20 BP 128/69 08/27/18 16:20 Pulse Ox 95 08/27/18 16:20 - Orders/Labs/Meds Orders: Active Orders 24 hr Category Date Time Status Oxygen Therapy Adult [Oxygen Therapy, ED] [RC] Care 08/27/18 15:00 Active ASDIRECTED RT Aerosol Therapy [RC] ASDIRECTED Care 08/27/18 17:42 Active Labs: Laboratory Tests 08/27/18 08/27/18 08/27/18 Range/Units 17:15 17:15 17:15 WBC 5.9 (4.5-12.0) X10-3/uL RBC 5.22 H (3.23-5.20) x10(6)uL Hgb 12.4 (11.5-15.5) g/dL Hct 39.9 (30.0-51.3) % MCV 76.4 L (80-96) fL MCH 23.8 L (27.7-33.6) pg MCHC 31.2 L (32.2-35.4) g/dL RDW 17.1 H (11.5-15.5) % Plt Count 160 (125-369) X10(3)uL MPV 9.3 (7.4-10.4) fL Neut % (Auto) 68.1 (46-82) % Lymph % (Auto) 16.8 (13-37) % Gaines % (Auto) 13.4 H (4-12) % Eos % (Auto) 0 L (1.0-5.0) % Baso % (Auto) 2 (0-2) % Neut # (Auto) 4.0 (1.6-8.3) # Lymph # (Auto) 1.0 (0.6-5.0) # Gaines # (Auto) 0.8 (0.0-1.3) # Eos # (Auto) 0.0 (0.0-0.8) # Baso # (Auto) 0.1 (0.0-0.2) # Sodium 133 L (135-145) mmol/L Potassium 4.2 (3.5-5.3) mmol/L Chloride 98 L D (100-110) mmol/L Carbon Dioxide 25 (21-32) mmol/L BUN 10 (7-18) mg/dL Creatinine 0.7 (0.55-1.02) mg/dL Est Cr Clr Drug Dosing 85.01 mL/min Estimated GFR (MDRD) > 60 (>60) BUN/Creatinine Ratio 14.3 (9-20) Glucose 197 H D (80-116) mg/dL Calcium 9.5 (8.6-10.2) mg/dL NT-Pro-B Natriuret Pep 169 H (<=125) pg/mL Meds: Medications Discontinued Medications Generic Name Dose Route Start Last Admin Trade Name Freq PRN Reason Stop Dose Admin Albuterol/Ipratropium 3 ml 08/27/18 15:15 08/27/18 15:33 Duoneb 3.0-0.5 Mg/3 Ml NEB 08/27/18 15:16 3 ml ONETIME ONE Administration Albuterol/Ipratropium 3 ml 08/27/18 17:42 08/27/18 17:47 Duoneb 3.0-0.5 Mg/3 Ml NEB 08/27/18 17:43 3 ml ONETIME ONE Administration Methylprednisolone Sodium Succinate 125 mg 08/27/18 15:15 08/27/18 15:32 Solu-Medrol IVPUSH 08/27/18 15:16 125 mg ONETIME ONE Administration Prednisone 60 mg 08/27/18 18:01 08/27/18 18:06 Prednisone PO 08/27/18 18:02 60 mg ONETIME ONE Administration Departure - Departure Time of Disposition: 18:00 Disposition: Home, Self-Care 01 Condition: Good Clinical Impression: COPD (chronic obstructive pulmonary disease) - Discharge Information Instructions: Chronic Obstructive Pulmonary Disease Referrals: Jacinto Jones MD [Primary Care Provider] - Forms: ED Department Discharge Additional Instructions: Please take the prednisone taper as [id number], please cont your current meds , please f/u, come back if your symptoms get worse acutely - My Orders Last 24 Hours: My Active Orders 08/27/18 15:00 Oxygen Therapy Adult [Oxygen Therapy, ED] [RC] ASDIRECTED 08/27/18 17:42 RT Aerosol Therapy [RC] ASDIRECTED - Assessment/Plan Last 24 Hours: My Active Orders 08/27/18 15:00 Oxygen Therapy Adult [Oxygen Therapy, ED] [RC] ASDIRECTED 08/27/18 17:42 RT Aerosol Therapy [RC] ASDIRECTED
[2018-08-27] MEDS ORDERED: predniSONE 20 MG Tab PO ONE (18:01)
[2018-08-27 18:36] VITALS: BP 128/69
== END 2018-08-27 18:23 | disposition home or self-care (01) ==
LOC: FB.ED 15:01
DX: J44.1 Chronic obstructive pulmonary disease with (acute) exacerbation (principal); E11.40 Type 2 diabetes mellitus with diabetic neuropathy, unspecified; E78.00 Pure hypercholesterolemia, unspecified; I10 Essential (primary) hypertension; G47.30 Sleep apnea, unspecified; Z88.8 Allergy status to other drugs, medicaments and biological substances; Z79.899 Other long term (current) drug therapy; Z79.01 Long term (current) use of anticoagulants; Z79.4 Long term (current) use of insulin; Z87.891 Personal history of nicotine dependence
CPT/HCPCS: 36415; 80048; 83880; 85025; 94640; 96374; 99285; A9270; J2930; 99284; J7620-GY

== ENCOUNTER 2018-08-29 12:31 | Emergency (ER) | payer MEDICARE, MEDICAID ==
[2018-08-29] MEDS ORDERED: Albuterol/Ipratropium 3.0-0.5 MG/3 ML Neb Soln NEB ONE (12:39)
[2018-08-29] MEDS: Albuterol/Ipratropium 3.0-0.5 MG/3 ML Neb Soln NEB ONE ×2 (12:43→13:06)
[2018-08-29] MEDS ORDERED: methylPREDNISolone Sodium Succinate 125 MG/2 ML SDV IVPUSH ONE (12:45)
--- NOTE | 2018-08-29 13:06 | EDM.PDOC ---
ED HPI GENERAL MEDICAL PROBLEM - General Stated Complaint: SOB Time Seen by Provider: 08/29/18 12:31 Source of Information: Reports: Patient, EMS, Family History Limitations: Reports: Respiratory Distress - History of Present Illness INITIAL COMMENTS - FREE TEXT/NARRATIVE: 53 y.o.w.f with severe COPD. Pt was seen in the clinic and in the ed a few days ago for same. Pt was in the past intubated and on the vent for 12 days in [place]. Today, she came by EMS to the ED unable to breath. 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 Her pulse ox was 88 in the on arrival.. Pt was an a non rebreather mask on arrival to the ed . CP with deep insp. no CP at rest, no N/V/ D. no other acute medical issues. BP 179/97 RR 30 Pulse ox 94% on 4 liter O2 by NC, Temp 36.8 Pulse 116 Onset: Unknown/Unsure Onset Date: 08/28/18 Onset Time: 03:00 Duration: Hour(s):, Getting Worse, Intermittent Location: Reports: Chest Severity: Moderate Improves with: Reports: Rest Worsens with: Reports: Movement Context: Reports: Other (COPD) Associated Symptoms: Reports: Cough, Shortness of Breath Chest Pain Score (Numeric/FACES): 5 - Related Data Allergies Allergy/AdvReac Type Severity Reaction Status Date / Time aspirin Allergy Rash Verified 08/29/18 13:50 mold Allergy Airway Uncoded 01/29/18 16:09 Tightness Home Meds: Home Meds Simvastatin [Zocor] 10 mg PO BEDTIME 11/06/13 [History] Acetaminophen [Tylenol] 650 mg PO Q4H PRN tablet 09/04/17 [Rx] Albuterol/Ipratropium [DuoNeb 3.0-0.5 MG/3 ML] 3 ml INH QID PRN neb 09/04/17 [ Rx] DULoxetine [Cymbalta] 60 mg PO DAILY cap 09/04/17 [Rx] Furosemide [Lasix] 40 mg PO DAILY tablet 09/04/17 [Rx] Lisinopril [Prinivil] 10 mg PO DAILY tablet 09/04/17 [Rx] Insulin Aspart [NovoLOG] 36 units SQ TIDMEALS 09/16/17 [History] Montelukast [Singulair] 10 mg PO BEDTIME 09/16/17 [History] Potassium Chloride [Klor-Con 10] 10 meq PO DAILY 09/16/17 [History] Umeclidinium [place] [Incruse Ellipta*] 1 puff INH BEDTIME 09/16/17 [History] Nitroglycerin [Nitrostat] 0.4 mg PO Q5M PRN 09/26/17 [History] Albuterol [Ventolin HFA] 2 puff INH Q4H PRN 01/23/18 [History] Cyclobenzaprine [Flexeril] 10 mg PO TID 01/23/18 [History] Insulin Degludec [Tresiba Flextouch U-200] 120 units SUBCUT BEDTIME 01/23/18 [ History] Theophylline [Theophylline Anhydrous] 300 mg PO BID 01/23/18 [History] Amitriptyline [Elavil] 50 mg PO BEDTIME 08/29/18 [History] Budesonide/Formoterol Fumarate [Symbicort 160-4.5 Mcg Inhaler] 2 puff IH BID [History] Griseofulvin, Microsize [Griseofulvin] 500 mg PO DAILY 08/29/18 [History] Lactulose [Chronulac] 15 ml PO DAILY PRN 08/29/18 [History] metFORMIN [Glucophage] 1,000 mg PO BIDMEALS 08/29/18 [History] oxyCODONE HCl/Acetaminophen [Oxycodone-Acetaminophen 5-325] 1 - 2 tab PO QID PRN 08/29/18 [History] rOPINIRole HCl [Requip] 1 mg PO BEDTIME 08/29/18 [History] Past Medical History HEENT History: Reports: Cataract, Impaired Vision Cardiovascular History: Reports: Angina, High Cholesterol, Hypertension, SOB on Exertion, Other (See Below) Other Cardiovascular History: patient states has PRn nitro at home for occasional chest pains Respiratory History: Reports: Asthma, COPD, Intubation, Previous, Pneumonia, Recurrent, Sleep Apnea, SOB Other Respiratory History: has CPAP Gastrointestinal History: Reports: Cholelithiasis, GERD Genitourinary History: Reports: Urinary Incontinence, Other (See Below) Other Genitourinary History: stress incontinence at times 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 INSTALLATION MANAGER 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: Other 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 INSTALLATION MANAGER History: , Musculoskeletal History: Reports: Back Pain, Chronic, Osteoarthritis, Osteoporosis, Other (See Below) Other Musculoskeletal History: BACK INJURY Neurological History: Reports: Concussion, Neuropathy, Diabetic, Speech Problems Psychiatric History: Reports: Depression Endocrine/Metabolic History: Reports: Diabetes, Type II, Hypothyroidism Oncologic (Cancer) History: Reports: Ovarian Dermatologic History: Reports: Other (See Below) Other Dermatologic History: open infected wound under right abd fold on oral antibiotics - Infectious Disease History Infectious Disease History: Reports: Chicken Pox - Past Surgical History HEENT Surgical History: Reports: Cataract Surgery, Oral Surgery GI Surgical History: Reports: Cholecystectomy, Colonoscopy Female Surgical History: Reports: Hysterectomy, Salpingo-Oophorectomy Oncologic Surgical History: Reports: None Social & Family History - Family History Family Medical History: Noncontributory HEENT: Reports: Cataract Cardiac: Reports: CAD, [place] Respiratory: Reports: Asthma, Sleep Apnea : Reports: Diabetic Nephropathy OBGYN: Reports: Musculoskeletal: Reports: Arthritis Endocrine/Metabolic: Reports: Diabetes, Type I, Diabetes, type II, IDDM, Obesity /MBI 30+ Dermatologic: Reports: None Oncologic: Reports: Bone, Breast, Other (See Below) Other Oncologic Family History: heart - Caffeine Use Caffeine Use: Reports: Coffee, Soda Other Caffeine Use: daily - Living Situation & Occupation Living situation: Reports: ED ROS GENERAL - Review of Systems Review Of Systems: See Below Constitutional: Reports: Weakness HEENT: Reports: No Symptoms Respiratory: Reports: Shortness of Breath Cardiovascular: Reports: No Symptoms Endocrine: Reports: No Symptoms GI/Abdominal: Reports: No Symptoms : Reports: No Symptoms Musculoskeletal: Reports: No Symptoms Skin: Reports: No Symptoms Neurological: Reports: No Symptoms Psychiatric: Reports: No Symptoms Hematologic/Lymphatic: Reports: No Symptoms Immunologic: Reports: No Symptoms ED EXAM, GENERAL - Physical Exam Exam: See Below Exam Limited By: Respiratory Distress General Appearance: Alert, WD/WN, Moderate Distress Eye Exam: Bilateral Eye: Normal Inspection Ears: Normal External Exam Ear Exam: Bilateral Ear: Auricle Normal Nose: Normal Inspection, Normal Mucosa, No Blood Throat/Mouth: Normal Lips, Normal Voice, No Airway Compromise, Other (poor dentition) Head: Atraumatic, Normocephalic Neck: Normal Inspection, Supple, Non-Tender, Full Range of Motion Respiratory/Chest: No Respiratory Distress, Lungs Clear, Normal Breath Sounds, No Accessory Muscle Use, Chest Non-Tender Cardiovascular: Normal Peripheral Pulses, Regular Rate, Rhythm, No Edema, No Gallop, No JVD, No Murmur, No Rub Peripheral Pulses: 2+: Brachial (L) GI/Abdominal: Normal Bowel Sounds, Soft, Non-Tender, No Organomegaly, No Abnormal Bruit, No Mass, Pelvis Stable (Female) Exam: Deferred Rectal (Female) Exam: Deferred Back Exam: Normal Inspection Extremities: Normal Inspection, Normal Range of Motion Neurological: Alert, Oriented, CN II-XII Intact, Normal Cognition, Normal Gait Psychiatric: Normal Affect, Normal Mood Skin Exam: Warm, Dry, Intact, Normal Color, No Rash Lymphatic: No Adenopathy EKG INTERPRETATION EKG Date: 08/29/18 Time: 12:45 Rhythm: NSR Rate (Beats/Min): 115 Fletcher: Normal P-Wave: Present QRS: Normal ST-T: Normal QT: Normal Comparison: NA - No Prior EKG Course - Vital Signs Text/Narrative:: 53 y.o.w.f with severe COPD. Pt was seen in the clinic and in the ed a few days ago for same. Pt was in the past intubated and on the vent for 12 days in [place]. Today, she came by EMS to the ED unable to breath. 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 Her pulse ox was 88 in the on arrival.. Pt was an a non rebreather mask on arrival to the ed . CP with deep insp. no CP at rest, no N/V/ D. no other acute medical issues. 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 Houston, Hospitalist; Will admit or transfer her for further care. Plan: Transfer to [facility], Dr. Houston, Hospitalist will make the Arrangements Last Recorded V/S: Last Vital Signs Temp 37.1 C 08/29/18 14:22 Pulse 112 H 08/29/18 15:12 Resp 22 H 08/29/18 13:35 BP 155/109 H 08/29/18 15:54 Pulse Ox 92 L 08/29/18 15:11 - Orders/Labs/Meds Orders: Active Orders 24 hr Category Date Time Status RT Aerosol Therapy [RC] ASDIRECTED Care 08/29/18 12:38 Active EKG 12 Lead [EK] Routine Ther 08/29/18 12:38 Ordered Labs: Laboratory Tests 08/29/18 08/29/18 08/29/18 Range/Units 12:50 12:50 12:50 WBC 6.3 (4.5-12.0) X10-3/uL RBC 5.12 (3.23-5.20) x10(6)uL Hgb 12.4 (11.5-15.5) g/dL Hct 39.6 (30.0-51.3) % MCV 77.4 L (80-96) fL MCH 24.2 L (27.7-33.6) pg MCHC 31.3 L (32.2-35.4) g/dL RDW 17.0 H (11.5-15.5) % Plt Count 160 (125-369) X10(3)uL MPV 8.7 (7.4-10.4) fL Neut % (Auto) 67.0 (46-82) % Lymph % (Auto) 17.1 (13-37) % [place] % (Auto) 13.6 H (4-12) % Eos % (Auto) 0 L (1.0-5.0) % Baso % (Auto) 2 (0-2) % Neut # (Auto) 4.2 (1.6-8.3) # Lymph # (Auto) 1.1 (0.6-5.0) # [place] # (Auto) 0.9 (0.0-1.3) # Eos # (Auto) 0.0 (0.0-0.8) # Baso # (Auto) 0.1 (0.0-0.2) # PT 9.2 (8.7-11.1) INR 0.95 (0.89-1.13) Sodium 139 (135-145) mmol/L Potassium 3.5 (3.5-5.3) mmol/L Chloride 101 (100-110) mmol/L Carbon Dioxide 29 (21-32) mmol/L BUN 15 (7-18) mg/dL Creatinine 0.7 (0.55-1.02) mg/dL Est Cr Clr Drug Dosing TNP Estimated GFR (MDRD) > 60 (>60) BUN/Creatinine Ratio 21.4 H (9-20) Glucose 157 H (80-116) mg/dL Calcium 9.2 (8.6-10.2) mg/dL Troponin I (<0.017-0.056) ng/mL 08/29/18 Range/Units 12:50 WBC (4.5-12.0) X10-3/uL RBC (3.23-5.20) x10(6)uL Hgb (11.5-15.5) g/dL Hct (30.0-51.3) % MCV (80-96) fL MCH (27.7-33.6) pg MCHC (32.2-35.4) g/dL RDW (11.5-15.5) % Plt Count (125-369) X10(3)uL MPV (7.4-10.4) fL Neut % (Auto) (46-82) % Lymph % (Auto) (13-37) % [place] % (Auto) (4-12) % Eos % (Auto) (1.0-5.0) % Baso % (Auto) (0-2) % Neut # (Auto) (1.6-8.3) # Lymph # (Auto) (0.6-5.0) # [place] # (Auto) (0.0-1.3) # Eos # (Auto) (0.0-0.8) # Baso # (Auto) (0.0-0.2) # PT (8.7-11.1) INR (0.89-1.13) Sodium (135-145) mmol/L Potassium (3.5-5.3) mmol/L Chloride (100-110) mmol/L Carbon Dioxide (21-32) mmol/L BUN (7-18) mg/dL Creatinine (0.55-1.02) mg/dL Est Cr Clr Drug Dosing Estimated GFR (MDRD) (>60) BUN/Creatinine Ratio (9-20) Glucose (80-116) mg/dL Calcium (8.6-10.2) mg/dL Troponin I < 0.017 L (<0.017-0.056) ng/mL Meds: Medications Discontinued Medications Generic Name Dose Route Start Last Admin Trade Name Freq PRN Reason Stop Dose Admin Albuterol Confirm 08/29/18 15:07 08/29/18 15:11 Proventil Neb Soln Administered 08/29/18 15:08 2.5 mg Dose Administration 2.5 mg .ROUTE .STK-MED ONE Albuterol/Ipratropium 3 ml 08/29/18 12:37 08/29/18 13:06 Duoneb 3.0-0.5 Mg/3 Ml NEB 08/29/18 12:38 3 ml ONETIME ONE Administration Albuterol/Ipratropium 3 ml 08/29/18 12:39 08/29/18 12:35 Duoneb 3.0-0.5 Mg/3 Ml NEB 08/29/18 12:40 3 ml ONETIME ONE Administration Clonidine HCl 0.1 mg 08/29/18 15:50 08/29/18 15:54 Catapres PO 08/29/18 15:51 0.1 mg ONETIME ONE Administration Methylprednisolone Sodium Succinate 125 mg 08/29/18 12:45 08/29/18 13:14 Solu-Medrol IVPUSH 08/29/18 12:46 125 mg ONETIME ONE Administration Sodium Chloride 10 ml 08/29/18 13:17 08/29/18 13:18 Saline Flush FLUSH 10 ml ASDIRECTED PRN Administration IV Use Departure - Departure Time of Disposition: 16:12 Disposition: DC/Tfer to Acute Hospital 02 Condition: Fair Clinical Impression: COPD (chronic obstructive pulmonary disease) - Discharge Information Referrals: Jacinto Jones MD [Primary Care Provider] - Forms: ED Department Discharge - My Orders Last 24 Hours: My Active Orders 08/29/18 12:38 RT Aerosol Therapy [RC] ASDIRECTED EKG 12 Lead [EK] Routine - Assessment/Plan Last 24 Hours: My Active Orders 08/29/18 12:38 RT Aerosol Therapy [RC] ASDIRECTED EKG 12 Lead [EK] Routine
[2018-08-29] MEDS ORDERED: Sodium Chloride 0.9% 10 ML Syringe FLUSH PRN (13:17)
--- NOTE | 2018-08-29 14:54 | CR ---
INDICATION: Shortness of breath/need better visualization of the lungs and heart size. CHEST: PA and lateral views of the chest were obtained 08/29/18 at 1319 hours and compared with 1248 hours of same date. Somewhat flattened diaphragm leaves, mild hyperaeration, and prominent AP diameter suggest a mild to moderate degree of COPD. Somewhat heavy markings at the lung bases likely are on the basis of pulmonary fibrosis - they appear similar to the previous examinations. No consolidating pneumonia or effusion was seen. Mild to moderate degenerative changes are noted in the upper middle and lower middle thoracic spine. The aorta is tortuous with calcification in the arch. The heart did not appear grossly enlarged; however, there is suggestion of left ventricular enlargement. No definite evidence of CHF is seen at this time with better inspiration and PA projection. Overlying EKG leads are noted. IMPRESSION: 1. No definite acute process. 2. Probable COPD. 3. ASHD with LVE. 4. Pulmonary fibrosis in lower lung lucia. 5. Degenerative changes thoracic spine. Report was given by phone to Dr. Bang immediately after the examination was available on 08/29/18. MTDD
--- NOTE | 2018-08-29 14:57 | CR ---
INDICATION: Short of breath. CHEST: An AP upright portable view of the chest was obtained 08/29/18 and compared with 09/16/17 and 01/22/18. The heart appeared slightly enlarged. Pulmonary vasculature may be somewhat prominent, raising question of a mild or early CHF. Full inspiration PA and lateral views of the chest may be helpful for further evaluation of that finding. It is difficult to exclude minimal patchy bronchopneumonia in the lung bases, due to the heavy markings present. Evidence of exogenous obesity is noted. The aorta is tortuous with calcification in the arch. IMPRESSION: Possible CHF or other cause of early or mild pulmonary vascular congestion - correlate clinically. Cannot exclude COPD. PA and lateral views of the chest may be helpful for further evaluation. MTDD
[2018-08-29] MEDS ORDERED: Albuterol 0.083% 2.5 MG/3 ML Neb Soln ONE (15:07)
--- NOTE | 2018-08-29 15:31 | PCM.CONS ---
H&P History of Present Illness - General Date of Service: 08/29/18 Source of Information: Patient, Old Records, Provider History Limitations: Reports: Respiratory Distress - History of Present Illness Initial Comments - Free Text/Narative: Indication for consult: Admission for COPD exacerbation Physician requesting consult: Dr. Bang History of present illness: Patient is a 53-year-old female with this long- standing history of COPD, oxygen dependent at home. Frequent recurrent antibiotics and steroid use. A year ago was hospitalized here for 3 days then intubated and sent to [place] and was on the vent for well over a week. Continues to smoke at home. 3 days ago presented to the clinic with acute onset of shortness of breath and wheezing which came on over the period of a few hours. She was sick enough that they sent her to the emergency department where she was seen and evaluated, given nebulizers, IV Solu-Medrol, a prescription for prednisone, and discharged home. She comes back in this morning with worsening shortness of breath and cough. Her cough has been productive of clear white phlegm. She's had some chills and sweats. Perhaps a fever. She can not do activities of daily living. At the time I'm seeing her she's received 3 nebulizers including one and route from EMS and 125 mg IV Solu-Medrol. Past medical history (taken primarily from chart as patient too dyspneic to answer questions in much detail): #1 hypertension #2 COPD, oxygen dependent at 2 L, frequent prednisone use per chart review. Most recent course of prednisone 01/01. Two courses of antibiotic therapy, keflex and bactrim, in last two months. Hospitalized for asthma/COPD exacerbation from 07/31/2017-08/23/17 with intubation. #3 obstructive sleep apnea. 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 Last A1c 07/03 8.6%. On long-acting and short-acting insulin, also metformin by mouth. #6 major depressive disorder #7 overactive bladder with urinary incontinence and incomplete bladder emptying. #8 chronic back pain. #9 AMI in 1999 per patient previous report. Echo done 09/04/17 showed no change from prior with EF 65% and grade 1A left ventricular diastolic dysfunction. Cardiac perfusion scan done on 10/03/13 showed normal results with no evidence of previous [place]. #10 peripheral vascular disease with moderate left lower extremity arterial occlusive disease by vascular ultrasound on 12/06/16. Normal right lower extremity ankle-brachial index at rest at that time. #11 bilateral PE August 2017 after prolonged bedrest, hospitalization for COPD /asthma as above. #12 hypertriglyceridemia #13 Acute encephalopathy unclear etiology hospitalized 10/16-10/24/2018 at [facility]. Social history: Patient lives at [facility] by herself. She is . She has a daughter living nearby. Currently smokes 1-2 cigarettes a day. No alcohol use. No illegal drug use. She has 4 children. Family history: The patient's mother and father are estranged from the patient. Father in the past. She thinks her mother is still alive. She has 2 brothers and 3 sisters. Diabetes, hypertension run in the family. She is estranged from all but one of her brothers. She has 4 children are one of whom has asthma. Chest Pain Score (Numeric/FACES): 5 - Related Data Allergies/Adverse Reactions: Allergies Allergy/AdvReac Type Severity Reaction Status Date / Time aspirin Allergy Rash Verified 08/29/18 13:50 mold Allergy Airway Uncoded 01/29/18 16:09 Tightness Home Medications: Home Meds Simvastatin [Zocor] 10 mg PO BEDTIME 11/06/13 [History] Acetaminophen [Tylenol] 650 mg PO Q4H PRN tablet 09/04/17 [Rx] Albuterol/Ipratropium [DuoNeb 3.0-0.5 MG/3 ML] 3 ml INH QID PRN neb 09/04/17 [ Rx] DULoxetine [Cymbalta] 60 mg PO DAILY cap 09/04/17 [Rx] Furosemide [Lasix] 40 mg PO DAILY tablet 09/04/17 [Rx] Lisinopril [Prinivil] 10 mg PO DAILY tablet 09/04/17 [Rx] Insulin Aspart [NovoLOG] 36 units SQ TIDMEALS 09/16/17 [History] Montelukast [Singulair] 10 mg PO BEDTIME 09/16/17 [History] Potassium Chloride [Klor-Con 10] 10 meq PO DAILY 09/16/17 [History] Umeclidinium [place] [Incruse Ellipta*] 1 puff INH BEDTIME 09/16/17 [History] Nitroglycerin [Nitrostat] 0.4 mg PO Q5M PRN 09/26/17 [History] Albuterol [Ventolin HFA] 2 puff INH Q4H PRN 01/23/18 [History] Cyclobenzaprine [Flexeril] 10 mg PO TID 01/23/18 [History] Insulin Degludec [Tresiba Flextouch U-200] 120 units SUBCUT BEDTIME 01/23/18 [ History] Theophylline [Theophylline Anhydrous] 300 mg PO BID 01/23/18 [History] Amitriptyline [Elavil] 50 mg PO BEDTIME 08/29/18 [History] Budesonide/Formoterol Fumarate [Symbicort 160-4.5 Mcg Inhaler] 2 puff IH BID [History] Griseofulvin, Microsize [Griseofulvin] 500 mg PO DAILY 08/29/18 [History] Lactulose [Chronulac] 15 ml PO DAILY PRN 08/29/18 [History] metFORMIN [Glucophage] 1,000 mg PO BIDMEALS 08/29/18 [History] oxyCODONE HCl/Acetaminophen [Oxycodone-Acetaminophen 5-325] 1 - 2 tab PO QID PRN 08/29/18 [History] rOPINIRole HCl [Requip] 1 mg PO BEDTIME 08/29/18 [History] Past Medical History HEENT History: Reports: Cataract, Impaired Vision Cardiovascular History: Reports: Angina, High Cholesterol, Hypertension, SOB on Exertion, Other (See Below) Other Cardiovascular History: patient states has PRn nitro at home for occasional chest pains Respiratory History: Reports: Asthma, COPD, Intubation, Previous, Pneumonia, Recurrent, Sleep Apnea, SOB Other Respiratory History: has CPAP Gastrointestinal History: Reports: Cholelithiasis, GERD Genitourinary History: Reports: Urinary Incontinence, Other (See Below) Other Genitourinary History: stress incontinence at times 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: Other OB/BYN History: , Musculoskeletal History: Reports: Back Pain, Chronic, Osteoarthritis, Osteoporosis, Other (See Below) Other Musculoskeletal History: BACK INJURY Neurological History: Reports: Concussion, Neuropathy, Diabetic, Speech Problems Psychiatric History: Reports: Depression Endocrine/Metabolic History: Reports: Diabetes, Type II, Hypothyroidism Oncologic (Cancer) History: Reports: Ovarian Dermatologic History: Reports: Other (See Below) Other Dermatologic History: open infected wound under right abd fold on oral antibiotics - Infectious Disease History Infectious Disease History: Reports: Chicken Pox - Past Surgical History HEENT Surgical History: Reports: Cataract Surgery, Oral Surgery GI Surgical History: Reports: Cholecystectomy, Colonoscopy Female Surgical History: Reports: Hysterectomy, Salpingo-Oophorectomy Oncologic Surgical History: Reports: None Social & Family History - Family History Family Medical History: Noncontributory HEENT: Reports: Cataract Cardiac: Reports: CAD, [place] Respiratory: Reports: Asthma, Sleep Apnea : Reports: Diabetic Nephropathy OBGYN: Reports: Musculoskeletal: Reports: Arthritis Endocrine/Metabolic: Reports: Diabetes, Type I, Diabetes, type II, IDDM, Obesity /MBI 30+ Dermatologic: Reports: None Oncologic: Reports: Bone, Breast, Other (See Below) Other Oncologic Family History: heart - Tobacco Use Smoking Status *Q: Current Every Day Smoker Years of Tobacco use: 46 Packs/Tins Daily: 0.3 - Caffeine Use Caffeine Use: Reports: Coffee, Soda Other Caffeine Use: daily - Recreational Drug Use Recreational Drug Use: No - Living Situation & Occupation Living situation: Reports: H&P Review of Systems - Review of Systems: Review Of Systems: ROS reveals no pertinent complaints other than HPI. Exam - Exam Exam: See Below - Vital Signs Vital Signs: Last Vital Signs Temp 37.1 C 08/29/18 14:22 Pulse 112 H 08/29/18 15:12 Resp 22 H 08/29/18 13:35 BP 160/98 H 08/29/18 13:35 Pulse Ox 92 L 08/29/18 15:11 Weight: 121.563 kg - Exam General: Alert, Oriented, Cooperative, Moderate Distress (tachypneic at 25-30) HEENT: PERRLA, Posterior Pharynx Clear Neck: Supple Lungs: Decreased Breath Sounds, Wheezing (diffuse audible expiratory wheezing, minimal air movement) Cardiovascular: Normal S1, Normal S2, Tachycardia GI/Abdominal Exam: Normal Bowel Sounds, Soft, Non-Tender, No Distention Extremities: Pedal Edema (trace with woody stasis dermatitis bilat) Neuro Extensive - Mental Status: Alert, Oriented x3 Psychiatric: Anxious - Patient Data Lab Results Last 24 hrs: Laboratory Results - last 24 hr 08/29/18 08/29/18 08/29/18 Range/Units 12:50 12:50 12:50 WBC 6.3 (4.5-12.0) X10-3/uL RBC 5.12 (3.23-5.20) x10(6)uL Hgb 12.4 (11.5-15.5) g/dL Hct 39.6 (30.0-51.3) % MCV 77.4 L (80-96) fL MCH 24.2 L (27.7-33.6) pg MCHC 31.3 L (32.2-35.4) g/dL RDW 17.0 H (11.5-15.5) % Plt Count 160 (125-369) X10(3)uL MPV 8.7 (7.4-10.4) fL Neut % (Auto) 67.0 (46-82) % Lymph % (Auto) 17.1 (13-37) % [place] % (Auto) 13.6 H (4-12) % Eos % (Auto) 0 L (1.0-5.0) % Baso % (Auto) 2 (0-2) % Neut # (Auto) 4.2 (1.6-8.3) # Lymph # (Auto) 1.1 (0.6-5.0) # [place] # (Auto) 0.9 (0.0-1.3) # Eos # (Auto) 0.0 (0.0-0.8) # Baso # (Auto) 0.1 (0.0-0.2) # PT 9.2 (8.7-11.1) INR 0.95 (0.89-1.13) Sodium 139 (135-145) mmol/L Potassium 3.5 (3.5-5.3) mmol/L Chloride 101 (100-110) mmol/L Carbon Dioxide 29 (21-32) mmol/L BUN 15 (7-18) mg/dL Creatinine 0.7 (0.55-1.02) mg/dL Est Cr Clr Drug Dosing TNP Estimated GFR (MDRD) > 60 (>60) BUN/Creatinine Ratio 21.4 H (9-20) Glucose 157 H (80-116) mg/dL Calcium 9.2 (8.6-10.2) mg/dL Troponin I (<0.017-0.056) ng/mL 08/29/18 Range/Units 12:50 WBC (4.5-12.0) X10-3/uL RBC (3.23-5.20) x10(6)uL Hgb (11.5-15.5) g/dL Hct (30.0-51.3) % MCV (80-96) fL MCH (27.7-33.6) pg MCHC (32.2-35.4) g/dL RDW (11.5-15.5) % Plt Count (125-369) X10(3)uL MPV (7.4-10.4) fL Neut % (Auto) (46-82) % Lymph % (Auto) (13-37) % [place] % (Auto) (4-12) % Eos % (Auto) (1.0-5.0) % Baso % (Auto) (0-2) % Neut # (Auto) (1.6-8.3) # Lymph # (Auto) (0.6-5.0) # [place] # (Auto) (0.0-1.3) # Eos # (Auto) (0.0-0.8) # Baso # (Auto) (0.0-0.2) # PT (8.7-11.1) INR (0.89-1.13) Sodium (135-145) mmol/L Potassium (3.5-5.3) mmol/L Chloride (100-110) mmol/L Carbon Dioxide (21-32) mmol/L BUN (7-18) mg/dL Creatinine (0.55-1.02) mg/dL Est Cr Clr Drug Dosing Estimated GFR (MDRD) (>60) BUN/Creatinine Ratio (9-20) Glucose (80-116) mg/dL Calcium (8.6-10.2) mg/dL Troponin I < 0.017 L (<0.017-0.056) ng/mL Result Diagrams: 08/29/18 12:50 08/29/18 12:50 Consult PN Assessment/Plan Procedures: Procedures AIRWAY INHALATION TREATMENT (01/22/18) AQUATIC THERAPY/EXERCISES (03/08/17) ASSAY GLUCOSE BLOOD QUANT (07/31/17) ASSAY OF AMYLASE (01/22/18) ASSAY OF CK (CPK) (01/22/18) ASSAY OF LACTIC ACID (01/22/18) ASSAY OF MAGNESIUM (10/23/15) ASSAY OF NATRIURETIC PEPTIDE (01/22/18) ASSAY OF THEOPHYLLINE (05/15/15) ASSAY OF TROPONIN QUANT (01/22/18) ASSAY THYROID STIM HORMONE (10/23/15) BLOOD CULTURE FOR BACTERIA (01/22/18) BLOOD GASES ANY COMBINATION (01/22/18) C-REACTIVE PROTEIN (01/22/18) CHEST X-RAY 1 VIEW FRONTAL (10/23/15) CHEST X-RAY 2VW FRONTAL&LATL (11/28/15) CLOSTRIDIUM AG IA (06/20/16) COMP SCREEN MAMMOGRAM ADD-ON (08/05/13) COMPLETE CBC AUTOMATED (07/31/17) COMPLETE CBC W/AUTO DIFF WBC (01/22/18) COMPREHEN METABOLIC PANEL (07/31/17) COMPUTER DX MAMMOGRAM ADD-ON (08/26/13) CREATINE MB FRACTION (05/15/15) CT ABD & PELV W/CONTRAST (01/08/15) CT HEAD/BRAIN W/O DYE (09/26/17) CT LUMBAR SPINE W/O DYE (09/26/17) CT NECK SPINE W/O DYE (09/26/17) CT ORBIT/EAR/FOSSA W/O DYE (01/29/18) CT SOFT TISSUE NECK W/DYE (01/06/15) CT THORAX W/DYE (05/15/15) CULTURE AEROBIC IDENTIFY (03/04/18) CULTURE OTHR SPECIMN AEROBIC (03/04/18) DRAINAGE OF SKIN ABSCESS (03/04/18) ELECTROCARDIOGRAM REPORT (01/22/18) ELECTROCARDIOGRAM TRACING (01/22/18) EMERGENCY DEPT VISIT (03/04/18) EMERGENCY DEPT VISIT (03/04/18) EMERGENCY DEPT VISIT (01/22/18) EMERGENCY DEPT VISIT (01/22/18) EMERGENCY DEPT VISIT (09/26/17) EMERGENCY DEPT VISIT (09/16/17) EMERGENCY DEPT VISIT (05/04/17) EMERGENCY DEPT VISIT (10/23/15) EMERGENCY DEPT VISIT (01/08/15) EMERGENCY DEPT VISIT (06/20/14) EMERGENCY DEPT VISIT (04/03/14) EMERGENCY DEPT VISIT (04/03/14) EMERGENCY DEPT VISIT (02/23/14) EMERGENCY DEPT VISIT (02/23/14) EMERGENCY DEPT VISIT (01/27/14) EMERGENCY DEPT VISIT (01/27/14) EMERGENCY DEPT VISIT (08/27/13) EMERGENCY DEPT VISIT (08/27/13) EMERGENCY DEPT VISIT (07/01/13) EMERGENCY DEPT VISIT (07/01/13) EVALUATE PT USE OF INHALER (05/15/15) EXTREMITY STUDY (07/11/18) EXTREMITY STUDY (09/03/17) FIBRIN DEGRADATION QUANT (09/16/17) GLUCOSE BLOOD TEST (01/22/18) GLYCOSYLATED HEMOGLOBIN TEST (08/27/13) HELICOBACTER PYLORI ANTIBODY (12/30/14) HEPATIC FUNCTION PANEL (01/22/18) HYDRATE IV INFUSION ADD-ON (06/20/16) HYDRATION IV INFUSION INIT (07/31/17) I & D OF VULVA/PERINEUM (03/04/18) INFLUENZA ASSAY W/OPTIC (07/31/17) LACTATE (LD) (LDH) ENZYME (01/22/18) MEASURE BLOOD OXYGEN LEVEL (05/02/13) METABOLIC PANEL TOTAL CA (01/22/18) MICROBE SUSCEPTIBLE DEANDRE (03/04/18) MRI LUMBAR SPINE W/O DYE (02/01/17) OT EVAL LOW COMPLEX 30 MIN (01/12/18) PROTHROMBIN TIME (01/22/18) PT EVAL MOD COMPLEX 30 MIN (02/08/17) REAGENT STRIP/BLOOD GLUCOSE (04/03/14) ROUTINE VENIPUNCTURE (01/22/18) SMEAR GRAM STAIN (03/04/18) THER/PROPH/DIAG INJ IV PUSH (06/20/16) THER/PROPH/DIAG INJ SC/IM (07/31/17) THER/PROPH/DIAG IV INF INIT (10/23/15) THERAPEUTIC EXERCISES (01/12/18) THROMBOPLASTIN TIME PARTIAL (09/03/17) TTE W/DOPPLER COMPLETE (05/19/15) TX/PRO/DX INJ NEW DRUG ADDON (06/20/16) URINALYSIS AUTO W/SCOPE (01/22/18) URINE TEST (12/30/14) US EXAM BREAST(S) (08/26/13) VENT MGMT INPAT INIT DAY (07/31/17) VITAL CAPACITY TEST (01/22/18) WITHDRAWAL OF ARTERIAL BLOOD (09/03/17) X-RAY EXAM CHEST 1 VIEW (01/22/18) X-RAY EXAM NECK SPINE 2-3 VW (05/04/17) X-RAY EXAM OF ABDOMEN (11/06/13) X-RAY EXAM OF ELBOW (09/26/17) X-RAY EXAM OF FINGER(S) (02/23/14) X-RAY EXAM OF FOOT (07/31/17) X-RAY EXAM OF SHOULDER (05/04/17) (1) Acute on chronic respiratory failure with hypoxia SNOMED Code(s): 99651473, 639764451 Code(s): J96.21 - ACUTE AND CHRONIC RESPIRATORY FAILURE WITH HYPOXIA Current Visit: Yes Assessment:: Plan: I feel this patient is beyond our capabilities here for treatment given her past history of decompensation and current staffing situation. Patient has already received 3 nebs and IV Solu-Medrol and is tachypneic and mildly hypoxic at 89% while on oxygen. I'd like to see the patient transferred to a higher level of care and I spoke with Dr. Gonzales at 1445 from [place] [facility] and he accepted the patient in transfer. Problem List Initiated/Reviewed/Updated: Yes
[2018-08-29] MEDS ORDERED: cloNIDine 0.1 MG Tab PO ONE (15:50)
[2018-08-29 15:54] VITALS: BP 155/109
== END 2018-08-29 16:30 ==
LOC: FB.ED 12:31
DX: J44.1 Chronic obstructive pulmonary disease with (acute) exacerbation (principal); R07.9 Chest pain, unspecified; I10 Essential (primary) hypertension; E11.40 Type 2 diabetes mellitus with diabetic neuropathy, unspecified; Z88.8 Allergy status to other drugs, medicaments and biological substances; Z79.899 Other long term (current) drug therapy
CPT/HCPCS: 36415; 71045; 71046; 80048; 84484; 85025; 85610; 93005; 94640; 96374; 99285; A9270; J2930; J7620-GY

== ENCOUNTER 2018-10-19 07:17 | Day surgery (SDC) | payer MEDICARE, MEDICAID ==
[~2018-10-19 07:17] MED LIST: Lactated Ringers 1,000 ML IV SCH
[2018-10-19] MEDS ORDERED: Lidocaine 1% PF 2 ML SDV INJECT ONE (07:18)
[2018-10-19] MEDS ORDERED: Propofol 200 MG/20 ML SDV IV ONE (07:18)
[2018-10-19] MEDS: Albuterol/Ipratropium 3.0-0.5 MG/3 ML Neb Soln NEB ONE (08:05)
[2018-10-19] MEDS: Lactated Ringers 1,000 ML IV SCH (08:18)
--- NOTE | 2018-10-19 09:11 | PCM.OPNOTE ---
- General Post-Op/Procedure Note Date of Surgery/Procedure: 10/19/18 Operative Procedure(s): c scope with bx Findings: transverse colon lipoma rectal polyp poor prep Pre Op Diagnosis: screening Post-Op Diagnosis: transverse colon lipoma. rectal polyp. poor prep Anesthesia Technique: MAC Primary Surgeon: Johnnie Guerrero Anesthesia Provider: Shin Chou Pathology: transverse colon lipoma rectal polyp poor prep Complications: None Condition: Good Free Text/Narrative:: see dictation
[2018-10-19 10:20] VITALS: BP 125/87
--- NOTE | 2018-10-19 12:27 | OR ---
DATE OF OPERATION: 10/19/2018 SURGEON: Johnnie Guerrero MD PROCEDURE PERFORMED: Colonoscopy with cold forceps biopsy. PREOPERATIVE DIAGNOSIS: Need for colon cancer screening. POSTOPERATIVE DIAGNOSES: Transverse colon lipoma, rectal polyp. INDICATIONS FOR PROCEDURE: This is a 53-year-old white female who is referred for a colonoscopy. She was offered and accepted same. DESCRIPTION OF OPERATION: After an excellent IV sedation was administered, digital rectal exam was performed. No marked abnormality was noted. The flexible colonoscope was inserted and advanced to the cecum. The prep was marginal in areas, especially in the descending colon due to a large amount of particulate matter. The right side and transverse colon were better. Findings are as follows: The ascending colon was unremarkable. The transverse colon, at the distal transverse colon, a lipoma was identified. Photos were taken. Biopsy was also taken on the same spot and revealed fatty tissue confirming the diagnosis. This was sent for pathologic examination. The descending colon as noted, had a fair amount of particulate stool matter. We were able to irrigate and push some of the particulates around. The exam was suboptimal, but no marked or gross polyps were identified. Sigmoid, similar to the descending colon and in the rectum, a small polypoid lesion was biopsied and sent for permanent. The patient tolerated the procedure well. Results by letter. /[id number] /MODL
== END 2018-10-19 10:13 | disposition home or self-care (01) ==
LOC: FB.SDS 07:17
PROVIDERS: ATTEND Surgery
DX: Z12.11 Encounter for screening for malignant neoplasm of colon (principal); D17.5 Benign lipomatous neoplasm of intra-abdominal organs; K62.1 Rectal polyp; E11.9 Type 2 diabetes mellitus without complications; J44.9 Chronic obstructive pulmonary disease, unspecified; E66.9 Obesity, unspecified; Z68.41 Body mass index [BMI] 40.0-44.9, adult; Z87.891 Personal history of nicotine dependence; Z79.899 Other long term (current) drug therapy
CPT/HCPCS: 00812; 45380; 82962; 88305; J2001; J2704; J7120; J7620-GY

== ENCOUNTER 2018-12-05 15:45 | Emergency (ER) | payer MEDICARE, MEDICAID ==
--- NOTE | 2018-12-05 19:11 | EDM.PDOC ---
ED HPI GENERAL MEDICAL PROBLEM - General Chief Complaint: Lower Extremity Injury/Pain Stated Complaint: FALL Time Seen by Provider: 12/05/18 18:05 Source of Information: Reports: Patient History Limitations: Reports: No Limitations - History of Present Illness INITIAL COMMENTS - FREE TEXT/NARRATIVE: 53-year-old female who reports that she fell out of her powered wheelchair today at home. 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 He states this occurred approximately 2 PM today and she was caught there for about 30-45 minutes. He presents us via ambulance. She denies hitting her head. She denies any loss of consciousness or dizziness. His report back pain which is chronic but the pain in her ankle is a 7/10 now but goes up to a 9/10 with movement and with palpation. It is a sharp and sore pain. She has no abdominal pain. She has no chest pain. She is having no trouble breathing. There are no other associated signs or symptoms. There are no other modifying factors. 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 (see below) (Nothing) right ankle Pain Score (Numeric/FACES): 3 - Related Data Allergies Allergy/AdvReac Type Severity Reaction Status Date / Time aspirin Allergy Rash Verified 12/05/18 16:36 Milk Containing Products Allergy Diarrhea Verified 12/05/18 16:36 mold Allergy Unknown Airway Uncoded 10/19/18 07:51 Tightness Home Meds: Home Meds Simvastatin [Zocor] 10 mg PO BEDTIME 11/06/13 [History] Acetaminophen [Tylenol] 650 mg PO Q4H PRN tablet 09/04/17 [Rx] Albuterol/Ipratropium [DuoNeb 3.0-0.5 MG/3 ML] 3 ml INH QID PRN neb 09/04/17 [ Rx] DULoxetine [Cymbalta] 60 mg PO DAILY cap 09/04/17 [Rx] Furosemide [Lasix] 40 mg PO DAILY tablet 09/04/17 [Rx] Lisinopril [Prinivil] 10 mg PO DAILY tablet 09/04/17 [Rx] Insulin Aspart [NovoLOG] 36 units SQ TIDMEALS 09/16/17 [History] Montelukast [Singulair] 10 mg PO BEDTIME 09/16/17 [History] Potassium Chloride [Klor-Con 10] 10 meq PO DAILY 09/16/17 [History] Umeclidinium [place] [Incruse Ellipta*] 1 puff INH BEDTIME 09/16/17 [History] Nitroglycerin [Nitrostat] 0.4 mg PO Q5M PRN 09/26/17 [History] Albuterol [Ventolin HFA] 2 puff INH Q4H PRN 01/23/18 [History] Cyclobenzaprine [Flexeril] 10 mg PO TID 01/23/18 [History] Insulin Degludec [Tresiba Flextouch U-200] 120 units SUBCUT BEDTIME 01/23/18 [ History] Theophylline [Theophylline Anhydrous] 300 mg PO BID 01/23/18 [History] Amitriptyline [Elavil] 50 mg PO BEDTIME 08/29/18 [History] Budesonide/Formoterol Fumarate [Symbicort 160-4.5 Mcg Inhaler] 2 puff IH BID [History] Griseofulvin, Microsize [Griseofulvin] 500 mg PO DAILY 08/29/18 [History] Lactulose [Chronulac] 15 ml PO DAILY PRN 08/29/18 [History] metFORMIN [Glucophage] 1,000 mg PO BIDMEALS 08/29/18 [History] rOPINIRole HCl [Requip] 2 mg PO BEDTIME 08/29/18 [History] Albuterol [Proventil Neb Soln] 1 dose INH Q4HR PRN 10/17/18 [History] Amitriptyline HCl 100 mg PO BEDTIME 10/17/18 [History] Blood Sugar Diagnostic [Accu-Chek Guide Test Strip] 1 strip .XX TID 10/17/18 [ History] Lancets 1 each .XX BID 10/17/18 [History] Nicotine Polacrilex [Nicotine Lozenge] 1 dose PO ASDIRECTED 10/17/18 [History] Omeprazole 1 cap PO DAILY 10/17/18 [History] KCl/Na Sulf,Bicarb,Cl/PEG 3351 [GoLytely] 4,000 ml PO ASDIRECTED #1 bottle 10/18 [Rx] Past Medical History HEENT History: Reports: Cataract, Hard of Hearing, Impaired Vision Cardiovascular History: Reports: Angina, High Cholesterol, Hypertension, SOB on Exertion, Other (See Below) Other Cardiovascular History: patient states has PRn nitro at home for occasional chest pains Respiratory History: Reports: Asthma, COPD, Intubation, Previous, Pneumonia, Recurrent, Sleep Apnea, SOB Other Respiratory History: has CPAP Gastrointestinal History: Reports: Cholelithiasis, GERD Genitourinary History: Reports: Urinary Incontinence, Other (See Below) Other Genitourinary History: stress incontinence at times, OAB 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: , Musculoskeletal History: Reports: Arthritis, Back Pain, Chronic, Osteoarthritis , Osteoporosis, Other (See Below) Other Musculoskeletal History: BACK INJURY Neurological History: Reports: Concussion, Neuropathy, Diabetic, Speech Problems Psychiatric History: Reports: Depression Endocrine/Metabolic History: Reports: Diabetes, Type II, Hypothyroidism Oncologic (Cancer) History: Reports: Ovarian - Infectious Disease History Infectious Disease History: Reports: Chicken Pox - Past Surgical History HEENT Surgical History: Reports: Cataract Surgery, Oral Surgery GI Surgical History: Reports: Cholecystectomy, Colonoscopy, EGD Female Surgical History: Reports: Section, Hysterectomy, Salpingo- Oophorectomy, Tubal Ligation Other Female Surgeries/Procedures: Surgery to remove ovarian cancer Oncologic Surgical History: Reports: None Social & Family History - Family History Family Medical History: Noncontributory HEENT: Reports: Cataract Cardiac: Reports: CAD, NM Respiratory: Reports: Asthma, Sleep Apnea : Reports: Diabetic Nephropathy OBGYN: Reports: Musculoskeletal: Reports: Arthritis Endocrine/Metabolic: Reports: Diabetes, Type I, Diabetes, type II, IDDM, Obesity /MBI 30+ Dermatologic: Reports: None Oncologic: Reports: Bone, Breast, Other (See Below) Other Oncologic Family History: heart - Tobacco Use Smoking Status *Q: Former Smoker (Quit 1 year ago) Used Tobacco, but Quit: Yes Month/Year Tobacco Last Used: 2018 - Caffeine Use Caffeine Use: Reports: Coffee Other Caffeine Use: daily - Alcohol Use Alcohol Use History: No - Living Situation & Occupation Living situation: Reports: Social History Comment: Lives alone Review of Systems - Review of Systems Review Of Systems: See Below Constitutional: Reports: No Symptoms Eyes: Reports: No Symptoms Ears: Reports: No Symptoms (Except hard of hearing which is chronic) Nose: Reports: No Symptoms Mouth/Throat: Reports: No Symptoms Respiratory: Reports: No Symptoms Cardiovascular: Reports: No Symptoms GI/Abdominal: Reports: No Symptoms Genitourinary: Reports: No Symptoms Musculoskeletal: Reports: Back Pain (Chronic), Other (Right ankle and lower leg pain beginning today after injury) Skin: Reports: No Symptoms (No open wounds) Neurological: Reports: No Symptoms ED EXAM, GENERAL - Physical Exam Exam: See Below Exam Limited By: No Limitations General Appearance: Alert, Mild Distress, Obese Eye Exam: Left Eye: EOMI, Bilateral Eye: Normal Inspection Ears: Normal External Exam, Hearing Grossly Normal Nose: Normal Inspection, Normal Mucosa Throat/Mouth: Normal Inspection, Normal Oropharynx, Normal Voice, No Airway Compromise Head: Atraumatic, Normocephalic Neck: Normal Inspection, Supple, Non-Tender, Full Range of Motion Respiratory/Chest: No Respiratory Distress, Lungs Clear, Normal Breath Sounds, No Accessory Muscle Use, Chest Non-Tender Cardiovascular: Normal Peripheral Pulses, Regular Rate, Rhythm, No JVD Peripheral Pulses: 2+: Radial (L), Radial (R), Dorsalis Pedis (R) GI/Abdominal: Normal Bowel Sounds, Soft, Non-Tender, No Distention, No Mass Back Exam: Normal Inspection, Other (Diffuse tenderness in her lower back, which is chronic) Extremities: Pedal Edema (Bilaterally.), Joint Swelling (And tenderness in her right ankle and right lower leg. No crepitus. No bony deformity.) Neurological: Alert, Oriented, CN II-XII Intact, Normal Cognition, No Motor/ Sensory Deficits Skin Exam: Warm, Dry, Intact, Normal Color Course - Vital Signs Last Recorded V/S: Last Vital Signs Temp 36.7 C 12/05/18 15:45 Pulse 104 H 12/05/18 15:45 Resp 20 12/05/18 15:45 BP 133/80 12/05/18 15:45 Pulse Ox 95 12/05/18 15:45 - Orders/Labs/Meds Orders: Active Orders 24 hr Category Date Time Status Ankle Min 3V Rt [CR] Stat Exams 12/05/18 16:36 Taken Tibia Fibula Rt [CR] Stat Exams 12/05/18 16:36 Taken - Radiology Interpretation Free Text/Narrative:: Right ankle x-ray shows no fracture. Right tib-fib x-ray shows no fracture. - Re-Assessments/Exams Free Text/Narrative Re-Assessment/Exam: 12/05/18 19:35: Patient's x-ray showed no evidence of fracture. She appears to have a sprain and a bruise/contusion to her right ankle and lower leg. We will place her in an walking boot to her right foot, ankle and lower leg for comfort and support. I have given her a take-home pack of Tylenol with codeine to help with pain as needed. Departure - Departure Time of Disposition: 19:45 Disposition: Home, Self-Care 01 Condition: Good Clinical Impression: Contusion of right lower leg, initial encounter Right ankle sprain Qualifiers: Encounter type: initial encounter Involved ligament of ankle: unspecified ligament Qualified Code(s): S93.401A - Sprain of unspecified ligament of right ankle, initial encounter - Discharge Information Instructions: Ankle Sprain, [id number], Contusion, [id number] Referrals: Jacinto Jones MD [Primary Care Provider] - Forms: ED Department Discharge Additional Instructions: The x-rays of your ankle and lower leg showed no fracture. You appear to have bruises and a sprain to your right ankle and lower leg. Use the boot for comfort and support. Apply ice packs intermittently to the ankle and lower leg. Medication as prescribed (Tylenol #3--take-home pack). Follow-up with your primary doctor as needed. Back to the emergency department for increasing pain, redness, increased warmth, any signs of infection or any other concerning sign or symptom. - My Orders Last 24 Hours: My Active Orders 12/05/18 16:36 Ankle Min 3V Rt [CR] Stat Tibia Fibula Rt [CR] Stat - Assessment/Plan Last 24 Hours: My Active Orders 12/05/18 16:36 Ankle Min 3V Rt [CR] Stat Tibia Fibula Rt [CR] Stat
[2018-12-05 21:04] VITALS: BP 131/86
--- NOTE | 2018-12-07 08:51 | CR ---
INDICATION: Fall with injury to right ankle and lower leg. RIGHT TIBIA/FIBULA: Frontal and lateral views of the right tibia and fibula were obtained 12/05/18 - no comparisons. There are some minimal hypertrophic appearing changes at the ankle mortise, suggesting posttraumatic osteoarthritis - correlate clinically. An acute fracture or dislocation was not identified - no other bone or joint abnormality was suggested. IMPRESSION: No acute fracture or dislocation. MTDD
--- NOTE | 2018-12-07 08:56 | CR ---
INDICATION: Fall with injury to right ankle and lower leg. RIGHT ANKLE: Three views of the right ankle were obtained 12/05/18 - no comparisons. Plantar and posterior calcaneal spurs are noted. The ankle mortise appears to be grossly intact without a definite fracture or dislocation identified. There is some minimal degenerative appearing change at the ankle mortise medially and laterally, suggesting the possibility of posttraumatic osteoarthritis of mild degree - correlate clinically. Findings may simply be on the basis of osteoarthritis - primary type. IMPRESSION: No acute fracture or dislocation. If occult abnormality is suspected clinically, CT or MRI may be of further diagnostic benefit. MTDD
== END 2018-12-05 20:10 | disposition home or self-care (01) ==
LOC: FB.ED 15:45
DX: S93.401A Sprain of unspecified ligament of right ankle, initial encounter (principal); S80.11XA Contusion of right lower leg, initial encounter; E78.00 Pure hypercholesterolemia, unspecified; I10 Essential (primary) hypertension; E11.40 Type 2 diabetes mellitus with diabetic neuropathy, unspecified; K21.9 Gastro-esophageal reflux disease without esophagitis; J44.9 Chronic obstructive pulmonary disease, unspecified; Z79.4 Long term (current) use of insulin; Z79.899 Other long term (current) drug therapy; Z88.6 Allergy status to analgesic agent; Z91.011 Allergy to milk products; Z91.018 Allergy to other foods; V00.811A Fall from moving wheelchair (powered), initial encounter; Y92.009 Unspecified place in unspecified non-institutional (private) residence as the place of occurrence of the external cause
CPT/HCPCS: 73590-RT; 73610-RT; 99283-25

== ENCOUNTER 2019-05-09 11:52 | Emergency (ER) | payer MEDICARE, MEDICAID ==
[2019-05-09 11:56] VITALS: BP 133/81; PULSE 98
[2019-05-09] MEDS ORDERED: Sodium Chloride 0.9% 10 ML Syringe FLUSH PRN (12:00)
[2019-05-09] MEDS ORDERED: Albuterol/Ipratropium 3.0-0.5 MG/3 ML Neb Soln ONE (12:01)
[2019-05-09] MEDS ORDERED: Albuterol/Ipratropium 3.0-0.5 MG/3 ML Neb Soln NEB ONE ×2 (12:04→12:37)
[2019-05-09] MEDS: Sodium Chloride 0.9% 10 ML Syringe FLUSH PRN ×3 (12:05→14:33)
--- NOTE | 2019-05-09 12:07 | EDM.PDOC ---
ED HPI GENERAL MEDICAL PROBLEM - General Chief Complaint: Respiratory Problem Stated Complaint: SOB Time Seen by Provider: 05/09/19 11:55 Source of Information: Reports: Patient, EMS, EMS Notes Reviewed, Other (clinic physician) History Limitations: Reports: No Limitations - History of Present Illness INITIAL COMMENTS - FREE TEXT/NARRATIVE: pt brought in by EMS from clinic PCP called in states pt w History of COPD, HTN , had been having progressively worsening cough or 5 days pt states she uses home oxygen 2 liters , has had no increased requirements low grade fever Abdominal Pain Score (Numeric/FACES): 6 - Related Data Allergies Allergy/AdvReac Type Severity Reaction Status Date / Time aspirin Allergy Rash Verified 12/05/18 21:01 Milk Containing Products Allergy Diarrhea Verified 12/05/18 21:01 mold Allergy Unknown Airway Uncoded 10/19/18 07:51 Tightness Home Meds: Home Meds Simvastatin [Zocor] 10 mg PO BEDTIME 11/06/13 [History] Acetaminophen [Tylenol] 650 mg PO Q4H PRN tablet 09/04/17 [Rx] Albuterol/Ipratropium [DuoNeb 3.0-0.5 MG/3 ML] 3 ml INH QID PRN neb 09/04/17 [ Rx] DULoxetine [Cymbalta] 60 mg PO DAILY cap 09/04/17 [Rx] Furosemide [Lasix] 40 mg PO DAILY tablet 09/04/17 [Rx] Lisinopril [Prinivil] 10 mg PO DAILY tablet 09/04/17 [Rx] Insulin Aspart [NovoLOG] 36 units SQ TIDMEALS 09/16/17 [History] Montelukast [Singulair] 10 mg PO BEDTIME 09/16/17 [History] Potassium Chloride [Klor-Con 10] 10 meq PO DAILY 09/16/17 [History] Umeclidinium [place] [Incruse Ellipta*] 1 puff INH BEDTIME 09/16/17 [History] Nitroglycerin [Nitrostat] 0.4 mg PO Q5M PRN 09/26/17 [History] Albuterol [Ventolin HFA] 2 puff INH Q4H PRN 01/23/18 [History] Cyclobenzaprine [Flexeril] 10 mg PO TID 01/23/18 [History] Insulin Degludec [Tresiba Flextouch U-200] 120 units SUBCUT BEDTIME 01/23/18 [ History] Theophylline [Theophylline Anhydrous] 300 mg PO BID 01/23/18 [History] Amitriptyline [Elavil] 50 mg PO BEDTIME 08/29/18 [History] Budesonide/Formoterol Fumarate [Symbicort 160-4.5 Mcg Inhaler] 2 puff IH BID [History] Griseofulvin, Microsize [Griseofulvin] 500 mg PO DAILY 08/29/18 [History] Lactulose [Chronulac] 15 ml PO DAILY PRN 08/29/18 [History] metFORMIN [Glucophage] 1,000 mg PO BIDMEALS 08/29/18 [History] rOPINIRole HCl [Requip] 2 mg PO BEDTIME 08/29/18 [History] Albuterol [Proventil Neb Soln] 1 dose INH Q4HR PRN 10/17/18 [History] Amitriptyline HCl 100 mg PO BEDTIME 10/17/18 [History] Blood Sugar Diagnostic [Accu-Chek Guide Test Strip] 1 strip .XX TID 10/17/18 [ History] Lancets 1 each .XX BID 10/17/18 [History] Nicotine Polacrilex [Nicotine Lozenge] 1 dose PO ASDIRECTED 10/17/18 [History] Omeprazole 1 cap PO DAILY 10/17/18 [History] KCl/Na Sulf,Bicarb,Cl/PEG 3351 [GoLytely] 4,000 ml PO ASDIRECTED #1 bottle 10/18 [Rx] Amoxicillin/Potassium Clav [Augmentin 875-125 Tablet] 1 each PO BID #20 tablet 05/09/19 [Rx] Azithromycin [Zithromax] 250 mg PO DAILY #4 tab 05/09/19 [Rx] guaiFENesin 200 mg PO Q4HR PRN #240 ml 05/09/19 [Rx] predniSONE 40 mg PO DAILY #5 tab 05/09/19 [Rx] Past Medical History HEENT History: Reports: Cataract, Hard of Hearing, Impaired Vision Cardiovascular History: Reports: Angina, High Cholesterol, Hypertension, SOB on Exertion, Other (See Below) Other Cardiovascular History: patient states has PRn nitro at home for occasional chest pains Respiratory History: Reports: Asthma, COPD, Intubation, Previous, Pneumonia, Recurrent, Sleep Apnea, SOB Other Respiratory History: has CPAP Gastrointestinal History: Reports: Cholelithiasis, GERD Genitourinary History: Reports: Urinary Incontinence, Other (See Below) Other Genitourinary History: stress incontinence at times, OAB AUTOMATION QA TESTER History: Reports: Other AUTOMATION QA TESTER History: , Musculoskeletal History: Reports: Arthritis, Back Pain, Chronic, Osteoarthritis , Osteoporosis, Other (See Below) Other Musculoskeletal History: BACK INJURY Neurological History: Reports: Concussion, Neuropathy, Diabetic, Speech Problems Psychiatric History: Reports: Depression Endocrine/Metabolic History: Reports: Diabetes, Type II, Hypothyroidism Oncologic (Cancer) History: Reports: Ovarian Dermatologic History: Reports: Other (See Below) Other Dermatologic History: open infected wound under right abd fold on oral antibiotics - Infectious Disease History Infectious Disease History: Reports: Chicken Pox - Past Surgical History HEENT Surgical History: Reports: Cataract Surgery, Oral Surgery GI Surgical History: Reports: Cholecystectomy, Colonoscopy, EGD Female Surgical History: Reports: Section, Hysterectomy, Salpingo- Oophorectomy, Tubal Ligation Other Female Surgeries/Procedures: Surgery to remove ovarian cancer Oncologic Surgical History: Reports: None Social & Family History - Family History Family Medical History: Noncontributory HEENT: Reports: Cataract Cardiac: Reports: CAD, [place] Respiratory: Reports: Asthma, Sleep Apnea : Reports: Diabetic Nephropathy OBGYN: Reports: Musculoskeletal: Reports: Arthritis Endocrine/Metabolic: Reports: Diabetes, Type I, Diabetes, type II, IDDM, Obesity /MBI 30+ Dermatologic: Reports: None Oncologic: Reports: Bone, Breast, Other (See Below) Other Oncologic Family History: heart - Caffeine Use Caffeine Use: Reports: Coffee Other Caffeine Use: daily - Living Situation & Occupation Living situation: Reports: ED ROS GENERAL - Review of Systems Review Of Systems: See Below Constitutional: Reports: Chills, Malaise, Weakness, Fatigue. Denies: Fever HEENT: Reports: No Symptoms Respiratory: Reports: Shortness of Breath, Wheezing, Cough, Sputum (yellow , moderate amount) Cardiovascular: Reports: Dyspnea on Exertion, Edema (mild). Denies: Chest Pain , Blood Pressure Problem, Lightheadedness, Orthopnea, Palpitations, PND Endocrine: Reports: Fatigue GI/Abdominal: Reports: Anorexia, Decreased Appetite : Reports: No Symptoms Musculoskeletal: Reports: No Symptoms Skin: Reports: No Symptoms Neurological: Reports: No Symptoms Psychiatric: Reports: Anxiety Hematologic/Lymphatic: Reports: No Symptoms Immunologic: Reports: No Symptoms ED EXAM, GENERAL - Physical Exam Exam: See Below Free Text/Narrative:: on arrival was sob , sounded gurgly with phlegm in her airway , finding it difficult to cough up , low grade fever , wheezing on 2 liters of oxygen via [place], O2 was 96-97% Exam Limited By: No Limitations General Appearance: Alert, WD/WN, No Apparent Distress, Mild Distress Eye Exam: Bilateral Eye: EOMI Ears: Normal External Exam Nose: Normal Inspection, Nasal Drainage (thick yellow) Throat/Mouth: Normal Inspection, Other (thick yellow phlegm) Head: Atraumatic Neck: Normal Inspection, Supple, Non-Tender Respiratory/Chest: Decreased Breath Sounds, Crackles, Rhonchi, Wheezing, Prolonged Expiration Cardiovascular: Regular Rate, Rhythm, No Murmur GI/Abdominal: Soft, Non-Tender Back Exam: Normal Inspection, Full Range of Motion Extremities: Pedal Edema (trace pedal edema) Neurological: Alert, Oriented, CN II-XII Intact Psychiatric: Anxious Skin Exam: Warm, Dry, Intact EKG INTERPRETATION Rhythm: NSR [place]: Normal P-Wave: Variable Course - Vital Signs Text/Narrative:: gradually got better given 2 duoneb, IV steroid, Iv rocephin , zithromax No longer wheezing , 02 sat stable on 2 liters will be sent home on prednisone Last Recorded V/S: Last Vital Signs Temp 37.2 C 05/09/19 11:55 Pulse 98 05/09/19 11:55 Resp 15 05/09/19 11:55 BP 133/81 05/09/19 11:55 Pulse Ox 96 05/09/19 11:55 - Orders/Labs/Meds Orders: Active Orders 24 hr Category Date Time Status EKG Documentation Completion [RC] ASDIRECTED Care 05/09/19 12:03 Active RT Aerosol Therapy [RC] ASDIRECTED Care 05/09/19 12:04 Active RT Aerosol Therapy [RC] ASDIRECTED Care 05/09/19 12:37 Active Nothing per Oral Now Diet [DIET] Diet 05/09/19 Lunch Ordered Chest 2V [CR] Urgent Exams 05/09/19 12:00 Taken CULTURE BLOOD [BC] Urgent Lab 05/09/19 12:25 Received UA W/MICROSCOPIC [URIN] Urgent Lab 05/09/19 12:00 Ordered Sodium Chloride 0.9% [Saline Flush] Med 05/09/19 12:00 Active 10 ml FLUSH ASDIRECTED PRN Sodium Chloride 0.9% [Saline Flush] Med 05/09/19 12:00 Active 10 ml FLUSH ASDIRECTED PRN guaiFENesin [Robitussin] Med 05/09/19 13:15 Active 200 mg PO .NOW PRN Peripheral IV Insertion Adult [OM.PC] Urgent Oth 05/09/19 12:00 Ordered EKG 12 Lead [EK] Urgent Ther 05/09/19 12:00 Ordered Medication Orders Guaifenesin (Robitussin) 200 mg PO .NOW PRN PRN Reason: COUGH Last Admin: 05/09/19 13:25 Dose: 200 mg Sodium Chloride (Saline Flush) 10 ml FLUSH ASDIRECTED PRN PRN Reason: Keep Vein Open Last Admin: 05/09/19 12:44 Dose: 10 ml Admin: 05/09/19 12:05 Dose: 10 ml Sodium Chloride (Saline Flush) 10 ml FLUSH ASDIRECTED PRN PRN Reason: Keep Vein Open Labs: Laboratory Tests 05/09/19 05/09/19 05/09/19 Range/Units 12:25 12:25 12:25 WBC (4.5-12.0) X10-3/uL RBC (3.23-5.20) x10(6)uL Hgb (11.5-15.5) g/dL Hct (30.0-51.3) % MCV (80-96) fL MCH (27.7-33.6) pg MCHC (32.2-35.4) g/dL RDW (11.5-15.5) % Plt Count (125-369) X10(3)uL MPV (7.4-10.4) fL Neut % (Auto) (46-82) % Lymph % (Auto) (13-37) % [place] % (Auto) (4-12) % Eos % (Auto) (1.0-5.0) % Baso % (Auto) (0-2) % Neut # (Auto) (1.6-8.3) # Lymph # (Auto) (0.6-5.0) # [place] # (Auto) (0.0-1.3) # Eos # (Auto) (0.0-0.8) # Baso # (Auto) (0.0-0.2) # PT 9.3 (8.7-11.1) INR 0.96 (0.89-1.13) D-Dimer, Quantitative 0.57 (0.0-0.59) mg/LFEU ABG pH (7.35-7.45) ABG pCO2 (35-45) mmHg ABG pO2 (83-108) mmHg ABG HCO3 (22-26) mmol/L ABG O2 Saturation (96-97) % ABG Base Excess (-2-2) Ben Test O2 Delivery Device Sodium 143 (135-145) mmol/L Potassium 3.9 (3.5-5.3) mmol/L Chloride 104 (100-110) mmol/L Carbon Dioxide 30 (21-32) mmol/L BUN 15 (7-18) mg/dL Creatinine 0.7 (0.55-1.02) mg/dL Est Cr Clr Drug Dosing TNP Estimated GFR (MDRD) > 60 (>60) BUN/Creatinine Ratio 21.4 H (9-20) Glucose 73 L D (80-116) mg/dL Calcium 9.1 (8.6-10.2) mg/dL Magnesium 2.1 (1.8-2.5) mg/dL Total Bilirubin 0.5 (0.1-1.3) mg/dL AST 19 D (5-25) IU/L ALT 28 D (12-36) U/L Alkaline Phosphatase 157 H (56-112) IU/L Troponin I < 0.017 L (<0.017-0.056) ng/mL C-Reactive Protein (0.5-0.9) mg/dL NT-Pro-B Natriuret Pep 427 H (<=125) pg/mL Total Protein 6.9 (6.0-8.0) g/dL Albumin 2.9 L (3.5-5.2) g/dL Globulin 4.0 g/dL Albumin/Globulin Ratio 0.7 05/09/19 05/09/19 05/09/19 Range/Units 12:25 12:25 12:40 WBC 7.8 (4.5-12.0) X10-3/uL RBC 4.54 (3.23-5.20) x10(6)uL Hgb 11.5 (11.5-15.5) g/dL Hct 35.6 (30.0-51.3) % MCV 78.4 L (80-96) fL MCH 25.4 L (27.7-33.6) pg MCHC 32.4 (32.2-35.4) g/dL RDW 17.8 H (11.5-15.5) % Plt Count 134 (125-369) X10(3)uL MPV 10.4 (7.4-10.4) fL Neut % (Auto) 72.8 (46-82) % Lymph % (Auto) 11.5 L (13-37) % [place] % (Auto) 13.1 H (4-12) % Eos % (Auto) 0 L (1.0-5.0) % Baso % (Auto) 3 H (0-2) % Neut # (Auto) 5.7 (1.6-8.3) # Lymph # (Auto) 0.9 (0.6-5.0) # [place] # (Auto) 1.0 (0.0-1.3) # Eos # (Auto) 0.0 (0.0-0.8) # Baso # (Auto) 0.2 (0.0-0.2) # PT (8.7-11.1) INR (0.89-1.13) D-Dimer, Quantitative (0.0-0.59) mg/LFEU ABG pH 7.45 (7.35-7.45) ABG pCO2 41 (35-45) mmHg ABG pO2 71 L (83-108) mmHg ABG HCO3 28 H (22-26) mmol/L ABG O2 Saturation 95 L (96-97) % ABG Base Excess 4.2 H (-2-2) Ben Test Passed O2 Delivery Device Nasal cannula Sodium (135-145) mmol/L Potassium (3.5-5.3) mmol/L Chloride (100-110) mmol/L Carbon Dioxide (21-32) mmol/L BUN (7-18) mg/dL Creatinine (0.55-1.02) mg/dL Est Cr Clr Drug Dosing Estimated GFR (MDRD) (>60) BUN/Creatinine Ratio (9-20) Glucose (80-116) mg/dL Calcium (8.6-10.2) mg/dL Magnesium (1.8-2.5) mg/dL Total Bilirubin (0.1-1.3) mg/dL AST (5-25) IU/L ALT (12-36) U/L Alkaline Phosphatase (56-112) IU/L Troponin I (<0.017-0.056) ng/mL C-Reactive Protein 7.8 H* (0.5-0.9) mg/dL NT-Pro-B Natriuret Pep (<=125) pg/mL Total Protein (6.0-8.0) g/dL Albumin (3.5-5.2) g/dL Globulin g/dL Albumin/Globulin Ratio Meds: Medications Generic Name Dose Route Start Last Admin Trade Name Freq PRN Reason Stop Dose Admin Guaifenesin 200 mg 05/09/19 13:15 05/09/19 13:25 Robitussin PO 200 mg .NOW PRN Administration COUGH Sodium Chloride 10 ml 05/09/19 12:00 05/09/19 12:44 Saline Flush FLUSH 10 ml ASDIRECTED PRN Administration Keep Vein Open Sodium Chloride 10 ml 05/09/19 12:00 Saline Flush FLUSH ASDIRECTED PRN Keep Vein Open Discontinued Medications Generic Name Dose Route Start Last Admin Trade Name Freq PRN Reason Stop Dose Admin Albuterol/Ipratropium Confirm 05/09/19 12:01 05/09/19 12:35 Duoneb 3.0-0.5 Mg/3 Ml Administered 05/09/19 12:02 Not Given Dose 3 ml .ROUTE .STK-MED ONE Albuterol/Ipratropium 3 ml 05/09/19 12:04 05/09/19 12:00 Duoneb 3.0-0.5 Mg/3 Ml NEB 05/09/19 12:05 3 ml ONETIME ONE Administration Albuterol/Ipratropium 3 ml 05/09/19 12:37 05/09/19 12:40 Duoneb 3.0-0.5 Mg/3 Ml NEB 05/09/19 12:38 3 ml ONETIME ONE Administration Guaifenesin 200 mg 05/09/19 12:40 Q-Tussin PO .NOW PRN Cough Azithromycin 500 mg/ Sodium 250 mls @ 250 mls/hr 05/09/19 12:39 05/09/19 13: 24 Chloride IV 05/09/19 13:38 250 mls/hr ONETIME ONE Administration Ceftriaxone Sodium 1 gm/ 50 mls @ 200 mls/hr 05/09/19 12:39 05/09/19 12:49 Sodium Chloride IV 05/09/19 12:53 200 mls/hr ONETIME ONE Administration Methylprednisolone Sodium Succinate 125 mg 05/09/19 12:34 05/09/19 12:43 Solu-Medrol IVPUSH 05/09/19 12:35 125 mg ONETIME ONE Administration Departure - Departure Time of Disposition: 14:35 Disposition: Home, Self-Care 01 Condition: Fair Clinical Impression: COPD exacerbation - Discharge Information *PRESCRIPTION DRUG MONITORING PROGRAM REVIEWED*: Not Applicable *COPY OF PRESCRIPTION DRUG MONITORING REPORT IN PATIENT ZACH: Not Applicable Referrals: Cherry Cash NP [Primary Care Provider] - Forms: ED Department Discharge - Problem List & Annotations (1) COPD exacerbation SNOMED Code(s): 392911208 Code(s): J44.1 - CHRONIC OBSTRUCTIVE PULMONARY DISEASE W (ACUTE) EXACERBATION Status: Acute Current Visit: No - My Orders Last 24 Hours: My Active Orders 05/09/19 12:00 Chest 2V [CR] Urgent UA W/MICROSCOPIC [URIN] Urgent Sodium Chloride 0.9% [Saline Flush] 10 ml FLUSH ASDIRECTED PRN Sodium Chloride 0.9% [Saline Flush] 10 ml FLUSH ASDIRECTED PRN Peripheral IV Insertion Adult [OM.PC] Urgent EKG 12 Lead [EK] Urgent 05/09/19 12:03 EKG Documentation Completion [RC] ASDIRECTED 05/09/19 12:04 RT Aerosol Therapy [RC] ASDIRECTED 05/09/19 12:25 CULTURE BLOOD [BC] Urgent 05/09/19 12:37 RT Aerosol Therapy [RC] ASDIRECTED 05/09/19 13:15 guaiFENesin [Robitussin] 200 mg PO .NOW PRN 05/09/19 Lunch Nothing per Oral Now Diet [DIET] - Assessment/Plan Last 24 Hours: My Active Orders 05/09/19 12:00 Chest 2V [CR] Urgent UA W/MICROSCOPIC [URIN] Urgent Sodium Chloride 0.9% [Saline Flush] 10 ml FLUSH ASDIRECTED PRN Sodium Chloride 0.9% [Saline Flush] 10 ml FLUSH ASDIRECTED PRN Peripheral IV Insertion Adult [OM.PC] Urgent EKG 12 Lead [EK] Urgent 05/09/19 12:03 EKG Documentation Completion [RC] ASDIRECTED 05/09/19 12:04 RT Aerosol Therapy [RC] ASDIRECTED 05/09/19 12:25 CULTURE BLOOD [BC] Urgent 05/09/19 12:37 RT Aerosol Therapy [RC] ASDIRECTED 05/09/19 13:15 guaiFENesin [Robitussin] 200 mg PO .NOW PRN 05/09/19 Lunch Nothing per Oral Now Diet [DIET]
[2019-05-09] MEDS ORDERED: methylPREDNISolone Sodium Succinate 125 MG/2 ML SDV IVPUSH ONE (12:34)
[2019-05-09] MEDS ORDERED: Azithromycin 500 MG in Sodium Chloride 0.9% 250 ML IV ONE (12:39)
[2019-05-09] MEDS ORDERED: cefTRIAXone 1 GM in Sodium Chloride 0.9% 50 ML IV ONE (12:39)
[2019-05-09] MEDS ORDERED: guaiFENesin 100 MG/5 ML Soln ML (118 ML Bottle) PO PRN (12:40)
[2019-05-09] MEDS ORDERED: guaiFENesin 100 MG/5 ML Soln 5 ML UD Cup PO PRN (13:15)
--- NOTE | 2019-05-10 09:04 | CR ---
INDICATION: Short of breath. CHEST: PA and lateral views of the chest, 05/09/19, were compared with and an additional 08/29/18 examination. The heart did not appear grossly enlarged. No definite evidence of CHF is seen. Evidence of exogenous obesity is again noted. No consolidating pneumonia or effusion was seen. The aorta is tortuous with minimal calcification suggested in the arch. Somewhat diminished bone density may be present, raising question of osteoporosis - correlate clinically. Pulmonary markings appear similar to the previous study. IMPRESSION: Stable chest, no acute process. MTDD
== END 2019-05-09 15:25 | disposition home or self-care (01) ==
LOC: FB.ED 11:52
DX: J44.1 Chronic obstructive pulmonary disease with (acute) exacerbation (principal); I10 Essential (primary) hypertension; E11.40 Type 2 diabetes mellitus with diabetic neuropathy, unspecified; Z79.82 Long term (current) use of aspirin; Z88.6 Allergy status to analgesic agent; Z91.011 Allergy to milk products; Z91.048 Other nonmedicinal substance allergy status; Z79.899 Other long term (current) drug therapy; Z79.51 Long term (current) use of inhaled steroids; Z79.4 Long term (current) use of insulin
CPT/HCPCS: 36415; 36600; 71046; 80053; 81001; 82803; 83735; 83880; 84484; 85025; 85379; 85610; 86140; 87040; 87804; 93005; 94640; 96365; 96367; 96375; 99284; 99285; A9270; J0456; J0696; J2930; J7050; J7620-GY

== ENCOUNTER 2019-05-29 11:08 | Emergency (ER) | payer MEDICARE, MEDICAID ==
[2019-05-29] MEDS ORDERED: Nitroglycerin 0.4 MG Tab.SL SL PRN (11:43)
[2019-05-29] MEDS ORDERED: Sodium Chloride 0.9% 10 ML Syringe FLUSH PRN (11:43)
[2019-05-29] MEDS ORDERED: Ketorolac 30 MG/ML SDV IVPUSH ONE (11:45)
--- NOTE | 2019-05-29 11:51 | EDM.PDOC ---
ED HPI GENERAL MEDICAL PROBLEM - General Chief Complaint: Chest Pain Stated Complaint: CHEST PAIN Time Seen by Provider: 05/29/19 11:30 Source of Information: Reports: Patient, Old Records History Limitations: Reports: No Limitations - History of Present Illness INITIAL COMMENTS - FREE TEXT/NARRATIVE: Gaby comes to [facility] ED by cab following a 2 hour hx of anterior chest pains, sharp, and nonradiating. She has had similar pain yesterday for about 2 hours before subsiding. She denies SOB, sweats, nausea, GI upset, or back pain. She has been dispensed TNG SL by PCP in the past, but reportedly has not seen a photoengraving machine operator/tender regarding diagnositic imaging. She was seen in the ED 3 weeks ago for SOB related to COPD. L substernal chest Pain Score (Numeric/FACES): 7 - Related Data Allergies Allergy/AdvReac Type Severity Reaction Status Date / Time aspirin Allergy Rash Verified 05/29/19 11:31 Milk Containing Products Allergy Diarrhea Verified 05/29/19 11:31 mold Allergy Unknown Airway Uncoded 05/29/19 11:31 Tightness Home Meds: Home Meds Simvastatin [Zocor] 10 mg PO BEDTIME 11/06/13 [History] Acetaminophen [Tylenol] 650 mg PO Q4H PRN tablet 09/04/17 [Rx] Albuterol/Ipratropium [DuoNeb 3.0-0.5 MG/3 ML] 3 ml INH QID PRN neb 09/04/17 [ Rx] DULoxetine [Cymbalta] 60 mg PO DAILY cap 09/04/17 [Rx] Furosemide [Lasix] 40 mg PO DAILY tablet 09/04/17 [Rx] Lisinopril [Prinivil] 10 mg PO DAILY tablet 09/04/17 [Rx] Insulin Aspart [NovoLOG] 36 units SQ TIDMEALS 09/16/17 [History] Montelukast [Singulair] 10 mg PO BEDTIME 09/16/17 [History] Potassium Chloride [Klor-Con 10] 10 meq PO DAILY 09/16/17 [History] Umeclidinium [place] [Incruse Ellipta*] 1 puff INH BEDTIME 09/16/17 [History] Nitroglycerin [Nitrostat] 0.4 mg PO Q5M PRN 09/26/17 [History] Albuterol [Ventolin HFA] 2 puff INH Q4H PRN 01/23/18 [History] Cyclobenzaprine [Flexeril] 10 mg PO TID 01/23/18 [History] Insulin Degludec [Tresiba Flextouch U-200] 120 units SUBCUT BEDTIME 01/23/18 [ History] Theophylline [Theophylline Anhydrous] 300 mg PO BID 01/23/18 [History] Amitriptyline [Elavil] 50 mg PO BEDTIME 08/29/18 [History] Budesonide/Formoterol Fumarate [Symbicort 160-4.5 Mcg Inhaler] 2 puff IH BID [History] Griseofulvin, Microsize [Griseofulvin] 500 mg PO DAILY 08/29/18 [History] Lactulose [Chronulac] 15 ml PO DAILY PRN 08/29/18 [History] metFORMIN [Glucophage] 1,000 mg PO BIDMEALS 08/29/18 [History] rOPINIRole HCl [Requip] 2 mg PO BEDTIME 08/29/18 [History] Albuterol [Proventil Neb Soln] 1 dose INH Q4HR PRN 10/17/18 [History] Amitriptyline HCl 100 mg PO BEDTIME 10/17/18 [History] Blood Sugar Diagnostic [Accu-Chek Guide Test Strip] 1 strip .XX TID 10/17/18 [ History] Lancets 1 each .XX BID 10/17/18 [History] Nicotine Polacrilex [Nicotine Lozenge] 1 dose PO ASDIRECTED 10/17/18 [History] Omeprazole 1 cap PO DAILY 10/17/18 [History] KCl/Na Sulf,Bicarb,Cl/PEG 3351 [GoLytely] 4,000 ml PO ASDIRECTED #1 bottle 10/18 [Rx] Amoxicillin/Potassium Clav [Augmentin 875-125 Tablet] 1 each PO BID #20 tablet 05/09/19 [Rx] Azithromycin [Zithromax] 250 mg PO DAILY #4 tab 05/09/19 [Rx] guaiFENesin 200 mg PO Q4HR PRN #240 ml 05/09/19 [Rx] predniSONE 40 mg PO DAILY #5 tab 05/09/19 [Rx] Past Medical History HEENT History: Reports: Cataract, Hard of Hearing, Impaired Vision Cardiovascular History: Reports: Angina, Heart Failure, High Cholesterol, Hypertension, [place], SOB on Exertion, Other (See Below) Other Cardiovascular History: patient states has PRn nitro at home for occasional chest pains Respiratory History: Reports: Asthma, COPD, Intubation, Previous, Pneumonia, Recurrent, Sleep Apnea, SOB Other Respiratory History: has CPAP Gastrointestinal History: Reports: Cholelithiasis, GERD Genitourinary History: Reports: Urinary Incontinence, Other (See Below) Other Genitourinary History: stress incontinence at times, OAB CISO History: Reports: Other CISO History: , Musculoskeletal History: Reports: Arthritis, Back Pain, Chronic, Osteoarthritis , Osteoporosis, Other (See Below) Other Musculoskeletal History: BACK INJURY Neurological History: Reports: Concussion, Neuropathy, Diabetic, Speech Problems Psychiatric History: Reports: Depression Endocrine/Metabolic History: Reports: Diabetes, Type II, Hypothyroidism, Obesity /BMI 30+ Oncologic (Cancer) History: Reports: Ovarian Dermatologic History: Reports: Cellulitis Other Dermatologic History: open infected wound under right abd fold on oral antibiotics - Infectious Disease History Infectious Disease History: Reports: Chicken Pox - Past Surgical History HEENT Surgical History: Reports: Cataract Surgery, Oral Surgery Cardiovascular Surgical History: Reports: None Respiratory Surgical History: Reports: None GI Surgical History: Reports: Cholecystectomy, Colonoscopy, EGD Female Surgical History: Reports: Section, Hysterectomy, Salpingo- Oophorectomy, Tubal Ligation Other Female Surgeries/Procedures: Surgery to remove ovarian cancer Oncologic Surgical History: Reports: None Social & Family History - Family History Family Medical History: Noncontributory HEENT: Reports: Cataract Cardiac: Reports: CAD, [place] Respiratory: Reports: Asthma, Sleep Apnea : Reports: Diabetic Nephropathy OBGYN: Reports: Musculoskeletal: Reports: Arthritis Endocrine/Metabolic: Reports: Diabetes, Type I, Diabetes, type II, IDDM, Obesity /MBI 30+ Dermatologic: Reports: None Oncologic: Reports: Bone, Breast, Other (See Below) Other Oncologic Family History: heart - Tobacco Use Smoking Status *Q: Former Smoker Years of Tobacco use: 46 Used Tobacco, but Quit: Yes Month/Year Tobacco Last Used: 2018 - Caffeine Use Caffeine Use: Reports: None Other Caffeine Use: daily - Recreational Drug Use Recreational Drug Use: No - Living Situation & Occupation Living situation: Reports: ED ROS GENERAL - Review of Systems Review Of Systems: See Below Constitutional: Reports: No Symptoms HEENT: Reports: No Symptoms Respiratory: Reports: No Symptoms Cardiovascular: Reports: Chest Pain Endocrine: Reports: No Symptoms GI/Abdominal: Reports: No Symptoms : Reports: No Symptoms Musculoskeletal: Reports: No Symptoms Skin: Reports: Rash (lower legs with brawny edema) Neurological: Reports: No Symptoms Psychiatric: Reports: No Symptoms Hematologic/Lymphatic: Reports: No Symptoms Immunologic: Reports: No Symptoms ED EXAM, GENERAL - Physical Exam Exam: See Below Exam Limited By: No Limitations General Appearance: Alert, WD/WN, Anxious, Mild Distress, Obese Eye Exam: Bilateral Eye: EOMI, Normal Inspection, PERRL Ears: Normal External Exam, Hearing Loss Nose: Normal Inspection Throat/Mouth: Normal Inspection, Normal Lips, Normal Oropharynx, Normal Voice, No Airway Compromise Head: Normocephalic Neck: Normal Inspection, Supple, Non-Tender Respiratory/Chest: No Respiratory Distress, No Accessory Muscle Use, Decreased Breath Sounds, Prolonged Expiration, Other (tenderness along L lower sternal costochondral junctions T4, T5) Cardiovascular: Regular Rate, Rhythm, No Murmur GI/Abdominal: Normal Bowel Sounds, Soft, Non-Tender, No Organomegaly, No Distention, No Mass (Female) Exam: Deferred Rectal (Female) Exam: Deferred Back Exam: Normal Inspection Extremities: Normal Range of Motion, Pedal Edema Neurological: Alert, Oriented, CN II-XII Intact, Normal Cognition, No Motor/ Sensory Deficits Psychiatric: Normal Affect, Anxious Skin Exam: Warm, Dry Lymphatic: No Adenopathy Course - Vital Signs Text/Narrative:: Following assessment, Gaby was administered an additional TNG SL with marginal benefit. Subsequent Toradol 30 mg IV was helpful. Screening labs and chest ray were baseline or negative. Anterior chest wall pain is suspected. Last Recorded V/S: Last Vital Signs Temp 36.4 C 05/29/19 11:08 Pulse 83 05/29/19 11:08 Resp 20 05/29/19 11:08 BP 136/78 05/29/19 11:40 Pulse Ox 94 L 05/29/19 11:08 - Orders/Labs/Meds Orders: Active Orders 24 hr Category Date Time Status EKG Documentation Completion [RC] ASDIRECTED Care 05/29/19 11:36 Active Chest 1V Frontal [CR] Stat Exams 05/29/19 11:34 Taken Chest 2V [CR] Stat Exams 05/29/19 12:00 Taken Nitroglycerin [Nitrostat] Med 05/29/19 11:43 Active 0.4 mg SL Q5M PRN Sodium Chloride 0.9% [Saline Flush] Med 05/29/19 11:43 Active 10 ml FLUSH ASDIRECTED PRN Peripheral IV Insertion Adult [OM.PC] Routine Oth 05/29/19 11:43 Ordered EKG 12 Lead [EK] Routine Ther 05/29/19 11:34 Ordered Medication Orders Nitroglycerin (Nitrostat) 0.4 mg SL Q5M PRN PRN Reason: Chest Pain Last Admin: 05/29/19 11:40 Dose: 0.4 mg Sodium Chloride (Saline Flush) 10 ml FLUSH ASDIRECTED PRN PRN Reason: Keep Vein Open Last Admin: 05/29/19 11:25 Dose: 10 ml Labs: Laboratory Tests 05/29/19 05/29/19 05/29/19 Range/Units 11:25 11:25 11:25 WBC 5.1 (4.5-12.0) X10-3/uL RBC 4.44 (3.23-5.20) x10(6)uL Hgb 11.2 L (11.5-15.5) g/dL Hct 35.1 (30.0-51.3) % MCV 79.1 L (80-96) fL MCH 25.3 L (27.7-33.6) pg MCHC 32.0 L (32.2-35.4) g/dL RDW 17.6 H (11.5-15.5) % Plt Count 142 (125-369) X10(3)uL MPV 9.8 (7.4-10.4) fL Neut % (Auto) 61.9 (46-82) % Lymph % (Auto) 24.1 (13-37) % [place] % (Auto) 10.7 (4-12) % Eos % (Auto) 0 L (1.0-5.0) % Baso % (Auto) 3 H (0-2) % Neut # (Auto) 3.2 (1.6-8.3) # Lymph # (Auto) 1.2 (0.6-5.0) # [place] # (Auto) 0.5 (0.0-1.3) # Eos # (Auto) 0.0 (0.0-0.8) # Baso # (Auto) 0.2 (0.0-0.2) # D-Dimer, Quantitative 0.49 (0.0-0.59) mg/LFEU Sodium 143 (135-145) mmol/L Potassium 4.3 (3.5-5.3) mmol/L Chloride 106 (100-110) mmol/L Carbon Dioxide 29 (21-32) mmol/L BUN 15 (7-18) mg/dL Creatinine 0.6 (0.55-1.02) mg/dL Est Cr Clr Drug Dosing 95.33 mL/min Estimated GFR (MDRD) > 60 (>60) BUN/Creatinine Ratio 25.0 H (9-20) Glucose 144 H (80-116) mg/dL Calcium 9.1 (8.6-10.2) mg/dL Total Bilirubin 0.4 (0.1-1.3) mg/dL AST 25 D (5-25) IU/L ALT 34 D (12-36) U/L Alkaline Phosphatase 125 H (56-112) IU/L Troponin I (<0.017-0.056) ng/mL Total Protein 6.2 (6.0-8.0) g/dL Albumin 2.8 L (3.5-5.2) g/dL Globulin 3.4 g/dL Albumin/Globulin Ratio 0.8 /13/19 Range/Units 11:25 WBC (4.5-12.0) X10-3/uL RBC (3.23-5.20) x10(6)uL Hgb (11.5-15.5) g/dL Hct (30.0-51.3) % MCV (80-96) fL MCH (27.7-33.6) pg MCHC (32.2-35.4) g/dL RDW (11.5-15.5) % Plt Count (125-369) X10(3)uL MPV (7.4-10.4) fL Neut % (Auto) (46-82) % Lymph % (Auto) (13-37) % [place] % (Auto) (4-12) % Eos % (Auto) (1.0-5.0) % Baso % (Auto) (0-2) % Neut # (Auto) (1.6-8.3) # Lymph # (Auto) (0.6-5.0) # [place] # (Auto) (0.0-1.3) # Eos # (Auto) (0.0-0.8) # Baso # (Auto) (0.0-0.2) # D-Dimer, Quantitative (0.0-0.59) mg/LFEU Sodium (135-145) mmol/L Potassium (3.5-5.3) mmol/L Chloride (100-110) mmol/L Carbon Dioxide (21-32) mmol/L BUN (7-18) mg/dL Creatinine (0.55-1.02) mg/dL Est Cr Clr Drug Dosing mL/min Estimated GFR (MDRD) (>60) BUN/Creatinine Ratio (9-20) Glucose (80-116) mg/dL Calcium (8.6-10.2) mg/dL Total Bilirubin (0.1-1.3) mg/dL AST (5-25) IU/L ALT (12-36) U/L Alkaline Phosphatase (56-112) IU/L Troponin I < 0.017 L (<0.017-0.056) ng/mL Total Protein (6.0-8.0) g/dL Albumin (3.5-5.2) g/dL Globulin g/dL Albumin/Globulin Ratio Meds: Medications Generic Name Dose Route Start Last Admin Trade Name Freq PRN Reason Stop Dose Admin Nitroglycerin 0.4 mg 05/29/19 11:43 05/29/19 11:40 Nitrostat SL 0.4 mg Q5M PRN Administration Chest Pain Sodium Chloride 10 ml 05/29/19 11:43 05/29/19 11:25 Saline Flush FLUSH 10 ml ASDIRECTED PRN Administration Keep Vein Open Discontinued Medications Generic Name Dose Route Start Last Admin Trade Name Freq PRN Reason Stop Dose Admin Ketorolac Tromethamine 30 mg 05/29/19 11:45 05/29/19 11:55 Toradol IVPUSH 05/29/19 11:46 30 mg ONETIME ONE Administration Departure - Departure Time of Disposition: 12:22 Disposition: Home, Self-Care 01 Condition: Good Clinical Impression: Atypical chest pain Forms: ED Department Discharge - Problem List & Annotations (1) Atypical chest pain SNOMED Code(s): 920849439 Code(s): R07.89 - OTHER CHEST PAIN Status: Acute Current Visit: Yes Annotation/Comment:: Gaby may take Tylenol for sx relief, activity as tolerated. - Problem List Review Problem List Initiated/Reviewed/Updated: Yes - My Orders Last 24 Hours: My Active Orders 05/29/19 11:34 Chest 1V Frontal [CR] Stat EKG 12 Lead [EK] Routine 05/29/19 11:36 EKG Documentation Completion [RC] ASDIRECTED 05/29/19 11:43 Nitroglycerin [Nitrostat] 0.4 mg SL Q5M PRN Sodium Chloride 0.9% [Saline Flush] 10 ml FLUSH ASDIRECTED PRN Peripheral IV Insertion Adult [OM.PC] Routine 05/29/19 12:00 Chest 2V [CR] Stat - Assessment/Plan Last 24 Hours: My Active Orders 05/29/19 11:34 Chest 1V Frontal [CR] Stat EKG 12 Lead [EK] Routine 05/29/19 11:36 EKG Documentation Completion [RC] ASDIRECTED 05/29/19 11:43 Nitroglycerin [Nitrostat] 0.4 mg SL Q5M PRN Sodium Chloride 0.9% [Saline Flush] 10 ml FLUSH ASDIRECTED PRN Peripheral IV Insertion Adult [OM.PC] Routine 05/29/19 12:00 Chest 2V [CR] Stat Plan: Follow up with PCP if needed.
--- NOTE | 2019-05-29 14:04 | CR ---
INDICATION: Chest pain. CHEST: AP portable upright view of the chest, 05/29/19, was compared with 05/09 and revealed no definite interval change, allowing for changes in positioning and technique. However, it is difficult to exclude patchy bronchopneumonia at the lung bases, due to the overlying breast tissue in this examination, due to positioning. Also, upper lung field pulmonary vasculature may be somewhat prominent. Would suggest PA and lateral view of the chest for further evaluation. IMPRESSION: Cannot exclude a mild degree of CHF and basilar patchy pneumonia. Suggest PA and lateral views for further evaluation with full inspiration. MTDD
[2019-05-29 14:09] VITALS: BP 143/84; PULSE 87
--- NOTE | 2019-05-29 14:09 | CR ---
INDICATION: Short of breath. CHEST: PA and lateral views of the chest, 05/29/19, were compared with same day portable and PA and lateral views from 05/09/19. The heart did not appear grossly enlarged. There may be some linear atelectatic change at the left lung base with markings essentially unchanged at the bases, compared with the previous study. These most likely represent fibrosis, although minimal patchy bronchopneumonia is difficult to entirely exclude. Upper lung field pulmonary vasculature did not appear prominent to suggest CHF. The aorta is tortuous with calcification in the arch. Diminished bone density is suggested, which may be on the basis of osteoporosis and should be correlated clinically. Mild hypertrophic changes are noted off vertebral bodies at upper middle thoracic spine levels. Findings suggesting COPD are noted. Exogenous obesity is noted. IMPRESSION: No definite acute process with multiple findings as noted above. Report was given in person to Dr. Roman immediately at the time of completion of the examination on 05/29/19. [id number]
== END 2019-05-29 13:30 | disposition home or self-care (01) ==
LOC: FB.ED 11:08
DX: R07.89 Other chest pain (principal); I10 Essential (primary) hypertension; I25.2 Old myocardial infarction; E78.00 Pure hypercholesterolemia, unspecified; K21.9 Gastro-esophageal reflux disease without esophagitis; E11.42 Type 2 diabetes mellitus with diabetic polyneuropathy; J44.9 Chronic obstructive pulmonary disease, unspecified; Z91.011 Allergy to milk products; Z88.5 Allergy status to narcotic agent; Z91.048 Other nonmedicinal substance allergy status; Z79.899 Other long term (current) drug therapy; Z79.4 Long term (current) use of insulin; Z87.891 Personal history of nicotine dependence
CPT/HCPCS: 71045; 71046; 80053; 84484; 85025; 85379; 93005; 93010; 96374; 99284; 99285; A9270; J1885

== ENCOUNTER 2019-06-10 15:21 | Emergency (ER) | payer MEDICARE, MEDICAID ==
--- NOTE | 2019-06-10 15:44 | EDM.PDOC ---
ED HPI GENERAL MEDICAL PROBLEM - General Chief Complaint: Abdominal Pain Stated Complaint: ABD PAIN Time Seen by Provider: 06/10/19 15:30 Source of Information: Reports: Patient History Limitations: Reports: No Limitations - History of Present Illness INITIAL COMMENTS - FREE TEXT/NARRATIVE: Gaby comes into [facility] ED from the Clinic with a 3 day hx of LLQ pain characterized as intermittent and sharp. There is some radiation to the L midabdomen, but no syeda flank or LCVA pain. There are no voiding sxs, diarrhea , blood in the stool. She has taken no new meds. LLQ Pain Score (Numeric/FACES): 8 - Related Data Allergies Allergy/AdvReac Type Severity Reaction Status Date / Time aspirin Allergy Rash Verified 05/29/19 11:31 Milk Containing Products Allergy Diarrhea Verified 05/29/19 11:31 mold Allergy Unknown Airway Uncoded 05/29/19 11:31 Tightness Home Meds: Home Meds Simvastatin [Zocor] 10 mg PO BEDTIME 11/06/13 [History] Acetaminophen [Tylenol] 650 mg PO Q4H PRN tablet 09/04/17 [Rx] Albuterol/Ipratropium [DuoNeb 3.0-0.5 MG/3 ML] 3 ml INH QID PRN neb 09/04/17 [ Rx] DULoxetine [Cymbalta] 60 mg PO DAILY cap 09/04/17 [Rx] Furosemide [Lasix] 40 mg PO DAILY tablet 09/04/17 [Rx] Lisinopril [Prinivil] 10 mg PO DAILY tablet 09/04/17 [Rx] Insulin Aspart [NovoLOG] 36 units SQ TIDMEALS 09/16/17 [History] Montelukast [Singulair] 10 mg PO BEDTIME 09/16/17 [History] Potassium Chloride [Klor-Con 10] 10 meq PO DAILY 09/16/17 [History] Umeclidinium [place] [Incruse Ellipta*] 1 puff INH BEDTIME 09/16/17 [History] Nitroglycerin [Nitrostat] 0.4 mg PO Q5M PRN 09/26/17 [History] Albuterol [Ventolin HFA] 2 puff INH Q4H PRN 01/23/18 [History] Insulin Degludec [Tresiba Flextouch U-200] 120 units SUBCUT BEDTIME 01/23/18 [ History] Budesonide/Formoterol Fumarate [Symbicort 160-4.5 Mcg Inhaler] 2 puff IH BID [History] Lactulose [Chronulac] 15 ml PO DAILY PRN 08/29/18 [History] metFORMIN [Glucophage] 1,000 mg PO BIDMEALS 08/29/18 [History] Albuterol [Proventil Neb Soln] 1 dose INH Q4HR PRN 10/17/18 [History] Nicotine Polacrilex [Nicotine Lozenge] 1 dose PO ASDIRECTED 10/17/18 [History] Omeprazole 1 cap PO DAILY 10/17/18 [History] Clotrimazole/Betamethasone Dip [Lotrisone Cream] 1 appful TP TID 05/29/19 [ History] Pregabalin [Lyrica] 150 mg BEDTIME 05/29/19 [History] Zolpidem Tartrate [Ambien] 5 mg PO BEDTIME PRN 05/29/19 [History] buPROPion [buPROPion XL] 300 mg DAILY 05/29/19 [History] Past Medical History HEENT History: Reports: Cataract, Hard of Hearing, Impaired Vision Cardiovascular History: Reports: Angina, Heart Failure, High Cholesterol, Hypertension, [place], SOB on Exertion, Other (See Below) Other Cardiovascular History: patient states has PRn nitro at home for occasional chest pains Respiratory History: Reports: Asthma, COPD, Intubation, Previous, Pneumonia, Recurrent, Sleep Apnea, SOB Other Respiratory History: has CPAP Gastrointestinal History: Reports: Cholelithiasis, GERD Genitourinary History: Reports: Urinary Incontinence, Other (See Below) Other Genitourinary History: stress incontinence at times, OAB 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: Reports: 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 LABORER 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: , Musculoskeletal History: Reports: Arthritis, Back Pain, Chronic, Osteoarthritis , Osteoporosis, Other (See Below) Other Musculoskeletal History: BACK INJURY Neurological History: Reports: Concussion, Neuropathy, Diabetic, Speech Problems Psychiatric History: Reports: Depression Endocrine/Metabolic History: Reports: Diabetes, Type II, Hypothyroidism, Obesity /BMI 30+ Oncologic (Cancer) History: Reports: Ovarian Dermatologic History: Reports: Cellulitis Other Dermatologic History: open infected wound under right abd fold on oral antibiotics - Infectious Disease History Infectious Disease History: Reports: Chicken Pox - Past Surgical History HEENT Surgical History: Reports: Cataract Surgery, Oral Surgery Cardiovascular Surgical History: Reports: None Respiratory Surgical History: Reports: None GI Surgical History: Reports: Cholecystectomy, Colonoscopy, EGD Female Surgical History: Reports: Section, Hysterectomy, Salpingo- Oophorectomy, Tubal Ligation Other Female Surgeries/Procedures: Surgery to remove ovarian cancer Oncologic Surgical History: Reports: None Social & Family History - Family History Family Medical History: Noncontributory HEENT: Reports: Cataract Cardiac: Reports: CAD, [place] Respiratory: Reports: Asthma, Sleep Apnea : Reports: Diabetic Nephropathy OBGYN: Reports: Musculoskeletal: Reports: Arthritis Endocrine/Metabolic: Reports: Diabetes, Type I, Diabetes, type II, IDDM, Obesity /MBI 30+ Dermatologic: Reports: None Oncologic: Reports: Bone, Breast, Other (See Below) Other Oncologic Family History: heart - Caffeine Use Caffeine Use: Reports: None Other Caffeine Use: daily - Living Situation & Occupation Living situation: Reports: ED ROS GENERAL - Review of Systems Review Of Systems: See Below Constitutional: Reports: Malaise HEENT: Reports: No Symptoms Respiratory: Reports: No Symptoms Cardiovascular: Reports: No Symptoms Endocrine: Reports: No Symptoms GI/Abdominal: Reports: Abdominal Pain, Mucous in Stool : Reports: No Symptoms Musculoskeletal: Reports: No Symptoms Skin: Reports: No Symptoms Neurological: Reports: No Symptoms Psychiatric: Reports: No Symptoms Hematologic/Lymphatic: Reports: No Symptoms Immunologic: Reports: No Symptoms ED EXAM, GI/ABD - Physical Exam Exam: See Below Exam Limited By: No Limitations General Appearance: Alert, WD/WN, Mild Distress, Obese Eyes: Bilateral: Normal Appearance, EOMI Ears: Normal External Exam Nose: Normal Inspection Throat/Mouth: Normal Inspection, Normal Oropharynx Head: Normocephalic Neck: Normal Inspection, Supple, Non-Tender Respiratory/Chest: No Respiratory Distress, No Accessory Muscle Use, Chest Non- Tender, Decreased Breath Sounds, Prolonged Expiration Cardiovascular: Regular Rate, Rhythm, No Murmur (Female) Exam: Deferred Rectal (Female) Exam: Deferred Back Exam: Normal Inspection Extremities: Normal Inspection Neurological: Alert, Oriented, CN II-XII Intact, No Motor/Sensory Deficits Psychiatric: Normal Affect, Normal Mood Skin Exam: Warm, Dry, Intact, Normal Color Lymphatic: No Adenopathy Course - Vital Signs Text/Narrative:: Gaby remained stable at the ED visit. Screeing labs and an Abd Pelvic CT w contrast were performed and satisfactory. Last Recorded V/S: Last Vital Signs Temp 36.6 C 06/10/19 15:21 Pulse 86 06/10/19 15:21 Resp 18 06/10/19 15:21 BP 140/94 H 06/10/19 15:21 Pulse Ox 98 06/10/19 15:21 - Orders/Labs/Meds Orders: Active Orders 24 hr Category Date Time Status Abdomen Pelvis w Cont [CT] Stat Exams 06/10/19 15:37 Ordered Labs: Laboratory Tests 06/10/19 06/10/19 06/10/19 Range/Units 15:50 15:50 15:50 WBC 4.9 (4.5-12.0) X10-3/uL RBC 4.79 (3.23-5.20) x10(6)uL Hgb 11.9 (11.5-15.5) g/dL Hct 38.2 (30.0-51.3) % MCV 79.6 L (80-96) fL MCH 24.9 L (27.7-33.6) pg MCHC 31.3 L (32.2-35.4) g/dL RDW 17.0 H (11.5-15.5) % Plt Count 137 (125-369) X10(3)uL MPV 9.7 (7.4-10.4) fL Neut % (Auto) 64.7 (46-82) % Lymph % (Auto) 23.3 (13-37) % [place] % (Auto) 10.2 (4-12) % Eos % (Auto) 0 L (1.0-5.0) % Baso % (Auto) 2 (0-2) % Neut # (Auto) 3.1 (1.6-8.3) # Lymph # (Auto) 1.1 (0.6-5.0) # [place] # (Auto) 0.5 (0.0-1.3) # Eos # (Auto) 0.0 (0.0-0.8) # Baso # (Auto) 0.1 (0.0-0.2) # Sodium 142 (135-145) mmol/L Potassium 4.2 (3.5-5.3) mmol/L Chloride 105 (100-110) mmol/L Carbon Dioxide 32 (21-32) mmol/L BUN 16 (7-18) mg/dL Creatinine 0.7 (0.55-1.02) mg/dL Est Cr Clr Drug Dosing TNP Estimated GFR (MDRD) > 60 (>60) BUN/Creatinine Ratio 22.9 H (9-20) Glucose 126 H (80-116) mg/dL Lactic Acid 1.3 (0.4-2.2) mmol/L Calcium 9.4 (8.6-10.2) mg/dL Total Bilirubin 0.3 (0.1-1.3) mg/dL AST 21 D (5-25) IU/L ALT 33 (12-36) U/L Alkaline Phosphatase 138 H (56-112) IU/L C-Reactive Protein (0.5-0.9) mg/dL Total Protein 6.5 (6.0-8.0) g/dL Albumin 3.0 L (3.5-5.2) g/dL Globulin 3.5 g/dL Albumin/Globulin Ratio 0.9 Urine Color (YELLOW) Urine Appearance (CLEAR) Urine pH (5.0-6.5) Ur Specific [place] (1.010-1.025) Urine Protein (NEGATIVE) mg/dL Urine Glucose (UA) (NORMAL) mg/dL Urine Ketones (NEGATIVE) mg/dL Urine Occult Blood (NEGATIVE) Urine Nitrite (NEGATIVE) Urine Bilirubin (NEGATIVE) Urine Urobilinogen (NEGATIVE) mg/dL Ur Leukocyte Esterase (NEGATIVE) Urine RBC (0-5) Urine WBC (0-5) Ur Squamous Epith Cells (NS,R,O) Urine Bacteria (NS) 06/10/19 06/10/19 Range/Units 15:50 16:54 WBC (4.5-12.0) X10-3/uL RBC (3.23-5.20) x10(6)uL Hgb (11.5-15.5) g/dL Hct (30.0-51.3) % MCV (80-96) fL MCH (27.7-33.6) pg MCHC (32.2-35.4) g/dL RDW (11.5-15.5) % Plt Count (125-369) X10(3)uL MPV (7.4-10.4) fL Neut % (Auto) (46-82) % Lymph % (Auto) (13-37) % [place] % (Auto) (4-12) % Eos % (Auto) (1.0-5.0) % Baso % (Auto) (0-2) % Neut # (Auto) (1.6-8.3) # Lymph # (Auto) (0.6-5.0) # [place] # (Auto) (0.0-1.3) # Eos # (Auto) (0.0-0.8) # Baso # (Auto) (0.0-0.2) # Sodium (135-145) mmol/L Potassium (3.5-5.3) mmol/L Chloride (100-110) mmol/L Carbon Dioxide (21-32) mmol/L BUN (7-18) mg/dL Creatinine (0.55-1.02) mg/dL Est Cr Clr Drug Dosing Estimated GFR (MDRD) (>60) BUN/Creatinine Ratio (9-20) Glucose (80-116) mg/dL Lactic Acid (0.4-2.2) mmol/L Calcium (8.6-10.2) mg/dL Total Bilirubin (0.1-1.3) mg/dL AST (5-25) IU/L ALT (12-36) U/L Alkaline Phosphatase (56-112) IU/L C-Reactive Protein 1.3 H (0.5-0.9) mg/dL Total Protein (6.0-8.0) g/dL Albumin (3.5-5.2) g/dL Globulin g/dL Albumin/Globulin Ratio Urine Color Yellow (YELLOW) Urine Appearance Clear (CLEAR) Urine pH 5.0 (5.0-6.5) Ur Specific [place] 1.010 (1.010-1.025) Urine Protein Negative (NEGATIVE) mg/dL Urine Glucose (UA) Normal (NORMAL) mg/dL Urine Ketones Negative (NEGATIVE) mg/dL Urine Occult Blood Negative (NEGATIVE) Urine Nitrite Negative (NEGATIVE) Urine Bilirubin Negative (NEGATIVE) Urine Urobilinogen Normal (NEGATIVE) mg/dL Ur Leukocyte Esterase Negative (NEGATIVE) Urine RBC 0-5 (0-5) Urine WBC 0-5 (0-5) Ur Squamous Epith Cells Few H (NS,R,O) Urine Bacteria Few H (NS) Meds: Medications Discontinued Medications Generic Name Dose Route Start Last Admin Trade Name Camilla PRN Reason Stop Dose Admin Iopamidol 100 ml 06/10/19 16:05 06/10/19 16:37 Isovue-370 (76%) IV 06/10/19 16:06 100 ml . DIRECTED ONE Administration Departure - Departure Time of Disposition: 17:26 Disposition: Home, Self-Care 01 Condition: Fair Clinical Impression: Abdominal pain Qualifiers: Abdominal location: left lower quadrant Qualified Code(s): R10.32 - Left lower quadrant pain - Discharge Information Referrals: Jacinto Jones MD [Primary Care Provider] - Forms: ED Department Discharge - Problem List & Annotations (1) Abdominal pain SNOMED Code(s): 02878539 Code(s): R10.9 - UNSPECIFIED ABDOMINAL PAIN Status: Acute Current Visit: Yes Annotation/Comment:: Abdominal Pain NOS, could represent an intestinal viral illness. I suggested sxs cares. No meds dispensed. Qualifiers: Abdominal location: left lower quadrant Qualified Code(s): R10.32 - Left lower quadrant pain - Problem List Review Problem List Initiated/Reviewed/Updated: Yes - My Orders Last 24 Hours: My Active Orders 06/10/19 15:37 Abdomen Pelvis w Cont [CT] Stat - Assessment/Plan Last 24 Hours: My Active Orders 06/10/19 15:37 Abdomen Pelvis w Cont [CT] Stat Plan: Follow up with PCP if sxs persist.
[2019-06-10] MEDS ORDERED: Iopamidol 755 Mg/ML 100 ML Bottle IV ONE (16:05)
[2019-06-10 18:54] VITALS: BP 142/89; PULSE 84
--- NOTE | 2019-06-11 10:56 | CT ---
INDICATION: Suspect diverticulitis. CT ABDOMEN AND PELVIS WITH CONTRAST: Spiral 3.75 mm axial sections were obtained through the abdomen and pelvis with oral and IV contrast (100 ml Isovue 370 at 2 cc per second) with sagittal and coronal reconstructions 2018 and compared with 01/08/2015. Total exam DLP = 2153.76 mGy-cm. The lower lung lucia and pleural spaces visualized showed definite active infiltrate or effusion. The heart appeared normal in size or at the upper limits of normal in size and it may be slightly increased in size compared with the previous study of 2014. Calcification is noted at the mitral valve, present previously. Calcifications are noted in the abdominal aorta, iliac and femoral arteries. Very minimally thickened wall of the urinary bladder may be present. This is not a definite significant finding. The uterus is absent compatible with history of its removal. The appendix appeared normal visualized axial images 84 through 89. No evidence of bowel obstruction, diverticulosis or diverticulitis was identified. Some very minimal thickening of the wall and very minimal fat stranding is noted at what appears to be the distal descending colon. This is of questionable significance and similar to the previous examination overall. No retroperitoneal mass was seen. Retained lobulation of the kidneys is noted with the kidneys otherwise essentially unremarkable. There may be some minimal cortical scarring on the right at the lower middle pole area anterolaterally, however. Minimal low density abnormalities in the spleen appear less prominent than on the previous study and likely are not of clinical significance. The gallbladder is absent compatible with history of its removal. The liver appeared normal. The adrenal glands appear essentially unchanged from the previous study with nodularity on the left with some minimal calcification likely representing benign structure such as adenomas. They do not appear to be increased in size significantly compared with the previous study. The pancreas appears to be grossly normal. No organomegaly, mass lesions, or free fluid collections were otherwise suggested. IMPRESSION: 1. ASD. 2. Question minimal thickening of the wall of the urinary bladder could represent cystitis-correlate clinically. 3. Minimal scarring of right kidney. 4. ASHD with suggestion of increased heart size compared with the previous study. Report was given in person [facility]
== END 2019-06-10 17:56 | disposition home or self-care (01) ==
LOC: FB.ED 15:21
DX: R10.32 Left lower quadrant pain (principal); Z88.6 Allergy status to analgesic agent; Z91.018 Allergy to other foods; Z91.09 Other allergy status, other than to drugs and biological substances; I25.2 Old myocardial infarction; I10 Essential (primary) hypertension; E78.5 Hyperlipidemia, unspecified; J44.9 Chronic obstructive pulmonary disease, unspecified; K21.9 Gastro-esophageal reflux disease without esophagitis; E11.40 Type 2 diabetes mellitus with diabetic neuropathy, unspecified; E03.9 Hypothyroidism, unspecified; E66.9 Obesity, unspecified; Z68.39 Body mass index [BMI] 39.0-39.9, adult; Z79.51 Long term (current) use of inhaled steroids; Z79.4 Long term (current) use of insulin; Z79.890 Hormone replacement therapy; Z79.899 Other long term (current) drug therapy
CPT/HCPCS: 36415; 74177; 80053; 81001; 83605; 85025; 86140; 99283; 99284-25; Q9967

== ENCOUNTER 2019-12-07 12:18 | Emergency (ER) | payer MEDICARE, MEDICAID ==
[2019-12-07] MEDS ORDERED: Amoxicillin/Clavulanate K 875-125 MG Tab PO ONE (12:19)
[2019-12-07] MEDS ORDERED: Albuterol/Ipratropium 3.0-0.5 MG/3 ML Neb Soln NEB ONE (12:37)
[2019-12-07] MEDS ORDERED: predniSONE 20 MG Tab PO STA (12:38)
[2019-12-07] MEDS ORDERED: Doxycycline 100 MG Tab PO ONE (12:39)
--- NOTE | 2019-12-07 12:44 | EDM.PDOC ---
ED HPI GENERAL MEDICAL PROBLEM - General Chief Complaint: Respiratory Problem Stated Complaint: WEAKNESS Time Seen by Provider: 12/07/19 12:20 Source of Information: Reports: Patient, EMS History Limitations: Reports: No Limitations - History of Present Illness INITIAL COMMENTS - FREE TEXT/NARRATIVE: brought in by ambulance states she was eating a hamburger for lunch when she choked on it . Pt was able to cough multiple times and get the pieces out but still has fear of aspiration Now has hoarse voice and wheezing in the chest Onset: Today Onset Date: 12/07/19 Onset Time: 12:10 Duration: Getting Worse Location: Reports: Chest Quality: Reports: Ache, Dull, Pressure Severity: Moderate Improves with: Reports: None Worsens with: Reports: Other (coughing), Movement Context: Reports: Other Associated Symptoms: Reports: Cough, Loss of Appetite, Malaise. Denies: Syncope Treatments DIRECTOR PHYSICAL THERAPY: Reports: Breathing Treatments throat Pain Score (Numeric/FACES): 4 - Related Data Allergies Allergy/AdvReac Type Severity Reaction Status Date / Time aspirin Allergy Rash Verified 05/29/19 11:31 Milk Containing Products Allergy Diarrhea Verified 05/29/19 11:31 mold Allergy Unknown Airway Uncoded 05/29/19 11:31 Tightness Home Meds: Home Meds Simvastatin [Zocor] 10 mg PO BEDTIME 11/06/13 [History] Acetaminophen [Tylenol] 650 mg PO Q4H PRN tablet 09/04/17 [Rx] Albuterol/Ipratropium [DuoNeb 3.0-0.5 MG/3 ML] 3 ml INH QID PRN neb 09/04/17 [ Rx] DULoxetine [Cymbalta] 60 mg PO DAILY cap 09/04/17 [Rx] Furosemide [Lasix] 40 mg PO DAILY tablet 09/04/17 [Rx] lisinopriL [Prinivil] 10 mg PO DAILY tablet 09/04/17 [Rx] Insulin Aspart [NovoLOG] 36 units SQ TIDMEALS 09/16/17 [History] Montelukast [Singulair] 10 mg PO BEDTIME 09/16/17 [History] Potassium Chloride [Klor-Con 10] 10 meq PO DAILY 09/16/17 [History] Umeclidinium [place] [Incruse Ellipta*] 1 puff INH BEDTIME 09/16/17 [History] Nitroglycerin [Nitrostat] 0.4 mg PO Q5M PRN 09/26/17 [History] Albuterol [Ventolin HFA] 2 puff INH Q4H PRN 01/23/18 [History] Insulin Degludec [Tresiba Flextouch U-200] 120 units SUBCUT BEDTIME 01/23/18 [ History] Budesonide/Formoterol Fumarate [Symbicort 160-4.5 Mcg Inhaler] 2 puff IH BID [History] Lactulose [Chronulac] 15 ml PO DAILY PRN 08/29/18 [History] metFORMIN [Glucophage] 1,000 mg PO BIDMEALS 08/29/18 [History] Albuterol [Proventil Neb Soln] 1 dose INH Q4HR PRN 10/17/18 [History] Nicotine Polacrilex [Nicotine Lozenge] 1 dose PO ASDIRECTED 10/17/18 [History] Omeprazole 1 cap PO DAILY 10/17/18 [History] Clotrimazole/Betamethasone Dip [Lotrisone Cream] 1 appful TP TID 05/29/19 [ History] Pregabalin [Lyrica] 150 mg BEDTIME 05/29/19 [History] Zolpidem Tartrate [Ambien] 5 mg PO BEDTIME PRN 05/29/19 [History] buPROPion [buPROPion XL] 300 mg DAILY 05/29/19 [History] Amoxicillin/Clavulanate K [Augmentin 875-125 MG] 1 tab PO BID 14 Days #28 tablet 12/07/19 [Rx] guaiFENesin [Mucinex] 600 mg PO BID 10 Days #20 tab.er.12h 12/07/19 [Rx] Past Medical History HEENT History: Reports: Cataract, Hard of Hearing, Impaired Vision Cardiovascular History: Reports: Angina, Heart Failure, High Cholesterol, Hypertension, [place], SOB on Exertion, Other (See Below) Other Cardiovascular History: patient states has PRn nitro at home for occasional chest pains Respiratory History: Reports: Asthma, COPD, Intubation, Previous, Pneumonia, Recurrent, Sleep Apnea, SOB Other Respiratory History: has CPAP Gastrointestinal History: Reports: Cholelithiasis, GERD Genitourinary History: Reports: Urinary Incontinence, Other (See Below) Other Genitourinary History: stress incontinence at times, OAB 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: , Musculoskeletal History: Reports: Arthritis, Back Pain, Chronic, Osteoarthritis , Osteoporosis, Other (See Below) Other Musculoskeletal History: BACK INJURY Neurological History: Reports: Concussion, Neuropathy, Diabetic, Speech Problems Psychiatric History: Reports: Depression Endocrine/Metabolic History: Reports: Diabetes, Type II, Hypothyroidism, Obesity /BMI 30+ Oncologic (Cancer) History: Reports: Ovarian Dermatologic History: Reports: Cellulitis Other Dermatologic History: open infected wound under right abd fold on oral antibiotics - Infectious Disease History Infectious Disease History: Reports: Chicken Pox - Past Surgical History HEENT Surgical History: Reports: Cataract Surgery, Oral Surgery Cardiovascular Surgical History: Reports: None Respiratory Surgical History: Reports: None GI Surgical History: Reports: Cholecystectomy, Colonoscopy, EGD Female Surgical History: Reports: Section, Hysterectomy, Salpingo- Oophorectomy, Tubal Ligation Other Female Surgeries/Procedures: Surgery to remove ovarian cancer Oncologic Surgical History: Reports: None Social & Family History - Family History Family Medical History: Noncontributory HEENT: Reports: Cataract Cardiac: Reports: CAD, [place] Respiratory: Reports: Asthma, Sleep Apnea : Reports: Diabetic Nephropathy OBGYN: Reports: Musculoskeletal: Reports: Arthritis Endocrine/Metabolic: Reports: Diabetes, Type I, Diabetes, type II, IDDM, Obesity /MBI 30+ Dermatologic: Reports: None Oncologic: Reports: Bone, Breast, Other (See Below) Other Oncologic Family History: heart - Caffeine Use Caffeine Use: Reports: None Other Caffeine Use: daily - Living Situation & Occupation Living situation: Reports: ED ROS GENERAL - Review of Systems Review Of Systems: See Below Constitutional: Reports: Fatigue. Denies: Fever, Chills, Malaise, Weakness, Diaphoresis HEENT: Reports: No Symptoms Respiratory: Reports: Shortness of Breath, Wheezing, Cough. Denies: Sputum Cardiovascular: Reports: No Symptoms, Chest Pain Endocrine: Reports: No Symptoms GI/Abdominal: Reports: No Symptoms Musculoskeletal: Reports: No Symptoms Skin: Reports: No Symptoms Neurological: Denies: Confusion, Headache Psychiatric: Reports: No Symptoms Hematologic/Lymphatic: Reports: No Symptoms ED EXAM, GENERAL - Physical Exam Exam: See Below Exam Limited By: Other (hearing loss) General Appearance: Alert, WD/WN, No Apparent Distress, Mild Distress, Obese Eye Exam: Bilateral Eye: EOMI Ears: Normal External Exam Ear Exam: Bilateral Ear: Auricle Normal Nose: Normal Inspection Throat/Mouth: Normal Oropharynx Head: Atraumatic, Normocephalic Neck: Supple, Non-Tender Respiratory/Chest: Decreased Breath Sounds, Crackles, Rales, Rhonchi, Wheezing GI/Abdominal: Soft, Non-Tender Extremities: Normal Inspection Neurological: Alert, Oriented, CN II-XII Intact, Normal Cognition, Abnormal Gait Psychiatric: Normal Affect Skin Exam: Warm, Dry Course - Vital Signs Last Recorded V/S: Last Vital Signs Temp 36.6 C 12/07/19 12:18 Pulse 93 12/07/19 12:18 Resp 18 12/07/19 12:18 BP 141/99 H 12/07/19 12:18 Pulse Ox 96 12/07/19 12:18 - Orders/Labs/Meds Orders: Active Orders 24 hr Category Date Time Status RT Aerosol Therapy [RC] ASDIRECTED Care 12/07/19 12:37 Active Chest 2V [CR] Stat Exams 12/07/19 12:36 Taken Labs: Laboratory Tests 12/07/19 12/07/19 12/07/19 Range/Units 13:05 13:05 13:05 WBC 6.1 (4.5-12.0) X10-3/uL RBC 4.49 (3.23-5.20) x10(6)uL Hgb 11.2 L (11.5-15.5) g/dL Hct 35.9 (30.0-51.3) % MCV 80.1 (80-96) fL MCH 24.9 L (27.7-33.6) pg MCHC 31.0 L (32.2-35.4) g/dL RDW 17.1 H (11.5-15.5) % Plt Count 124 L (125-369) X10(3)uL MPV 11.5 H (7.4-10.4) fL Neut % (Auto) 57.0 (46-82) % Lymph % (Auto) 25.5 (13-37) % [place] % (Auto) 10.5 (4-12) % Eos % (Auto) 0 L (1.0-5.0) % Baso % (Auto) 7 H (0-2) % Neut # (Auto) 3.5 (1.6-8.3) # Lymph # (Auto) 1.6 (0.6-5.0) # [place] # (Auto) 0.6 (0.0-1.3) # Eos # (Auto) 0.0 (0.0-0.8) # Baso # (Auto) 0.4 H (0.0-0.2) # Sodium 140 (135-145) mmol/L Potassium 4.6 (3.5-5.3) mmol/L Chloride 101 (100-110) mmol/L Carbon Dioxide 28 (21-32) mmol/L BUN 18 (7-18) mg/dL Creatinine 0.9 (0.55-1.02) mg/dL Est Cr Clr Drug Dosing 65.34 mL/min Estimated GFR (MDRD) > 60 (>60) BUN/Creatinine Ratio 20.0 (9-20) Glucose 294 H D (80-116) mg/dL Calcium 9.1 (8.6-10.2) mg/dL C-Reactive Protein 2.4 H (0.5-0.9) mg/dL Meds: Medications Discontinued Medications Generic Name Dose Route Start Last Admin Trade Name Freq PRN Reason Stop Dose Admin Albuterol/Ipratropium 3 ml 12/07/19 12:37 12/07/19 13:11 Duoneb 3.0-0.5 Mg/3 Ml NEB 12/07/19 12:38 3 ml ONETIME ONE Administration Doxycycline Hyclate 200 mg 12/07/19 12:39 12/07/19 13:11 Vibra-Tabs PO 12/07/19 12:40 200 mg ONETIME ONE Administration Prednisone 40 mg 12/07/19 12:38 12/07/19 13:11 Prednisone PO 12/07/19 12:39 40 mg NOW STA Administration - Re-Assessments/Exams Free Text/Narrative Re-Assessment/Exam: 12/07/19 14:06 Pt was given a dose of prednisone Duoneb and doxycycline she did breath better after observation minimal wheezing noted before discharge Departure - Departure Time of Disposition: 14:10 Disposition: DC/Tfer to SNF 03 Condition: Fair Clinical Impression: Aspiration of food, Wheezing on both sides of chest - Discharge Information *PRESCRIPTION DRUG MONITORING PROGRAM REVIEWED*: Not Applicable *COPY OF PRESCRIPTION DRUG MONITORING REPORT IN PATIENT ZACH: Not Applicable Prescriptions: Amoxicillin/Clavulanate K [Augmentin 875-125 MG] 1 tab PO BID 14 Days #28 tablet guaiFENesin [Mucinex] 600 mg PO BID 10 Days #20 tab.er.12h Referrals: Jacinto Jones MD [Primary Care Provider] - Forms: ED Department Discharge Additional Instructions: 1) TAKE ANTIBIOTICS PRESCRIBED: AUGMENTIN 875 BID FO 10 DAYS 2 ) CONTINUE WITH NEBULIZERS EVERY 4HRS NEEDED 3) FOLLOW UP WITH PCP WITH ANY CONCERNS Sepsis Event Note - Evaluation Sepsis Screening Result: No Definite Risk - Focused Exam Vital Signs: Vital Signs Temp Pulse Resp BP Pulse Ox 12/07/19 12:18 36.6 C 93 18 141/99 H 96 Date Exam was Performed: 12/07/19 Time Exam was Performed: 13:56 - My Orders Last 24 Hours: My Active Orders 12/07/19 12:36 Chest 2V [CR] Stat 12/07/19 12:37 RT Aerosol Therapy [RC] ASDIRECTED - Assessment/Plan Last 24 Hours: My Active Orders 12/07/19 12:36 Chest 2V [CR] Stat 12/07/19 12:37 RT Aerosol Therapy [RC] ASDIRECTED
[2019-12-07 16:21] VITALS: BP 126/76; PULSE 90
--- NOTE | 2019-12-10 10:26 | CR ---
INDICATION: Aspiration. CHEST, 2 VIEWS: PA and lateral views of the chest, 12/07/19, were compared with 05/29/19. The heart appears slightly enlarged with left ventricular enlargement suggested. The aorta is tortuous with calcification of the arch. Slightly heavy markings are noted at the left cardiac margin, which could represent some minimal patchy infiltration, possibly some interstitial edema. No definite evidence of CHF is seen. No consolidating pneumonia or definite effusion is seen. Diminished bone density may be present raising question of osteoporosis - correlate clinically. Moderate degenerative hypertrophic changes are noted off vertebral bodies anterolaterally in the upper middle thoracic spine. IMPRESSION: 1. No definite acute process but difficult to exclude minimal patchy bronchopneumonia at the left lung base - area of the lingula. Correlate clinically. 2. ASHD with probable LVE. 3. Diminished bone density raising question of osteoporosis. 4. DJD spine. 5. No definite evidence of aspiration pneumonia. MTDD
== END 2019-12-07 14:22 ==
LOC: FB.ED 12:18
DX: T17.920A Food in respiratory tract, part unspecified causing asphyxiation, initial encounter (principal); R06.2 Wheezing; J44.9 Chronic obstructive pulmonary disease, unspecified; I11.0 Hypertensive heart disease with heart failure; I50.9 Heart failure, unspecified; E78.00 Pure hypercholesterolemia, unspecified; I25.2 Old myocardial infarction; K21.9 Gastro-esophageal reflux disease without esophagitis; E03.9 Hypothyroidism, unspecified; E66.9 Obesity, unspecified; E11.40 Type 2 diabetes mellitus with diabetic neuropathy, unspecified; Z88.6 Allergy status to analgesic agent; Z91.011 Allergy to milk products; Z91.09 Other allergy status, other than to drugs and biological substances; Z79.4 Long term (current) use of insulin; Z79.899 Other long term (current) drug therapy
CPT/HCPCS: 36415; 71046; 80048; 85025; 86140; 94640; 99284; A9270; J7512; J7620-GY

== ENCOUNTER 2020-01-12 17:43 | Emergency (ER) | payer MEDICARE, MEDICAID ==
[2020-01-12] MEDS ORDERED: Acetaminophen/HYDROcodone 325-5 MG Tab PO ONE (17:44)
[2020-01-12] MEDS ORDERED: Ketorolac 30 MG/ML SDV IVPUSH ONE (17:45)
--- NOTE | 2020-01-12 17:47 | EDM.PDOC ---
ED HPI GENERAL MEDICAL PROBLEM - General Chief Complaint: Lower Extremity Injury/Pain Stated Complaint: FELL, RT KNEE PAIN Time Seen by Provider: 01/12/20 17:45 Source of Information: Reports: Patient, EMS, Old Records History Limitations: Reports: No Limitations - History of Present Illness INITIAL COMMENTS - FREE TEXT/NARRATIVE: 54 yo female fell onto her R knee today. Here via EMS for evaluation. Fentanyl 100 mcg given IV en route. 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 (see below) (Fentanyl) Right Knee Pain Score (Numeric/FACES): 8 - Related Data Allergies Allergy/AdvReac Type Severity Reaction Status Date / Time aspirin Allergy Rash Verified 05/29/19 11:31 Milk Containing Products Allergy Diarrhea Verified 05/29/19 11:31 mold Allergy Unknown Airway Uncoded 05/29/19 11:31 Tightness Home Meds: Home Meds Simvastatin [Zocor] 10 mg PO BEDTIME 11/06/13 [History] Acetaminophen [Tylenol] 650 mg PO Q4H PRN tablet 09/04/17 [Rx] Albuterol/Ipratropium [DuoNeb 3.0-0.5 MG/3 ML] 3 ml INH QID PRN neb 09/04/17 [Rx] Furosemide [Lasix] 40 mg PO DAILY tablet 09/04/17 [Rx] lisinopriL [Prinivil] 10 mg PO DAILY tablet 09/04/17 [Rx] Insulin Aspart [NovoLOG] 0 units SQ TIDMEALS 09/16/17 [History] Montelukast [Singulair] 10 mg PO BEDTIME 09/16/17 [History] Potassium Chloride [Klor-Con 10] 10 meq PO DAILY 09/16/17 [History] Umeclidinium [place] [Incruse Ellipta*] 1 puff INH BEDTIME 09/16/17 [History] Insulin Degludec [Tresiba Flextouch U-200] 0 units SUBCUT BEDTIME 01/23/18 [History] Budesonide/Formoterol Fumarate [Symbicort 160-4.5 Mcg Inhaler] 2 puff IH BID 08/29/18 [History] Lactulose [Chronulac] 15 ml PO DAILY PRN 08/29/18 [History] metFORMIN [Glucophage] 1,000 mg PO BIDMEALS 08/29/18 [History] Albuterol [Proventil Neb Soln] 1 dose INH Q4HR PRN 10/17/18 [History] Nicotine Polacrilex [Nicotine Lozenge] 1 dose PO ASDIRECTED 10/17/18 [History] Clotrimazole/Betamethasone Dip [Lotrisone Cream] 1 appful TP BID 05/29/19 [History] Pregabalin [Lyrica] 300 mg PO BEDTIME 05/29/19 [History] buPROPion [buPROPion XL] 300 mg DAILY 05/29/19 [History] Acetaminophen/traMADol [Ultracet] 1 tab PO Q8H PRN 01/12/20 [History] DULoxetine [Cymbalta] 90 mg PO DAILY 01/12/20 [History] Doxycycline Hyclate [Vibramycin] 100 mg PO BID 01/12/20 [History] Pantoprazole Sodium [Protonix] 40 mg PO DAILY 01/12/20 [History] Terbinafine [LamISIL] 250 mg PO DAILY 01/12/20 [History] Past Medical History HEENT History: Reports: Cataract, Hard of Hearing, Impaired Vision Cardiovascular History: Reports: Angina, Heart Failure, High Cholesterol, Hypertension, [place], SOB on Exertion, Other (See Below) Other Cardiovascular History: patient states has PRn nitro at home for occasional chest pains Respiratory History: Reports: Asthma, COPD, Intubation, Previous, Pneumonia, Recurrent, Sleep Apnea, SOB Other Respiratory History: has CPAP Gastrointestinal History: Reports: Cholelithiasis, GERD Genitourinary History: Reports: Urinary Incontinence, Other (See Below) Other Genitourinary History: stress incontinence at times, OAB 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: , Musculoskeletal History: Reports: Arthritis, Back Pain, Chronic, Osteoarthritis, Osteoporosis, Other (See Below) Other Musculoskeletal History: BACK INJURY Neurological History: Reports: Concussion, Neuropathy, Diabetic, Speech Problems Psychiatric History: Reports: Depression Endocrine/Metabolic History: Reports: Diabetes, Type II, Hypothyroidism, Obesity/BMI 30+ Oncologic (Cancer) History: Reports: Ovarian Dermatologic History: Reports: Cellulitis Other Dermatologic History: open infected wound under right abd fold on oral antibiotics - Infectious Disease History Infectious Disease History: Reports: Chicken Pox - Past Surgical History HEENT Surgical History: Reports: Cataract Surgery, Oral Surgery Cardiovascular Surgical History: Reports: None Respiratory Surgical History: Reports: None GI Surgical History: Reports: Cholecystectomy, Colonoscopy, EGD Female Surgical History: Reports: Section, Hysterectomy, Salpingo- Oophorectomy, Tubal Ligation Other Female Surgeries/Procedures: Surgery to remove ovarian cancer Oncologic Surgical History: Reports: None Social & Family History - Family History Family Medical History: Noncontributory HEENT: Reports: Cataract Cardiac: Reports: CAD, [place] Respiratory: Reports: Asthma, Sleep Apnea : Reports: Diabetic Nephropathy OBGYN: Reports: Musculoskeletal: Reports: Arthritis Endocrine/Metabolic: Reports: Diabetes, Type I, Diabetes, type II, IDDM, Obesity/MBI 30+ Dermatologic: Reports: None Oncologic: Reports: Bone, Breast, Other (See Below) Other Oncologic Family History: heart - Caffeine Use Caffeine Use: Reports: None Other Caffeine Use: daily - Living Situation & Occupation Living situation: Reports: Review of Systems - Review of Systems Review Of Systems: See Below Constitutional: Reports: No Symptoms Musculoskeletal: Reports: Joint Pain (R knee pain) Skin: Reports: No Symptoms Neurological: Reports: No Symptoms ED EXAM, GENERAL - Physical Exam Exam: See Below Exam Limited By: No Limitations General Appearance: Alert, WD/WN, No Apparent Distress Extremities: Normal Inspection, No Pedal Edema, Limited Range of Motion (due to pain). No: Normal Range of Motion, Non-Tender, Joint Swelling, Increased Warmth, Redness Course - Vital Signs Last Recorded V/S: Last Vital Signs Temp 36.6 C 01/12/20 17:45 Pulse 91 01/12/20 17:45 Resp 16 01/12/20 17:45 BP 148/99 H 01/12/20 17:45 Pulse Ox 92 L 01/12/20 17:45 - Orders/Labs/Meds Orders: Active Orders 24 hr Category Date Time Status Knee 1V or 2V Rt [CR] Stat Exams 01/12/20 17:37 Taken Meds: Medications Discontinued Medications Generic Name Dose Route Start Last Admin Trade Name Freq PRN Reason Stop Dose Admin Ketorolac Tromethamine 30 mg 01/12/20 17:45 01/12/20 18:05 Toradol IVPUSH 01/12/20 17:46 30 mg ONETIME ONE Administration - Radiology Interpretation Free Text/Narrative:: R knee X-ray-neg - Re-Assessments/Exams Free Text/Narrative Re-Assessment/Exam: 01/12/20 18:18 Will have nursing apply a knee immobilizer on R knee and see if she can walk with a walker. Free Text/Narrative Re-Assessment/Exam: 01/12/20 18:32 Was able to walk with the immobilizer and a walker. Departure - Departure Time of Disposition: 18:40 Disposition: Home, Self-Care 01 Condition: Fair Clinical Impression: Contusion of right knee Qualifiers: Encounter type: initial encounter Qualified Code(s): S80.01XA - Contusion of right knee, initial encounter - Discharge Information *PRESCRIPTION DRUG MONITORING PROGRAM REVIEWED*: No *COPY OF PRESCRIPTION DRUG MONITORING REPORT IN PATIENT ZACH: No Instructions: Contusion, [id number] Referrals: Jacinto Jones MD [Primary Care Provider] - Forms: ED Department Discharge Additional Instructions: Wear the immobilizer whenever you need to walk. Recheck with your provider later this week. Also use your walker for added support. Use Mountainair for pain relief as needed, don't take Ultracet when on the Mountainair. Sepsis Event Note (ED) - Focused Exam Vital Signs: Vital Signs Temp Pulse Resp BP Pulse Ox 01/12/20 17:45 36.6 C 91 16 148/99 H 92 L - My Orders Last 24 Hours: My Active Orders 01/12/20 17:37 Knee 1V or 2V Rt [CR] Stat - Assessment/Plan Last 24 Hours: My Active Orders 01/12/20 17:37 Knee 1V or 2V Rt [CR] Stat
[2020-01-12 17:57] VITALS: BP 148/99; PULSE 91
== END 2020-01-12 19:25 | disposition home or self-care (01) ==
LOC: FB.ED 17:43
DX: S80.01XA Contusion of right knee, initial encounter (principal); E78.00 Pure hypercholesterolemia, unspecified; I11.0 Hypertensive heart disease with heart failure; I50.9 Heart failure, unspecified; I25.2 Old myocardial infarction; J44.9 Chronic obstructive pulmonary disease, unspecified; K21.9 Gastro-esophageal reflux disease without esophagitis; Z88.6 Allergy status to analgesic agent; Z91.011 Allergy to milk products; Z79.4 Long term (current) use of insulin; Z79.899 Other long term (current) drug therapy; W19.XXXA Unspecified fall, initial encounter
CPT/HCPCS: 73560; 96374; 99283; A9270; J1885

== ENCOUNTER 2020-04-22 08:19 | Day surgery (SDC) | payer MEDICARE, MEDICAID ==
[2020-04-22] MEDS ORDERED: Propofol 200 MG/20 ML SDV IV ONE (08:20)
[2020-04-22] MEDS ORDERED: Lidocaine 2% 5 ML SDV IV ONE (08:20)
[2020-04-22] MEDS ORDERED: Sodium Chloride 0.9% 10 ML Syringe FLUSH PRN (08:30)
[2020-04-22] MEDS ORDERED: Lactated Ringers 1,000 ML IV SCH (08:30)
--- NOTE | 2020-04-22 10:20 | PCM.OPNOTE ---
- General Post-Op/Procedure Note Date of Surgery/Procedure: 04/22/20 Operative Procedure(s): c scope with biopsy random Findings: nl exam Pre Op Diagnosis: history of diarrhea Post-Op Diagnosis: Same Anesthesia Technique: MAC Primary Surgeon: Johnnie Guerrero Anesthesia Provider: Sofia Cheng Pathology: random colon bx Complications: None Condition: Good Free Text/Narrative:: see dictation
[2020-04-22 11:23] VITALS: BP 153/78; PULSE 73
--- NOTE | 2020-04-22 16:03 | OR ---
DATE OF OPERATION: 04/22/2020 SURGEON: Johnnie Guerrero MD PROCEDURE PERFORMED: Colonoscopy with random colon biopsy. PREOPERATIVE DIAGNOSIS: Personal history of diarrhea. POSTOPERATIVE DIAGNOSIS: Grossly normal colon. INDICATIONS FOR PROCEDURE: This is a 54-year-old white female who is referred with a history of loose stools, up to 8 to 10 a day. Denies any blood or mucus. She was offered and accepted a colonoscopy as part of a workup to determine etiology for her loose stools. DESCRIPTION OF PROCEDURE: After an excellent IV sedation was administered, digital rectal exam was performed. No marked abnormality was noted. The flexible colonoscope was inserted and advanced to the cecum. The prep was excellent. Attempts to intubate the terminal ileum were not successful. The following findings were noted: Ascending colon: Unremarkable. Random biopsies were taken. Transverse colon: Unremarkable. Random biopsies were taken. Descending colon: Unremarkable. Random biopsies were taken. Sigmoid and Rectum: Unremarkable. Random biopsies were taken. The colon was deflated as the scope was removed. The patient tolerated the procedure well and was taken to recovery room in good condition. Results will be sent to the patient via a letter. /[id number] /MODL
== END 2020-04-22 11:58 | disposition home or self-care (01) ==
LOC: FB.SDS 08:19
PROVIDERS: ATTEND Surgery
DX: R19.7 Diarrhea, unspecified (principal); J44.9 Chronic obstructive pulmonary disease, unspecified; I10 Essential (primary) hypertension; E66.9 Obesity, unspecified; E78.1 Pure hyperglyceridemia; G47.33 Obstructive sleep apnea (adult) (pediatric); E11.9 Type 2 diabetes mellitus without complications; Z79.4 Long term (current) use of insulin; Z98.890 Other specified postprocedural states; Z79.899 Other long term (current) drug therapy; Z88.8 Allergy status to other drugs, medicaments and biological substances; Z91.011 Allergy to milk products; Z68.42 Body mass index [BMI] 45.0-49.9, adult
CPT/HCPCS: 00811; 45380; 82962; J2001; J2704; J7120; 88305

== ENCOUNTER 2020-05-13 20:40 | Emergency (ER) | payer OTHER, MEDICARE, MEDICAID ==
[2020-05-13] MEDS ORDERED: traMADol 50 MG Tab PO ONE (21:07)
[2020-05-13] MEDS ORDERED: Acetaminophen 500 MG Tab PO ONE (21:07)
--- NOTE | 2020-05-13 21:15 | EDM.PDOC ---
ED HPI GENERAL MEDICAL PROBLEM - General Chief Complaint: Head Injury Stated Complaint: FELL Time Seen by Provider: 05/13/20 20:45 Source of Information: Reports: Patient History Limitations: Reports: No Limitations - History of Present Illness INITIAL COMMENTS - FREE TEXT/NARRATIVE: Patient presented to the ED because she tripped and fell and landed on her rt shoulder and hit her head on the coffee table before her head hit the floor. She said her left knee gave out and is hurting as well as her left hip. She c/o headache, RT shoulder pain, Left knee and left hip pain. there was no LOC after the fall. left forehead Pain Score (Numeric/FACES): 8 - Related Data Allergies Allergy/AdvReac Type Severity Reaction Status Date / Time aspirin Allergy Stomach Verified 04/22/20 09:25 Ache Milk Containing Products Allergy Diarrhea Verified 04/22/20 09:25 mold Allergy Unknown Airway Uncoded 04/22/20 09:25 Tightness Home Meds: Home Meds Simvastatin [Zocor] 10 mg PO DAILY 11/06/13 [History] Acetaminophen [Tylenol] 650 mg PO Q4H PRN tablet 09/04/17 [Rx] Furosemide [Lasix] 40 mg PO DAILY tablet 09/04/17 [Rx] lisinopriL [Prinivil] 10 mg PO DAILY tablet 09/04/17 [Rx] Insulin Aspart [NovoLOG] 25 units SQ TIDMEALS 09/16/17 [History] Montelukast [Singulair] 10 mg PO DAILY 09/16/17 [History] Potassium Chloride [Klor-Con 10] 10 meq PO DAILY 09/16/17 [History] Umeclidinium [place] [Incruse Ellipta*] 1 puff INH DAILY 09/16/17 [History] Budesonide/Formoterol Fumarate [Symbicort 160-4.5 Mcg Inhaler] 2 puff IH BID 08/29/18 [History] Lactulose [Chronulac] 15 ml PO DAILY PRN 08/29/18 [History] metFORMIN [Glucophage] 1,000 mg PO BIDMEALS 08/29/18 [History] Albuterol [Proventil Neb Soln] 1 dose INH Q4HR PRN 10/17/18 [History] Clotrimazole/Betamethasone Dip [Lotrisone Cream] 1 applic TOP BID 05/29/19 [History] Pregabalin [Lyrica] 300 mg PO BEDTIME 05/29/19 [History] buPROPion [buPROPion XL] 300 mg PO DAILY 05/29/19 [History] DULoxetine [Cymbalta] 60 mg PO DAILY 01/12/20 [History] Pantoprazole Sodium [Protonix] 40 mg PO DAILY 01/12/20 [History] Terbinafine [LamISIL] 250 mg PO DAILY 01/12/20 [History] Acetaminophen/traMADol [Ultracet] 1 tab PO TID 04/21/20 [History] Albuterol [Ventolin HFA] 2 puff INH Q4HR PRN 04/21/20 [History] Albuterol/Ipratropium [DuoNeb 3.0-0.5 MG/3 ML] 3 ml INH QID 04/21/20 [History] Carboxymethylcellulose Sodium [Refresh Tears 0.5%] 1 drop EYEBOTH BID 04/21/20 [History] DULoxetine [Cymbalta] 30 mg PO DAILY 04/21/20 [History] Diphenoxylate HCl/Atropine [Lomotil] 1 each PO QID PRN 04/21/20 [History] Insulin Degludec [Tresiba Flextouch U-200] 100 unit SQ DAILY 04/21/20 [History] Nitroglycerin [Nitrostat] 0.4 mg SL ASDIRECTED PRN 04/21/20 [History] metroNIDAZOLE [metroNIDAZOLE 0.75% Gel] 1 applic TOP BID 04/21/20 [History] traMADol [Ultram] 50 mg PO Q6HR PRN 04/21/20 [History] traMADol [Ultram] 100 mg PO Q8H PRN #15 tablet 05/13/20 [Rx] Past Medical History HEENT History: Reports: Cataract, Hard of Hearing, Impaired Vision Cardiovascular History: Reports: Angina, Heart Failure, High Cholesterol, Hypertension, [place], SOB on Exertion, Other (See Below) Other Cardiovascular History: ATYPICAL CHEST PAIN Respiratory History: Reports: Asthma, COPD, Intubation, Previous, Pneumonia, Recurrent, Sleep Apnea, SOB Other Respiratory History: has CPAP Gastrointestinal History: Reports: Cholelithiasis, GERD Other Gastrointestinal History: PERIPHERAL EDEMA Genitourinary History: Reports: Urinary Incontinence, Other (See Below) Other Genitourinary History: stress incontinence at times, OAB 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: , Musculoskeletal History: Reports: Arthritis, Back Pain, Chronic, Osteoarthritis, Osteoporosis, Other (See Below) Other Musculoskeletal History: WEAKNESS OF EXTREMITY Neurological History: Reports: Concussion, Neuropathy, Diabetic, Speech Problems Psychiatric History: Reports: Depression Endocrine/Metabolic History: Reports: Diabetes, Type II, Hypothyroidism, Obesity/BMI 30+ Other Hematologic History: ANTICOAGULANT THERAPY Oncologic (Cancer) History: Reports: Ovarian Dermatologic History: Reports: Cellulitis Other Dermatologic History: open infected wound under right abd fold on oral antibiotics - Infectious Disease History Infectious Disease History: Reports: Chicken Pox - Past Surgical History HEENT Surgical History: Reports: Cataract Surgery, Oral Surgery, Other (See Below) Other HEENT Surgeries/Procedures: YAG CAPSULOTOMY Cardiovascular Surgical History: Reports: None Respiratory Surgical History: Reports: None GI Surgical History: Reports: Cholecystectomy, Colonoscopy, EGD Other GI Surgeries/Procedures: UPPER ENDOSCOPY Female Surgical History: Reports: Section, Hysterectomy, Salpingo-Oophorectomy, Tubal Ligation Other Female Surgeries/Procedures: Surgery to remove ovarian cancer Oncologic Surgical History: Social & Family History - Family History Family Medical History: Noncontributory HEENT: Reports: Cataract Cardiac: Reports: CAD, [place] Respiratory: Reports: Asthma, Sleep Apnea : Reports: Diabetic Nephropathy OBGYN: Reports: Musculoskeletal: Reports: Arthritis Endocrine/Metabolic: Reports: Diabetes, Type I, Diabetes, type II, IDDM, Obesity/MBI 30+ Dermatologic: Reports: None Oncologic: Reports: Bone, Breast, Other (See Below) Other Oncologic Family History: heart - Tobacco Use Tobacco Use Status *Q: Current Every Day Tobacco User Years of Tobacco use: 45 Packs/Tins Daily: 0.5 - Caffeine Use Caffeine Use: Reports: Coffee Other Caffeine Use: daily - Living Situation & Occupation Living situation: Reports: ED ROS GENERAL - Review of Systems Review Of Systems: See Below Constitutional: Reports: No Symptoms HEENT: Reports: No Symptoms Respiratory: Reports: No Symptoms Cardiovascular: Reports: No Symptoms Endocrine: Reports: No Symptoms GI/Abdominal: Reports: No Symptoms : Reports: No Symptoms Musculoskeletal: Reports: Shoulder Pain, Muscle Stiffness Skin: Reports: No Symptoms Neurological: Reports: Headache Psychiatric: Reports: No Symptoms ED EXAM, HEAD INJURY - Physical Exam Exam: See Below Exam Limited By: No Limitations General Appearance: Alert, No Apparent Distress Head: Atraumatic, Normocephalic Eyes: Bilateral Eye: PERRL Ears: Normal External Exam, Normal Canal, Hearing Grossly Normal, Normal TMs Nose: Normal Inspection, Normal Mucousa, No Blood Throat/Mouth: Normal Inspection, Normal Lips, Normal Teeth, Normal Gums Neck: Non-Tender, Full Range of Motion, Normal Alignment, Other ( c-collar) Respiratory: No Respiratory Distress, Lungs Clear, Normal Breath Sounds Cardiovascular: Normal Peripheral Pulses, Regular Rate, Rhythm, No Edema, No Gallop, No JVD, No Murmur GI/Abdominal Exam: Normal Bowel Sounds, Soft, Non-Tender, No Organomegaly Back Exam: Normal Inspection, Full Range of Motion Extremities: Other (tenderness Rt shoulder, left knee, left hip) Course - Vital Signs Text/Narrative:: Head and C-spine CT-negative Xray RT shoulder-see result Xray Left hip-see result Xray Left knee-see result Tramadol 100 mg and tylenol 1000 mg PO x1 Last Recorded V/S: Last Vital Signs Temp 37.2 C 05/13/20 20:40 Pulse 92 05/13/20 20:40 Resp 17 05/13/20 20:40 BP 165/87 H 05/13/20 20:40 Pulse Ox 93 L 05/13/20 20:40 - Orders/Labs/Meds Orders: Active Orders 24 hr Category Date Time Status C-Spine [Cervical Spine wo Cont] [CT] Stat Exams 05/13/20 20:54 Ordered Head wo Cont [CT] Stat Exams 05/13/20 20:53 Ordered Hip Min 2V or 3V w Pelvis Lt [CR] Stat Exams 05/13/20 21:04 Ordered Knee 1V or 2V Lt [CR] Stat Exams 05/13/20 21:04 Taken Shoulder Comp Rt [CR] Stat Exams 05/13/20 21:04 Ordered Meds: Medications Discontinued Medications Generic Name Dose Route Start Last Admin Trade Name Freq PRN Reason Stop Dose Admin Acetaminophen 1,000 mg 05/13/20 21:07 05/13/20 21:44 Tylenol Extra Strength PO 05/13/20 21:08 1,000 mg ONETIME ONE Administration Tramadol HCl 100 mg 05/13/20 21:07 05/13/20 21:44 Ultram PO 05/13/20 21:08 100 mg ONETIME ONE Administration Departure - Departure Time of Disposition: 23:00 Disposition: Home, Self-Care 01 Condition: Good Clinical Impression: Fall, Musculoskeletal pain, Contusion - Discharge Information Prescriptions: traMADol [Ultram] 100 mg PO Q8H PRN #15 tablet PRN Reason: Pain Instructions: Contusion, Head Injury, Adult, [id number], Musculoskeletal Pain Referrals: Jacinto Jones MD [Primary Care Provider] - Forms: ED Department Discharge Additional Instructions: Please read discharge instructions on contusion, musculoskeletal pain and head i njury Apply ice to your forehead Take your 100 mg with tylenol 1000 mg every 8 hours as needed for pain Follow up as needed Sepsis Event Note (ED) - Evaluation Sepsis Screening Result: No Definite Risk - Focused Exam Vital Signs: Vital Signs Temp Pulse Resp BP Pulse Ox 05/13/20 20:40 37.2 C 92 17 165/87 H 93 L - My Orders Last 24 Hours: My Active Orders 05/13/20 20:53 Head wo Cont [CT] Stat 05/13/20 20:54 C-Spine [Cervical Spine wo Cont] [CT] Stat 05/13/20 21:04 Hip Min 2V or 3V w Pelvis Lt [CR] Stat Knee 1V or 2V Lt [CR] Stat Shoulder Comp Rt [CR] Stat - Assessment/Plan Last 24 Hours: My Active Orders 05/13/20 20:53 Head wo Cont [CT] Stat 05/13/20 20:54 C-Spine [Cervical Spine wo Cont] [CT] Stat 05/13/20 21:04 Hip Min 2V or 3V w Pelvis Lt [CR] Stat Knee 1V or 2V Lt [CR] Stat Shoulder Comp Rt [CR] Stat
[2020-05-13 22:45] VITALS: PULSE 94
[2020-05-13 22:46] VITALS: BP 157/92
== END 2020-05-13 22:25 | disposition home or self-care (01) ==
LOC: FB.ED 20:40
DX: S40.011A Contusion of right shoulder, initial encounter (principal); S80.02XA Contusion of left knee, initial encounter; S70.02XA Contusion of left hip, initial encounter; I11.0 Hypertensive heart disease with heart failure; I50.9 Heart failure, unspecified; E78.00 Pure hypercholesterolemia, unspecified; I25.2 Old myocardial infarction; J44.9 Chronic obstructive pulmonary disease, unspecified; K21.9 Gastro-esophageal reflux disease without esophagitis; M19.90 Unspecified osteoarthritis, unspecified site; F32.9 Major depressive disorder, single episode, unspecified; E11.9 Type 2 diabetes mellitus without complications; E03.9 Hypothyroidism, unspecified; E66.9 Obesity, unspecified; Z68.41 Body mass index [BMI] 40.0-44.9, adult; Z88.6 Allergy status to analgesic agent; Z91.011 Allergy to milk products; Z91.048 Other nonmedicinal substance allergy status; Z79.4 Long term (current) use of insulin; Z79.899 Other long term (current) drug therapy; W01.0XXA Fall on same level from slipping, tripping and stumbling without subsequent striking against object, initial encounter; F17.210 Nicotine dependence, cigarettes, uncomplicated
CPT/HCPCS: 70450; 72125; 73030; 73502; 73560; 99284; A9270

== ENCOUNTER 2020-07-01 04:50 | Emergency (ER) | payer MEDICARE, MEDICAID ==
[2020-07-01] MEDS ORDERED: Acetaminophen 500 MG Tab PO ONE (05:22)
[2020-07-01] MEDS ORDERED: Ketorolac 60 MG/2 ML SDV IM ONE (05:22)
[2020-07-01] MEDS ORDERED: Cyclobenzaprine 10 MG Tab PO ONE (05:22)
--- NOTE | 2020-07-01 06:03 | EDM.PDOC ---
ED HPI GENERAL MEDICAL PROBLEM - General Chief Complaint: General Stated Complaint: fall Time Seen by Provider: 07/01/20 05:05 Source of Information: Reports: Patient History Limitations: Reports: No Limitations - History of Present Illness INITIAL COMMENTS - FREE TEXT/NARRATIVE: Patient tyrelresented to the ED because of a fall. Apparently her lef knee gave out and fell on her left side. Before falling on the floor she was able to lean on the door frame. She c/o left leg, left hip, and left elbow pain. LEFT ELBOW Pain Score (Numeric/FACES): 10 - Related Data Allergies Allergy/AdvReac Type Severity Reaction Status Date / Time aspirin Allergy Stomach Verified 04/22/20 09:25 Ache Milk Containing Products Allergy Diarrhea Verified 04/22/20 09:25 mold Allergy Unknown Airway Uncoded 04/22/20 09:25 Tightness Home Meds: Home Meds Simvastatin [Zocor] 10 mg PO DAILY 11/06/13 [History] Acetaminophen [Tylenol] 650 mg PO Q4H PRN tablet 09/04/17 [Rx] Furosemide [Lasix] 40 mg PO DAILY tablet 09/04/17 [Rx] lisinopriL [Prinivil] 10 mg PO DAILY tablet 09/04/17 [Rx] Insulin Aspart [NovoLOG] 25 units SQ TIDMEALS 09/16/17 [History] Montelukast [Singulair] 10 mg PO DAILY 09/16/17 [History] Potassium Chloride [Klor-Con 10] 10 meq PO DAILY 09/16/17 [History] Umeclidinium North [Incruse Ellipta*] 1 puff INH DAILY 09/16/17 [History] Budesonide/Formoterol Fumarate [Symbicort 160-4.5 Mcg Inhaler] 2 puff IH BID 08/29/18 [History] Lactulose [Chronulac] 15 ml PO DAILY PRN 08/29/18 [History] metFORMIN [Glucophage] 1,000 mg PO BIDMEALS 08/29/18 [History] Albuterol [Proventil Neb Soln] 1 dose INH Q4HR PRN 10/17/18 [History] Clotrimazole/Betamethasone Dip [Lotrisone Cream] 1 applic TOP BID 05/29/19 [History] Pregabalin [Lyrica] 300 mg PO BEDTIME 05/29/19 [History] buPROPion [buPROPion XL] 300 mg PO DAILY 05/29/19 [History] DULoxetine [Cymbalta] 60 mg PO DAILY 01/12/20 [History] Pantoprazole Sodium [Protonix] 40 mg PO DAILY 01/12/20 [History] Terbinafine [LamISIL] 250 mg PO DAILY 01/12/20 [History] Acetaminophen/traMADol [Ultracet] 1 tab PO TID 04/21/20 [History] Albuterol [Ventolin HFA] 2 puff INH Q4HR PRN 04/21/20 [History] Albuterol/Ipratropium [DuoNeb 3.0-0.5 MG/3 ML] 3 ml INH QID 04/21/20 [History] Carboxymethylcellulose Sodium [Refresh Tears 0.5%] 1 drop EYEBOTH BID 04/21/20 [History] DULoxetine [Cymbalta] 30 mg PO DAILY 04/21/20 [History] Diphenoxylate HCl/Atropine [Lomotil] 1 each PO QID PRN 04/21/20 [History] Insulin Degludec [Tresiba Flextouch U-200] 100 unit SQ DAILY 04/21/20 [History] Nitroglycerin [Nitrostat] 0.4 mg SL ASDIRECTED PRN 04/21/20 [History] metroNIDAZOLE [metroNIDAZOLE 0.75% Gel] 1 applic TOP BID 04/21/20 [History] traMADol [Ultram] 50 mg PO Q6HR PRN 04/21/20 [History] traMADol [Ultram] 100 mg PO Q8H PRN #15 tablet 05/13/20 [Rx] Cyclobenzaprine [Flexeril] 10 mg PO TID PRN #30 tab 07/01/20 [Rx] Ibuprofen 800 mg PO TID PRN #30 tablet 07/01/20 [Rx] traMADol [Ultram] 100 mg PO TID #15 tab 07/01/20 [Rx] Past Medical History HEENT History: Reports: Cataract, Hard of Hearing, Impaired Vision Cardiovascular History: Reports: Angina, Heart Failure, High Cholesterol, Hypertension, AL, SOB on Exertion, Other (See Below) Other Cardiovascular History: ATYPICAL CHEST PAIN Respiratory History: Reports: Asthma, COPD, Intubation, Previous, Pneumonia, Recurrent, Sleep Apnea, SOB Other Respiratory History: has CPAP Gastrointestinal History: Reports: Cholelithiasis, GERD Other Gastrointestinal History: PERIPHERAL EDEMA Genitourinary History: Reports: Urinary Incontinence, Other (See Below) Other Genitourinary History: stress incontinence at times, OAB 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: , Musculoskeletal History: Reports: Arthritis, Back Pain, Chronic, Osteoarthritis, Osteoporosis, Other (See Below) Other Musculoskeletal History: WEAKNESS OF EXTREMITY Neurological History: Reports: Concussion, Neuropathy, Diabetic, Speech Problems Psychiatric History: Reports: Depression Endocrine/Metabolic History: Reports: Diabetes, Type II, Hypothyroidism, Obesity/BMI 30+ Other Hematologic History: ANTICOAGULANT THERAPY Oncologic (Cancer) History: Reports: Ovarian Dermatologic History: Reports: Cellulitis Other Dermatologic History: open infected wound under right abd fold on oral antibiotics - Infectious Disease History Infectious Disease History: Reports: Chicken Pox - Past Surgical History HEENT Surgical History: Reports: Cataract Surgery, Oral Surgery, Other (See Below) Other HEENT Surgeries/Procedures: YAG CAPSULOTOMY Cardiovascular Surgical History: Reports: None Respiratory Surgical History: Reports: None GI Surgical History: Reports: Cholecystectomy, Colonoscopy, EGD Other GI Surgeries/Procedures: UPPER ENDOSCOPY Female Surgical History: Reports: Section, Hysterectomy, Salpingo- Oophorectomy, Tubal Ligation Other Female Surgeries/Procedures: Surgery to remove ovarian cancer Other Oncologic Surgeries/Procedures: CYST EXCISION Social & Family History - Family History Family Medical History: No Pertinent Family History HEENT: Reports: Cataract Cardiac: Reports: CAD, [place] Respiratory: Reports: Asthma, Sleep Apnea : Reports: Diabetic Nephropathy OBGYN: Reports: Musculoskeletal: Reports: Arthritis Endocrine/Metabolic: Reports: Diabetes, Type I, Diabetes, type II, IDDM, Obesity/MBI 30+ Dermatologic: Reports: None Oncologic: Reports: Bone, Breast, Other (See Below) Other Oncologic Family History: heart - Tobacco Use Tobacco Use Status *Q: Current Every Day Tobacco User Years of Tobacco use: 45 Packs/Tins Daily: 0 - Caffeine Use Caffeine Use: Reports: Coffee Other Caffeine Use: daily - Recreational Drug Use Recreational Drug Use: No - Living Situation & Occupation Living situation: Reports: ED ROS GENERAL - Review of Systems Review Of Systems: See Below Constitutional: Reports: No Symptoms HEENT: Reports: No Symptoms Respiratory: Reports: No Symptoms Cardiovascular: Reports: No Symptoms Endocrine: Reports: No Symptoms GI/Abdominal: Reports: No Symptoms : Reports: No Symptoms Musculoskeletal: Reports: Leg Pain, Joint Pain, Muscle Pain Skin: Reports: No Symptoms Neurological: Reports: No Symptoms Psychiatric: Reports: No Symptoms ED EXAM, GENERAL - Physical Exam Exam: See Below Exam Limited By: No Limitations General Appearance: Alert, No Apparent Distress Eye Exam: Bilateral Eye: PERRL Nose: Normal Inspection, Normal Mucosa Throat/Mouth: Normal Inspection, Normal Lips, Normal Teeth Head: Atraumatic, Normocephalic Neck: Normal Inspection, Supple, Non-Tender Respiratory/Chest: No Respiratory Distress, Lungs Clear, Normal Breath Sounds Cardiovascular: Normal Peripheral Pulses, Regular Rate, Rhythm, No Edema, No Gallop GI/Abdominal: Normal Bowel Sounds, Soft, Non-Tender (Female) Exam: Normal External Exam Back Exam: Normal Inspection, Other (tenderness -left leg,left khip,left elbow) Course - Vital Signs Text/Narrative:: Xray left leg, left hip, left elbow-see result Toradol 60 mg IM x1 Flexeril 10 mg PO x1 Last Recorded V/S: Last Vital Signs Temp 36.2 C 07/01/20 04:50 Pulse 83 07/01/20 06:10 Resp 20 07/01/20 06:10 BP 162/96 H 07/01/20 06:10 Pulse Ox 97 07/01/20 06:10 - Orders/Labs/Meds Orders: Active Orders 24 hr Category Date Time Status Oxygen Therapy Adult [Oxygen Therapy, ED] [RC] Care 07/01/20 04:50 Active ASDIRECTED Elbow Min 3V Lt [CR] Stat Exams 07/01/20 05:20 Ordered Hip Min 2V or 3V w Pelvis Lt [CR] Stat Exams 07/01/20 05:20 Ordered Tibia Fibula Lt [CR] Stat Exams 07/01/20 05:20 Ordered Meds: Medications Discontinued Medications Generic Name Dose Route Start Last Admin Trade Name Freq PRN Reason Stop Dose Admin Acetaminophen 1,000 mg 07/01/20 05:22 07/01/20 05:26 Tylenol Extra Strength PO 07/01/20 05:23 1,000 mg ONETIME ONE Administration Cyclobenzaprine HCl 10 mg 07/01/20 05:22 07/01/20 05:26 Flexeril PO 07/01/20 05:23 10 mg ONETIME ONE Administration Ketorolac Tromethamine 60 mg 07/01/20 05:22 07/01/20 05:26 Toradol IM 07/01/20 05:23 60 mg ONETIME ONE Administration Departure - Departure Time of Disposition: 06:35 Disposition: DC/Tfer to SNF 03 Condition: Good Clinical Impression: Contusion, Muscle strain - Discharge Information Prescriptions: Cyclobenzaprine [Flexeril] 10 mg PO TID PRN #30 tab PRN Reason: Spasms Ibuprofen 800 mg PO TID PRN #30 tablet PRN Reason: Pain traMADol [Ultram] 100 mg PO TID #15 tab Referrals: Jacinto Jones MD [Primary Care Provider] - Forms: ED Department Discharge Additional Instructions: Please read discharge instructions on contusion and muscle strain Take all the following medicines for better pain relief: Ibuprofen 800 mg, tylenol 1000 mg, tramadol 100 mg and flexeril 10 mg 3 times daily as needed for pain and muscle spasm Follow up as needed Sepsis Event Note (ED) - Evaluation Sepsis Screening Result: No Definite Risk - Focused Exam Vital Signs: Vital Signs Temp Pulse Resp BP Pulse Ox 07/01/20 06:10 83 20 162/96 H 97 07/01/20 04:50 36.2 C 83 20 189/105 H 97 - My Orders Last 24 Hours: My Active Orders 07/01/20 04:50 Oxygen Therapy Adult [Oxygen Therapy, ED] [] ASDIRECTED 07/01/20 05:20 Elbow Min 3V Lt [CR] Stat Hip Min 2V or 3V w Pelvis Lt [CR] Stat Tibia Fibula Lt [CR] Stat - Assessment/Plan Last 24 Hours: My Active Orders 07/01/20 04:50 Oxygen Therapy Adult [Oxygen Therapy, ED] [] ASDIRECTED 07/01/20 05:20 Elbow Min 3V Lt [CR] Stat Hip Min 2V or 3V w Pelvis Lt [CR] Stat Tibia Fibula Lt [CR] Stat
[2020-07-01 07:15] VITALS: BP 139/83; PULSE 89
--- NOTE | 2020-07-01 10:22 | CR ---
INDICATION: Fall. LEFT ELBOW: Three views of the left elbow were obtained 07/01/20 - no comparison. Mild hypertrophic degenerative changes are noted at the medial elbow joint compartment and very minimally at the lateral elbow joint compartment with the joint spaces appearing to be well maintained. No evidence of joint effusion, fracture, dislocation or other definite bone or joint abnormality could be identified. There is a somewhat linear density medial to the ulna which may represent debris on the skin or possibly a soft tissue foreign body is only definitely visualized on one view. Although a definite acute fracture was not identified, there is a tiny bony appearing density along the lateral aspect of the ulna near the coronoid process at the radioulnar interface. This could represent a tiny avulsion chip fracture fragment. It may also represent a previous avulsion chip fracture fragment that did not unite. It is only seen on one view. IMPRESSION: 1. Difficult to entirely exclude a tiny avulsion chip fracture fragment off the lateral aspect of the ulna near the olecranon process at the radioulnar interface. 2. Mild osteoarthritis most at the medial elbow joint compartment. MTDD
--- NOTE | 2020-07-01 10:26 | CR ---
INDICATION: Fall. LEFT HIP: Frontal view of the pelvis with frontal and lateral views of the left hip were obtained 07/01/20 and compared with 05/13/20. [id number] osteoarthritic changes are noted at the right hip joint with slight narrowing of the cranial lateral right hip joint space. Minimal hypertrophic degenerative changes noted at the left hip joint and at the sacroiliac joints bilaterally. An acute fracture or dislocation was not identified. Calcifications are noted in iliac and femoral arteries. IMPRESSION: 1. No acute fracture or dislocation. 2. Osteoarthritis mostly at the right hip joint, relatively minimal on the left. 3. ASD. MTDD
--- NOTE | 2020-07-01 10:29 | CR ---
INDICATION: Fall. LEFT TIB/FIB: Frontal and lateral views of the left tibia and fibular were obtained 07/01/20 and compared with the left knee from 05/13/20 revealing no definite interval change, fracture, dislocation, or other significant bone or joint abnormality of an acute nature. There is a small spur off the cranial anterior aspect of the patella. MTDD
== END 2020-07-01 07:00 ==
LOC: FB.ED 04:50
DX: S86.912A Strain of unspecified muscle(s) and tendon(s) at lower leg level, left leg, initial encounter (principal); S76.012A Strain of muscle, fascia and tendon of left hip, initial encounter; S00.12XA Contusion of left eyelid and periocular area, initial encounter; S60.212A Contusion of left wrist, initial encounter; S59.802A Other specified injuries of left elbow, initial encounter; I11.0 Hypertensive heart disease with heart failure; I50.9 Heart failure, unspecified; E78.00 Pure hypercholesterolemia, unspecified; I25.2 Old myocardial infarction; J44.9 Chronic obstructive pulmonary disease, unspecified; K21.9 Gastro-esophageal reflux disease without esophagitis; F32.9 Major depressive disorder, single episode, unspecified; E11.40 Type 2 diabetes mellitus with diabetic neuropathy, unspecified; E03.9 Hypothyroidism, unspecified; F17.200 Nicotine dependence, unspecified, uncomplicated; E66.9 Obesity, unspecified; Z68.42 Body mass index [BMI] 45.0-49.9, adult; Z79.01 Long term (current) use of anticoagulants; Z88.8 Allergy status to other drugs, medicaments and biological substances; Z91.011 Allergy to milk products; Z91.048 Other nonmedicinal substance allergy status; Z79.899 Other long term (current) drug therapy; Z79.4 Long term (current) use of insulin; W18.30XA Fall on same level, unspecified, initial encounter; Y92.002 Bathroom of unspecified non-institutional (private) residence as the place of occurrence of the external cause
CPT/HCPCS: 73080-LT; 73502-LT; 73590-LT; 96372; 99283-25; A9270-GY; J1885

== ENCOUNTER 2020-07-01 12:45 | Emergency (ER) | payer MEDICARE, MEDICAID ==
--- NOTE | 2020-07-01 13:35 | EDM.PDOC ---
ED HPI GENERAL MEDICAL PROBLEM - General Stated Complaint: pain in hand Time Seen by Provider: 07/01/20 13:25 Source of Information: Reports: Patient, Other (Discussed with the nurse at [facility]) History Limitations: Reports: No Limitations - History of Present Illness INITIAL COMMENTS - FREE TEXT/NARRATIVE: 55-year-old female who presents to the emergency department via ambulance for the second time today with reports now that she has bilateral hand numbness and weakness and pain and also bilateral feet numbness. Apparently at approximately 10 PM last night she was getting off the toilet to try to get back to her bed and she reports that her left knee "gave out on me" and she fell striking her left head, neck and shoulder against the door frame and landing on her left side. She is unsure if she had a loss of consciousness but she does not really remember anything about the events after the fall apparently she was found on the floor approximately 3-4 hours by the staff at [facility] and was having pain along the left side of her body and apparently was transferred to the hospital at that time via ambulance and was seen by Dr. Lugo and I refer the reader of this note to Dr. Lugo's note from earlier today. Apparently, the patient reports that she developed bilateral hand and bilateral feet numbness and weakness (she really was unable to stand or to her hands and she also noted pain in both of her hands with any palpation or any attempt to move her hand. She doesn't remember hitting her hands or her feet. She did sure her left arm and her left leg and these were x-rayed earlier today and I reviewed the reports from them and the only positive from that report was a possible avulsion fracture of her proximal ulna but the patient really has no pain over this area at this time. I discussed the patient with the nursing staff at [facility] and she reports that the patient really has does not been able to stand and walk with her walker which she normally does and she also has been having extreme pain in both her hands and inability to use both of her hands since this morning. Apparently, this began after she was transported back to [facility]. It was reported that the emergency department this morning and she was witnessed walking into [facility] with a walker. She apparently has been able to urinate normally. She has no vision problems. She is very hard of hearing and she tells me she isn't really only able to read lips. She has had no nausea or vomiting. She has been able to eat and drink normally. She is swallowing normally. There are no other associated signs or symptoms. There are no other modifying factors. 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 (see below) (Nothing.) bilat hands Pain Score (Numeric/FACES): 2 - Related Data Allergies Allergy/AdvReac Type Severity Reaction Status Date / Time aspirin Allergy Stomach Verified 07/01/20 06:42 Ache Milk Containing Products Allergy Diarrhea Verified 07/01/20 06:42 mold Allergy Unknown Airway Uncoded 07/01/20 06:43 Tightness Home Meds: Home Meds Simvastatin [Zocor] 10 mg PO DAILY 11/06/13 [History] Acetaminophen [Tylenol] 650 mg PO Q4H PRN tablet 09/04/17 [Rx] Furosemide [Lasix] 40 mg PO DAILY tablet 09/04/17 [Rx] lisinopriL [Prinivil] 10 mg PO DAILY tablet 09/04/17 [Rx] Insulin Aspart [NovoLOG] 25 units SQ TIDMEALS 09/16/17 [History] Montelukast [Singulair] 10 mg PO DAILY 09/16/17 [History] Potassium Chloride [Klor-Con 10] 10 meq PO DAILY 09/16/17 [History] Umeclidinium [place] [Incruse Ellipta*] 1 puff INH DAILY 09/16/17 [History] Budesonide/Formoterol Fumarate [Symbicort 160-4.5 Mcg Inhaler] 2 puff IH BID 08/29/18 [History] Lactulose [Chronulac] 15 ml PO DAILY PRN 08/29/18 [History] metFORMIN [Glucophage] 1,000 mg PO BIDMEALS 08/29/18 [History] Albuterol [Proventil Neb Soln] 1 dose INH Q4HR PRN 10/17/18 [History] Clotrimazole/Betamethasone Dip [Lotrisone Cream] 1 applic TOP BID 05/29/19 [History] Pregabalin [Lyrica] 300 mg PO BEDTIME 05/29/19 [History] buPROPion [buPROPion XL] 300 mg PO DAILY 05/29/19 [History] DULoxetine [Cymbalta] 60 mg PO DAILY 01/12/20 [History] Pantoprazole Sodium [Protonix] 40 mg PO DAILY 01/12/20 [History] Terbinafine [LamISIL] 250 mg PO DAILY 01/12/20 [History] Acetaminophen/traMADol [Ultracet] 1 tab PO TID 04/21/20 [History] Albuterol [Ventolin HFA] 2 puff INH Q4HR PRN 04/21/20 [History] Albuterol/Ipratropium [DuoNeb 3.0-0.5 MG/3 ML] 3 ml INH QID 04/21/20 [History] Carboxymethylcellulose Sodium [Refresh Tears 0.5%] 1 drop EYEBOTH BID 04/21/20 [History] DULoxetine [Cymbalta] 30 mg PO DAILY 04/21/20 [History] Diphenoxylate HCl/Atropine [Lomotil] 1 each PO QID PRN 04/21/20 [History] Insulin Degludec [Tresiba Flextouch U-200] 100 unit SQ DAILY 04/21/20 [History] Nitroglycerin [Nitrostat] 0.4 mg SL ASDIRECTED PRN 04/21/20 [History] metroNIDAZOLE [metroNIDAZOLE 0.75% Gel] 1 applic TOP BID 04/21/20 [History] traMADol [Ultram] 50 mg PO Q6HR PRN 04/21/20 [History] traMADol [Ultram] 100 mg PO Q8H PRN #15 tablet 05/13/20 [Rx] Cyclobenzaprine [Flexeril] 10 mg PO TID PRN #30 tab 07/01/20 [Rx] Ibuprofen 800 mg PO TID PRN #30 tablet 07/01/20 [Rx] traMADol [Ultram] 100 mg PO TID #15 tab 07/01/20 [Rx] Past Medical History HEENT History: Reports: Cataract, Hard of Hearing, Impaired Vision Cardiovascular History: Reports: Angina, Heart Failure, High Cholesterol, Hypertension, [place], SOB on Exertion, Other (See Below) Other Cardiovascular History: ATYPICAL CHEST PAIN Respiratory History: Reports: Asthma, COPD, Intubation, Previous, Pneumonia, Recurrent, Sleep Apnea, SOB Other Respiratory History: has CPAP Gastrointestinal History: Reports: Cholelithiasis, GERD Genitourinary History: Reports: Urinary Incontinence, Other (See Below) Other Genitourinary History: stress incontinence at times, OAB Other FAMILY ADVOCATE History: , Musculoskeletal History: Reports: Arthritis, Back Pain, Chronic, Osteoarthritis, Osteoporosis Neurological History: Reports: Concussion, Neuropathy, Diabetic Psychiatric History: Reports: Depression Endocrine/Metabolic History: Reports: Diabetes, Type II, Hypothyroidism, Obesity/BMI 30+ Other Hematologic History: ANTICOAGULANT THERAPY Oncologic (Cancer) History: Reports: Ovarian Dermatologic History: Reports: Cellulitis Other Dermatologic History: open infected wound under right abd fold on oral antibiotics - Infectious Disease History Infectious Disease History: Reports: Chicken Pox - Past Surgical History HEENT Surgical History: Reports: Cataract Surgery, Oral Surgery, Other (See Below) Other HEENT Surgeries/Procedures: YAG CAPSULOTOMY GI Surgical History: Reports: Cholecystectomy, Colonoscopy, EGD Other GI Surgeries/Procedures: UPPER ENDOSCOPY Female Surgical History: Reports: Section, Hysterectomy, Salpingo-Oophorectomy, Tubal Ligation Other Female Surgeries/Procedures: Surgery to remove ovarian cancer Other Oncologic Surgeries/Procedures: CYST EXCISION Social & Family History - Family History HEENT: Reports: Cataract Cardiac: Reports: CAD, MO Respiratory: Reports: Asthma, Sleep Apnea : Reports: Diabetic Nephropathy OBGYN: Reports: Musculoskeletal: Reports: Arthritis Endocrine/Metabolic: Reports: Diabetes, Type I, Diabetes, type II, IDDM, Obesity/MBI 30+ Dermatologic: Reports: None Oncologic: Reports: Bone, Breast, Other (See Below) Other Oncologic Family History: heart - Tobacco Use Tobacco Use Status *Q: Current Every Day Tobacco User - Caffeine Use Caffeine Use: Reports: Coffee Other Caffeine Use: daily - Alcohol Use Alcohol Use History: No - Living Situation & Occupation Living situation: Reports: , Assisted Living ([facility]) ED ROS GENERAL - Review of Systems Review Of Systems: See Below Constitutional: Reports: No Symptoms HEENT: Reports: No Symptoms Respiratory: Reports: Wheezing (Chronic wheezing and chronic shortness of breath.) Cardiovascular: Reports: No Symptoms GI/Abdominal: Reports: No Symptoms : Reports: No Symptoms Musculoskeletal: Reports: Hand Pain (Bilateral hand pain and numbness.) Skin: Reports: No Symptoms Neurological: Reports: Numbness (In both hands and both feet), Paresthesia (Both hands) Hematologic/Lymphatic: Reports: No Symptoms Immunologic: Reports: No Symptoms ED EXAM, GENERAL - Physical Exam Exam: See Below Exam Limited By: No Limitations General Appearance: Alert, Mild Distress, Obese, Other (Fluid and appropriate in her conversation.) Eye Exam: Bilateral Eye: EOMI, Normal Inspection Ears: Normal External Exam, Hearing Loss (Essentially deaf. Can only understand by reading lips.) Ear Exam: Bilateral Ear: Auricle Normal Nose: Normal Inspection, Normal Mucosa, No Blood Throat/Mouth: Normal Inspection, Normal Oropharynx, Normal Voice, No Airway Compromise Head: Atraumatic, Normocephalic Neck: Limited Range of Motion (Secondary to pain.), Tender Midline Respiratory/Chest: No Respiratory Distress, No Accessory Muscle Use, Wheezing (Bilaterally) Cardiovascular: Normal Peripheral Pulses, Regular Rate, Rhythm, No Murmur Peripheral Pulses: 2+: Radial (L), Radial (R), Dorsalis Pedis (L), Dorsalis Pedis (R) GI/Abdominal: Normal Bowel Sounds, Soft, Non-Tender, No Mass Back Exam: Normal Inspection, Full Range of Motion Extremities: Normal Inspection, Normal Range of Motion, Normal Capillary Refill, Pedal Edema Neurological: Alert, Oriented, CN II-XII Intact, Normal Cognition, Other (Decreased use of both hands with 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 She also has severe pain with movement or palpation of her hands. Weakness seems to be her distal than proximal with the ability of her to raise both of her arms but they do seem somewhat weak. She also is able to raise both of her legs but they also appear to be symmetrically weak.) Psychiatric: Normal Affect Skin Exam: Warm, Dry, Intact, Normal Color, No Rash Course - Vital Signs Last Recorded V/S: Last Vital Signs Temp Pulse 88 07/01/20 16:30 Resp 16 07/01/20 16:30 BP 138/77 07/01/20 16:30 Pulse Ox 94 L 07/01/20 16:30 - Orders/Labs/Meds Orders: Active Orders 24 hr Category Date Time Status Communication Order [RC] STAT Care 07/01/20 13:51 Active Communication Order [RC] STAT Care 07/01/20 16:51 Active Strong Catheter Insertion [Insert Urinary Catheter] [OM. Care 07/01/20 16:30 Ordered PC] Q24H Urinary Catheter Assessment [RC] QSHIFT Care 07/01/20 16:24 Active Cervical Spine Comp wo Cont [MR] Stat Exams 07/01/20 14:57 Taken CORONAVIRUS COVID-19 FLORIAN [MOLEC] Stat Lab 07/01/20 16:59 Ordered CULTURE URINE [RM] Stat Lab 07/01/20 16:59 Ordered Magnesium Sulfate/Water [Magnesium Sulfate in Water Med 07/01/20 16:24 Active Premix] 2 gm in 50 ml IV ONETIME Sodium Chloride 0.9% [Normal Saline] 1,000 ml Med 07/01/20 16:30 Active IV ASDIRECTED Medication Orders Magnesium Sulfate (Magnesium Sulfate In Water Premix) 2 gm in 50 mls @ 12.5 mls/hr IV ONETIME ONE Stop: 07/01/20 20:23 Last Admin: 07/01/20 16:54 Dose: 12.5 mls/hr Documented by: DANIELLA Sodium Chloride (Normal Saline) 1,000 mls @ 125 mls/hr IV ASDIRECTED [facility] Last Admin: 07/01/20 16:51 Dose: 125 mls/hr Documented by: DANIELLA Labs: Laboratory Tests 07/01/20 07/01/20 07/01/20 Range/Units 14:05 14:05 14:05 WBC 5.3 (3.0-10.3) x10-3/uL RBC 4.76 (3.60-5.20) x10(6)uL Hgb 11.3 L (11.4-15.5) g/dL Hct 37.3 (34.2-48.2) % MCV 78.4 (76.7-100.5) fL MCH 23.8 L (23.9-33.9) pg MCHC 30.3 L (31.9-34.8) g/dL RDW 16.3 (12.3-16.5) % Plt Count 78 L (151-488) x10(3)uL MPV 10.6 (7.1-12.4) fL Neut % (Auto) 71.3 (30.8-76.2) % Lymph % (Auto) 13.8 L (18.4-52.1) % [place] % (Auto) 13.8 (4.4-15.7) % Eos % (Auto) 0.3 L (0.6-8.1) % Baso % (Auto) 0.8 (0.2-1.5) % Neut # (Auto) 3.8 (1.5-6.3) x10-3/uL Lymph # (Auto) 0.7 L (1.0-4.4) x10-3/uL [place] # (Auto) 0.7 (0.3-1.0) x10-3/uL Eos # (Auto) 0.0 (0.0-0.8) x10-3/uL Baso # (Auto) 0.0 (0.0-0.1) x10-3/uL Sodium 142 (135-145) mmol/L Potassium 3.0 L D (3.5-5.3) mmol/L Chloride 100 (100-110) mmol/L Carbon Dioxide 34 H (21-32) mmol/L BUN 9 (7-18) mg/dL Creatinine 0.8 (0.55-1.02) mg/dL Est Cr Clr Drug Dosing TNP Estimated GFR (MDRD) > 60 (>60) BUN/Creatinine Ratio 11.3 (9-20) Glucose 257 H (80-116) mg/dL Calcium 8.2 L (8.6-10.2) mg/dL Magnesium 1.3 L (1.8-2.5) mg/dL Total Bilirubin 0.4 (0.1-1.3) mg/dL AST 25 D (5-25) IU/L ALT 26 D (12-36) U/L Alkaline Phosphatase 99 (56-112) IU/L Creatine Kinase (60-160) IU/L C-Reactive Protein 3.1 H* (0.5-0.9) mg/dL Total Protein 6.3 (6.0-8.0) g/dL Albumin 3.1 L (3.5-5.2) g/dL Globulin 3.2 g/dL Albumin/Globulin Ratio 1.0 Urine Color (YELLOW) Urine Appearance (CLEAR) Urine pH (5.0-6.5) Ur Specific [place] (1.010-1.025) Urine Protein (NEGATIVE) mg/dL Urine Glucose (UA) (NORMAL) mg/dL Urine Ketones (NEGATIVE) mg/dL Urine Occult Blood (NEGATIVE) Urine Nitrite (NEGATIVE) Urine Bilirubin (NEGATIVE) Urine Urobilinogen (NEGATIVE) mg/dL Ur Leukocyte Esterase (NEGATIVE) Urine RBC (0-5) Urine WBC (0-5) Ur Squamous Epith Cells (NS,R,O) Urine Bacteria (NS) 07/01/20 07/01/20 Range/Units 14:05 14:40 WBC (3.0-10.3) x10-3/uL RBC (3.60-5.20) x10(6)uL Hgb (11.4-15.5) g/dL Hct (34.2-48.2) % MCV (76.7-100.5) fL MCH (23.9-33.9) pg MCHC (31.9-34.8) g/dL RDW (12.3-16.5) % Plt Count (151-488) x10(3)uL MPV (7.1-12.4) fL Neut % (Auto) (30.8-76.2) % Lymph % (Auto) (18.4-52.1) % [place] % (Auto) (4.4-15.7) % Eos % (Auto) (0.6-8.1) % Baso % (Auto) (0.2-1.5) % Neut # (Auto) (1.5-6.3) x10-3/uL Lymph # (Auto) (1.0-4.4) x10-3/uL [place] # (Auto) (0.3-1.0) x10-3/uL Eos # (Auto) (0.0-0.8) x10-3/uL Baso # (Auto) (0.0-0.1) x10-3/uL Sodium (135-145) mmol/L Potassium (3.5-5.3) mmol/L Chloride (100-110) mmol/L Carbon Dioxide (21-32) mmol/L BUN (7-18) mg/dL Creatinine (0.55-1.02) mg/dL Est Cr Clr Drug Dosing Estimated GFR (MDRD) (>60) BUN/Creatinine Ratio (9-20) Glucose (80-116) mg/dL Calcium (8.6-10.2) mg/dL Magnesium (1.8-2.5) mg/dL Total Bilirubin (0.1-1.3) mg/dL AST (5-25) IU/L ALT (12-36) U/L Alkaline Phosphatase (56-112) IU/L Creatine Kinase 471 H* (60-160) IU/L C-Reactive Protein (0.5-0.9) mg/dL Total Protein (6.0-8.0) g/dL Albumin (3.5-5.2) g/dL Globulin g/dL Albumin/Globulin Ratio Urine Color Yellow (YELLOW) Urine Appearance Cloudy (CLEAR) Urine pH 5.0 (5.0-6.5) Ur Specific [place] 1.020 (1.010-1.025) Urine Protein 30 H (NEGATIVE) mg/dL Urine Glucose (UA) 250 H (NORMAL) mg/dL Urine Ketones 15 H (NEGATIVE) mg/dL Urine Occult Blood Negative (NEGATIVE) Urine Nitrite Negative (NEGATIVE) Urine Bilirubin Small H (NEGATIVE) Urine Urobilinogen 1 H (NEGATIVE) mg/dL Ur Leukocyte Esterase Large H (NEGATIVE) Urine RBC 5-10 H (0-5) Urine WBC 30-40 H (0-5) Ur Squamous Epith Cells Occasional (NS,R,O) Urine Bacteria Many H (NS) Meds: Medications Generic Name Dose Route Start Last Admin Trade Name Freq PRN Reason Stop Dose Admin Magnesium Sulfate 2 gm in 50 mls @ 12.5 mls/hr 07/01/20 16:24 07/01/20 16:54 Magnesium Sulfate In Water Premix IV 07/01/20 20:23 12.5 mls/hr ONETIME ONE Administration Sodium Chloride 1,000 mls @ 125 mls/hr 07/01/20 16:30 07/01/20 16:51 Normal Saline IV 125 mls/hr ASDIRECTED ABILIO Administration Discontinued Medications Generic Name Dose Route Start Last Admin Trade Name Freq PRN Reason Stop Dose Admin Ceftriaxone Sodium 1 gm 07/01/20 16:25 07/01/20 16:55 Rocephin IVPUSH 07/01/20 16:26 1 gm ONETIME ONE Administration Ketorolac Tromethamine 30 mg 07/01/20 17:01 07/01/20 17:07 Toradol IVPUSH 07/01/20 17:02 30 mg ONETIME ONE Administration Morphine Sulfate 2 mg 07/01/20 17:01 07/01/20 17:10 Morphine IVPUSH 07/01/20 17:02 2 mg ONETIME ONE Administration Ondansetron HCl 4 mg 07/01/20 17:01 07/01/20 17:09 Zofran IVPUSH 07/01/20 17:02 4 mg ONETIME ONE Administration - Radiology Interpretation Free Text/Narrative:: CT scan of head showed no acute abnormality per the radiologist. CT scan of cervical spine showed degenerative disc and degenerative joint disease but no fracture or malalignment. He I'll just. MRI of cervical spine showed severe canal stenosis and cord impingement at the C5-C6 level consistent with myelomalacia/myelopathy. Neurosurgery consultation was recommended. There were also multilevel degenerative changes of the cervical spine. There were bilateral thyroid nodules that should have evaluation for further evaluation on a nonemergent basis. This was per the radiologist at [facility] area - Re-Assessments/Exams Free Text/Narrative Re-Assessment/Exam: 07/01/20 14:45: I discussed the CT findings with the radiologist. It remains neurologically stable with no changes in her hand and arm neurologic findings from previous. The concern is that despite not having any fractures, she could have central cord syndrome and she needs an emergent MRI to rule this in or out. Therefore I will order an MRI of her cervical spine. The patient also has hypomagnesemia and she also appears to have a urinary tract infection again (the urine was quite cloudy and we are awaiting the official results). 07/01/20 16:10: I received a call from the radiologist at [facility] in [place] and he relayed to me that the patient does have severe canal stenosis at the C5-C6 level marked cord impingement and flattening of the spinal cord with evidence of compressive myelomalacia/myelopathy. I will need to call and discussed the patient's case with the neurosurgeon. I will discuss this with the patient. 07/01/20 16:20: I discussed all of this with the patient. He seems to understand and has told me that need to discuss her case with the doctors at [facility] in [place]. She understands that she will need to be transferred to another facility because she will need specially services which are not available at [facility] and she is in agreement with this. 07/01/20 16:40: I discussed the patient's case with Dr. Zafar, neurosurgeon at [facility] in [place], and he agrees he patient has severe compression and most probably has central cord syndrome. He also agrees that the patient will need to be transferred to his facility neurosurgical management. He requests that I place the patient in a hard cervical collar such as a [place] or an [place] collar. He also recommends that I keep the patient at bed rest and that the patient sh ould be transferred to the emergency department so he can evaluate the patient there. He also requests that I discussed the patient's case with the hospitalist. Therefore I did discuss the patient's case with Dr. Christianson, hospitalist at [facility] in [place], and he has agreed to accept the patient in transfer. The patient also has hypomagnesemia and evidence of a UTI. She will be treated with Ceftin 1 g IV and she will also be given 2 g of magnesium IV. She is beginning to complain of more pain in her hands and I will give the patient Toradol 30 mg, morphine 2 mg and Zofran 4 mg IV. She is getting ongoing normal saline IV at 100 mL per hour and I have also arranged for a Strong catheter to be placed as well. Patient will be sent to [facility] in [place] via ground ambulance. Departure - Departure Time of Disposition: 17:45 Disposition: DC/Tfer to Acute Hospital 02 Condition: Fair (Guarded) Clinical Impression: Central cord syndrome at C5 level of cervical spinal cord, initial encounter, Hypomagnesemia UTI (urinary tract infection) Qualifiers: Urinary tract infection type: site unspecified Hematuria presence: with hematuria Qualified Code(s): N39.0 - Urinary tract infection, site not specified - Discharge Information Referrals: PCP,None [Primary Care Provider] - Sepsis Event Note (ED) - Focused Exam Vital Signs: Vital Signs Pulse Resp BP Pulse Ox 07/01/20 16:30 88 16 138/77 94 L - My Orders Last 24 Hours: My Active Orders 07/01/20 13:51 Communication Order [RC] STAT 07/01/20 14:57 Cervical Spine Comp wo Cont [MR] Stat 07/01/20 16:24 Urinary Catheter Assessment [RC] QSHIFT Magnesium Sulfate/Water [Magnesium Sulfate in Water Premix] 2 gm in 50 ml IV ONETIME 07/01/20 16:30 Strong Catheter Insertion [Insert Urinary Catheter] [OM.PC] Q24H Sodium Chloride 0.9% [Normal Saline] 1,000 ml IV ASDIRECTED 07/01/20 16:51 Communication Order [RC] STAT 07/01/20 16:59 CORONAVIRUS COVID-19 FLORIAN [MOLEC] Stat CULTURE URINE [RM] Stat - Assessment/Plan Last 24 Hours: My Active Orders 07/01/20 13:51 Communication Order [RC] STAT 07/01/20 14:57 Cervical Spine Comp wo Cont [MR] Stat 07/01/20 16:24 Urinary Catheter Assessment [RC] QSHIFT Magnesium Sulfate/Water [Magnesium Sulfate in Water Premix] 2 gm in 50 ml IV ONETIME 07/01/20 16:30 Strong Catheter Insertion [Insert Urinary Catheter] [OM.PC] Q24H Sodium Chloride 0.9% [Normal Saline] 1,000 ml IV ASDIRECTED 07/01/20 16:51 Communication Order [RC] STAT 07/01/20 16:59 CORONAVIRUS COVID-19 FLORIAN [MOLEC] Stat CULTURE URINE [RM] Stat
--- NOTE | 2020-07-01 15:51 | CT ---
INDICATION: Head injury with loss of consciousness. CT HEAD WITHOUT CONTRAST: Spiral 3.75 mm axial sections were obtained through the brain without contrast with axial, sagittal and coronal reconstructions 07/01/20 and compared with 05/13/20. Total exam DLP was 1373.85 mGy-cm. The mastoid air cells and paranasal sinuses were fairly well aerated with a few thickened linings in ethmoidal air cells again noted. The orbits appear to be intact. The cranium appears to be intact. No shift of midline structures was identified - no bleeding site or hematoma or other definite acute intracranial abnormality was seen. Ventricles are slightly prominent as previously compatible with mild degree of central atrophy. Patchy decreased density is noted scattered about the white matter compatible with [id number] microvascular disease type changes, although other cause of leukoencephalopathy, cannot be excluded. These findings appear fairly similar to the previous examination. IMPRESSION: 1. Stable CT head without contrast, no acute intracranial abnormality. 2. [id number] white matter changes compatible with microvascular disease with central atrophy noted. Report was called to Dr. Alexander at [address] [facility]
--- NOTE | 2020-07-01 16:09 | CT ---
INDICATION: Neck pain with bilateral hand pain and numbness post head injury. CT CERVICAL SPINE WITHOUT CONTRAST: Spiral 2.5 mm axial sections were obtained through the cervical spine with sagittal and coronal reconstructions 07/01/20 and compared with 05/13/20. Total exam DLP was 1996.25 mGy-cm. Hypertrophic degenerative changes are again noted at the odontoatlantian joint with areas of narrowing of that joint surface and generalized narrowing also. The odontoid was otherwise intact with no evidence of an acute fracture or dislocation of the odontoid or axis. Anteriorly there are bridging hyperostotic changes which appear similar to the previous examination. The atlas appeared to be intact except for osteoarthritic changes at the atlas occipital joints of mild degree. Compared with the previous study, vertebral body heights were fairly well maintained, vertebral alignment appears to be maintained. Decreased disk space is noted at C4-5 with some posterior lateral hypertrophic degenerative changes on the right. Significantly more severe loss of disk space is noted at C5-6 and to a lesser extent C6-7 with hypertrophic degenerative changes anteriorly and posteriorly at C5-6 and mostly anteriorly at C6-7. Neural foraminal impingement is noted at C5-6 bilaterally. At C5-6 there also appears to be mild degree of spinal stenosis. Overall bone density appeared to be grossly normal. Degenerative disk disease is also suggested at C7-T1 with vacuum disk phenomenon in that area. Prevertebral space appeared to be normal. Mild osteoarthritic changes are noted at the lateral masses with hypertrophic spurring noted at C1-2, C2-3, C3-4, and C4-5, but only very minimally below that level. Hypertrophic degenerative changes are noted at the uncinate joints at C5-6 with narrowing hypertrophic change and some subchondral cystic changes at those uncinate joints. Upper lung lucia included on this study were unremarkable. IMPRESSION: 1. No acute fracture or dislocation. 2. Osteoarthritis and degenerative disk disease, multiple levels as noted above with most severe changes C5-6. MRI of the cervical spine may be warranted with this patient's symptoms. Report was called to Dr. Alexander at 1448 hours. [facility]
[2020-07-01] MEDS ORDERED: Magnesium Sulfate/Water 2 GM/50 ML BAG IV ONE (16:24)
[2020-07-01] MEDS ORDERED: cefTRIAXone 1 GM Vial IVPUSH ONE (16:25)
[2020-07-01] MEDS ORDERED: Sodium Chloride 0.9% 1,000 ML IV SCH (16:30)
[2020-07-01] MEDS ORDERED: Morphine 2 MG/ML SYRINGE IVPUSH ONE (17:01)
[2020-07-01] MEDS ORDERED: Ketorolac 30 MG/ML SDV IVPUSH ONE (17:01)
[2020-07-01] MEDS ORDERED: Ondansetron 4 MG/2 ML SDV IVPUSH ONE (17:01)
[2020-07-01 17:34] VITALS: BP 138/77; PULSE 88
== END 2020-07-01 17:45 ==
LOC: FB.ED 12:45
DX: S14.125A Central cord syndrome at C5 level of cervical spinal cord, initial encounter (principal); E83.42 Hypomagnesemia; N39.0 Urinary tract infection, site not specified; R31.9 Hematuria, unspecified; I11.0 Hypertensive heart disease with heart failure; I50.9 Heart failure, unspecified; E78.00 Pure hypercholesterolemia, unspecified; I25.2 Old myocardial infarction; J44.9 Chronic obstructive pulmonary disease, unspecified; K21.9 Gastro-esophageal reflux disease without esophagitis; M19.90 Unspecified osteoarthritis, unspecified site; E11.40 Type 2 diabetes mellitus with diabetic neuropathy, unspecified; F32.9 Major depressive disorder, single episode, unspecified; E03.9 Hypothyroidism, unspecified; F17.200 Nicotine dependence, unspecified, uncomplicated; E66.9 Obesity, unspecified; Z68.41 Body mass index [BMI] 40.0-44.9, adult; Z79.01 Long term (current) use of anticoagulants; Z91.011 Allergy to milk products; Z91.048 Other nonmedicinal substance allergy status; Z88.8 Allergy status to other drugs, medicaments and biological substances; Z79.4 Long term (current) use of insulin; Z79.899 Other long term (current) drug therapy; Z20.828 Contact with and (suspected) exposure to other viral communicable diseases; W22.8XXA Striking against or struck by other objects, initial encounter
CPT/HCPCS: 36415; 51702; 70450; 72125; 72141; 73080-LT; 73502-LT; 73590-LT; 80053; 81001; 82550; 83735; 85025; 86140; 87086; 96365; 96375; 99285-25; A9270-GY; J0696; J1885; J2270; J2405; J3475; J7030; U0002